=== PATIENT | female | born 1965 | race Two or more races ===

== ENCOUNTER 2020-03-18 09:26 | Outpatient (REF) | payer OTHER, SELFPAY ==
[2020-03-19 09:47] LABS: CT PCR NOT DETECTED (Not Detect.); NG PCR NOT DETECTED (Not Detect.)
[2020-03-20 22:57] LABS: HPV mRNA E6/E7 rflx Not Detected (Not Detected)
== END 2020-03-18 09:27 | disposition home or self-care (01) ==
LOC: HO.LAB 09:26
PROVIDERS: PCP Physician Assistant; Referring Provider Physician Assistant; Visit Provider Obstetrics & Gynecology
DX: Z01.419 Encounter for gynecological examination (general) (routine) without abnormal findings (principal); N92.1 Excessive and frequent menstruation with irregular cycle
CPT/HCPCS: 87491; 87591; 87624; 87625; 88142

== ENCOUNTER 2020-04-02 11:38 | Outpatient (REF) | payer OTHER, SELFPAY ==
--- NOTE | 2020-04-02 11:44 | US_ITS ---
EXAMINATION: PELVIC ULTRASOUND CLINICAL INFORMATION: Excessive and frequent menstruation COMPARISON: Previous exam June 2013 TECHNIQUE: Transabdominal and transvaginal pelvic ultrasound. Transvaginal exam was performed for better visualization of the uterus and ovaries. FINDINGS: The uterus is anteverted and measures 10.1 x 6.1 x 6.3 cm in dimension. There is a 1.8 x 1.5 x 1.7 cm subserosal hypoechoic lesion in the posterior body of the uterus suggestive of a small fibroid or adenomyoma. This is decreased from 2.8 x 2.9 x 2 cm on prior exam. The second left anterior uterine body lesion on June 2011 exam is is not appreciated. The central uterus is heterogeneous appearing. The endometrium has ill-defined borders. Appearance is questionable for adenomyomatosis. The endometrium may be thickened, question measuring up to 2.5 cm and it is difficult to exclude a mass. The cervix is normal appearing. The ovaries are normal. The right ovary measures 2.5 x 1.4 x 1.5 cm and the left ovary measures 2.4 x 1.2 x 1.8 cm. There is no fluid in the pelvis. US/US pelvic complete IMPRESSION: Ill-defined endometrium and heterogeneous central uterus. Adenomyosis should be considered. Endometrial thickening or mass cannot be excluded. Follow-up pelvic MRI may be helpful. 1.8 x 1.5 x 1.7 cm posterior uterine body small fibroid or adenomyoma decreased in size from June 2013 exam. Normal-appearing ovaries.
== END 2020-04-02 11:39 | disposition home or self-care (01) ==
LOC: HO.US 11:38
PROVIDERS: Visit Provider Obstetrics & Gynecology
DX: N92.1 Excessive and frequent menstruation with irregular cycle (principal)
CPT/HCPCS: 76830; 76856

== ENCOUNTER → 2020-04-08 11:07 | Outpatient (BNVA) | payer OTHER, SELFPAY | PROVIDERS: Visit Provider Obstetrics & Gynecology | DX: Z76.89 Persons encountering health services in other specified circumstances (principal) ==

== ENCOUNTER 2020-04-10 07:52 | Outpatient (REF) | payer OTHER, SELFPAY ==
[2020-04-10 09:51] LABS: HCG Quantitative < 2 mIU/mL; Thyroid Stimulating Hormone 2.57 uIU/mL (0.32-4.0)
[2020-04-11 06:12] LABS: Follicle Stimulating Hormone 61.3 mIU/mL; Lutenizing Hormone 50.3 mIU/mL
== END 2020-04-10 07:53 | disposition home or self-care (01) ==
LOC: HO.LAB 07:52
PROVIDERS: PCP Internal Medicine; Visit Provider Obstetrics & Gynecology
DX: Z01.419 Encounter for gynecological examination (general) (routine) without abnormal findings (principal); N92.1 Excessive and frequent menstruation with irregular cycle
CPT/HCPCS: 83001; 83002; 84443; 84702

== ENCOUNTER → 2020-04-22 09:52 | Outpatient (BNVA) | payer MEDICAID, SELFPAY | PROVIDERS: Visit Provider Orthopaedic Surgery | DX: M16.11 Unilateral primary osteoarthritis, right hip (principal) | CPT/HCPCS: 99202 ==

== ENCOUNTER 2020-06-07 11:44 | Emergency (ER) | payer MEDICAID, SELFPAY ==
--- NOTE | ~2020-06-07 | XR_ITS ---
EXAMINATION: XR CHEST CLINICAL INFORMATION: SOB and chest pain. COMPARISON: None TECHNIQUE: 2 views of the chest were obtained. FINDINGS: No significant abnormality is noted involving the heart, lungs, mediastinum, bony thorax or soft tissues. XR/XR chest 2V IMPRESSION: Unremarkable chest exam.
[2020-06-07 11:46] VITALS: BP 150/70; PULSE 64; RESP 18; TEMP 36.8; O2SAT 100; BMI 38.7
--- NOTE | 2020-06-07 11:53 | ECG_ITS ---
Test Reason : CP Blood Pressure : / mmHG Vent. Rate : 060 BPM Atrial Rate : 060 BPM P-R Int : 138 ms QRS Dur : 080 ms QT Int : 416 ms P-R-T Axes : 021 -14 033 degrees QTc Int : 416 ms Artifact in tracing Normal sinus rhythm Normal ECG When compared to the previous EKG of 21 jan 2015, no significant change noted. Referred By: Generic ED Physician Electronically Signed By:NAVDEEP HEWITT
[2020-06-07 16:19] VITALS: BP 135/64; PULSE 60; RESP 14; O2SAT 96
--- NOTE | 2020-06-07 16:27 | ED_ITS ---
HPI - Chest Pain General Chief Complaint: Chest Pain Stated Complaint: LOW BLOOD PRESSURE CHEST PAIN Time Seen by Provider: 06/07/20 16:13 Source: patient Mode of arrival: ambulatory Limitations: no limitations History of Present Illness HPI narrative: Patient is a 55-year-old female with a past medical history of hypertension complaining of a low blood pressure. She states she was at her doctor's office 2 days ago where her blood pressure was in the 90s over 40s, her doctor instructed her to stop taking her amlodipine so she did, 2 days ago. She states this morning when she woke up her blood pressure was in the 90s over 40s, she also admits to associated chest pain, shortness of breath. She describes th e chest pain as a pressure and a tingling in the center of her chest. She denies neck pain jaw pain left arm pain numbness or tingling, she denies shortness of breath with exertion. She states she does not have asthma, COPD or smoke cigarettes. She denies any cardiac history. She states she is still taking her metoprolol daily. Patient also states she has been eating and drinking normally for the past few days. Related Data Home Medications Medication Instructions Recorded Confirmed clonazepam 1 mg tablet See Rx Instructions PO DAILY 02/15/20 04/08/20 clonazepam 1 mg tablet 1 mg PO DAILY 02/26/20 04/08/20 oxycodone 15 mg tablet 15 mg PO Q6H PRN 04/22/20 Previous Rx's Medication Instructions Recorded metoprolol succinate 100 mg 100 mg PO DAILY #30 tab 04/03/20 tablet,extended release 24 hr Allergies Allergy/AdvReac Type Severity Reaction Status Date / Time morphine [Morphine] Allergy Intermediate HIVES Verified 06/07/20 11:46 Review of Systems Review of Systems: Yes all other systems are reviewed and are negative [facility] Past Medical History Medical History Anxiety Back problem Hypertension Surgical History Fusion of lumbar spine History of colonoscopy History of lumbar surgery History of tubal ligation Family History Family History Father Suicide Mother Heart disease Diabetes CVD (cardiovascular disease) Maternal Grandmother Heart disease Maternal Grandfather Diabetes Maternal Aunt Heart disease Maternal Uncle Heart disease Social History Social History Alcohol intake: never Smoking Status: Never smoker Use of substances other than those prescribed or required for medical reasons: Yes Substance Use Type: Marijuana Advance Directives: No Advance Directives Information Provided: No Current occupational status: disabled Current occupation: right handed Physical Exam Vital Signs: Vital Signs: Last Vital Signs Temp 98.3 F 06/07/20 17:08 Pulse 61 06/07/20 17:08 Resp 16 06/07/20 17:08 BP 124/52 L 06/07/20 17:08 Pulse Ox 97 06/07/20 17:08 Body Mass Index 38.7 Const: General: cooperative, healthy appearing, comfortable and no acute distress Nutritional Appearance: average body habitus Orientation/consciousness: patient oriented x3 Eyes: General: appearance normal, both eyes and all related structures Neck: Neck: Yes normal visual inspection, Yes full ROM, Yes no lymphadenopathy, Yes trachea midline and Yes supple Chest: Chest palpation & inspection: normal inspection of the chest and abnormal palpation of chest wall (TTP) Resp: Effort & Inspection: normal respiratory effort and able to speak in complete sentences Auscultation: clear to auscultation bilaterally, no crackles, no rales, no rhonchi and no wheezes Cardio: Rate: regular rate Rhythm: regular rhythm Heart sounds: normal S1 and S2 GI: Inspection: Yes obesity Palpation (GI): Soft to palpation, nontender and no guarding Skin: General skin exam: no rashes or lesions noted Neuro: General: patient oriented x3 Extrem: General: Yes normal to inspection, Yes full ROM and Yes no pedal edema Course Course Course Narrative: Patient is a 55-year-old female with a past medical history of hypertension who was taking amlodipine and metoprolol to control her high blood pressure. She went to her doctor's office 2 days ago where she was noted to have lower blood pressure so he recommended she stop the amlodipine, which she did. Today, she states her blood pressure was too low when she woke up in the 90s over 40s. She also admits to chest pain and shortness of breath. EKG was normal sinus rhythm with a rate of 60. Will get regular labs, troponins and monitor patient's blood pressure. VSS Reevaluation(s) Reevaluation #1: Patient stating she now feels dizzy, I examined her ears, both tympanic membranes were completely normal. When I tried to do extraocular eye movement exam, the patient became nauseous. Negative nystagmus , face symmetrical, PERRLA. Will give Zofran and meclizine and reassess. CBC within normal limits, chemistry and troponin still pending. Time: 17:32 Reevaluation #2: Labs are within normal limits, negative troponin, blood pressures have all been within normal limits (or even elevated). Patient states she is feeling better, not dizzy. I explained I was going to give her prescription for meclizine and only to take it when she felt dizzy. She likely has costochondritis as chest pain was reproducible. Time: 18:40 [facility] - Chest Pain Lab Data Result diagrams: 06/07/20 17:03 06/07/20 17:03 Labs: Lab Results 06/07/20 06/07/20 06/07/20 Range/Units 17:03 17:03 17:03 WBC 8.8 (4.8-10.8) X10*3/uL RBC 4.32 (4.20-5.50) X10*6/uL Hgb 13.1 (12.0-16.0) g/dl Hct 40.0 (37-47) % MCV 92.6 (80-98) fL MCH 30.3 (27.0-33.0) pg MCHC 32.8 (31.0-35.0) g/dl RDW 13.2 (11.0-16.0) % Plt Count 284 (160-400) X10*3/uL MPV 10.3 (9.4-12.3) fL Immature Gran % (Auto) 0.2 (0.0-0.4) % Neut % (Auto) 48.6 (45-73) % Lymph % (Auto) 39.7 (20-40) % [place] % (Auto) 5.8 (2-11) % Eos % (Auto) 5.2 H (0-4) % Baso % (Auto) 0.5 (0-2) % Lymph # (Auto) 3.5 (1.2-4.9) X10*3/uL [place] # (Auto) 0.5 (0.1-1.2) X10*3/uL Eos # (Auto) 0.5 H (0.0-0.4) X10*3/uL Baso # (Auto) 0.0 (0.0-0.2) X10*3/uL Abs Immat Gran (auto) 0.02 (0.00-0.03) X10*3/uL Absolute Neuts (auto) 4.3 (2.0-8.3) X10*3/uL Absolute Nucleated RBC 0.000 (0.0-0.012) X10*3/uL Nucleated RBC % (auto) 0.0 (0.0-0.2) /100WBC Sodium 141 (135-145) mmol/L Potassium 4.9 (3.3-5.1) mmol/L Chloride 106 (96-108) mmol/L Carbon Dioxide 27 (22-29) mmol/L Anion Gap 13 (12-20) BUN 18 H (9-16) mg/dL Creatinine 0.83 (0.5-1.4) mg/dL Estim Creat Clear Calc 91.3 Estimated GFR > 60 Random Glucose 96 (60-115) mg/dL Lactic Acid 1.1 (0.5-2.0) mmol/L Calcium 9.2 (8.4-10.2) mg/dL Magnesium 2.2 (1.6-2.6) mg/dL Troponin I High Sens (<3.5-17.0) ng/L 06/07/20 Range/Units 17:03 WBC (4.8-10.8) X10*3/uL RBC (4.20-5.50) X10*6/uL Hgb (12.0-16.0) g/dl Hct (37-47) % MCV (80-98) fL MCH (27.0-33.0) pg MCHC (31.0-35.0) g/dl RDW (11.0-16.0) % Plt Count (160-400) X10*3/uL MPV (9.4-12.3) fL Immature Gran % (Auto) (0.0-0.4) % Neut % (Auto) (45-73) % Lymph % (Auto) (20-40) % [place] % (Auto) (2-11) % Eos % (Auto) (0-4) % Baso % (Auto) (0-2) % Lymph # (Auto) (1.2-4.9) X10*3/uL [place] # (Auto) (0.1-1.2) X10*3/uL Eos # (Auto) (0.0-0.4) X10*3/uL Baso # (Auto) (0.0-0.2) X10*3/uL Abs Immat Gran (auto) (0.00-0.03) X10*3/uL Absolute Neuts (auto) (2.0-8.3) X10*3/uL Absolute Nucleated RBC (0.0-0.012) X10*3/uL Nucleated RBC % (auto) (0.0-0.2) /100WBC Sodium (135-145) mmol/L Potassium (3.3-5.1) mmol/L Chloride (96-108) mmol/L Carbon Dioxide (22-29) mmol/L Anion Gap (12-20) BUN (9-16) mg/dL Creatinine (0.5-1.4) mg/dL Estim Creat Clear Calc Estimated GFR Random Glucose (60-115) mg/dL Lactic Acid (0.5-2.0) mmol/L Calcium (8.4-10.2) mg/dL Magnesium (1.6-2.6) mg/dL Troponin I High Sens < 3.5 (<3.5-17.0) ng/L Discharge Plan Discharge Clinical Impression: Acute costochondritis, Dizziness Patient Disposition: Home, Self-Care Instructions: Costochondritis (ED), Dizziness (ED) Prescriptions: No Action clonazepam [Klonopin] 1 mg tablet See Rx Instructions PO DAILY RF: 0 metoprolol succinate 100 mg tablet extended release 24 hr 100 mg PO DAILY Qty: 30 RF: 2 clonazepam [Klonopin] 1 mg tablet 1 mg PO DAILY RF: 0
[2020-06-07 17:08] VITALS: BP 124/52; PULSE 61; RESP 16; TEMP 36.8; O2SAT 97
[2020-06-07 17:11] LABS: MANUAL DIFF FLAG NO
[2020-06-07 17:15] LABS: Basophils Percent Auto 0.5 % (0-2); Eosinophils Absolute Auto 0.5 X10*3/uL (0.0-0.4); Eosinophils Percent Auto 5.2 % (0-4); Hemoglobin 13.1 g/dl (12.0-16.0); Imm Gran Abs Auto 0.02 X10*3/uL (0.00-0.03); Imm Gran Pct Auto 0.2 % (0.0-0.4); Lymphocytes Absolute Auto 3.5 X10*3/uL (1.2-4.9); Lymphocytes Percent Auto 39.7 % (20-40); Mean Corpuscular HGB Conc 32.8 g/dl (31.0-35.0); Mean Corpuscular Hemoglobin 30.3 pg (27.0-33.0); Mean Corpuscular Volume 92.6 fL (80-98); Mean Platelet Volume 10.3 fL (9.4-12.3); Monocytes Absolute Auto 0.5 X10*3/uL (0.1-1.2); Monocytes Percent Auto 5.8 % (2-11); Neutrophils Absolute Auto 4.3 X10*3/uL (2.0-8.3); Neutrophils Percent Auto 48.6 % (45-73); Platelet Count 284 X10*3/uL (160-400); Red Blood Count 4.32 X10*6/uL (4.20-5.50); Red Cell Distribution Width 13.2 % (11.0-16.0); White Blood Count 8.8 X10*3/uL (4.8-10.8)
--- NOTE | 2020-06-07 17:40 | PC.NURSE ---
pt c/o dizziness, (em, chava) aware.
[2020-06-07] MEDS: Meclizine HCl 25 MG TABLET PO (17:41)
[2020-06-07 17:50] LABS: Lactic Acid 1.1 mmol/L (0.5-2.0)
[2020-06-07 17:54] LABS: Anion Gap 13 (12-20); Blood Urea Nitrogen 18 mg/dL (9-16); Calcium 9.2 mg/dL (8.4-10.2); Carbon Dioxide 27 mmol/L (22-29); Chloride 106 mmol/L (96-108); Creatinine Clr Calc Pharmacy 91.3; Estimated Glomerular Filt Rate > 60; Glucose Random 96 mg/dL (60-115); Magnesium 2.2 mg/dL (1.6-2.6); Potassium 4.9 mmol/L (3.3-5.1); Sodium 141 mmol/L (135-145)
[2020-06-07 18:00] VITALS: BP 133/85; PULSE 61; RESP 16; TEMP 37; O2SAT 100
[2020-06-07 18:01] LABS: Troponin-I High Sensitivity < 3.5 ng/L (<3.5-17.0)
== END 2020-06-07 19:03 | disposition home or self-care (01) ==
PROVIDERS: Physician Assistant; Emergency Provider Emergency Medicine Emergency Medical Services; PCP Internal Medicine
DX: M94.0 Chondrocostal junction syndrome [Tietze] (principal); R42 Dizziness and giddiness; I10 Essential (primary) hypertension
CPT/HCPCS: 36415; 71046; 80048; 83605; 83735; 84484; 85025; 93005; 99283; 99284

== ENCOUNTER 2020-06-10 10:08 | Outpatient (REF) | payer MEDICAID, SELFPAY | END 2020-06-10 10:09 | disposition home or self-care (01) | LOC: HO.LAB 10:08 | PROVIDERS: Visit Provider Obstetrics & Gynecology | DX: N92.1 Excessive and frequent menstruation with irregular cycle (principal) | CPT/HCPCS: 58100; 88305 ==

== ENCOUNTER 2020-06-24 09:40 | Outpatient (REF) | payer MEDICAID, SELFPAY | END 2020-06-24 09:41 | disposition home or self-care (01) | LOC: HO.LAB 09:40 | PROVIDERS: Visit Provider Internal Medicine | DX: Z20.822 Contact with and (suspected) exposure to COVID-19 (principal) | CPT/HCPCS: 36415; C9803; U0003; U0005 ==

== ENCOUNTER 2020-07-16 06:07 | Outpatient (REF) | payer MEDICAID, SELFPAY ==
--- NOTE | ~2020-07-16 | FL_ITS ---
EXAMINATION: XR FLUOROSCOPY WITH IMAGES CLINICAL INFORMATION: Right hip arthritis COMPARISON: None. TECHNIQUE: Fluoroscopy performed by Darleen Arango NP. Fluoroscopy time: 0.3 minutes DAP: 3.6 Gycm2 Images: 1 FINDINGS: Image demonstrates needle placement projecting over the superior lateral femoral acetabular joint. FL/FL guidance in treatment room IMPRESSION: Fluoroscopy guidance for right hip injection.
== END 2020-07-16 06:08 | disposition home or self-care (01) ==
LOC: HO.RADIR 06:07
PROVIDERS: Visit Provider Anesthesiology
DX: M16.11 Unilateral primary osteoarthritis, right hip (principal); I10 Essential (primary) hypertension; F41.9 Anxiety disorder, unspecified; Z88.5 Allergy status to narcotic agent
CPT/HCPCS: 20610; J3300; Q9967

== ENCOUNTER → 2020-07-22 09:38 | Outpatient (BNVA) | payer MEDICAID, SELFPAY | PROVIDERS: PCP Internal Medicine; Visit Provider Obstetrics & Gynecology | DX: N92.1 Excessive and frequent menstruation with irregular cycle (principal); R93.89 Abnormal findings on diagnostic imaging of other specified body structures | CPT/HCPCS: 99212 ==

== ENCOUNTER 2020-07-26 07:18 | Day surgery (SDC) | payer MEDICAID, SELFPAY ==
[2020-07-18 15:12] VITALS: BMI 38.4
--- NOTE | 2020-07-25 09:34 | P.CONAN_ITS ---
Documented by User: Gretel Simmons 07/25/20 09:36 HPI - Anesthesia Eval Consult details Narrative: 55yo F for D&C Diagnostic Hysteroscopy PMFSH Active Problems Active Problems: All Active Problems (Updated 07/18/20 @ 15:12 by Meghna Steven) Well woman exam (Acute) Metrorrhagia (Acute) Thickened endometrium (Acute) Hot flashes (Acute) Osteoarthritis of right hip (Acute) Anxiety (Acute) Hypertension (Acute) Past Medical History Medical History Anxiety Back problem Chronic back pain Depression Hypertension On beta tan at home Family History Family History Father Suicide Mother Heart disease Diabetes CVD (cardiovascular disease) Maternal Grandmother Heart disease Maternal Grandfather Diabetes Maternal Aunt Heart disease Maternal Uncle Heart disease Surgical History Surgical History Fusion of lumbar spine History of colonoscopy History of lumbar surgery History of tubal ligation Social History Social History Are you a primary dog daycare provider to a significant other at home: No Do you presently have visiting nurse or other home services: 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 If so, by whom?: No Advance Directives: No Advance Directives Information Provided: No Advance Directives on File: No Recently lost weight without trying: No Current occupational status: disabled Current occupation: right handed Meds Allergies Allergy/AdvReac Type Severity Reaction Status Date / Time morphine [Morphine] Allergy Intermediate HIVES Verified 07/26/20 07:52 Home Medications Medication Instructions Recorded Confirmed Last Taken Type clonazepam 1 mg tablet See Rx Instructions PO DAILY 02/15/20 07/18/20 Unknown History clonazepam 1 mg tablet 1 mg PO DAILY 02/26/20 07/26/20 07/26/20 07:00 History oxycodone 15 mg tablet 15 mg PO Q6H PRN 04/22/20 07/22/20 Unknown History Exam Exam Date and Time: July 25, 2020 0934 Height,Weight and Vital Signs: Height 5 ft 4 in Weight 101.605 kg Pertinent Lab Results Pertinent Lab Results: Laboratory Tests 06/07/20 06/07/20 17:03 17:03 WBC 8.8 Hgb 13.1 Hct 40.0 Plt Count 284 Sodium 141 Potassium 4.9 Chloride 106 Carbon Dioxide 27 BUN 18 H Creatinine 0.83 Narrative Narrative: EKG 06/2020 Artifact in tracing Normal sinus rhythm Normal ECG When compared to the previous EKG of 21 jan 2015, no significant change noted. Assessment and Plan Assessment Anesthesia Assessment: Chart Reviewed Documented by User: Aarti Lowe 07/26/20 08:08 [facility] Past Medical History Medical History Anxiety Back problem Chronic back pain Depression Hypertension On beta tan at home Family History Family History Father Suicide Mother Heart disease Diabetes CVD (cardiovascular disease) Maternal Grandmother Heart disease Maternal Grandfather Diabetes Maternal Aunt Heart disease Maternal Uncle Heart disease Surgical History Surgical History Fusion of lumbar spine History of colonoscopy History of lumbar surgery History of tubal ligation Social History Social History Are you a primary dog daycare provider to a significant other at home: No Do you presently have visiting nurse or other home services: 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 If so, by whom?: No Advance Directives: No Advance Directives Information Provided: No Advance Directives on File: No Recently lost weight without trying: No Current occupational status: disabled Current occupation: right handed Meds Allergies Allergy/AdvReac Type Severity Reaction Status Date / Time morphine [Morphine] Allergy Intermediate HIVES Verified 07/26/20 07:52 Home Medications Medication Instructions Recorded Confirmed Last Taken Type clonazepam 1 mg tablet See Rx Instructions PO DAILY 02/15/20 07/18/20 Unknown History clonazepam 1 mg tablet 1 mg PO DAILY 02/26/20 07/26/20 07/26/20 07:00 History oxycodone 15 mg tablet 15 mg PO Q6H PRN 04/22/20 07/22/20 Unknown History Exam Airway Mallampati Class: II TM Dist: >3cm Neck ROM: Full Loose/Missing/Broken Teeth: No Heart: RRR Lungs: CTA Assessment and Plan Assessment Anesthesia Assessment: Anesthesia Plan Discussed and Chart Reviewed Final Anesthetic Review NPO: Yes ASA Class: II Final Preanesthetic Review: Meds/Allgs Chart Reviewed, Consent Obtained/Reviewed and Anes Risks/Benef Reviewed Patient Risk: Intermediate Procedure Risk: Low Anesthetic Plan Anesthetic Plan: GA Disposition: Standard PACU
--- NOTE | 2020-07-26 07:32 | MHC.SHP ---
Pre-Procedural Eval Section A The patient is an INPATIENT: No Changes since office visit: No Cold of Flu in the past 2 weeks, No New Medical Problems, No Changes in Medication and No Patient answered all questions The History & Physical has been completed within 30 days and I have reviewed it.: Yes Section B Chief Complaint: Abnormal Finding on Ultrasound Allergies: Allergies Allergy/AdvReac Type Severity Reaction Status Date / Time morphine [Morphine] Allergy Intermediate HIVES Verified 07/22/20 09:53 Plan Diagnosis/Plan: Unchanged I have reviewed the history and physical and performed a pertinent physical examination on my patient. No changes have occurred unless specified.
[2020-07-26 07:42] LABS: UPreg QC Valid YES; Urine Pregnancy NEGATIVE (NEGATIVE)
[2020-07-26 07:50] VITALS: BP 147/69; PULSE 68; RESP 20; TEMP 35.1; O2SAT 99
[2020-07-26] MEDS: Lactated Ringers 1,000 ML 100 ML IVCONT (08:02)
--- NOTE | 2020-07-26 09:38 | PM.OP ---
Brief Operative Note Date of Service: 07/26/20 Pre-op diagnosis: Menorrhagia Post-op diagnosis: other (Normal endometrial and endocervical cavity) Procedure: Hysteroscopy D&C, Polypectomy Surgeon: Castro Perez MD Anesthesia: MAC Estimated blood loss (mL): 0 Pathology: other (Endometrial Scrapping. Polyp) Condition: stable Disposition: PACU
--- NOTE | 2020-07-26 09:40 | P.OP_ITS ---
Operative Note Operative Note Date of Service: 07/26/20 Narrative: Preop Diagnosis: Menorrhagia Operation: Diagnostic Hysteroscopy, Dilataion & Curettage Post Op Diagnosis: normal endometrial and endocervical cavity no evidence of pathology QBL: Minimal Anesthesia: MAC Surgeon: Castro Perez MD Director Export: None Complication: None Pathology: Endometrial Scrapings Procedure: The patient was put in the dorsal lithotomy position, scrubbed, and draped in the usual manner. A sterile speculum was inserted in the patient's vagina. The anterior lip of the cervix was grasped with a single tooth tenaculum. The cervix was dilated up to 5 mm, then the scope was inserted in the patient's uterus. Inspection revealed normal endocervical & endometrial cavity with no evidence of pathology. The scope was taken out of the uterine cavity , then sharp curetting was carried on with no complications. At the end of the procedure, all instruments were taken out of the patient uterine and vaginal cavity. The single tooth tenaculum was removed and homeostasis was assured using pressure. The patient tolerated the procedure well and was transferred to the PACU in a stable condition.
[2020-07-26 09:45] VITALS: BP 101/84; PULSE 69; RESP 16; TEMP 36.1; O2SAT 96
[2020-07-26 09:50] VITALS: BP 101/71; PULSE 71; RESP 16; O2SAT 95
[2020-07-26 09:55] VITALS: BP 111/69; PULSE 66; RESP 16; O2SAT 96
[2020-07-26 10:00] VITALS: BP 111/61; PULSE 62; RESP 16; O2SAT 96
[2020-07-26 10:15] VITALS: BP 107/64; PULSE 56; RESP 16; TEMP 36.5; O2SAT 96
== END 2020-07-26 10:40 | disposition home or self-care (01) ==
PROVIDERS: PCP Internal Medicine; Visit Provider Obstetrics & Gynecology
PROC: 0UDB8ZX Extraction of Endometrium, Via Natural or Artificial Opening Endoscopic, Diagnostic (ICD-10-PCS; CPT 58558; principal; 2020-07-26 09:50)
DX: N92.1 Excessive and frequent menstruation with irregular cycle (principal); R93.89 Abnormal findings on diagnostic imaging of other specified body structures; I10 Essential (primary) hypertension; F32.9 Major depressive disorder, single episode, unspecified; Z79.899 Other long term (current) drug therapy; Z88.8 Allergy status to other drugs, medicaments and biological substances; Z98.51 Tubal ligation status; Z87.891 Personal history of nicotine dependence
CPT/HCPCS: 58558; 81025; 88305; J1100; J2250; J2405; J3010

== ENCOUNTER → 2020-08-08 13:34 | Outpatient (BNVA) | payer MEDICAID, SELFPAY | PROVIDERS: PCP Internal Medicine; Visit Provider Obstetrics & Gynecology ==

== ENCOUNTER → 2020-09-02 09:27 | Outpatient (BNVA) | payer MEDICAID, SELFPAY | PROVIDERS: PCP Internal Medicine; Visit Provider Nurse Practitioner Family | DX: M16.11 Unilateral primary osteoarthritis, right hip (principal); M54.16 Radiculopathy, lumbar region; Z79.899 Other long term (current) drug therapy | CPT/HCPCS: 99212 ==

== ENCOUNTER 2020-09-04 09:59 | Outpatient (REF) | payer MEDICAID, SELFPAY ==
--- NOTE | ~2020-09-04 | US_ITS ---
EXAMINATION: US VENOUS ULTRASOUND WITH DOPPLER LOWER EXTREMITY, RIGHT CLINICAL INFORMATION: Swelling COMPARISON: Previous exam August 2013 TECHNIQUE: Ultrasound of the deep veins is performed from the hip to the calf with compression sonography and color and pulse Doppler assessment. Spectral analysis with color-flow imaging is performed. FINDINGS: There is normal venous compression and respiratory variation and augmented flow. The visualized common femoral vein, superficial femoral vein, profunda femoral vein, popliteal vein, and the trifurcation region shows no evidence of deep venous thrombosis. There is no significant popliteal fossa cyst. US/US venous duplex LE RT IMPRESSION: No DVT demonstrated in the right lower extremity.
== END 2020-09-04 10:00 | disposition home or self-care (01) ==
LOC: HO.HMGCX 09:59
PROVIDERS: Visit Provider Anesthesiology
DX: R60.0 Localized edema (principal); M79.89 Other specified soft tissue disorders
CPT/HCPCS: 93971

== ENCOUNTER 2020-12-17 15:02 | Emergency (ER) | payer MEDICAID, SELFPAY ==
--- NOTE | ~2020-12-17 | XR_ITS ---
EXAMINATION: XR HIP, RIGHT WITH AP PELVIS CLINICAL INFORMATION: Pain status-post fall. COMPARISON: None TECHNIQUE: AP and frog-leg lateral views of the right hip are submitted, together with a frontal view of the pelvis. FINDINGS: Bony alignment and mineralization are normal. There is moderate narrowing of the right acetabular joint space. There is articular surface irregularity and subchondral sclerosis of the right acetabular roof. The right femoral head remains smooth. There is mild cortical thickening at the superior right femoral head and neck junction, suggesting possible femoroacetabular impingement. The left acetabular joint space is well-maintained, and there is mild subchondral sclerosis and peripheral osteophyte formation of the left acetabular roof. The bilateral femoral heads appear smooth. There is orthopedic hardware applied to the right sacroiliac joint and the lower lumbar spine. No soft tissue foreign body is seen. XR/XR hip RT w PEL1V IMPRESSION: Moderate osteoarthritic change is seen of the right hip, and there is mild osteoarthritic change of the left hip. No fracture or dislocation is seen.
[2020-12-17 15:50] VITALS: BP 148/95; PULSE 79; RESP 18; TEMP 36.7; O2SAT 100; BMI 36.6
--- NOTE | 2020-12-17 16:57 | ED_ITS ---
HPI - Fall General Chief Complaint: Fall Stated Complaint: right leg numbness Time Seen by Provider: 12/17/20 16:00 Source: patient Mode of arrival: ambulatory History of Present Illness HPI Narrative: 55-year-old female with a past medical history of anxiety, depression, hypertension, presenting to the ED complaining of acute on chronic right hip pain s/p hip giving out today. Reports feels like hip is out of place, can feel a clicking. Reports hardware is in hip, is awaiting hip replacement. Denies injury/fall. Reports associated numbness/tingling radiating down RLE. Denies weakness, urinary incontinence/retention Takes oxycodone at home for pain MD complaint: other Related Data Home Medications Medication Instructions Recorded Confirmed clonazepam 1 mg tablet (Klonopin) See Rx Instructions PO DAILY 02/15/20 08/08/20 clonazepam 1 mg tablet (Klonopin) 1 mg PO DAILY 02/26/20 08/08/20 oxycodone 15 mg tablet 15 mg PO Q6H PRN 04/22/20 09/02/20 Previous Rx's Medication Instructions Recorded meclizine 12.5 mg tablet 12.5 mg PO BID PRN #14 tab 06/07/20 metoprolol succinate 100 mg 100 mg PO DAILY #30 tab 06/23/20 tablet,extended release 24 hr venlafaxine 75 mg capsule,extended 75 mg PO DAILY #90 cap 07/15/20 release 24 hr cyclobenzaprine 5 mg tablet 5 mg PO Q8H PRN 5 Days #14 tab 12/17/20 lidocaine 5 % topical patch 1 patch TOPICAL DAILY PRN #30 ea 12/17/20 (Lidoderm) MDD remove after 12 hours naproxen 500 mg tablet 500 mg PO BID PRN 10 Days #20 tab 12/17/20 Allergies Allergy/AdvReac Type Severity Reaction Status Date / Time morphine [Morphine] Allergy Intermediate HIVES Verified 12/17/20 15:50 Review of Systems Review of Systems: Constitutional: No Fever, No Chills Cardiovascular: No Chest Pain, No SOB Respiratory: No Cough Gastrointestinal: No Nausea, No Abdominal pain Genitourinary: No Urinary Incontinence/retention Musculoskeletal: + joint pain, No Myalgias, No Joint Swelling Skin: No Skin Lesions, No rash Neuro: No Weakness, + Numbness, + Paresthesias Yes all other systems are reviewed and are negative PMFSH Past Medical History Attestation statement: The following information was validated with the patient. Medical History Anxiety Back problem Chronic back pain Depression Hypertension On beta tan at home Surgical History Fusion of lumbar spine History of colonoscopy History of lumbar surgery History of tubal ligation Family History Family History Father Suicide Mother Heart disease Diabetes CVD (cardiovascular disease) Maternal Grandmother Heart disease Maternal Grandfather Diabetes Maternal Aunt Heart disease Maternal Uncle Heart disease Social History Social History Are you a primary special needs caregiver to a significant other at home: No Do you presently have visiting nurse or other home services: Yes ([employer]) Alcohol intake: never Substance Use Type: Marijuana Advance Directives: No Advance Directives Information Provided: No Patient : No Current occupational status: disabled Current occupation: right handed Physical Exam Vital Signs: Vital Signs: Last Vital Signs Temp 98.0 F 12/17/20 15:50 Pulse 79 12/17/20 15:50 Resp 18 12/17/20 15:50 BP 148/95 H 12/17/20 15:50 Pulse Ox 100 12/17/20 15:50 Body Mass Index 36.6 Const: General: cooperative and healthy appearing Orientation/consciousness: patient oriented x3 Limitations: no limitations HENMT: Head: Yes normal to inspection Ears: hearing grossly normal bilaterally General nose exam: Normal external nose present Face and sinus: Yes normal facial exam Eyes: General: appearance normal, both eyes and all related structures EOM: EOMs intact bilaterally Neck: Neck: Yes normal visual inspection Resp: Effort & Inspection: normal respiratory effort and no respiratory distress Cardio: Rate: regular rate Peripheral pulses: dorsalis pedis present GI: Inspection: Yes normal to inspection Palpation (GI): Soft to palpation, nontender, no guarding and not rigid Back/Spine/Pelvis: Other: No midline thoracic/lumbar spinous tenderness/step- off Skin: Rashes: no rashes Wounds: no wounds Neuro: General: patient oriented x3 Gait exam (Neuro): Normal gait present Extrem: Other: Right hip tenderness to palpation. Limited external rotation secondary to pain. Neurovascularly intact distally. No appreciable ecchymosis/erythema or cellulitis. No deformity General: Yes normal to inspection Course Course Course Narrative: XR hip RT w PEL1V IMPRESSION: Moderate osteoarthritic change is seen of the right hip, and there is mild osteoarthritic change of the left hip. No fracture or dislocation is seen. >> results discussed with patient including needed follow-up with Orthopedics. MDM - Fall MDM Narrative Medical decision making narrative: 55-year-old female with a past medical history of anxiety, depression, hypertension, presenting to the ED complaining of acute on chronic right hip pain s/p hip giving out today. On exam VSS, NAD/well-appearing, physical exam as above. Concern for MSK pain vs OA vs ? Fracture or dislocation although lower on differential Plan: X-rays Medical Records Attestation: I reviewed the patient's medical records. Discharge Plan Discharge Clinical Impression: Osteoarthritis Patient Disposition: Home, Self-Care Instructions: Osteoarthritis (ED) Additional Instructions: Your x-ray shows osteoarthritis You need to follow-up with orthopedics, likely for your planned hip replacement Continue taking previously prescribed oxycodone for pain, in addition Flexeril is a muscle relaxer, take at night as it makes you drowsy, do not drive, drink alcohol, or operate machinery while taking it Naproxen as an anti-inflammatory / pain medication, take with food Lidoderm patches are numbing patches, apply to painful area In addition take Tylenol at home If symptoms persist or worsen, pain becomes unbearable, you developed urinary retention or incontinence, or weakness return to the ED Prescriptions: New lidocaine [Lidoderm] 5 % adhesive patch,medicated 1 patch topical DAILY MDD remove after 12 hours PRN (Reason: pain) Qty: 30 RF: 0 naproxen 500 mg tablet 500 mg PO BID PRN (Reason: pain) 10 Days Qty: 20 RF: 0 cyclobenzaprine 5 mg tablet 5 mg PO Q8H PRN (Reason: pain (scale score 7-10)) 5 Days Qty: 14 RF: 0 No Action clonazepam [Klonopin] 1 mg tablet See Rx Instructions PO DAILY RF: 0 metoprolol succinate 100 mg tablet extended release 24 hr 100 mg PO DAILY Qty: 30 RF: 6 venlafaxine 75 mg capsule,extended release 24hr 75 mg PO DAILY Qty: 90 RF: 3 meclizine 12.5 mg tablet 12.5 mg PO BID PRN (Reason: dizziness) Qty: 14 RF: 0 clonazepam [Klonopin] 1 mg tablet 1 mg PO DAILY RF: 0 oxycodone 15 mg tablet 15 mg PO Q6H PRN (Reason: Pain) RF: 0 Referrals: Will Waldron MD [Physician] - 3 days
--- NOTE | 2020-12-17 17:27 | PC.NURSE ---
PT SEEN AND EVALUATED BY MJ BARILLAS. PT AWAKE, ALERT AND ORIENTED X 3. SKIN WARM AND DRY. RESP UNLABORED. DENIES N/V. PT SITTING IN WHEELCHAIR. PLAN IS FOR DC HOME WITH ORTHO F/U AND MEDS SENT TO PHARMACY. PT AWARE AND AGREEABLE TO PLAN.
== END 2020-12-17 17:31 | disposition home or self-care (01) ==
PROVIDERS: Emergency Provider Emergency Medicine
DX: M16.11 Unilateral primary osteoarthritis, right hip (principal); I10 Essential (primary) hypertension; Z79.891 Long term (current) use of opiate analgesic
CPT/HCPCS: 73502; 99282; 99283

== ENCOUNTER → 2020-12-26 11:03 | Outpatient (BNVA) | payer MEDICAID, SELFPAY | PROVIDERS: PCP Internal Medicine; Visit Provider Orthopaedic Surgery | DX: M16.11 Unilateral primary osteoarthritis, right hip (principal) | CPT/HCPCS: 99212 ==

== ENCOUNTER 2021-03-18 11:42 | Outpatient (REF) | payer MEDICAID, SELFPAY | END 2021-03-18 11:43 | disposition home or self-care (01) | LOC: HO.LAB 11:42 | PROVIDERS: Visit Provider Internal Medicine | DX: Z20.822 Contact with and (suspected) exposure to COVID-19 (principal) | CPT/HCPCS: C9803; U0003; U0005 ==

== ENCOUNTER 2021-04-18 10:22 | Outpatient (REF) | payer MEDICAID, SELFPAY | END 2021-04-18 10:23 | disposition home or self-care (01) | LOC: HO.LAB 10:22 | PROVIDERS: Visit Provider Internal Medicine | DX: Z20.822 Contact with and (suspected) exposure to COVID-19 (principal) | CPT/HCPCS: C9803; U0003; U0005 ==

== ENCOUNTER → 2021-05-13 13:08 | Outpatient (BNVA) | payer MEDICAID, SELFPAY | PROVIDERS: Visit Provider Orthopaedic Surgery | DX: Z01.812 Encounter for preprocedural laboratory examination (principal); Z01.810 Encounter for preprocedural cardiovascular examination ==

== ENCOUNTER → 2021-05-28 10:44 | Outpatient (BNVA) | payer MEDICAID, SELFPAY | PROVIDERS: PCP Internal Medicine; Visit Provider Surgery | DX: L76.82 Other postprocedural complications of skin and subcutaneous tissue (principal) | CPT/HCPCS: 99202 ==

== ENCOUNTER → 2021-06-05 10:40 | Outpatient (BNVA) | payer MEDICAID, SELFPAY | PROVIDERS: Visit Provider Physician Assistant | DX: Z01.818 Encounter for other preprocedural examination (principal); M16.11 Unilateral primary osteoarthritis, right hip; M54.16 Radiculopathy, lumbar region | CPT/HCPCS: 99212 ==

== ENCOUNTER 2021-06-10 09:07 | Inpatient (IN) | payer MEDICAID, SELFPAY ==
--- NOTE | 2021-05-16 | ECG_ITS ---
Test Reason : preop Blood Pressure : / mmHG Vent. Rate : 072 BPM Atrial Rate : 072 BPM P-R Int : 122 ms QRS Dur : 076 ms QT Int : 388 ms P-R-T Axes : 028 -13 040 degrees QTc Int : 424 ms Artifact in tracing Normal sinus rhythm Likely normal EKG When compared with ECG of 07-JUN-2020 11:59, No significant changes seen Referred By: Will Waldron Electronically Signed By:NAVDEEP HEWITT
[2021-05-16 12:13] VITALS: BP 145/95; PULSE 70; RESP 18; O2SAT 98; BMI 37.4
[2021-05-16 13:23] LABS: MANUAL DIFF FLAG NO
[2021-05-16 13:29] LABS: Basophils Absolute Auto 0.1 X10*3/uL (0.0-0.2); Basophils Percent Auto 0.5 % (0-2); Eosinophils Absolute Auto 0.6 X10*3/uL (0.0-0.4); Eosinophils Percent Auto 5.2 % (0-4); Hematocrit 43.9 % (37.0-47.0); Hemoglobin 14.2 g/dl (12.0-16.0); Imm Gran Abs Auto 0.05 X10*3/uL (0.00-0.03); Imm Gran Pct Auto 0.5 % (0.0-0.4); Lymphocytes Absolute Auto 3.4 X10*3/uL (1.2-4.9); Lymphocytes Percent Auto 30.3 % (20-40); Mean Corpuscular HGB Conc 32.3 g/dl (31.0-35.0); Mean Corpuscular Hemoglobin 31.1 pg (27.0-33.0); Mean Corpuscular Volume 96.3 fL (80.0-98.0); Mean Platelet Volume 10.1 fL (9.4-12.3); Monocytes Absolute Auto 0.9 X10*3/uL (0.1-1.2); Monocytes Percent Auto 7.8 % (2-11); Neutrophils Absolute Auto 6.2 x10*3/uL (2.0-8.3); Neutrophils Percent Auto 55.7 % (45-73); Platelet Count 278 X10*3/uL (160-400); Red Blood Count 4.56 X10*6/uL (4.20-5.50); Red Cell Distribution Width 13.6 % (11.0-16.0); White Blood Count 11.1 X10*3/uL (4.8-10.8)
[2021-05-16 13:57] LABS: Anion Gap 12 (12-20); Blood Urea Nitrogen 18 mg/dL (9-16); Calcium 9.6 mg/dL (8.4-10.2); Carbon Dioxide 26 mmol/L (22-29); Chloride 107 mmol/L (96-108); Creatinine Clr Calc Pharmacy 72.7; Estimated Glomerular Filt Rate 57; Glucose Random 99 mg/dL (60-115); Potassium 4.6 mmol/L (3.3-5.1); Sodium 140 mmol/L (135-145)
[2021-06-05 13:36] LABS: MRSA Nasal PCR NEGATIVE (Negative); SA Nasal PCR POSITIVE (Negative)
--- NOTE | 2021-06-09 11:05 | P.CONAN_ITS ---
Documented by User: Gretel Simmons NP 06/09/21 11:07 HPI - Anesthesia Eval Consult details Narrative: 56yo F for Right Hip Total Replacement PCP cleared *Morphine allergy* PMFSH Active Problems Active Problems: All Active Problems (Updated 06/05/21 @ 10:50 by Viv Mayorga RN) Preop testing (Acute) Incisional pain (Acute) Well woman exam (Acute) Metrorrhagia (Acute) Thickened endometrium (Acute) Hot flashes (Acute) Osteoarthritis of right hip (Acute) Swelling of thigh (Acute) Lumbar radiculopathy, right (Acute) Anxiety (Acute) Hypertension (Acute) Past Medical History Medical History Anxiety Back problem Chronic back pain Depression Failed back syndrome GERD (gastroesophageal reflux disease) Hypertension Incisional pain On beta tan at home Family History Family History Father Suicide Mother Heart disease Diabetes CVD (cardiovascular disease) Maternal Grandmother Heart disease Maternal Grandfather Diabetes Maternal Aunt Heart disease Maternal Uncle Heart disease Surgical History Surgical History Fusion of lumbar spine History of colonoscopy History of hip surgery History of lumbar surgery History of tubal ligation Hx of dilation and curettage Social History Social History Are you a primary healthcare market consultant to a significant other at home: No Do you presently have visiting nurse or other home services: Yes ([employer]ING [employer]ER 2 hours daily-[employer]) Alcohol intake: never Patient Tobacco Use Status: Former Tobacco user Quit Date: 2011 Tobacco use type: Cigarette Use of substances other than those prescribed or required for medical reasons: Yes Substance Use Type: Marijuana Substance Use Frequency: Daily Have you been hit, kicked, punched, or otherwise hurt by someone within the past year? If so, by whom?: No Spiritual Healthcare Practices: none Confucianist Healthcare Practices: none Cultural Healthcare Practices: none Are you DNR?: No Advance Directives: No Advance Directives Information Provided: Yes Advance Directives on File: No Recently lost weight without trying: No Nutrition Risks: No Nutritional Risk Patient : No FDLMP: 10/2020 : No Poor oral hygiene: No Current occupational status: disabled Current occupation: right handed Meds Allergies Allergy/AdvReac Type Severity Reaction Status Date / Time morphine [Morphine] Allergy Intermediate HIVES Verified 06/05/21 10:46 Home Medications Medication Instructions Recorded Confirmed Last Taken Type clonazepam 1 mg tablet (Klonopin) 1 mg PO BEDTIME PRN 02/26/20 05/28/21 07/26/20 07:00 History betamethasone dipropionate 0.05 % 1 appl TOPICAL BID 05/15/21 06/10/21 Unknown History topical ointment cholecalciferol (vitamin D3) 25 25 mcg PO DAILY 05/15/21 05/28/21 Unknown History mcg (1,000 unit) tablet (Vitamin D3) ibuprofen 800 mg tablet 800 mg PO Q8H PRN 05/15/21 05/28/21 Unknown History omeprazole 20 mg capsule,delayed 1 cap PO DAILY PRN 05/16/21 05/28/21 06/10/21 History release duloxetine 30 mg capsule,delayed 1 cap PO DAILY 06/10/21 06/10/21 Unknown History release oxycodone 15 mg tablet 1 tab PO TID PRN 06/10/21 06/10/21 06/10/21 History Exam Exam Date and Time: June 09, 2021 1105 Height,Weight and Vital Signs: Height 5 ft 4 in Weight 98.883 kg Last Vital Signs Pulse 70 05/16/21 12:13 Resp 18 05/16/21 12:13 BP 145/95 H 05/16/21 12:13 Pulse Ox 98 05/16/21 12:13 Pertinent Lab Results Pertinent Lab Results: Laboratory Tests 05/16/21 05/16/21 05/16/21 12:30 13:22 13:22 WBC 11.1 H RBC 4.56 Hgb 14.2 Hct 43.9 MCV 96.3 MCH 31.1 MCHC 32.3 RDW 13.6 Plt Count 278 MPV 10.1 Immature Gran % (Auto) 0.5 H Neut % (Auto) 55.7 Lymph % (Auto) 30.3 [place] % (Auto) 7.8 Eos % (Auto) 5.2 H Baso % (Auto) 0.5 Lymph # (Auto) 3.4 [place] # (Auto) 0.9 Eos # (Auto) 0.6 H Baso # (Auto) 0.1 Abs Immat Gran (auto) 0.05 H Absolute Neuts (auto) 6.2 Absolute Nucleated RBC 0.000 Nucleated RBC % (auto) 0.0 Sodium 140 Potassium 4.6 Chloride 107 Carbon Dioxide 26 Anion Gap 12 BUN 18 H Creatinine 1.01 Estim Creat Clear Calc 72.7 Estimated GFR 57 Random Glucose 99 Calcium 9.6 Nasal Screen MRSA (PCR) TNP Nasal S. aureus Screen TNP Nasal MRSA/S.aureus Interp TNP Blood Type Antibody Screen 06/05/21 06/05/21 10:20 12:02 WBC RBC Hgb Hct MCV MCH MCHC RDW Plt Count MPV Immature Gran % (Auto) Neut % (Auto) Lymph % (Auto) [place] % (Auto) Eos % (Auto) Baso % (Auto) Lymph # (Auto) [place] # (Auto) Eos # (Auto) Baso # (Auto) Abs Immat Gran (auto) Absolute Neuts (auto) Absolute Nucleated RBC Nucleated RBC % (auto) Sodium Potassium Chloride Carbon Dioxide Anion Gap BUN Creatinine Estim Creat Clear Calc Estimated GFR Random Glucose Calcium Nasal Screen MRSA (PCR) NEGATIVE Nasal S. aureus Screen POSITIVE A Nasal MRSA/S.aureus Interp SEE NOTE Blood Type A Positive Antibody Screen NEGATIVE Narrative Narrative: EKG 05/2021 Vent. Rate : 072 BPM ? ? Atrial Rate : 072 BPM ?? P-R Int : 122 ms? QRS Dur : 076 ms ? ? QT Int : 388 ms ? ? ? P-R-T Axes : 028 -13 040 degrees ?? QTc Int : 424 ms ? Artifact in tracing Normal sinus rhythm Likely normal EKG When compared with ECG of 07-JUN-2020 11:59, No significant changes seen Assessment and Plan Assessment Anesthesia Assessment: Chart Reviewed Documented by User: Sukhdev Hurtado MD 06/10/21 10:56 [facility] Past Medical History Medical History Anxiety Back problem Chronic back pain Depression Failed back syndrome GERD (gastroesophageal reflux disease) Hypertension Incisional pain On beta tan at home Family History Family History Father Suicide Mother Heart disease Diabetes CVD (cardiovascular disease) Maternal Grandmother Heart disease Maternal Grandfather Diabetes Maternal Aunt Heart disease Maternal Uncle Heart disease Family history of problems with anesthesia: No Surgical History Surgical History Fusion of lumbar spine History of colonoscopy History of hip surgery History of lumbar surgery History of tubal ligation Hx of dilation and curettage History of Problems with Anesthesia: No Social History Social History Are you a primary healthcare market consultant to a significant other at home: No Do you presently have visiting nurse or other home services: Yes ([employer] 2 hours daily-[employer]) Alcohol intake: never Patient Tobacco Use Status: Former Tobacco user Quit Date: 2011 Tobacco use type: Cigarette Use of substances other than those prescribed or required for medical reasons: Yes Substance Use Type: Marijuana Substance Use Frequency: Daily Have you been hit, kicked, punched, or otherwise hurt by someone within the past year? If so, by whom?: No Spiritual Healthcare Practices: none Confucianist Healthcare Practices: none Cultural Healthcare Practices: none Are you DNR?: No Advance Directives: No Advance Directives Information Provided: Yes Advance Directives on File: No Recently lost weight without trying: No Nutrition Risks: No Nutritional Risk Patient : No FDLMP: 10/2020 : No Poor oral hygiene: No Current occupational status: disabled Current occupation: right handed Meds Allergies Allergy/AdvReac Type Severity Reaction Status Date / Time morphine [Morphine] Allergy Intermediate HIVES Verified 06/05/21 10:46 Home Medications Medication Instructions Recorded Confirmed Last Taken Type clonazepam 1 mg tablet (Klonopin) 1 mg PO BEDTIME PRN 02/26/20 05/28/21 07/26/20 07:00 History betamethasone dipropionate 0.05 % 1 appl TOPICAL BID 05/15/21 06/10/21 Unknown History topical ointment cholecalciferol (vitamin D3) 25 25 mcg PO DAILY 05/15/21 05/28/21 Unknown History mcg (1,000 unit) tablet (Vitamin D3) ibuprofen 800 mg tablet 800 mg PO Q8H PRN 05/15/21 05/28/21 Unknown History omeprazole 20 mg capsule,delayed 1 cap PO DAILY PRN 05/16/21 05/28/21 06/10/21 History release duloxetine 30 mg capsule,delayed 1 cap PO DAILY 06/10/21 06/10/21 Unknown Hist ory release oxycodone 15 mg tablet 1 tab PO TID PRN 06/10/21 06/10/21 06/10/21 History Exam Airway Mallampati Class: II TM Dist: >3cm Loose/Missing/Broken Teeth: Yes Assessment and Plan Assessment Anesthesia Assessment: Anesthesia Plan Discussed Final Anesthetic Review Family History of Problems with Anesthesia: No History of Problems with Anesthesia: No NPO: Yes ASA Class: III Final Preanesthetic Review: No Changes in Pt Med Stat, Meds/Allgs Chart Reviewed, Consent Obtained/Reviewed and Anes Risks/Benef Reviewed Patient Risk: Intermediate Procedure Risk: Intermediate Anesthetic Plan Anesthetic Plan: GA Disposition: Standard PACU
[2021-06-10] VITALS (18 sets, daily range): BP systolic 110–176; BP diastolic 54–94; PULSE 64–75; RESP 16–22; TEMP 36.1–37.1; O2SAT 95–100
--- NOTE | ~2021-06-10 | XR_ITS ---
EXAMINATION: XR PELVIS CLINICAL INFORMATION: Post right hip replacement COMPARISON: Previous x-ray December 2020 TECHNIQUE: AP view of the pelvis. FINDINGS: There is a new right hip replacement in satisfactory position. No fracture or dislocation is seen. There is mild mild arthritis at the left hip joint. There is orthopedic hardware across the superior right sacroiliac joint. There are surgical hardware in the lower lumbar spine. XR/XR pelvis 1-2V IMPRESSION: Satisfactory appearance of right hip replacement.
[2021-06-10] MEDS: oxyCODONE HCl ER 10 MG TAB.ER.12H PO ×2 (09:22→21:19)
[2021-06-10] MEDS: Lactated Ringers 1,000 ML 100 ML IVCONT (09:47)
[2021-06-10 10:00] LABS: COVID-19 Test Negative (Negative)
--- NOTE | 2021-06-10 13:10 | PM.OP ---
Brief Operative Note Date of Service: 06/10/21 Pre-op diagnosis: right hip OA Post-op diagnosis: same Procedure: Right JOSE LUIS Implants: Gee Trident2 52/ 20 deg liner [place] Accolade2 #3 132 deg wiht +5 36 ceramic femoral head Surgeon: Will Waldron MD Anesthesia: GETA and local Was an Thermostatic Controls Supervisor used for this Procedure?: Yes Thermostatic Controls Supervisor: Eugenie Maurice Estimated blood loss (mL): 150 IV fluids (mL): 1,000 Pathology: other Condition: stable Disposition: PACU
--- NOTE | 2021-06-10 13:16 | P.OP_ITS ---
Operative Note Operative Note Date of Service: 06/10/21 Narrative: Date of Service: 06/10/21 Pre-op diagnosis: right hip OA Post-op diagnosis: same Procedure: Right JOSE LUIS Implants: [place] Trident2 52/ 20 deg liner Gee Accolade2 #3 132 deg wiht +5 36 ceramic femoral head Surgeon: Will Waldron MD Anesthesia: GETA and local Was an Dispensing Operator used for this Procedure?: Yes Dispensing Operator: Eugenie Maurice Estimated blood loss (mL): 150 IV fluids (mL): 1,000 Pathology: other Condition: stable Disposition: PACU Procedure in detail: Patient was brought into the operating room and placed in the left lateral decubitus position. All bony prominences were well padded and the limb was prepped and draped in standard sterile fashion. Time-out was called to identify proper site procedure proper surgeon IV antibiotics and 1 g of transaxemic acid were administered. I began by making a curvilinear incision over the posterolateral aspect of the greater trochanter. Dissection was taken down to the tensor fascia which was incised in line with the incision and a Charnley retractor was placed. Cautery was used to maintain hemostasis. The hip was internally rotated and the external rotators were identified. The vessels were cauterized and a full-thickness capsular/external rotator layer was developed starting just proximal to the piriformis. This layer was tagged and a dull Hohmann retractor was placed underneath the neck in the hip was dislocated. The head was eburnated. A neck cut was made 1 cm proximal to the lesser trochanter and the head and neck were removed and measured as a 47mm on the back table. I started with a 44 reamer and sequentially reamed up to a size 52 and impacted a 52 at approximately 45 degrees of inclination and 25 degrees of version. I placed two acetabular screws using standard AO technique. I then placed a 20 deg posterior lipped liner and turned my attention to the femur. I identified the piriformis insertion and used this as a starting point for my dana cutter. The medius tendon was protected with a Hibs retractor. I then used a Charnley awl to identify the canal and a curved curette to remove the lateral bone. I irrigated copiously. I then sequentially broached in the patient's natural version to a size #3 and placed my trial implants. Using a trail head I took the hip through range of motion. I was very satisfied with the stability and length using a 132 deg + 5 36 head/ Therefore I removed all instrumentation and copiously irrigated. I placed my final femoral implant and again took the hip through range of motion and was satisfied with the stability and length. The +5 head was impacted in place. I then irrigated for 3 minutes with iodine and placed 1 g of local tranaxemic acid. I then performed a capsular closure with 2.0 fiberwire, Jordy's fascia with 0 Vicryl, subcuticular with 2-0 Vicryl and the skin with saima. Patient was placed into a sterile dressing. Radiographs were obtained at the completion of the case and I was satisfied with the component position. Patient was extubated brought to the recovery room in stable condition.
[2021-06-10] MEDS: HYDROmorphone HCl 0.5 MG/0.5 ML SYRINGE IVPUSH ×4 (13:31→14:11)
[2021-06-10] MEDS: Ketorolac Tromethamine 30 MG/ML VIAL IVPUSH (13:40)
[2021-06-10] MEDS: oxyCODONE HCl Immed Release 5 MG TABLET PO (13:41)
[2021-06-10] MEDS: Dextrose 5 % and 0.45 % NaCl 1,000 ML 80 ML IVCONT (15:44)
[2021-06-10] MEDS: ceFAZolin Sodium/Dextrose,Iso 2 GM/50 ML PIGGYBACK IV (17:24)
--- NOTE | 2021-06-10 18:08 | HO.PM.IMCN ---
History of Present Illness Data of Consult Service Date: 06/10/21 Requesting physician: Will Waldron Primary Care Provider: Unknown Physician HPI 56 year old women admitted by orthopedic surgery and is status post right hip arthroplasty. Her pain is well controlled at this time. She has been able to eat and drink without nausea or vomiting. Her vital signs are stable. She has no acute medical complaints at this time. Review of Systems Review of Systems: Denies any recent fever chills or decrease in appetite respiratory denies any shortness of breath coverage production cardiovascular denies chest pain gastrointestinal denies any dysphagia abdominal pain nausea vomiting or diarrhea genitourinary denies any dysuria frequency or hematuria musculoskeletal right hip minimal pain neuropsych denies any weakness or seizures all other systems reviewed are negative [facility] Medical History (Updated 06/10/21 @ 18:11 by Renee Mark NP) Anxiety Chronic back pain Depression GERD (gastroesophageal reflux disease) Hypertension Family History Father Suicide Mother Heart disease Diabetes CVD (cardiovascular disease) Maternal Grandmother Heart disease Maternal Grandfather Diabetes Maternal Aunt Heart disease Maternal Uncle Heart disease Surgical History (Updated 06/10/21 @ 14:01 by Viv Mayorga RN) Fusion of lumbar spine History of colonoscopy History of hip surgery History of lumbar surgery History of tubal ligation Hx of dilation and curettage Social History Household Members: Spouse Housing: Apartment Are you a primary child caregiver private home to a significant other at home: No Do you presently have visiting nurse or other home services: No Alcohol intake: never Patient Tobacco Use Status: Former Tobacco user Quit Date: 2011 Tobacco use type: Cigarette Use of substances other than those prescribed or required for medical reasons: Yes Substance Use Type: Marijuana Substance Use Frequency: Daily Last Used Substance: Just Prior to Admission Currently Displaying Signs/Symptoms of Drug Intoxication Withdrawal: No Any prior treatment program specific to substance use: No Have you been hit, kicked, punched, or otherwise hurt by someone within the past year? If so, by whom?: No Do you feel safe in your current relationship?: Yes Is there a partner from a previous relationship who is making you feel unsafe now?: No Spiritual Healthcare Practices: none Protestant Healthcare Practices: hinduism Cultural Healthcare Practices: none Are you DNR?: No Advance Directives: No Advance Directives Information Provided: Yes Advance Directives on File: No Do you have thoughts of harming others: None Do you have a plan to hurt others: No Plan Recently lost weight without trying: No Nutrition Risks: No Nutritional Risk Patient : No FDLMP: 10/2020 : No Poor oral hygiene: No Current occupational status: disabled Current occupation: right handed Meds Allergies Allergy/AdvReac Type Severity Reaction Status Date / Time morphine [Morphine] Allergy Intermediate HIVES Verified 06/05/21 10:46 Active Medications: Current Medications Acetaminophen (Acetaminophen 325 Mg Tablet) 650 mg PO Q6H PRN PRN Reason: Pain, Mild (Pain Scale 1-3) Celecoxib (Celecoxib 200 Mg Capsule) 200 mg PO BID [facility] Docusate Sodium (Docusate Sodium 100 Mg Capsule) 100 mg PO BID [facility] Hydromorphone HCl (Hydromorphone Hcl 1 Mg/Ml Syringe) 0.25 mg IVPUSH Q3H PRN; Protocol PRN Reason: Pain, Severe (Pain Scale 7-10) Dextrose/Sodium Chloride (D51/2ns) 1,000 mls @ 80 mls/hr IVCONT .[id number] [facility] Last Admin: 06/10/21 15:44 Dose: 80 mls/hr Documented by: Ondansetron HCl (Ondansetron Hcl 4 Mg/2 Ml Vial) 4 mg IVPUSH Q8H PRN PRN Reason: Nausea and Vomiting Oxycodone HCl (Oxycodone Hcl Immed Release 5 Mg Tablet) 10 mg PO Q4H PRN PRN Reason: Pain, Moderate (Pain Scale 4-6 Oxycodone HCl (Oxycodone Hcl Er 10 Mg Tab.Er.12h) 10 mg PO BID [facility] Sodium Chloride (0.9 % Sodium Chloride Flush 3 Ml Syringe) 3 ml IVFLUSH QSHIFT [facility] Last Admin: 06/10/21 17:06 Dose: Not Given Documented by: Home Medications Medication Instructions Recorded Confirmed Last Taken Type clonazepam 1 mg tablet (Klonopin) 1 mg PO BEDTIME PRN 02/26/20 05/28/21 07/26/20 07:00 History betamethasone dipropionate 0.05 % 1 appl TOPICAL BID 05/15/21 06/10/21 Unknown History topical ointment cholecalciferol (vitamin D3) 25 25 mcg PO DAILY 05/15/21 05/28/21 Unknown History mcg (1,000 unit) tablet (Vitamin D3) ibuprofen 800 mg tablet 800 mg PO Q8H PRN 05/15/21 05/28/21 Unknown History omeprazole 20 mg capsule,delayed 1 cap PO DAILY PRN 05/16/21 05/28/21 06/10/21 History release duloxetine 30 mg capsule,delayed 1 cap PO DAILY 06/10/21 06/10/21 Unknown History release oxycodone 15 mg tablet 1 tab PO TID PRN 06/10/21 06/10/21 06/10/21 History Physical Exam Vital Signs and Narrative: Vital Signs: Last Vital Signs Temp 98.6 F 06/10/21 16:42 Pulse 72 06/10/21 16:42 Resp 18 06/10/21 16:42 BP 144/68 H 06/10/21 16:42 Pulse Ox 95 06/10/21 16:42 BMI result Body Mass Index 37.4 Appearing in no acute distress head is normocephalic atraumatic eyes pupils are PERRLA sclera is anicteric mouth throat mucous membranes are intact and moist neck is supple no lymphadenopathy, no JVD noted lung sounds are clear to auscultation heart regular rate rhythm, clear S1, S2 positive bowel sounds, abdomen is soft, nontender neuro patient is alert x3, no focal deficits Right hip surgical dressing, wound not visualized. Results Labs CBC and Chem 7: 05/16/21 13:22 05/16/21 13:22 Labs: Laboratory Results - last 24 hr 06/10/21 09:07 COVID-19 (ANIKA) Negative COVID-19 Clin Com See Note Imaging Radiologist's Impressions: Impressions Pelvis X-Ray 06/10/21 13:23 IMPRESSION: Satisfactory appearance of right hip replacement. 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 Marin Medical consultation complete. Will sign off.
[2021-06-10] MEDS: oxyCODONE HCl Immed Release 5 MG TABLET 10 MG PO ×2 (18:33→23:59)
[2021-06-10] MEDS: Celecoxib 200 MG CAPSULE PO (21:20)
[2021-06-10] MEDS: Docusate Sodium 100 MG CAPSULE PO (21:20)
[2021-06-10] MEDS: Acetaminophen 325 MG TABLET 650 MG PO (21:25)
[2021-06-11] VITALS (8 sets, daily range): BP systolic 108–149; BP diastolic 59–72; PULSE 62–72; RESP 14–18; TEMP 35.7–36.8; O2SAT 95–98
[2021-06-11] MEDS: Dextrose 5 % and 0.45 % NaCl 1,000 ML 80 ML IVCONT ×2 (05:37→21:05)
[2021-06-11] MEDS: oxyCODONE HCl Immed Release 5 MG TABLET 10 MG PO ×4 (05:42→21:04)
[2021-06-11 05:58] LABS: MANUAL DIFF FLAG NO
[2021-06-11 06:04] LABS: Basophils Percent Auto 0.1 % (0-2); Hematocrit 34.8 % (37.0-47.0); Hemoglobin 11.1 g/dl (12.0-16.0); Imm Gran Abs Auto 0.06 X10*3/uL (0.00-0.03); Imm Gran Pct Auto 0.4 % (0.0-0.4); Lymphocytes Absolute Auto 1.8 X10*3/uL (1.2-4.9); Lymphocytes Percent Auto 11.5 % (20-40); Mean Corpuscular HGB Conc 31.9 g/dl (31.0-35.0); Mean Corpuscular Hemoglobin 30.4 pg (27.0-33.0); Mean Corpuscular Volume 95.3 fL (80.0-98.0); Mean Platelet Volume 10.4 fL (9.4-12.3); Monocytes Absolute Auto 0.8 X10*3/uL (0.1-1.2); Monocytes Percent Auto 5.1 % (2-11); Neutrophils Absolute Auto 13.2 x10*3/uL (2.0-8.3); Neutrophils Percent Auto 82.9 % (45-73); Platelet Count 226 X10*3/uL (160-400); Red Blood Count 3.65 X10*6/uL (4.20-5.50); Red Cell Distribution Width 13.3 % (11.0-16.0); White Blood Count 15.9 X10*3/uL (4.8-10.8)
[2021-06-11 06:27] LABS: Anion Gap 14 (12-20); Blood Urea Nitrogen 18 mg/dL (9-16); Calcium 8.7 mg/dL (8.4-10.2); Carbon Dioxide 23 mmol/L (22-29); Chloride 104 mmol/L (96-108); Creatinine Clr Calc Pharmacy 72.7; Estimated Glomerular Filt Rate 57; Glucose Fasting 147 mg/dL (60-99); Potassium 4.8 mmol/L (3.3-5.1); Sodium 136 mmol/L (135-145)
--- NOTE | 2021-06-11 06:49 | HO.POSTANES ---
Post Anesthesia Evaluation Post Anesthesia Evaluation Vital Signs: Vital Signs Temp Pulse Resp BP Pulse Ox 06/11/21 03:51 97.3 F 62 18 111/59 L 98 06/10/21 23:53 97.4 F 67 18 110/54 L 95 06/10/21 18:56 97.6 F 75 18 135/67 99 Anesthesia: General Mental Status: Awake Pain Control: Satisfactory Nausea/Vomiting: None Hydration: Adequate Anesthesia-Related Issues: No Anes. Related Issues
--- NOTE | 2021-06-11 07:58 | P.PNOP_ITS ---
Subjective Subjective Date of Service: 06/11/21 Interval history: POD1 s/p RTHA. No overnight events. Pain is well managed. Patient is resting comfortably in bed. No additional complaitns. Physical Exam Vital Signs: Vital Signs: Last Vital Signs Temp 97.4 F 06/11/21 07:21 Pulse 68 06/11/21 07:21 Resp 18 06/11/21 07:21 BP 149/72 H 06/11/21 07:21 Pulse Ox 98 06/11/21 07:21 BMI result Body Mass Index 37.4 Const: General: cooperative, healthy appearing and no acute distress Resp: Effort & Inspection: normal respiratory effort and able to speak in complete sentences Cardio: Rate: regular rate Peripheral pulses: Peripheral pulses 2+ throughout GI: Palpation (GI): Soft to palpation Skin: Lesions: no lesions Rashes: no rashes Extrem: Other: Right hip dressing is clean, dry, and intact. NVI. Procedures Date of Service Date of Service: 06/11/21 Progress Note: A&P Assessment and plan (1) S/P total right hip arthroplasty: Status: Acute Plan Continue pain mgmnt Begin ASA for dvt ppx begin PT for RTHA Dispo planning-Pending PT eval, pain mgmnt Fall Risk Details Current Medications: Current Medications Acetaminophen (Acetaminophen 325 Mg Tablet) 650 mg PO Q6H PRN PRN Reason: Pain, Mild (Pain Scale 1-3) Last Admin: 06/10/21 21:25 Dose: 650 mg Documented by: Aspirin (Aspirin 325 Mg Tablet) 325 mg PO BID [facility] Celecoxib (Celecoxib 200 Mg Capsule) 200 mg PO BID [facility] Last Admin: 06/10/21 21:20 Dose: 200 mg Documented by: Clonazepam (Clonazepam 1 Mg Tablet) 1 mg PO BEDTIME PRN PRN Reason: Anxiety Docusate Sodium (Docusate Sodium 100 Mg Capsule) 100 mg PO BID [facility] Last Admin: 06/10/21 21:20 Dose: 100 mg Documented by: Duloxetine HCl (Duloxetine Hcl 30 Mg Capsule.Dr) 30 mg PO DAILY [facility] Hydromorphone HCl (Hydromorphone Hcl 1 Mg/Ml Syringe) 0.25 mg IVPUSH Q3H PRN; Protocol PRN Reason: Pain, Severe (Pain Scale 7-10) Dextrose/Sodium Chloride (D51/2ns) 1,000 mls @ 80 mls/hr IVCONT .[id number] [facility] Last Admin: 06/11/21 05:37 Dose: 80 mls/hr Documented by: Metoprolol Succinate (Metoprolol Succinate Er 100 Mg Tab.Er.24h) 100 mg PO DAILY [facility]; Protocol Omeprazole (Omeprazole 20 Mg Capsule.Dr) 20 mg PO DAILY PRN PRN Reason: Gastric Reflux Ondansetron HCl (Ondansetron Hcl 4 Mg/2 Ml Vial) 4 mg IVPUSH Q8H PRN PRN Reason: Nausea and Vomiting Oxycodone HCl (Oxycodone Hcl Immed Release 5 Mg Tablet) 10 mg PO Q4H PRN PRN Reason: Pain, Moderate (Pain Scale 4-6 Last Admin: 06/11/21 05:42 Dose: 10 mg Documented by: Oxycodone HCl (Oxycodone Hcl Er 10 Mg Tab.Er.12h) 10 mg PO BID [facility] Last Admin: 06/10/21 21:19 Dose: 10 mg Documented by: Sodium Chloride (0.9 % Sodium Chloride Flush 3 Ml Syringe) 3 ml IVFLUSH QSHIFT [facility] Last Admin: 06/11/21 01:05 Dose: Not Given Documented by: Time Spent With Patient Time: Total time spent is greater than 50% in coordination of care (as documented) at patient's floor/unit and/or counseling patient: Time with patient: less than 15 minutes Quality Stroke Does the patient have a stroke diagnosis?: No VTE Prior VTE?: No VTE Risk Level:: Surgical - very high VTE Device Contraindication: N/A - Device Ordered VTE Drug Contraindication: N/A - Med Ordered
[2021-06-11] MEDS: HYDROmorphone HCl 1 MG/ML SYRINGE 0.25 MG IVPUSH (08:11)
[2021-06-11] MEDS: Celecoxib 200 MG CAPSULE PO ×2 (08:13→21:04)
[2021-06-11] MEDS: Metoprolol Succinate ER 100 MG TAB.ER.24H PO (08:13)
[2021-06-11] MEDS: oxyCODONE HCl ER 10 MG TAB.ER.12H PO ×2 (08:13→21:04)
[2021-06-11] MEDS: DULoxetine HCl 30 MG CAPSULE.DR PO (08:13)
[2021-06-11] MEDS: 0.9 % Sodium Chloride Flush 3 ML SYRINGE IVFLUSH (08:13)
[2021-06-11] MEDS: Docusate Sodium 100 MG CAPSULE PO ×2 (08:13→21:04)
[2021-06-11] MEDS: Aspirin 325 MG TABLET PO ×2 (12:17→21:03)
--- NOTE | 2021-06-11 13:45 | MHC.CM.PN ---
met with pt who lives with her delmar is aware that dc plan is home with hvns for sn and home pt pt has won transportion home when dcd
--- NOTE | 2021-06-11 16:29 | MHC.CM.PN ---
CM MET W/PT AT PT'S REQUEST, PT &SPOUSE AT BEDSIDE REPORTED HE WENT TO [facility] AND THEY TOLD HIM HER COMMODE AND WALKER WERE NOT COVERED, PT'S SPOUSE GAVE SM SCRIPTS STAPLED TOGETHER AND THERE WAS ACTUALLY NO SCRIPT FOR A WALKER, ORTHO NOTIFIED VIA [facility] AND CM CONTACTED [facility] [place] B[place] COMMODE WELL THE WALKER, PT'S WAS GIVEN DEJA ADDRESS AND HOURS.
[2021-06-12] VITALS (8 sets, daily range): BP systolic 105–146; BP diastolic 55–83; PULSE 66–98; RESP 12–20; TEMP 36–37.3; O2SAT 97–98
[2021-06-12] MEDS: oxyCODONE HCl Immed Release 5 MG TABLET 10 MG PO ×4 (04:08→23:02)
[2021-06-12 06:16] LABS: MANUAL DIFF FLAG NO
[2021-06-12 06:38] LABS: Basophils Percent Auto 0.2 % (0-2); Eosinophils Absolute Auto 0.1 X10*3/uL (0.0-0.4); Eosinophils Percent Auto 1.2 % (0-4); Hemoglobin 10.6 g/dl (12.0-16.0); Imm Gran Abs Auto 0.03 X10*3/uL (0.00-0.03); Imm Gran Pct Auto 0.3 % (0.0-0.4); Lymphocytes Absolute Auto 3.4 X10*3/uL (1.2-4.9); Lymphocytes Percent Auto 30.4 % (20-40); Mean Corpuscular HGB Conc 32.1 g/dl (31.0-35.0); Mean Corpuscular Hemoglobin 30.7 pg (27.0-33.0); Mean Corpuscular Volume 95.7 fL (80.0-98.0); Mean Platelet Volume 10.9 fL (9.4-12.3); Monocytes Absolute Auto 0.8 X10*3/uL (0.1-1.2); Monocytes Percent Auto 7.3 % (2-11); Neutrophils Absolute Auto 6.7 x10*3/uL (2.0-8.3); Neutrophils Percent Auto 60.6 % (45-73); Platelet Count 208 X10*3/uL (160-400); Red Blood Count 3.45 X10*6/uL (4.20-5.50); Red Cell Distribution Width 13.6 % (11.0-16.0)
[2021-06-12 07:58] LABS: Anion Gap 9 (12-20); Blood Urea Nitrogen 17 mg/dL (9-16); Calcium 8.1 mg/dL (8.4-10.2); Carbon Dioxide 26 mmol/L (22-29); Chloride 107 mmol/L (96-108); Estimated Glomerular Filt Rate > 60; Glucose Fasting 91 mg/dL (60-99); Potassium 4.4 mmol/L (3.3-5.1); Sodium 138 mmol/L (135-145)
[2021-06-12] MEDS: Celecoxib 200 MG CAPSULE PO ×2 (09:13→20:45)
[2021-06-12] MEDS: Aspirin 325 MG TABLET PO ×2 (09:13→20:45)
[2021-06-12] MEDS: DULoxetine HCl 30 MG CAPSULE.DR PO (09:13)
[2021-06-12] MEDS: Metoprolol Succinate ER 100 MG TAB.ER.24H PO (09:13)
--- NOTE | 2021-06-12 09:13 | P.PNOP_ITS ---
Subjective Subjective Date of Service: 06/12/21 Interval history: POD2 s/p RTHA. No overnight events. Patient complains of continued pain. No overnight events. Patient is resting in bed. Physical Exam Vital Signs: Vital Signs: Last Vital Signs Temp 97.8 F 06/12/21 07:57 Pulse 88 06/12/21 07:57 Resp 20 06/12/21 07:57 BP 136/83 06/12/21 07:57 Pulse Ox 97 06/12/21 07:57 BMI result Body Mass Index 37.4 Extrem: Other: Right hip dressing is clean, dry, and intact. Patient is able to dorsiflex and plantarflex. NVI. Procedures Date of Service Date of Service: 06/12/21 Progress Note: A&P Assessment and plan (1) S/P total right hip arthroplasty: Status: Acute Assessment and Plan: Continue pain mgmnt Continue ASA for dvt ppx Continue PT for RTHA Dispo planning-[place] PT, pain mgmnt Fall Risk Details Current Medications: Current Medications Acetaminophen (Acetaminophen 325 Mg Tablet) 650 mg PO Q6H PRN PRN Reason: Pain, Mild (Pain Scale 1-3) Last Admin: 06/10/21 21:25 Dose: 650 mg Documented by: Aspirin (Aspirin 325 Mg Tablet) 325 mg PO BID [facility] Last Admin: 06/11/21 21:03 Dose: 325 mg Documented by: Celecoxib (Celecoxib 200 Mg Capsule) 200 mg PO BID [facility] Last Admin: 06/11/21 21:04 Dose: 200 mg Documented by: Clonazepam (Clonazepam 1 Mg Tablet) 1 mg PO BEDTIME PRN PRN Reason: Anxiety Docusate Sodium (Docusate Sodium 100 Mg Capsule) 100 mg PO BID [facility] Last Admin: 06/11/21 21:04 Dose: 100 mg Documented by: Duloxetine HCl (Duloxetine Hcl 30 Mg Capsule.) 30 mg PO DAILY [facility] Last Admin: 06/11/21 08:13 Dose: 30 mg Documented by: Hydromorphone HCl (Hydromorphone Hcl 1 Mg/Ml Syringe) 0.25 mg IVPUSH Q3H PRN; Protocol PRN Reason: Pain, Severe (Pain Scale 7-10) Last Admin: 06/11/21 08:11 Dose: 0.25 mg Documented by: Dextrose/Sodium Chloride (D51/2ns) 1,000 mls @ 80 mls/hr IVCONT .[id number] [facility] Last Admin: 06/12/21 06:23 Dose: Not Given Documented by: Metoprolol Succinate (Metoprolol Succinate Er 100 Mg Tab.Er.24h) 100 mg PO DAILY [facility]; Protocol Last Admin: 06/11/21 08:13 Dose: 100 mg Documented by: Omeprazole (Omeprazole 20 Mg Capsule.Dr) 20 mg PO DAILY PRN PRN Reason: Gastric Reflux Ondansetron HCl (Ondansetron Hcl 4 Mg/2 Ml Vial) 4 mg IVPUSH Q8H PRN PRN Reason: Nausea and Vomiting Oxycodone HCl (Oxycodone Hcl Immed Release 5 Mg Tablet) 10 mg PO Q4H PRN PRN Reason: Pain, Moderate (Pain Scale 4-6 Last Admin: 06/12/21 04:08 Dose: 10 mg Documented by: Oxycodone HCl (Oxycodone Hcl Er 10 Mg Tab.Er.12h) 10 mg PO BID [facility] Last Admin: 06/11/21 21:04 Dose: 10 mg Documented by: Sodium Chloride (0.9 % Sodium Chloride Flush 3 Ml Syringe) 3 ml IVFLUSH QSHIFT [facility] Last Admin: 06/12/21 00:49 Dose: Not Given Documented by: Time Spent With Patient Time: Total time spent is greater than 50% in coordination of care (as documented) at patient's floor/unit and/or counseling patient: Time with patient: less than 15 minutes Quality Stroke Does the patient have a stroke diagnosis?: No VTE Prior VTE?: No VTE Risk Level:: Surgical - very high VTE Device Contraindication: N/A - Device Ordered VTE Drug Contraindication: N/A - Med Ordered
[2021-06-12] MEDS: Docusate Sodium 100 MG CAPSULE PO ×2 (09:14→20:45)
[2021-06-12] MEDS: oxyCODONE HCl ER 10 MG TAB.ER.12H PO ×2 (09:14→20:46)
--- NOTE | 2021-06-12 16:36 | MHC.CM.PN ---
SCRIPTS FOR BEDSIDE COMMODE AND WALKER TO BE FAXED TO [facility] IN [place], [place] AWARE. [facility] PT WILL D/C FRI HOME W/HVNA, SPOUSE FOR TRANSPORT.
[2021-06-12] MEDS: clonazePAM 1 MG TABLET PO (20:45)
[2021-06-12] MEDS: Dextrose 5 % and 0.45 % NaCl 1,000 ML 80 ML IVCONT (20:46)
[2021-06-13] MEDS: 0.9 % Sodium Chloride Flush 3 ML SYRINGE IVFLUSH (00:50)
[2021-06-13] MEDS: oxyCODONE HCl Immed Release 5 MG TABLET 10 MG PO ×2 (03:23→09:34)
[2021-06-13 03:34] VITALS: BP 103/52; PULSE 69; RESP 14; TEMP 36.1; O2SAT 96
[2021-06-13 06:10] LABS: MANUAL DIFF FLAG NO
[2021-06-13 06:16] LABS: Basophils Percent Auto 0.3 % (0-2); Eosinophils Absolute Auto 0.4 X10*3/uL (0.0-0.4); Eosinophils Percent Auto 3.8 % (0-4); Hematocrit 32.4 % (37.0-47.0); Hemoglobin 10.2 g/dl (12.0-16.0); Imm Gran Abs Auto 0.04 X10*3/uL (0.00-0.03); Imm Gran Pct Auto 0.4 % (0.0-0.4); Lymphocytes Absolute Auto 2.8 X10*3/uL (1.2-4.9); Lymphocytes Percent Auto 29.6 % (20-40); Mean Corpuscular HGB Conc 31.5 g/dl (31.0-35.0); Mean Corpuscular Hemoglobin 30.5 pg (27.0-33.0); Mean Platelet Volume 10.6 fL (9.4-12.3); Monocytes Absolute Auto 0.8 X10*3/uL (0.1-1.2); Neutrophils Absolute Auto 5.5 x10*3/uL (2.0-8.3); Neutrophils Percent Auto 57.9 % (45-73); Platelet Count 204 X10*3/uL (160-400); Red Blood Count 3.34 X10*6/uL (4.20-5.50); Red Cell Distribution Width 13.5 % (11.0-16.0); White Blood Count 9.6 X10*3/uL (4.8-10.8)
[2021-06-13 06:41] LABS: Anion Gap 10 (12-20); Blood Urea Nitrogen 15 mg/dL (9-16); Calcium 8.2 mg/dL (8.4-10.2); Carbon Dioxide 28 mmol/L (22-29); Chloride 105 mmol/L (96-108); Estimated Glomerular Filt Rate > 60; Glucose Fasting 97 mg/dL (60-99); Potassium 4.5 mmol/L (3.3-5.1); Sodium 138 mmol/L (135-145)
[2021-06-13] MEDS: oxyCODONE HCl ER 10 MG TAB.ER.12H PO (07:22)
[2021-06-13] MEDS: DULoxetine HCl 30 MG CAPSULE.DR PO (07:22)
[2021-06-13] MEDS: Docusate Sodium 100 MG CAPSULE PO (07:22)
[2021-06-13] MEDS: Metoprolol Succinate ER 100 MG TAB.ER.24H PO (07:22)
[2021-06-13] MEDS: Celecoxib 200 MG CAPSULE PO (07:22)
[2021-06-13] MEDS: Aspirin 325 MG TABLET PO (07:23)
[2021-06-13 07:38] VITALS: BP 118/72; PULSE 71; RESP 18; TEMP 36.2; O2SAT 100
--- NOTE | 2021-06-13 08:10 | PM.DS ---
DS: Providers Provider Date of Service: 06/13/21 Date of admission: 06/10/21 09:07 Primary care physician: Robe Montano MD Consults: 06/10/21 16:45 Consult to Hospitalist Routine Consulting Provider: Hospitalist Reason For Exam: HTn DS: Diagnosis Discharge Diagnosis (1) S/P total right hip arthroplasty: Status: Acute DS: Summary Hospital Course Hospital Course: The patient underwent a successful tight total hip arthroplasty, they were transferred to PACU and then to the floor to recover. During their stay, their vitals were stable, afebrile at 96.9. Labs were unremarkable, H/H 10.2/32.4. POD 1 they were started on Aspirin 325mg po bid for DVT ppx, they also received Physical Therapy services twice a day. Prior to discharge, their dressing was changed, incision clean dry and intact, new Aquacel dressing applied and the plan was to be discharged home with VNA services. Time Spent with Patient Time attestation: Total time spent providing and/or coordinating discharge services: Discharge coordination time: Less than 30 minutes Quality: Stroke Does the patient have a stroke diagnosis?: No Physical Exam Vital Signs: Vital Signs: Last Vital Signs Temp 97.2 F 06/13/21 07:38 Pulse 71 06/13/21 07:38 Resp 18 06/13/21 07:38 BP 118/72 06/13/21 07:38 Pulse Ox 100 06/13/21 07:38 BMI result Body Mass Index 37.4 Extrem: Other: Right hip incision is clean, dry, and intact. [place] intact. New Aquacel dressing applied. Patient is able to dorsiflex and plantarflex. NVI. DS: Data Data Completed and Pending Completed studies during hospitalization [Text1]: Pending at discharge 06/10/21 12:57 Surgical [PTH] Routine Labs on day of discharge: Laboratory Results - last 24 hr 06/13/21 06/13/21 05:26 05:26 WBC 9.6 RBC 3.34 L Hgb 10.2 L Hct 32.4 L MCV 97.0 MCH 30.5 MCHC 31.5 RDW 13.5 Plt Count 204 MPV 10.6 Immature Gran % (Auto) 0.4 Neut % (Auto) 57.9 Lymph % (Auto) 29.6 Miner % (Auto) 8.0 Eos % (Auto) 3.8 Baso % (Auto) 0.3 Lymph # (Auto) 2.8 Miner # (Auto) 0.8 Eos # (Auto) 0.4 Baso # (Auto) 0.0 Abs Immat Gran (auto) 0.04 H Absolute Neuts (auto) 5.5 Absolute Nucleated RBC 0.000 Nucleated RBC % (auto) 0.0 Sodium 138 Potassium 4.5 Chloride 105 Carbon Dioxide 28 Anion Gap 10 L BUN 15 Creatinine 0.79 Estim Creat Clear Calc 93.0 Estimated GFR > 60 Fasting Glucose 97 Calcium 8.2 L Discharge Plan Discharge Patient Disposition: Home Health Service Discharge Diagnosis: rt wang Referrals: Eugenie Maurice PA-C [Physician Testing Projects Administrator] - 2 Weeks (06/26/21 11:15 [facility] Surgeons Nita Vasquez PA-C) Discharge Medications: New celecoxib 200 mg Capsule 200 mg PO BID 30 Days Qty: 60 0RF acetaminophen 325 mg Tablet 650 mg PO Q6H PRN (Reason: Pain, Mild (Pain Scale 1-3)) 30 Days Qty: 240 0RF aspirin 325 mg Tablet 325 mg PO BID 42 Days Qty: 84 0RF docusate sodium 100 mg Capsule 100 mg PO BID 30 Days Qty: 60 0RF oxycodone 5 mg Tablet 10 mg PO Q4H PRN (Reason: Pain, Moderate (Pain Scale 4-6) 7 Days Qty: 42 0RF Continued metoprolol succinate 100 mg tablet extended release 24 hr 100 mg PO DAILY Qty: 30 6RF (DME) walker [facility] See Rx Instructions .MEDSUPPLY Qty: 1 0RF Rx Instructions: Folding front wheeled walker lidocaine [Lidoderm] 5 % adhesive patch,medicated 1 patch topical DAILY MDD remove after 12 hours PRN (Reason: pain) Qty: 30 0RF Rx Instructions: leave on most painful area for up to 12 hrs ibuprofen 800 mg Tablet 800 mg PO Q8H PRN (Reason: Pain) 0RF betamethasone dipropionate 0.05 % ointment 1 appl topical BID 0RF cholecalciferol (vitamin D3) [Vitamin D3] 25 mcg (1,000 unit) Tablet 25 mcg PO DAILY 0RF omeprazole 20 mg capsule,delayed release(DR/EC) 1 cap PO DAILY PRN (Reason: Gastric Reflux) 0RF oxycodone 15 mg tablet 1 tab PO TID PRN (Reason: Pain, Moderate) 0RF duloxetine 30 mg capsule,delayed release(DR/EC) 1 cap PO DAILY 0RF clonazepam [Klonopin] 1 mg tablet 1 mg PO BEDTIME PRN (Reason: Anxiety) 0RF (DME) miscellaneous medical supply [facility] See Rx Instructions .Route Qty: 1 0RF Rx Instructions: As directed (DME) bedside commode Kit See Rx Instructions .Route Qty: 1 0RF Rx Instructions: As directed Discharge Orders: Discharge Order (Routine); Ordered 06/13/21 Ordered By: Nita Vasquez Diet: regular diet Activity on Discharge: Use cane or walker Stand Alone Forms: Patient Portal Discharge page Care Plan Goals: Restore function of joint Health Concerns: none Plan of Treatment: Physical Therapy Pain management DVT prophylaxis Assessment: Physical Therapy for Total hip arthroplasty: posterior precautions, gait training, ROM, strength Limit stair climbing No showering, no tub bath-keep dressing clean, dry and intact No driving x6 weeks Continue Aspirin tabs twice a day x 6 weeks Follow up with [facility] Orthopedics in 2 weeks
--- NOTE | 2021-06-13 08:12 | W.MHC.F2F ---
Service Date Service Date: 06/13/21 Encounter Date of encounter: 06/13/21 Reasons for Services Signs and symptoms assessed: Pt. is considered homebound due to recent surgery. Unable to drive, poor balance, poor gait mechanics. Reason for physical therapy: home safety and mobility, therapeutic exercises, restore joint function, gait/transfer training and ADL training Reason for occupational therapy: home safety and mobility, therapeutic exercises, restore joint function, gait/transfer training and ADL training Homebound: Leaving the home is medically contraindicated at this time without the asist of a device and/or another person due th the listed conditions above and below. Reason homebound: unsteady gait / fall risk, leg weakness, pain with ambulation, pain with transfers, poor balance / fall risk and unable to drive Homebound supporting statement: Pt. is considered homebound due to recent surgery. Unable to drive, poor balance, poor gait mechanics. Certification: Based on the above findings, I certify that this patient is confined to the home and needs intermittent shelter care, physical therapy and/or speech therapy, or continues to need occupational therapy. The patient is under my care, and I have initiated the establishment of the plan of care. The patient will be followed by a physician who will periodically review the plan of care.
[2021-06-13 08:53] VITALS: BP 118/72; PULSE 71; O2SAT 100
--- NOTE | 2021-06-13 09:17 | MHC.CM.PN ---
pt dcd home with [facility] scripts to be faxed to [facility] by [facility] transport home
== END 2021-06-13 11:01 | disposition home health service (06) | DRG 324 ==
LOC: HO.SSSA 09:12 → HO.S3 15:09
PROVIDERS: Nurse Practitioner; Physician Assistant; Absent Provider Physician Assistant; Admitting Provider Orthopaedic Surgery; PCP Internal Medicine; Visit Provider Orthopaedic Surgery
PROC: 0SR903A Replacement of Right Hip Joint with Ceramic Synthetic Substitute, Uncemented, Open Approach (ICD-10-PCS; CPT 27130; principal; 2021-06-10 11:30)
DX: M16.11 Unilateral primary osteoarthritis, right hip (principal); F41.9 Anxiety disorder, unspecified; G89.29 Other chronic pain; K21.9 Gastro-esophageal reflux disease without esophagitis; M54.16 Radiculopathy, lumbar region; Z20.822 Contact with and (suspected) exposure to COVID-19; Z79.899 Other long term (current) drug therapy
CPT/HCPCS: 36415; 72170; 80048; 85025; 86850; 86900; 86901; 87635; 87640; 87641; 88304; 88311; 93005; 97110; 97116; 97162; 97165; 97530; C1713; C1776; J0131; J0690; J1100; J1170; J1885; J2250; J2405; J2550; J3010

== ENCOUNTER → 2021-06-25 10:09 | Outpatient (BNVA) | payer MEDICAID, SELFPAY | PROVIDERS: PCP Internal Medicine; Visit Provider Physician Assistant | DX: Z47.1 Aftercare following joint replacement surgery (principal); R35.0 Frequency of micturition; Z96.641 Presence of right artificial hip joint | CPT/HCPCS: 87086; 99212 ==

== ENCOUNTER 2021-06-25 11:27 | Outpatient (REF) | payer MEDICAID, SELFPAY | END 2021-06-25 11:28 | disposition home or self-care (01) | LOC: HO.10HDL 11:27 | PROVIDERS: Visit Provider Physician Assistant | DX: R35.0 Frequency of micturition (principal) | CPT/HCPCS: 87086 ==

== ENCOUNTER 2021-07-09 10:08 | Outpatient (RCR) | payer MEDICAID, SELFPAY ==
--- NOTE | 2021-07-09 12:29 | MHC.PT.EP ---
[facility] [place] [facility] [place] [facility] [place] [facility] [address] Yobany Gale [address] [phone] F: [phone] F: [phone] F: [phone] F: [phone] Physical Therapy Plan of Care Date of Evaluation: Date of Surgery: 06/10/21 Diagnosis: S/P Rt THR- POSTERIOR APPROACH Assessment: 56 YO FEMALE REF TO PT S/P Rt THR (POSTERIOR APPROACH) ON 06/10/21. SHE NOTES SHE RECEIVED APPROX 2 WKS OF HOME PT AND IS CURRENTLY AMB W A W/WALKER. 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 OBJECTIVE FINDINGS: (+) PELVIC ASYMM CREATING LL Rt, WEAKNESS IN HER CORE AND PROX LEs, HIP EXT AND ANKLE ROM DEFICITS JOSE, (+) SCAR HYPOMOB Rt LAT HIP, AND PAIN IN HER Rt HIP WELL OTHER ARTHRITIC JOINTS AND HER LS REGION. FUNCTIONALLY, Pt IS LIMITED W STANDING, SLEEPING, TRANSFERS, LOWER BODY DRESSING, GAIT, AND STAIR MGMT. Pt IS A GOOD PT CANDIDATE S/P RIGHT THR, ADDRESSING THE ABOVE FINDINGS AND SOFT TISSUE IMBALANCE , WELL DEV A HEP AND GUIDING Pt TO IMPROVE HER FUNCTIONAL INDEP IN HER POST OP COURSE. Frequency and Duration: The patient will be seen 2 x WK x 5 WKS Short Term Goals: Pt DEMON WFL AROM Rt >Lt HIP EXT AND ANKLE DF/PF IN 3 WKS Pt DEMO IMPROVED GAIT MECH W LEAST RESTRICTIVE AD ON LEVEL GROUND AND STAIRS IN 2 WKS Pt INDEP W SCAR MOBILITY RIGHT LAT HIP IN 3 WKS *Pt INDEP POSTURAL CORRECTION AND MORE COMPLIANT W SUPPORTIVE FOOTWEAR IN 2 WKS Half-Way Goals: Pt INDEP W HEP PROGRESSION AND SELF-SX MGMT STRATEGIES IN 8 WKS Pt RESUME REG ADLs EVIDENT W IMPROVED LEFI SCORE BY 10-15 POINTS (AT EVAL 5/80 ) IN 8 WKS Pt INCR Rt LE STRENGTH BY 1 GRADE IN 8 WKS Pt INCR CORE STAB AND REDUCE LLI INFLUENCE ON LB AND Rt HIP IN 5 WKS Treatment Plan: Modalities to reduce pain, spasms and effusion. Manual therapy to restore motion and function. Therapeutic exercise to improve strength and flexibility. Neuromuscular re-education for posture and balance. Therapeutic activities to return to functional activities of daily living. Electronically signed by: Brittni Reed PT Please sign and return to therapist. Thank you for your referral.
--- NOTE | 2021-09-03 07:48 | MHC.PT.DC ---
[facility] [place] Office [place] Office [place] Office [address] Yobany Gale [address] [phone] F: [phone] F: [phone] F: [phone] F: [phone] Physical Therapy Discharge Report Diagnosis: S/P Rt THR- POSTERIOR APPROACH Date of Surgery: 06/10/21 Date of Evaluation: 07/09/21 Date of Discharge: 09/03/21 Treatments to Date: 1 Cancellations to Date: 7 No Shows to Date: 3 Discharge Status: Visit Non-compliance Discharge Summary: Pt PRESENTED FOR EVAL AND THEN SHE DID NOT SHOW FOR ADDIOINAL PT APPTS, DESPITE CONTACTING HER-SHE THEREFORE DID NOT MEET HER PT GOALS. 56 YO FEMALE REF TO PT S/P Rt THR (POSTERIOR APPROACH) ON 06/10/21. SHE NOTES SHE RECEIVED APPROX 2 WKS OF HOME PT AND IS CURRENTLY AMB W A W/WALKER. 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 OBJECTIVE FINDINGS: (+) PELVIC ASYMM CREATING LL Rt, WEAKNESS IN HER CORE AND PROX LEs, HIP EXT AND ANKLE ROM DEFICITS JOSE, (+) SCAR HYPOMOB Rt LAT HIP, AND PAIN IN HER Rt HIP WELL OTHER ARTHRITIC JOINTS AND HER LS REGION. FUNCTIONALLY, Pt IS LIMITED W STANDING, SLEEPING, TRANSFERS, LOWER BODY DRESSING, GAIT, AND STAIR MGMT. Pt IS A GOOD PT CANDIDATE S/P RIGHT THR, ADDRESSING THE ABOVE FINDINGS AND SOFT TISSUE IMBALANCE , WELL DEV A HEP AND GUIDING Pt TO IMPROVE HER FUNCTIONAL INDEP IN HER POST OP COURSE. Electronically signed by: Brittni Reed,PT Please sign and return to therapist. Thank you for your referral.
== END 2021-09-03 07:45 | disposition home or self-care (01) ==
LOC: HO.PT 10:08
PROVIDERS: PCP Internal Medicine; Visit Provider Physician Assistant
DX: Z96.642 Presence of left artificial hip joint (principal)
CPT/HCPCS: 97162; 97530

== ENCOUNTER 2021-07-15 08:50 | Outpatient (REF) | payer MEDICAID, SELFPAY ==
--- NOTE | ~2021-07-15 | CT_ITS ---
EXAMINATION: CT PELVIS WITHOUT CONTRAST CLINICAL INFORMATION: Postop issues in the pelvis. Pain. COMPARISON: None TECHNIQUE: Helical scanning was performed with submillimeter collimation through the pelvis. Sagittal and coronal multiplanar 2-D reconstructions were obtained. This CT examination was performed using dose optimization techniques as appropriate, variously including the following: *Automated exposure control *Adjustment of mA and/or kV according to patient size (this includes techniques or standardized protocols for targeted exams where dose is matched to indication/reason for exam; i.e. extremities or head) *Use of iterative reconstruction technique DLP: 805 mGy-cm FINDINGS: PELVIS: There is scattered stool and gas in the colon. The small bowel loops are normal caliber. No abnormal retroperitoneal or inguinal lymphadenopathy seen. The uterus is slightly bulky and midline. There are no adnexal lesions or mass seen. The abdominal wall appears unremarkable. OSSEOUS STRUCTURES: There is total right hip prosthesis. The prosthetic devices are in satisfactory position. There is no periprosthetic loosening. The left hip joint space and SI joints are symmetric and normal. There are cages at the L5-S1 and L4-L5 disc levels for fusion. CT/CT pelvis wo con IMPRESSION: Slightly bulky uterus. No adnexal mass. Mild constipation. Total right hip prosthesis with prosthetic components in satisfactory alignment.
== END 2021-07-15 08:51 | disposition home or self-care (01) ==
LOC: HO.CT 08:50
PROVIDERS: PCP Internal Medicine; Visit Provider Surgery
DX: L76.82 Other postprocedural complications of skin and subcutaneous tissue (principal)
CPT/HCPCS: 72192

== ENCOUNTER → 2021-07-21 09:45 | Outpatient (BNVA) | payer MEDICAID, SELFPAY | PROVIDERS: PCP Internal Medicine; Visit Provider Surgery | DX: L76.82 Other postprocedural complications of skin and subcutaneous tissue (principal) | CPT/HCPCS: 99212 ==

== ENCOUNTER 2021-07-23 20:29 | Emergency (ER) | payer MEDICAID, SELFPAY ==
--- NOTE | ~2021-07-23 | CT_ITS ---
EXAMINATION: CT SOFT TISSUE NECK WITH CONTRAST CLINICAL INFORMATION: Throat pain. History of vocal cord trauma. COMPARISON: None available. TECHNIQUE: Multidetector helical imaging was performed in the axial plane following the administration of 60 mL of Omnipaque 350 intravenous contrast. Multiple axial reformats and coronal/sagittal reconstructions were created the technologist workstation for review. This CT examination was performed using dose optimization techniques as appropriate, variously including the following: *Automated exposure control. *Adjustment of mA and/or kV according to patient size (this includes techniques or standardized protocols for targeted exams where dose is matched to indication/reason for exam; i.e. extremities or head). *Use of iterative reconstruction technique. DLP: 969 mGy-cm FINDINGS: No significant cutaneous thickening or subcutaneous inflammation. No discrete fluid collection within the deep tissues of the neck. The premaxillary, retromaxillary, pterygopalatine fossa, orbital apical, parapharyngeal, and prelaryngeal adipose tissue is maintained. Normal appearance of the parotid, submandibular, and thyroid glands. Scattered subcentimeter lymph nodes bilaterally, none of which are pathologically enlarged or abnormally enhancing. No demonstrated focal lesion or abnormal enhancement within the intrinsic tissues of the tongue or floor of mouth. Mild prominence of the palatine tonsils without demonstrated focal lesion or discrete collection. Otherwise, normal mucosal contours of the pharynx and larynx without abnormal enhancement. Normal appearance of the hyoid bone, thyroid cartilage, or cartilaginous trachea. The airways remains widely patent. No radiopaque foreign bodies. The atlantooccipital and atlantoaxial articulations remain well aligned. Straightening of the normal cervical lordosis. Mild degenerative anterolisthesis of C2 on C3. Moderate degenerative retrolisthesis of C5 on C6. Advanced degenerative disc disease at C5-C6. Moderate degenerative disc disease at C3-C4, C4-C5, and C6-C7. Associated disc-osteophyte complex formation. There appears to be at least mild spinal canal stenosis from C2-C6. Facet and uncovertebral joint arthropathy leads to osseous encroachment on the neural foramina from C2-C7. No evidence of acute fracture or subluxation of the cervical spine. The vertebral body heights are maintained. No evidence of epidural collection. There is no prevertebral soft tissue swelling. Normal opacification of the cervical arterial and venous structures. The visualized portion of the skull base is without significant abnormalities. Mild mucosal thickening of the paranasal sinuses. Mild leftward nasal septal deviation. The mastoid air cells and middle ear cavities are clear. Periapical lucencies associated with the bilateral mandibular molars. No demonstrated luis enrique-odontogenic fluid collections. CT Upper Chest: The visualized lung apices and upper mediastinum are within normal limits. CT/CT soft tissue neck w con IMPRESSION: 1. No demonstrated focal lesion, collection, pathologically enlarged lymphadenopathy, or abnormal enhancement within the soft tissues of the neck. 2. Nonspecific mild prominence of the palatine tonsils without demonstrated focal lesion or collection. 3. Moderate odontogenic disease of the bilateral mandibular molars. 4. Advanced multilevel degenerative spondyloarthropathy of the cervical spine.
[2021-07-23 20:39] VITALS: BP 125/83; PULSE 79; RESP 26; TEMP 37.2; O2SAT 99; BMI 36.9
[2021-07-23 20:42] VITALS: BP 154/93; PULSE 75; RESP 20; TEMP 36.4; O2SAT 99; BMI 40.9
--- NOTE | 2021-07-23 21:06 | ED.URI ---
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 No fever no cough no shortness of breath Related Data Home Medications Medication Instructions Recorded Confirmed clonazepam 1 mg tablet (Klonopin) 1 mg PO BEDTIME PRN 02/26/20 07/21/21 betamethasone dipropionate 0.05 % 1 appl TOPICAL BID 05/15/21 07/21/21 topical ointment cholecalciferol (vitamin D3) 25 25 mcg PO DAILY 05/15/21 07/21/21 mcg (1,000 unit) tablet (Vitamin D3) ibuprofen 800 mg tablet 800 mg PO Q8H PRN 05/15/21 07/21/21 omeprazole 20 mg capsule,delayed 1 cap PO DAILY PRN 05/16/21 07/21/21 release duloxetine 30 mg capsule,delayed 1 cap PO DAILY 06/10/21 07/21/21 release oxycodone 15 mg tablet 1 tab PO TID PRN 06/10/21 07/21/21 Previous Rx's Medication Instructions Recorded metoprolol succinate 100 mg 100 mg PO DAILY #30 tab 06/23/20 tablet,extended release 24 hr lidocaine 5 % topical patch 1 patch TOPICAL DAILY PRN #30 ea 12/17/20 (Lidoderm) MDD remove after 12 hours miscellaneous medical supply #1 ea 06/07/21 walker #1 ea 06/12/21 acetaminophen 325 mg tablet 650 mg PO Q6H PRN 30 Days #240 tab 06/13/21 aspirin 325 mg tablet 325 mg PO BID 42 Days #84 tab 06/13/21 celecoxib 200 mg capsule 200 mg PO BID 30 Days #60 cap 06/13/21 commode (bedside commode) #1 ea 06/13/21 docusate sodium 100 mg capsule 100 mg PO BID 30 Days #60 cap 06/13/21 oxycodone 5 mg tablet 10 mg PO Q4H PRN 7 Days #42 tab 06/25/21 tramadol 50 mg tablet 50 mg PO Q6H PRN #20 tab 07/21/21 amoxicillin 875 mg-potassium 1 tab PO BID #20 tab 07/24/21 clavulanate 125 mg tablet Allergies Allergy/AdvReac Type Severity Reaction Status Date / Time morphine [Morphine] Allergy Intermediate HIVES Verified 07/21/21 10:01 Review of Systems Review of Systems: Yes all other systems are reviewed and are negative [facility] Past Medical History Medical History Anxiety Chronic back pain Depression GERD (gastroesophageal reflux disease) Hypertension Lumbar radiculopathy, right Surgical History Fusion of lumbar spine History of colonoscopy History of hip surgery History of lumbar surgery History of tubal ligation Hx of dilation and curettage Family History Family History Father Suicide Mother Heart disease Diabetes CVD (cardiovascular disease) Maternal Grandmother Heart disease Maternal Grandfather Diabetes Maternal Aunt Heart disease Maternal Uncle Heart disease Social History Social History Household Members: Spouse Housing: Apartment Are you a primary pediatric acute care unit nurse to a significant other at home: No Do you presently have visiting nurse or other home services: No Alcohol intake: never Patient Tobacco Use Status: Former Tobacco user Quit Date: 2011 Tobacco use type: Cigarette Substance Use Type: Marijuana Advance Directives: No Advance Directives Information Provided: No service: No Current occupational status: disabled Current occupation: right handed Physical Exam Vital Signs: Vital Signs: Last Vital Signs Temp 97.5 F 07/23/21 20:42 Pulse 73 07/23/21 22:37 Resp 20 07/23/21 22:37 BP 122/78 07/23/21 22:37 Pulse Ox 100 07/23/21 22:37 BMI result Body Mass Index 40.9 Appearance: Alert. Oriented X3. No acute distress. ENT: Pharynx normal. Oral Mucosa moist slight erythema no exudate Neck: Normal inspection. Neck supple. No stridor CVS: Normal heart rate and rhythm. Pulses normal. Respiratory: No respiratory distress. Equal air entry bilateral, no wheezing/rales/rhonchi Abdomen: Soft and nontender. Bowel sounds are present, Skin: Skin warm and dry. Normal skin color. Normal skin turgor. Extremities: No lower extremity edema. No calf tenderness Neuro: Oriented X 3. MDM - URI/Sore Throat MDM Narrative Medical decision making narrative: Patient with laryngitis with muffled voice CT scan negative for any lesions or fluid collection will give her a dose of Rocephin discharge on Augmentin Lab Data Attestation: I reviewed the patient's lab results. Result diagrams: 07/23/21 21:06 07/23/21 21:39 Labs: Lab Results 07/23/21 07/23/21 07/23/21 Range/Units 21:06 21:06 21:06 WBC 9.6 (4.8-10.8) X10*3/uL RBC 3.81 L (4.20-5.50) X10*6/uL Hgb 11.7 L (12.0-16.0) g/dl Hct 36.5 L (37.0-47.0) % MCV 95.8 (80.0-98.0) fL MCH 30.7 (27.0-33.0) pg MCHC 32.1 (31.0-35.0) g/dl RDW 13.5 (11.0-16.0) % Plt Count 301 D (160-400) X10*3/uL MPV 9.9 (9.4-12.3) fL Immature Gran % (Auto) 0.2 (0.0-0.4) % Neut % (Auto) 43.4 L (45-73) % Lymph % (Auto) 42.3 H (20-40) % [place] % (Auto) 6.9 (2-11) % Eos % (Auto) 6.8 H (0-4) % Baso % (Auto) 0.4 (0-2) % Lymph # (Auto) 4.1 (1.2-4.9) X10*3/uL [place] # (Auto) 0.7 (0.1-1.2) X10*3/uL Eos # (Auto) 0.7 H (0.0-0.4) X10*3/uL Baso # (Auto) 0.0 (0.0-0.2) X10*3/uL Abs Immat Gran (auto) 0.02 (0.00-0.03) X10*3/uL Absolute Neuts (auto) 4.2 (2.0-8.3) x10*3/uL Absolute Nucleated RBC 0.000 (0.0-0.012) X10*3/uL Nucleated RBC % (auto) 0.0 (0.0-0.2) /100WBC Sodium (135-145) mmol/L Potassium (3.3-5.1) mmol/L Chloride (96-108) mmol/L Carbon Dioxide (22-29) mmol/L Anion Gap (12-20) BUN (9-16) mg/dL Creatinine (0.5-1.4) mg/dL Estim Creat Clear Calc Estimated GFR Random Glucose (60-115) mg/dL Calcium (8.4-10.2) mg/dL COVID-19 (ANIKA) Negative (Negative) COVID-19 Clin Com See Note S. pyogenes GrpA DAVID Negative (Negative) 07/23/21 Range/Units 21:39 WBC (4.8-10.8) X10*3/uL RBC (4.20-5.50) X10*6/uL Hgb (12.0-16.0) g/dl Hct (37.0-47.0) % MCV (80.0-98.0) fL MCH (27.0-33.0) pg MCHC (31.0-35.0) g/dl RDW (11.0-16.0) % Plt Count (160-400) X10*3/uL MPV (9.4-12.3) fL Immature Gran % (Auto) (0.0-0.4) % Neut % (Auto) (45-73) % Lymph % (Auto) (20-40) % [place] % (Auto) (2-11) % Eos % (Auto) (0-4) % Baso % (Auto) (0-2) % Lymph # (Auto) (1.2-4.9) X10*3/uL [place] # (Auto) (0.1-1.2) X10*3/uL Eos # (Auto) (0.0-0.4) X10*3/uL Baso # (Auto) (0.0-0.2) X10*3/uL Abs Immat Gran (auto) (0.00-0.03) X10*3/uL Absolute Neuts (auto) (2.0-8.3) x10*3/uL Absolute Nucleated RBC (0.0-0.012) X10*3/uL Nucleated RBC % (auto) (0.0-0.2) /100WBC Sodium 137 (135-145) mmol/L Potassium 4.5 (3.3-5.1) mmol/L Chloride 106 (96-108) mmol/L Carbon Dioxide 23 (22-29) mmol/L Anion Gap 13 (12-20) BUN 19 H (9-16) mg/dL Creatinine 0.82 (0.5-1.4) mg/dL Estim Creat Clear Calc 94.2 Estimated GFR > 60 Random Glucose 105 (60-115) mg/dL Calcium 9.0 D (8.4-10.2) mg/dL COVID-19 (ANIKA) (Negative) COVID-19 Clin Com S. pyogenes GrpA DAVID (Negative) Discharge Plan Discharge Clinical Impression: Laryngitis Patient Disposition: Home, Self-Care Instructions: Laryngitis (ED) Additional Instructions: Take antibiotic as prescribed Follow-up with PCP if not better Prescriptions: New amoxicillin-pot clavulanate 875-125 mg tablet 1 tab PO BID Qty: 20 0RF No Action metoprolol succinate 100 mg tablet extended release 24 hr 100 mg PO DAILY Qty: 30 6RF (DME) walker Mis See Rx Instructions .MEDSUPPLY Qty: 1 0RF Rx Instructions: Folding front wheeled walker (DME) bedside commode Kit See Rx Instructions .Route Qty: 1 0RF Rx Instructions: commode with handels oxycodone 5 mg tablet 10 mg PO Q4H PRN (Reason: Pain, Moderate (Pain Scale 4-6) 7 Days Qty: 42 0RF lidocaine [Lidoderm] 5 % adhesive patch,medicated 1 patch topical DAILY MDD remove after 12 hours PRN (Reason: pain) Qty: 30 0RF Rx Instructions: leave on most painful area for up to 12 hrs ibuprofen 800 mg Tablet 800 mg PO Q8H PRN (Reason: Pain) 0RF betamethasone dipropionate 0.05 % ointment 1 appl topical BID 0RF cholecalciferol (vitamin D3) [Vitamin D3] 25 mcg (1,000 unit) Tablet 25 mcg PO DAILY 0RF omeprazole 20 mg capsule,delayed release(DR/EC) 1 cap PO DAILY PRN (Reason: Gastric Reflux) 0RF oxycodone 15 mg tablet 1 tab PO TID PRN (Reason: Pain, Moderate) 0RF duloxetine 30 mg capsule,delayed release(DR/EC) 1 cap PO DAILY 0RF celecoxib 200 mg Capsule 200 mg PO BID 30 Days Qty: 60 0RF acetaminophen 325 mg Tablet 650 mg PO Q6H PRN (Reason: Pain, Mild (Pain Scale 1-3)) 30 Days Qty: 240 0RF aspirin 325 mg Tablet 325 mg PO BID 42 Days Qty: 84 0RF docusate sodium 100 mg Capsule 100 mg PO BID 30 Days Qty: 60 0RF clonazepam [Klonopin] 1 mg tablet 1 mg PO BEDTIME PRN (Reason: Anxiety) 0RF (DME) miscellaneous medical supply Misc See Rx Instructions .Route Qty: 1 0RF Rx Instructions: As directed tramadol 50 mg tablet 50 mg PO Q6H PRN (Reason: pain) Qty: 20 0RF
[2021-07-23] MEDS: 0.9 % Sodium Chloride 1,000 ML 999 ML IV (21:09)
[2021-07-23] MEDS: dexAMETHasone sod phosphate 10 MG/ML VIAL IVPUSH (21:12)
[2021-07-23 21:16] LABS: MANUAL DIFF FLAG NO
[2021-07-23 21:18] LABS: Basophils Percent Auto 0.4 % (0-2); Eosinophils Absolute Auto 0.7 X10*3/uL (0.0-0.4); Eosinophils Percent Auto 6.8 % (0-4); Hematocrit 36.5 % (37.0-47.0); Hemoglobin 11.7 g/dl (12.0-16.0); Imm Gran Abs Auto 0.02 X10*3/uL (0.00-0.03); Imm Gran Pct Auto 0.2 % (0.0-0.4); Lymphocytes Absolute Auto 4.1 X10*3/uL (1.2-4.9); Lymphocytes Percent Auto 42.3 % (20-40); Mean Corpuscular HGB Conc 32.1 g/dl (31.0-35.0); Mean Corpuscular Hemoglobin 30.7 pg (27.0-33.0); Mean Corpuscular Volume 95.8 fL (80.0-98.0); Mean Platelet Volume 9.9 fL (9.4-12.3); Monocytes Absolute Auto 0.7 X10*3/uL (0.1-1.2); Monocytes Percent Auto 6.9 % (2-11); Neutrophils Absolute Auto 4.2 x10*3/uL (2.0-8.3); Neutrophils Percent Auto 43.4 % (45-73); Platelet Count 301 X10*3/uL (160-400); Red Blood Count 3.81 X10*6/uL (4.20-5.50); Red Cell Distribution Width 13.5 % (11.0-16.0); White Blood Count 9.6 X10*3/uL (4.8-10.8)
[2021-07-23 21:29] LABS: Strep A Nucleic Acid Negative (Negative)
[2021-07-23 21:40] VITALS: BP 122/78; PULSE 72; RESP 20; O2SAT 99
[2021-07-23 21:45] LABS: COVID-19 Test Negative (Negative); IDNOW Serial# 55D5AD1C
[2021-07-23 22:01] LABS: Anion Gap 13 (12-20); Blood Urea Nitrogen 19 mg/dL (9-16); Carbon Dioxide 23 mmol/L (22-29); Chloride 106 mmol/L (96-108); Creatinine Clr Calc Pharmacy 94.2; Estimated Glomerular Filt Rate > 60; Glucose Random 105 mg/dL (60-115); Potassium 4.5 mmol/L (3.3-5.1); Sodium 137 mmol/L (135-145)
[2021-07-23] MEDS: iohexoL 350 MG/ML 100 ML INFUS..BTL IV (22:18)
[2021-07-23 22:37] VITALS: BP 122/78; PULSE 73; RESP 20; O2SAT 100
[2021-07-24] MEDS: cefTRIAXone sodium 1 GM in 0.9 % Sodium Chloride 50 ML IV (00:35)
== END 2021-07-24 00:43 | disposition home or self-care (01) ==
PROVIDERS: Emergency Provider Internal Medicine; PCP Internal Medicine
DX: J04.0 Acute laryngitis (principal); R06.02 Shortness of breath; F17.210 Nicotine dependence, cigarettes, uncomplicated; Z20.822 Contact with and (suspected) exposure to COVID-19; Z71.6 Tobacco abuse counseling; Z79.899 Other long term (current) drug therapy
CPT/HCPCS: 36415; 70491; 80048; 85025; 87635; 87651; 96361; 96365; 96375; 99283; 99284; J0696; J1100; Q9967

== ENCOUNTER 2022-01-15 01:28 | Emergency (ER) | payer MEDICAID, SELFPAY ==
[2022-01-15 02:17] VITALS: BP 162/99; PULSE 71; RESP 20; TEMP 37.2; O2SAT 99; BMI 44.2
[2022-01-15 03:13] VITALS: BP 139/63; PULSE 68; RESP 16; TEMP 37.1; O2SAT 98
--- NOTE | 2022-01-15 03:27 | ED_ITS ---
HPI - Skin/Abscess/Foreign Bdy General Chief complaint: Skin/Abscess/Foreign Body Stated complaint: rash Time Seen by Provider: 01/15/22 02:59 Source: patient Mode of arrival: ambulatory Limitations: no limitations History of Present Illness HPI narrative: Patient is here with Staph aureus infection in the past comes here with rash over the left axillary area and left breast for last 2 days with surrounding erythema also had low-grade fever and chills with headache no cough no shortness of breath patient been vaccine against COVID Related Data Home Medications Medication Instructions Recorded Confirmed clonazepam 1 mg tablet (Klonopin) 1 mg PO BEDTIME PRN Anxiety 02/26/20 07/21/21 betamethasone dipropionate 0.05 % 1 appl topical BID 05/15/21 07/21/21 topical ointment cholecalciferol (vitamin D3) 25 25 mcg PO DAILY 05/15/21 07/21/21 mcg (1,000 unit) tablet (Vitamin D3) ibuprofen 800 mg tablet 800 mg PO Q8H PRN Pain 05/15/21 07/21/21 omeprazole 20 mg capsule,delayed 1 cap PO DAILY PRN Gastric Reflux 05/16/21 07/21/21 release duloxetine 30 mg capsule,delayed 1 cap PO DAILY 06/10/21 07/21/21 release oxycodone 15 mg tablet 1 tab PO TID PRN Pain, Moderate 06/10/21 07/21/21 Previous Rx's Medication Instructions Recorded metoprolol succinate 100 mg 100 mg PO DAILY #30 tabs 06/23/20 tablet,extended release 24 hr lidocaine 5 % topical patch 1 patch topical DAILY PRN pain #30 12/17/20 (Lidoderm) ea miscellaneous medical supply #1 ea 06/07/21 walker #1 ea 06/12/21 acetaminophen 325 mg tablet 650 mg PO Q6H PRN Pain, Mild (Pain 06/13/21 Scale 1-3) 30 days #240 tabs aspirin 325 mg tablet 325 mg PO BID 42 days #84 tabs 06/13/21 celecoxib 200 mg capsule 200 mg PO BID 30 days #60 caps 06/13/21 commode (bedside commode) #1 ea 06/13/21 docusate sodium 100 mg capsule 100 mg PO BID 30 days #60 caps 06/13/21 oxycodone 5 mg tablet 10 mg PO Q4H PRN Pain, Moderate 06/25/21 (Pain Scale 4-6 7 days #42 tabs tramadol 50 mg tablet 50 mg PO Q6H PRN pain #20 tabs 07/21/21 amoxicillin 875 mg-potassium 1 tab PO BID #20 tabs 07/24/21 clavulanate 125 mg tablet doxycycline hyclate 100 mg tablet 100 mg PO BID #20 tabs 01/15/22 sulfamethoxazole 800 1 tab PO BID #20 tabs 01/15/22 mg-trimethoprim 160 mg tablet (Bactrim DS) Allergies Allergy/AdvReac Type Severity Reaction Status Date / Time morphine [Morphine] Allergy Intermediate HIVES Verified 01/15/22 02:19 Review of Systems Review of Systems: Yes all other systems are reviewed and are negative COUNTS INCLUDE 234 BEDS AT THE [facility] Past Medical History Medical History Anxiety Chronic back pain Depression GERD (gastroesophageal reflux disease) Hypertension Lumbar radiculopathy, right Surgical History Fusion of lumbar spine History of colonoscopy History of hip surgery History of lumbar surgery History of tubal ligation Hx of dilation and curettage Family History Family History Father Suicide Mother Heart disease Diabetes CVD (cardiovascular disease) Maternal Grandmother Heart disease Maternal Grandfather Diabetes Maternal Aunt Heart disease Maternal Uncle Heart disease Social History Social History Household Members: Spouse Housing: Apartment Are you a primary hearing healthcare practitioner to a significant other at home: No Do you presently have visiting nurse or other home services: No Alcohol intake: never Patient Tobacco Use Status: Former Tobacco user Quit Date: 2011 Tobacco use type: Cigarette Substance Use Type: Marijuana Advance Directives: No Advance Directives Information Provided: Yes service: No Current occupational status: disabled Current occupation: right handed Physical Exam Vital Signs: Vital Signs: Last Vital Signs Temp 98.8 F 01/15/22 03:13 Pulse 68 01/15/22 03:13 Resp 16 01/15/22 03:13 BP 139/63 01/15/22 03:13 Pulse Ox 98 01/15/22 03:13 O2 Del Method 01/15/22 03:13 BMI result Body Mass Index 44.2 Appearance: Alert. Oriented X3. No acute distress. ENT: Pharynx normal. Oral Mucosa moist Neck: Normal inspection. Neck supple. CVS: Normal heart rate and rhythm. Pulses normal. Respiratory: No respiratory distress. Equal air entry bilateral, no wheezing/rales/rhonchi Abdomen: Soft and nontender. Bowel sounds are present, no mass palpable, Skin: Skin warm and dry. Normal skin color. Normal skin turgor. Dm lesion with cellulitis left axillary and left breast area no abscess palpable Extremities: No lower extremity edema. No calf tenderness Neuro: Oriented X 3. No motor deficit. MDM - Skin/Abscess/Foreign Bdy MDM Narrative Medical decision making narrative: Patient with history of MSSA in the past comes with cellulitis with small lesions in the left axillary area no signs of abscess discharge patient home on Bactrim and doxycycline Lab Data Attestation: I reviewed the patient's lab results. Labs: Lab Results 01/15/22 Range/Units 03:38 COVID-19 (ANIKA) Negative (Negative) COVID-19 Clin Com See Note Discharge Plan Discharge Clinical Impression: MSSA (methicillin susceptible Staphylococcus aureus) infection Patient Disposition: Home, Self-Care Instructions: Cellulitis (ED) Additional Instructions: Take antibiotic as prescribed Repair the ER if gets worse Prescriptions: New sulfamethoxazole-trimethoprim [Bactrim DS] 800-160 mg tablet 1 tab PO BID Qty: 20 0RF doxycycline hyclate 100 mg tablet 100 mg PO BID Qty: 20 0RF No Action metoprolol succinate 100 mg tablet extended release 24 hr 100 mg PO DAILY Qty: 30 6RF (DME) walker Misc See Rx Instructions .MEDSUPPLY Qty: 1 0RF Rx Instructions: Folding front wheeled walker (DME) bedside commode Kit See Rx Instructions .Route Qty: 1 0RF Rx Instructions: commode with handels oxycodone 5 mg tablet 10 mg PO Q4H PRN (Reason: Pain, Moderate (Pain Scale 4-6) 7 Days Qty: 42 0RF lidocaine [Lidoderm] 5 % adhesive patch,medicated 1 patch topical DAILY MDD remove after 12 hours PRN (Reason: pain) Qty: 30 0RF Rx Instructions: leave on most painful area for up to 12 hrs amoxicillin-pot clavulanate 875-125 mg tablet 1 tab PO BID Qty: 20 0RF ibuprofen 800 mg Tablet 800 mg PO Q8H PRN (Reason: Pain) betamethasone dipropionate 0.05 % ointment 1 appl topical BID cholecalciferol (vitamin D3) [Vitamin D3] 25 mcg (1,000 unit) Tablet 25 mcg PO DAILY omeprazole 20 mg capsule,delayed release(DR/EC) 1 cap PO DAILY PRN (Reason: Gastric Reflux) oxycodone 15 mg tablet 1 tab PO TID PRN (Reason: Pain, Moderate) duloxetine 30 mg capsule,delayed release(DR/EC) 1 cap PO DAILY celecoxib 200 mg Capsule 200 mg PO BID 30 Days Qty: 60 0RF acetaminophen 325 mg Tablet 650 mg PO Q6H PRN (Reason: Pain, Mild (Pain Scale 1-3)) 30 Days Qty: 240 0RF aspirin 325 mg Tablet 325 mg PO BID 42 Days Qty: 84 0RF docusate sodium 100 mg Capsule 100 mg PO BID 30 Days Qty: 60 0RF clonazepam [Klonopin] 1 mg tablet 1 mg PO BEDTIME PRN (Reason: Anxiety) (DME) miscellaneous medical supply Misc See Rx Instructions .Route Qty: 1 0RF Rx Instructions: As directed tramadol 50 mg tablet 50 mg PO Q6H PRN (Reason: pain) Qty: 20 0RF
[2022-01-15] MEDS: Sulfamethox/Trimeth 800/160 TABLET 1 TAB PO (03:35)
[2022-01-15 03:58] LABS: COVID-19 Test Negative (Negative)
== END 2022-01-15 04:19 | disposition home or self-care (01) ==
PROVIDERS: Emergency Provider Internal Medicine
DX: L03.112 Cellulitis of left axilla (principal); B95.61 Methicillin susceptible Staphylococcus aureus infection as the cause of diseases classified elsewhere; R21 Rash and other nonspecific skin eruption; R50.9 Fever, unspecified; R51.9 Headache, unspecified; Z20.822 Contact with and (suspected) exposure to COVID-19; Z79.899 Other long term (current) drug therapy; Z87.891 Personal history of nicotine dependence
CPT/HCPCS: 87635; 99283

== ENCOUNTER → 2022-02-25 10:59 | Outpatient (BNVA) | payer MEDICAID, SELFPAY | PROVIDERS: PCP Internal Medicine; Visit Provider Surgery | DX: Z01.818 Encounter for other preprocedural examination (principal) | CPT/HCPCS: 99212 ==

== ENCOUNTER 2022-03-20 07:58 | Day surgery (SDC) | payer MEDICAID, SELFPAY ==
[2022-03-13 14:15] VITALS: BMI 38.0
--- NOTE | 2022-03-19 11:47 | HO.ANESPROP2 ---
Documented by User: Gretel Simmons NP 03/19/22 11:48 HPI - Anesthesia Eval Consult details Narrative: 56yo F for Colonoscopy,poss Polypectomy s/p total hip 06/2021 ? chronic opioids PMFSH Active Problems Active Problems: All Active Problems (Updated 02/25/22 @ 11:21 by James Macias MD) Well woman exam (Acute) Metrorrhagia (Acute) Thickened endometrium (Acute) Hot flashes (Acute) Osteoarthritis of right hip (Acute) Swelling of thigh (Acute) Incisional pain (Acute) Preop testing (Acute) S/P total left hip arthroplasty (Acute) S/P total right hip arthroplasty (Acute) Colon cancer screening (Acute) Morbid obesity (Acute) Past Medical History Medical History (Updated 02/25/22 @ 11:21 by James Macias MD) Anxiety Chronic back pain Colon cancer screening Depression GERD (gastroesophageal reflux disease) Hypertension Lumbar radiculopathy, right Morbid obesity Family History Family History Father Suicide Mother Heart disease Diabetes CVD (cardiovascular disease) Maternal Grandmother Heart disease Maternal Grandfather Diabetes Maternal Aunt Heart disease Maternal Uncle Heart disease Family history of problems with anesthesia: No Surgical History Surgical History (Updated 03/13/22 @ 14:04 by Zaina Martinez RN) Fusion of lumbar spine History of colonoscopy History of hip surgery History of lumbar surgery History of total right hip replacement History of tubal ligation Hx of dilation and curettage History of Problems with Anesthesia: No Social History Social History Household Members: Spouse Housing: Apartment Are you a primary ostomy care nurse to a significant other at home: No Do you presently have visiting nurse or other home services: No Alcohol intake: never Patient Tobacco Use Status: Former Tobacco user Quit Date: 2011 Tobacco use type: Cigarette Substance Use Type: Marijuana service: No Current occupational status: disabled Current occupation: right handed Meds Allergies Allergy/AdvReac Type Severity Reaction Status Date / Time morphine [Morphine] Allergy Intermediate HIVES Verified 02/25/22 11:06 Home Medications Medication Instructions Recorded Confirmed Last Taken Type clonazepam 1 mg tablet (Klonopin) 1 mg PO BEDTIME PRN Anxiety 02/26/20 03/13/22 07/26/20 07:00 History betamethasone dipropionate 0.05 % 1 appl topical BID 05/15/21 03/13/22 Unknown History topical ointment cholecalciferol (vitamin D3) 25 25 mcg PO DAILY 05/15/21 03/13/22 Unknown History mcg (1,000 unit) tablet (Vitamin D3) ibuprofen 800 mg tablet 800 mg PO Q8H PRN Pain 05/15/21 03/13/22 Unknown History omeprazole 20 mg capsule,delayed 1 cap PO DAILY PRN Gastric Reflux 05/16/21 03/13/22 06/10/21 History release duloxetine 30 mg capsule,delayed 1 cap PO DAILY 06/10/21 03/13/22 Unknown History release oxycodone 15 mg tablet 1 tab PO TID PRN Pain, Moderate 06/10/21 02/25/22 06/10/21 History ygcwdaqmbn-zhghbufiumhhe-rpoahqkz 1 tab PO Q6H PRN pain 02/25/22 03/13/22 Unknown History 50 mg-325 mg-40 mg tablet oxycodone-acetaminophen 10 mg-325 1 tab PO Q6H PRN Pain 02/25/22 03/13/22 Unknown History mg tablet Exam Exam Date and Time: March 19, 2022 1147 Height,Weight and Vital Signs: Height 5 ft 3 in Weight 97.522 kg Narrative Narrative: EKG 05/2021 Vent. Rate : 072 BPM ? ? Atrial Rate : 072 BPM ?? P-R Int : 122 ms? QRS Dur : 076 ms ? ? QT Int : 388 ms ? ? ? P-R-T Axes : 028 -13 040 degrees ?? QTc Int : 424 ms ? Artifact in tracing Normal sinus rhythm Likely normal EKG When compared with ECG of 07-JUN-2020 11:59, No significant changes seen Assessment and Plan Assessment Anesthesia Assessment: Chart Reviewed Final Anesthetic Review Family History of Problems with Anesthesia: No History of Problems with Anesthesia: No Documented by User: Jesus Mehta MD 11/20/22 22:54 HPI - Anesthesia Eval Consult details Narrative: 56yo F for Colonoscopy,poss Polypectomy hoarsness of voice , has had vocal cord SX in the past . Advised to follow-up with her surgeon s/p total hip 06/2021 ? chronic opioids PMFSH Past Medical History Medical History (Updated 02/25/22 @ 11:21 by James Macias MD) Anxiety Chronic back pain Colon cancer screening Depression GERD (gastroesophageal reflux disease) Hypertension Lumbar radiculopathy, right Morbid obesity Functional capacity: uses cane/walker Family History Family History Father Suicide Mother Heart disease Diabetes CVD (cardiovascular disease) Maternal Grandmother Heart disease Maternal Grandfather Diabetes Maternal Aunt Heart disease Maternal Uncle Heart disease Surgical History Surgical History (Updated 03/13/22 @ 14:04 by Zaina Martinez RN) Fusion of lumbar spine History of colonoscopy History of hip surgery History of lumbar surgery History of total right hip replacement History of tubal ligation Hx of dilation and curettage Social History Social History Household Members: Spouse Housing: Apartment Are you a primary ostomy care nurse to a significant other at home: No Do you presently have visiting nurse or other home services: No Alcohol intake: never Patient Tobacco Use Status: Former Tobacco user Quit Date: 2011 Tobacco use type: Cigarette Substance Use Type: Marijuana service: No Current occupational status: disabled Current occupation: right handed Meds Allergies Allergy/AdvReac Type Severity Reaction Status Date / Time morphine [Morphine] Allergy Intermediate HIVES Verified 02/25/22 11:06 Home Medications Medication Instructions Recorded Confirmed Last Taken Type clonazepam 1 mg tablet (Klonopin) 1 mg PO BEDTIME PRN Anxiety 02/26/20 03/13/22 07/26/20 07:00 History betamethasone dipropionate 0.05 % 1 appl topical BID 05/15/21 03/13/22 Unknown History topical ointment cholecalciferol (vitamin D3) 25 25 mcg PO DAILY 05/15/21 03/13/22 Unknown History mcg (1,000 unit) tablet (Vitamin D3) ibuprofen 800 mg tablet 800 mg PO Q8H PRN Pain 05/15/21 03/13/22 Unknown History omeprazole 20 mg capsule,delayed 1 cap PO DAILY PRN Gastric Reflux 05/16/21 03/13/22 06/10/21 History release duloxetine 30 mg capsule,delayed 1 cap PO DAILY 06/10/21 03/13/22 Unknown History release oxycodone 15 mg tablet 1 tab PO TID PRN Pain, Moderate 06/10/21 02/25/22 06/10/21 History mmjuqsuarn-yokmmpaqvodkq-kvqtseml 1 tab PO Q6H PRN pain 02/25/22 03/13/22 Unknown History 50 mg-325 mg-40 mg tablet oxycodone-acetaminophen 10 mg-325 1 tab PO Q6H PRN Pain 02/25/22 03/13/22 Unknown History mg tablet Exam Airway Mallampati Class: III TM Dist: >3cm Neck ROM: Full Loose/Missing/Broken Teeth: Yes (Fillings , implant ) Heart: S1,S2 Lungs: b/l breath sounds Assessment and Plan Assessment Anesthesia Assessment: Anesthesia Plan Discussed Final Anesthetic Review NPO: Yes ASA Class: III Final Preanesthetic Review: Meds/Allgs Chart Reviewed, Consent Obtained/Reviewed and Anes Risks/Benef Reviewed Patient Risk: Intermediate Procedure Risk: Intermediate Anesthetic Plan Anesthetic Plan: MAC: Disposition: Standard PACU
[2022-03-20 09:11] VITALS: BP 136/67; PULSE 81; RESP 18; TEMP 36.2; O2SAT 96
[2022-03-20] MEDS: Lactated Ringers 1,000 ML 100 ML IVCONT (09:30)
--- NOTE | 2022-03-20 09:33 | MHC.SHP ---
Pre-Procedural Eval Section A Date of Service: 03/20/22 The patient is an INPATIENT: No Changes since office visit: No Cold of Flu in the past 2 weeks, No New Medical Problems, No Changes in Medication and No Patient answered all questions The History & Physical has been completed within 30 days and I have reviewed it.: Yes Section B Chief Complaint: screening Allergies: Allergies Allergy/AdvReac Type Severity Reaction Status Date / Time morphine [Morphine] Allergy Intermediate HIVES Verified 02/25/22 11:06 Plan I have reviewed the history and physical and performed a pertinent physical examination on my patient. No changes have occurred unless specified.
--- NOTE | 2022-03-20 10:32 | W.PM.OPN ---
Operative Note Operative Note Date of Service: 03/20/22 Narrative: Preop diagnosis: Colon cancer screening Postop diagnosis: Normal colonoscopy findings, although with optimal bowel prep Procedure: Colonoscopy Surgeon: James Macias MD The patient is a 56-year-old female referred for screening colonoscopy. She understood the technique of the procedure and was aware of the risks, benefits, and alternatives. The patient was brought to the operating room and placed in left lateral decubitus position under monitored anesthesia care. A surgical time-out was done. A full digital rectal exam was done and this did not reveal any significant anal lesions. The tip of the Olympus colonoscope was gently introduced through the anal orifice advanced with insufflation all the way to the cecum. The cecum was intubated. The cecum was identified by visualization of the ileocecal valve as well as the appendiceal orifice. The cecal mucosa was unremarkable. The scope was gradually withdrawn with careful examination of the entire colonic mucosa being done with scope withdrawal. The patient had sub optimal bowel prep with multiple areas with thin coating of greenish enteric fluid. We had to do a lot of irrigation to visualize the colonic mucosa. It was unlikely that any large lesion may have been missed. The rectum was reached and there were no lesions seen. The anal canal was unremarkable. The scope was then withdrawn completely with desufflation. The patient tolerated the procedure well. There were no immediate complications. [In view of her suboptimal bowel prep, I would recommend another colonoscopy in the next 5 years.
[2022-03-20 10:37] VITALS: BP 111/77; PULSE 84; RESP 17; TEMP 36.5; O2SAT 100
[2022-03-20 10:52] VITALS: BP 117/70; PULSE 77; RESP 18; TEMP 36.5; O2SAT 98
== END 2022-03-20 11:04 | disposition home or self-care (01) ==
PROVIDERS: Visit Provider Surgery
PROC: 0DBE8ZZ Excision of Large Intestine, Via Natural or Artificial Opening Endoscopic (ICD-10-PCS; CPT 45378; principal; 2022-03-20 10:00)
DX: Z12.11 Encounter for screening for malignant neoplasm of colon (principal); K59.00 Constipation, unspecified; K21.9 Gastro-esophageal reflux disease without esophagitis; M54.16 Radiculopathy, lumbar region; M54.50 Low back pain, unspecified; G89.29 Other chronic pain; M25.559 Pain in unspecified hip; I10 Essential (primary) hypertension; F41.1 Generalized anxiety disorder; F32.A Depression, unspecified; E66.01 Morbid (severe) obesity due to excess calories; Z68.38 Body mass index [BMI] 38.0-38.9, adult; Z79.82 Long term (current) use of aspirin; Z79.899 Other long term (current) drug therapy; Z88.8 Allergy status to other drugs, medicaments and biological substances; F12.90 Cannabis use, unspecified, uncomplicated; F11.90 Opioid use, unspecified, uncomplicated; Z87.891 Personal history of nicotine dependence
CPT/HCPCS: 45378; J2250; Q9967

== ENCOUNTER 2022-04-17 12:33 | Emergency (ER) | payer MEDICAID, SELFPAY ==
--- NOTE | ~2022-04-17 | XR_ITS ---
EXAMINATION: XR CHEST CLINICAL INFORMATION: Cough COMPARISON: Chest x-ray 06/07/2020 TECHNIQUE: 2 views of the chest were obtained. FINDINGS: The lungs are clear. No airspace consolidation, pleural effusion, or pneumothorax. The cardiomediastinal silhouette is within normal limits. No acute osseous injury. XR/XR chest 2V IMPRESSION: No acute pulmonary process.
[2022-04-17 13:00] VITALS: BP 178/98; PULSE 95; RESP 20; TEMP 37; O2SAT 99; BMI 36.8
--- NOTE | 2022-04-17 13:00 | ED_ITS ---
HPI - URI/Sore Throat General Chief Complaint: General Medical <ERAN Yoder - Last Filed: 04/17/22 13:04> Stated Complaint: Sore Throat Chest Discomfort <ERAN Yoder - Last Filed: 04/17/22 13:04> Time Seen by Provider: 04/17/22 13:53 <ERAN Yoder - Last Filed: 04/17/22 13:04> History of Present Illness HPI Narrative: patient complains of mild runny nose for about a week with a mild cough which all got worse yesterday night when she developed fever headache worsening cough with sputum, body aches There is no shortness of breath there is no chest pain, she has felt nauseous but is not vomiting <ERAN Tillman - Last Filed: 04/17/22 16:40> Related Data Home Medications: Home Medications Medication Instructions Recorded Confirmed clonazepam 1 mg tablet (Klonopin) 1 mg PO BEDTIME PRN Anxiety 02/26/20 03/13/22 betamethasone dipropionate 0.05 % 1 appl topical BID 05/15/21 03/13/22 topical ointment cholecalciferol (vitamin D3) 25 25 mcg PO DAILY 05/15/21 03/13/22 mcg (1,000 unit) tablet (Vitamin D3) ibuprofen 800 mg tablet 800 mg PO Q8H PRN Pain 05/15/21 03/13/22 omeprazole 20 mg capsule,delayed 1 cap PO DAILY PRN Gastric Reflux 05/16/21 03/13/22 release duloxetine 30 mg capsule,delayed 1 cap PO DAILY 06/10/21 03/13/22 release oxycodone 15 mg tablet 1 tab PO TID PRN Pain, Moderate 06/10/21 02/25/22 rhlihgohva-ktvjnpojvsrqe-ydqiecxf 1 tab PO Q6H PRN pain 02/25/22 03/13/22 50 mg-325 mg-40 mg tablet oxycodone-acetaminophen 10 mg-325 1 tab PO Q6H PRN Pain 02/25/22 03/13/22 mg tablet Previous Rx's Medication Instructions Recorded metoprolol succinate 100 mg 100 mg PO DAILY #30 tabs 06/23/20 tablet,extended release 24 hr lidocaine 5 % topical patch 1 patch topical DAILY PRN pain #30 12/17/20 (Lidoderm) ea miscellaneous medical supply #1 ea 06/07/21 walker #1 ea 06/12/21 acetaminophen 325 mg tablet 650 mg PO Q6H PRN Pain, Mild (Pain 06/13/21 Scale 1-3) 30 days #240 tabs aspirin 325 mg tablet 325 mg PO BID 42 days #84 tabs 06/13/21 celecoxib 200 mg capsule 200 mg PO BID 30 days #60 caps 06/13/21 commode (bedside commode) #1 ea 06/13/21 docusate sodium 100 mg capsule 100 mg PO BID 30 days #60 caps 06/13/21 oxycodone 5 mg tablet 10 mg PO Q4H PRN Pain, Moderate 06/25/21 (Pain Scale 4-6 7 days #42 tabs tramadol 50 mg tablet 50 mg PO Q6H PRN pain #20 tabs 07/21/21 amoxicillin 875 mg-potassium 1 tab PO BID #20 tabs 07/24/21 clavulanate 125 mg tablet doxycycline hyclate 100 mg tablet 100 mg PO BID #20 tabs 01/15/22 sulfamethoxazole 800 1 tab PO BID #20 tabs 01/15/22 mg-trimethoprim 160 mg tablet (Bactrim DS) sodium,potassium,mag sulfates 17.5 See Rx Instructions PO .COMPLEX 02/25/22 gram-3.13 gram-1.6 gram oral soln #354 mL (Suprep Bowel Prep Kit) bisacodyl 5 mg tablet,delayed 10 mg PO ONCE for colonoscopy prep 03/18/22 release (Dulcolax (bisacodyl)) 1 day #2 tabs polyethylene glycol 3350 17 238 g PO ONCE for colonoscopy prep 03/18/22 gram/dose oral powder (Miralax) 1 day #238 grams acetaminophen 500 mg tablet 1,000 mg PO QID PRN pain #30 tabs 04/17/22 ondansetron 4 mg disintegrating 4 mg PO Q6H PRN nausea and 04/17/22 tablet vomiting #10 tabs oseltamivir 75 mg capsule (Tamiflu) 75 mg PO BID 5 days #10 caps 04/17/22 <ERAN Yoder - Last Filed: 04/17/22 13:04> Allergies/Adverse Reactions: Allergies Allergy/AdvReac Type Severity Reaction Status Date / Time morphine [Morphine] Allergy Intermediate HIVES Verified 10/26/22 11:06 <ERAN Yoder - Last Filed: 04/17/22 13:04> Review of Systems Review of Systems: positive for fever cough runny nose body aches fatigue Negatives are no dizziness no weakness no confusion no stiff neck no nausea or vomiting no vision changes there is no chest pain no shortness of breath no abdominal pain no vomiting or diarrhea no dysuria no skin rash <ERAN Tillman - Last Filed: 04/17/22 16:40> Yes all other systems are reviewed and are negative <ERAN Tillman - Last Filed: 04/17/22 16:40> [facility] Past Medical History Source: nursing notes reviewed <ERAN Tillman - Last Filed: 04/17/22 16:40> Medical History: Medical History (Updated 04/17/22 @ 16:35 by ERAN Tillman) Anxiety Chronic back pain Colon cancer screening Depression GERD (gastroesophageal reflux disease) Hypertension Lumbar radiculopathy, right Morbid obesity <ERAN Yoder - Last Filed: 04/17/22 13:04> Surgical History: Surgical History (Updated 03/13/22 @ 14:04 by Zaina Martinez RN) Fusion of lumbar spine History of colonoscopy History of hip surgery History of lumbar surgery History of total right hip replacement History of tubal ligation Hx of dilation and curettage <ERAN Yoder - Last Filed: 04/17/22 13:04> Family History Family History: Family History Father Suicide Mother Heart disease Diabetes CVD (cardiovascular disease) Maternal Grandmother Heart disease Maternal Grandfather Diabetes Maternal Aunt Heart disease Maternal Uncle Heart disease <ERAN Yoder - Last Filed: 04/17/22 13:04> Social History Social History: Social History Household Members: Spouse Housing: Apartment Are you a primary acute care assistant to a significant other at home: No Do you presently have visiting nurse or other home services: No Alcohol intake: never Patient Tobacco Use Status: Former Tobacco user Quit Date: 2011 Tobacco use type: Cigarette Substance Use Type: Marijuana Advance Directives: No Advance Directives Information Provided: Yes service: No Current occupational status: disabled Current occupation: right handed <ERAN Yoder - Last Filed: 04/17/22 13:04> Physical Exam Vital Signs: Vital Signs: Last Vital Signs Temp 101.6 F H 04/17/22 14:56 Pulse 91 04/17/22 14:56 Resp 20 04/17/22 14:56 BP 147/78 H 04/17/22 14:56 Pulse Ox 97 04/17/22 14:56 O2 Del Method 04/17/22 14:56 BMI result Body Mass Index 36.8 <ERAN Yoder - Last Filed: 04/17/22 13:04> Vital Signs: Last Vital Signs Temp 101.6 F H 04/17/22 14:56 Pulse 91 04/17/22 14:56 Resp 20 04/17/22 14:56 BP 147/78 H 04/17/22 14:56 Pulse Ox 97 04/17/22 14:56 O2 Del Method 04/17/22 14:56 BMI result Body Mass Index 36.8 <ERAN Tillman - Last Filed: 04/17/22 16:40> general appearance no acute distress The eyes no redness or discharge The nose congested but no sinus tenderness The pharynx is clear without redness swelling or exudate, mucous membranes are moist Neck is supple Chest clear to auscultation bilateral no respiratory distress, full symmetric equal breath sounds Heart no murmur Abdomen soft nontender Extremities no edema no calf tenderness or swelling Skin no rashes Neuro gait balance are normal, patient is A&O x3 and interaction both comprehension and expression are normal <ERAN Tillman - Last Filed: 04/17/22 16:40> Course Course Course Narrative: RME-13PM - 57yoF c PMHs of asthma who is presenting to the ED c c/o of Chills, body aches, fatigues, malaise, sore throat x 1 wk and now c headaches, coughing/sputum production, sob since last night. Reports she has been using her albuterol inhaler no symptomatic relief. Denies any other symptoms related to this. On exam lungs clear to auscultation. Oxygen saturation within normal limits. CV RRR. Not in any acute distress. Plan: COVID/RSV/flu along with rapid strep and chest x-ray ordered at this time. Patient is stable to go back to the waiting room to be evaluated in [facility]. <ERAN Yoder - Last Filed: 04/17/22 13:04> RME-13PM - 57yoF c PMHs of asthma who is presenting to the ED c c/o of Chills, body aches, fatigues, malaise, sore throat x 1 wk and now c headaches, coughing/sputum production, sob since last night. Reports she has been using her albuterol inhaler no symptomatic relief. Denies any other symptoms related to this. On exam lungs clear to auscultation. Oxygen saturation within normal limits. CV RRR. Not in any acute distress. Plan: COVID/RSV/flu along with rapid strep and chest x-ray ordered at this time. Patient is stable to go back to the waiting room to be evaluated in [facility]. Patient had a normal chest x-ray Serology testing showed positive for flu My guess is that her flu symptoms began yesterday with the abrupt change from mild cold symptoms to fever headache significantly worse cough so she is treated with Tamiflu and well-appearing patient was discharged <ERAN Tillman - Last Filed: 04/17/22 16:40> Medications Administered Discontinued Medications Generic Name Dose Route Start Last Admin Trade Name Freq PRN Reason Stop Dose Admin Acetaminophen 975 mg 04/17/22 15:08 04/17/22 15:47 Acetaminophen 325 Mg Tablet PO 04/17/22 15:09 975 mg ONCE ONE Administration Lorazepam 1 mg 04/17/22 15:08 04/17/22 15:47 Lorazepam 1 Mg Tablet PO 04/17/22 15:09 1 mg ONCE ONE Administration Ondansetron HCl 4 mg 04/17/22 14:02 04/17/22 14:20 Ondansetron Odt 4 Mg Tab.Rapdis TRANSLINGU 04/17/22 14:03 4 mg ONCE ONE Administration Oseltamivir Phosphate 75 mg 04/17/22 15:09 04/17/22 15:47 Oseltamivir Phosphate 75 Mg Capsule PO 04/17/22 15:10 75 mg ONCE ONE Administration <ERAN Yoder - Last Filed: 04/17/22 13:04> Medications Administered Discontinued Medications Generic Name Dose Route Start Last Admin Trade Name Freq PRN Reason Stop Dose Admin Acetaminophen 975 mg 04/17/22 15:08 04/17/22 15:47 Acetaminophen 325 Mg Tablet PO 04/17/22 15:09 975 mg ONCE ONE Administration Lorazepam 1 mg 04/17/22 15:08 04/17/22 15:47 Lorazepam 1 Mg Tablet PO 04/17/22 15:09 1 mg ONCE ONE Administration Ondansetron HCl 4 mg 04/17/22 14:02 04/17/22 14:20 Ondansetron Odt 4 Mg Tab.Rapdis TRANSLINGU 04/17/22 14:03 4 mg ONCE ONE Administration Oseltamivir Phosphate 75 mg 04/17/22 15:09 04/17/22 15:47 Oseltamivir Phosphate 75 Mg Capsule PO 04/17/22 15:10 75 mg ONCE ONE Administration <ERAN Tillman - Last Filed: 04/17/22 16:40> Medical Decision Making Lab Data MDM Lab Attestation statement: I reviewed the patient's lab results. <ERAN Tillman Last Filed: 04/17/22 16:40> Labs: Lab Results 04/17/22 04/17/22 Range/Units 13:05 13:05 Influenza Type A (PCR) POSITIVE A (Negative) Influenza Type B (PCR) NEGATIVE (Negative) RSV RNA Qual (PCR) NEGATIVE (Negative) SARS-CoV-2 RNA (RT-PCR) NEGATIVE (Negative) S. pyogenes GrpA DAVID Negative (Negative) <ERAN Yoder - Last Filed: 04/17/22 13:04> Lab Results 04/17/22 04/17/22 Range/Units 13:05 13:05 Influenza Type A (PCR) POSITIVE A (Negative) Influenza Type B (PCR) NEGATIVE (Negative) RSV RNA Qual (PCR) NEGATIVE (Negative) SARS-CoV-2 RNA (RT-PCR) NEGATIVE (Negative) S. pyogenes GrpA DAVID Negative (Negative) <ERAN Tillman - Last Filed: 04/17/22 16:40> Discharge Plan Discharge Clinical Impression: Influenza <ERAN Yoder Last Filed: 04/17/22 13:04> Patient Disposition: Home, Self-Care <ERAN Yoder Last Filed: 04/17/22 13:04> Additional Instructions: testing was positive for the flu negative for COVID Chest x-ray was normal Vital signs and physical exam were normal, no sign of any dangerous condition now Use the Tamiflu for reducing flu symptoms Drink plenty of fluids Return any time any worse condition or any concerns <ERAN Yoder - Last Filed: 04/17/22 13:04> Prescriptions: New acetaminophen 500 mg tablet 1,000 mg PO QID PRN (Reason: pain) Qty: 30 0RF oseltamivir [Tamiflu] 75 mg capsule 75 mg PO BID 5 Days Qty: 10 0RF ondansetron 4 mg tablet,disintegrating 4 mg PO Q6H PRN (Reason: nausea and vomiting) Qty: 10 0RF No Action metoprolol succinate 100 mg tablet extended release 24 hr 100 mg PO DAILY Qty: 30 6RF (DME) walker Misc See Rx Instructions .MEDSUPPLY Qty: 1 0RF Rx Instructions: Folding front wheeled walker (DME) bedside commode Kit See Rx Instructions .Route Qty: 1 0RF Rx Instructions: commode with handels oxycodone 5 mg tablet 10 mg PO Q4H PRN (Reason: Pain, Moderate (Pain Scale 4-6) 7 Days Qty: 42 0RF bisacodyl [Dulcolax (bisacodyl)] 5 mg tablet,delayed release (DR/EC) 10 mg PO ONCE 1 Days Qty: 2 0RF Rx Instructions: Take both tablets at 4pm on the day prior to the procedure. polyethylene glycol 3350 [Miralax] 17 gram/dose powder 238 g PO ONCE 1 Days Qty: 238 0RF Rx Instructions: Mix entire 8.3 oz bottle of miralax powder with 64 oz of clear liquid and divide in half. Drink the first half of the mixture beginning at 6pm (approx 1 glass every 15 minutes until complete. Drink the second half of the mixture at midnight (approx 1 glass every 15 minutes until gone). lidocaine [Lidoderm] 5 % adhesive patch,medicated 1 patch topical DAILY MDD remove after 12 hours PRN (Reason: pain) Qty: 30 0RF Rx Instructions: leave on most painful area for up to 12 hrs amoxicillin-pot clavulanate 875-125 mg tablet 1 tab PO BID Qty: 20 0RF ibuprofen 800 mg Tablet 800 mg PO Q8H PRN (Reason: Pain) betamethasone dipropionate 0.05 % ointment 1 appl topical BID cholecalciferol (vitamin D3) [Vitamin D3] 25 mcg (1,000 unit) Tablet 25 mcg PO DAILY omeprazole 20 mg capsule,delayed release(DR/EC) 1 cap PO DAILY PRN (Reason: Gastric Reflux) oxycodone 15 mg tablet 1 tab PO TID PRN (Reason: Pain, Moderate) duloxetine 30 mg capsule,delayed release(DR/EC) 1 cap PO DAILY celecoxib 200 mg Capsule 200 mg PO BID 30 Days Qty: 60 0RF acetaminophen 325 mg Tablet 650 mg PO Q6H PRN (Reason: Pain, Mild (Pain Scale 1-3)) 30 Days Qty: 240 0RF aspirin 325 mg Tablet 325 mg PO BID 42 Days Qty: 84 0RF docusate sodium 100 mg Capsule 100 mg PO BID 30 Days Qty: 60 0RF sulfamethoxazole-trimethoprim [Bactrim DS] 800-160 mg tablet 1 tab PO BID Qty: 20 0RF doxycycline hyclate 100 mg tablet 100 mg PO BID Qty: 20 0RF clonazepam [Klonopin] 1 mg tablet 1 mg PO BEDTIME PRN (Reason: Anxiety) zizprfvnfe-ykbzqemjtuttu-xvla 50-325-40 mg tablet 1 tab PO Q6H PRN (Reason: pain) oxycodone-acetaminophen 10-325 mg tablet 1 tab PO Q6H PRN (Reason: Pain) sodium,potassium,mag sulfates [Suprep Bowel Prep Kit] 17.5-3.13-1.6 gram recon soln See Rx Instructions PO .COMPLEX Qty: 354 0RF Rx Instructions: DILUTE; drink full amount early evening before AND next morning at least 2 hr before procedure; follow w 960 mL water PO (DME) miscellaneous medical supply Misc See Rx Instructions .Route Qty: 1 0RF Rx Instructions: As directed tramadol 50 mg tablet 50 mg PO Q6H PRN (Reason: pain) Qty: 20 0RF <ERAN Yoder - Last Filed: 04/17/22 13:04>
[2022-04-17 13:23] LABS: Strep A Nucleic Acid Negative (Negative)
[2022-04-17 13:49] LABS: Influenza A PCR POSITIVE (Negative); Influenza B PCR NEGATIVE (Negative); Resp Syncy Virus RNA Qual PCR NEGATIVE (Negative); SARS COV2 PCR INHOUSE NEGATIVE (Negative)
--- NOTE | 2022-04-17 14:11 | PC.NURSE ---
PA to bedside for primary eval, pt Flu A positive. A&Ox3 skin pwd respirations even unlabored, no s/s distress. Awaiting cxray and probable dc home.
[2022-04-17] MEDS: Ondansetron ODT 4 MG TAB.RAPDIS TRANSLINGU (14:20)
[2022-04-17 14:56] VITALS: BP 147/78; PULSE 91; RESP 20; TEMP 38.7; O2SAT 97
[2022-04-17] MEDS: Oseltamivir Phosphate 75 MG CAPSULE PO (15:47)
[2022-04-17] MEDS: LORazepam 1 MG TABLET PO (15:47)
[2022-04-17] MEDS: Acetaminophen 325 MG TABLET 975 MG PO (15:47)
== END 2022-04-17 16:43 | disposition home or self-care (01) ==
PROVIDERS: Physician Assistant Medical; Emergency Provider Student in an Organized Health Care Education/Training Program; PCP Registered Nurse
DX: J11.1 Influenza due to unidentified influenza virus with other respiratory manifestations (principal); I10 Essential (primary) hypertension; Z20.822 Contact with and (suspected) exposure to COVID-19
CPT/HCPCS: 0241U; 71046; 87651; 99283

== ENCOUNTER 2022-09-08 09:28 | Emergency (ER) | payer OTHER, SELFPAY ==
--- NOTE | ~2022-09-08 | CT_ITS ---
EXAMINATION: CT HEAD WITHOUT CONTRAST CLINICAL INFORMATION: Pain. COMPARISON: None available. TECHNIQUE: Contiguous axial imaging was performed from the skull base to vertex without intravenous administration of contrast. This CT examination was performed using dose optimization techniques as appropriate, variously including the following: *Automated exposure control *Adjustment of mA and/or kV according to patient size (this includes techniques or standardized protocols for targeted exams where dose is matched to indication/reason for exam; i.e. extremities or head) *Use of iterative reconstruction technique DLP: 607 mGy-cm FINDINGS: There is no acute intra-axial, extra-axial bleed, masses or midline shift. There is no acute infarct in evolution. There is no edema. The marks to white matter differentiation is maintained normal. The lateral ventricles are symmetrical in size and configuration without ventricle megaly. Bone windows reveal no calvarial abnormality there is no scalp soft tissue abnormality. Bilateral paranasal sinuses and mastoid air cells are well-aerated. CT/CT head/brain wo IV con IMPRESSION: No acute intracranial process seen.
--- NOTE | 2022-09-08 09:32 | ECG_ITS ---
Test Reason : headaches/arm weakness Blood Pressure : / mmHG Vent. Rate : 061 BPM Atrial Rate : 061 BPM P-R Int : 132 ms QRS Dur : 088 ms QT Int : 416 ms P-R-T Axes : 035 -19 017 degrees QTc Int : 418 ms Normal sinus rhythm Normal ECG When compared with ECG of 16-MAY-2021 13:15, No significant change was found Referred By: Generic ED Physician Electronically Signed By:NAVDEEP HEWITT
[2022-09-08 09:39] VITALS: BP 155/95; PULSE 59; RESP 20; TEMP 36.6; O2SAT 99; BMI 38.3
[2022-09-08 10:06] LABS: MANUAL DIFF FLAG NO
[2022-09-08 10:09] LABS: Basophils Percent Auto 0.5 % (0-2); Eosinophils Absolute Auto 0.3 X10*3/uL (0.0-0.4); Hematocrit 41.5 % (37.0-47.0); Hemoglobin 13.5 g/dl (12.0-16.0); Imm Gran Abs Auto 0.02 X10*3/uL (0.00-0.03); Imm Gran Pct Auto 0.2 % (0.0-0.4); Lymphocytes Absolute Auto 3.2 X10*3/uL (1.2-4.9); Lymphocytes Percent Auto 38.9 % (20-40); Mean Corpuscular HGB Conc 32.5 g/dl (31.0-35.0); Mean Corpuscular Hemoglobin 31.1 pg (27.0-33.0); Mean Corpuscular Volume 95.6 fL (80.0-98.0); Mean Platelet Volume 10.6 fL (9.4-12.3); Monocytes Absolute Auto 0.5 X10*3/uL (0.1-1.2); Monocytes Percent Auto 6.2 % (2-11); Neutrophils Absolute Auto 4.2 x10*3/uL (2.0-8.3); Neutrophils Percent Auto 50.2 % (45-73); Platelet Count 237 X10*3/uL (160-400); Red Blood Count 4.34 X10*6/uL (4.20-5.50); Red Cell Distribution Width 13.2 % (11.0-16.0); White Blood Count 8.3 X10*3/uL (4.8-10.8)
--- NOTE | 2022-09-08 10:27 | ED_ITS ---
HPI - General Adult General Chief complaint: General Medical Stated complaint: Headaches/Arm weakness Time Seen by Provider: 09/08/22 10:25 Source: patient and family Limitations: no limitations History of Present Illness HPI narrative: 57 year old female presents to the ER with multiple complaints. Patient describes different types of bumps on her scalp that come and go and time have discharge. The symptoms have been ongoing for the past month. Patient also describes a headache over the past few days. Patient states at times the light bothers her eyes but denies history of migraine headaches. Patient has no associated nausea vomiting. Patient recently did have some bouts of diarrhea. Symptoms are [id number]. Patient also describes some chest pressure has been on off greater than 24 hours. Patient denies shortness of breath fever chills. Patient does admit to using marijuana but denies tobacco use. Patient does have history of hypertension, anxiety, osteoarthritis. Patient denies any abdominal pain at this time. No known sick contacts. Related Data Home Medications Medication Instructions Recorded Confirmed clonazepam 1 mg tablet (Klonopin) 1 mg PO BEDTIME PRN Anxiety 02/26/20 03/13/22 betamethasone dipropionate 0.05 % 1 appl topical BID 05/15/21 03/13/22 topical ointment cholecalciferol (vitamin D3) 25 25 mcg PO DAILY 05/15/21 03/13/22 mcg (1,000 unit) tablet (Vitamin D3) ibuprofen 800 mg tablet 800 mg PO Q8H PRN Pain 05/15/21 03/13/22 omeprazole 20 mg capsule,delayed 1 cap PO DAILY PRN Gastric Reflux 05/16/21 03/13/22 release duloxetine 30 mg capsule,delayed 1 cap PO DAILY 06/10/21 03/13/22 release oxycodone 15 mg tablet 1 tab PO TID PRN Pain, Moderate 06/10/21 02/25/22 eglpgsldrn-rawlahfhrzfuv-ajaklsyd 1 tab PO Q6H PRN pain 02/25/22 03/13/22 50 mg-325 mg-40 mg tablet oxycodone-acetaminophen 10 mg-325 1 tab PO Q6H PRN Pain 02/25/22 03/13/22 mg tablet Previous Rx's Medication Instructions Recorded metoprolol succinate 100 mg 100 mg PO DAILY #30 tabs 06/23/20 tablet,extended release 24 hr lidocaine 5 % topical patch 1 patch topical DAILY PRN pain #30 12/17/20 (Lidoderm) ea miscellaneous medical supply #1 ea 06/07/21 walker #1 ea 06/12/21 acetaminophen 325 mg tablet 650 mg PO Q6H PRN Pain, Mild (Pain 06/13/21 Scale 1-3) 30 days #240 tabs aspirin 325 mg tablet 325 mg PO BID 42 days #84 tabs 06/13/21 celecoxib 200 mg capsule 200 mg PO BID 30 days #60 caps 06/13/21 commode (bedside commode) #1 ea 06/13/21 docusate sodium 100 mg capsule 100 mg PO BID 30 days #60 caps 06/13/21 oxycodone 5 mg tablet 10 mg PO Q4H PRN Pain, Moderate 06/25/21 (Pain Scale 4-6 7 days #42 tabs tramadol 50 mg tablet 50 mg PO Q6H PRN pain #20 tabs 07/21/21 amoxicillin 875 mg-potassium 1 tab PO BID #20 tabs 07/24/21 clavulanate 125 mg tablet doxycycline hyclate 100 mg tablet 100 mg PO BID #20 tabs 01/15/22 sulfamethoxazole 800 1 tab PO BID #20 tabs 01/15/22 mg-trimethoprim 160 mg tablet (Bactrim DS) sodium,potassium,mag sulfates 17.5 See Rx Instructions PO .COMPLEX 02/25/22 gram-3.13 gram-1.6 gram oral soln #354 mL (Suprep Bowel Prep Kit) bisacodyl 5 mg tablet,delayed 10 mg PO ONCE for colonoscopy prep 03/18/22 release (Dulcolax (bisacodyl)) 1 day #2 tabs polyethylene glycol 3350 17 238 g PO ONCE for colonoscopy prep 03/18/22 gram/dose oral powder (Miralax) 1 day #238 grams acetaminophen 500 mg tablet 1,000 mg PO QID PRN pain #30 tabs 04/17/22 ondansetron 4 mg disintegrating 4 mg PO Q6H PRN nausea and 04/17/22 tablet vomiting #10 tabs oseltamivir 75 mg capsule (Tamiflu) 75 mg PO BID 5 days #10 caps 04/17/22 cephalexin 500 mg capsule 500 mg PO QID #21 caps 09/08/22 Allergies Allergy/AdvReac Type Severity Reaction Status Date / Time morphine [Morphine] Allergy Intermediate HIVES Verified 02/25/22 11:06 Review of Systems Review of Systems: General: No fever, no chills Ophthalmology: No vision changes, no discharge ENT: No sore throat, no ear pain Cardiovascular: Positive chest pressure, no shortness of breath Respiratory: No dyspnea, no sputum production, no cough Muscle skeletal: Positive malaise, at times arms feel weak. GI: No abdominal pain: No nausea vomiting, positive diarrhea not resolved : No dysuria, no urgency, no frequency Psychiatric: No depression, no suicidal ideation, no homicidal ideation Skin: No rash, bumps on scalp Immunology: No immunocompromised Hematology: No bleeding, no bruising PMFSH Past Medical History Attestation statement: The following information was validated with the patient. Medical History Anxiety Chronic back pain Colon cancer screening Depression GERD (gastroesophageal reflux disease) Hypertension Lumbar radiculopathy, right Morbid obesity Surgical History Fusion of lumbar spine History of colonoscopy History of hip surgery History of lumbar surgery History of total right hip replacement History of tubal ligation Hx of dilation and curettage Family History Family History Father Suicide Mother Heart disease Diabetes CVD (cardiovascular disease) Maternal Grandmother Heart disease Maternal Grandfather Diabetes Maternal Aunt Heart disease Maternal Uncle Heart disease Social History Social History Household Members: Spouse Housing: Apartment Are you a primary pet care associate to a significant other at home: No Do you presently have visiting nurse or other home services: No Alcohol intake: never Patient Tobacco Use Status: Former Tobacco user Quit Date: 2011 Tobacco use type: Cigarette Smoked in Last 30 Days: No Use of substances other than those prescribed or required for medical reasons: No Substance Use Type: Marijuana Advance Directives: No Advance Directives Information Provided: Yes service: No Current occupational status: disabled Current occupation: right handed Physical Exam ED Vital Signs: Vital Signs - 24 hr 09/08/22 09:39 Temperature 97.8 F Pulse Rate 59 Respiratory Rate 20 Blood Pressure 155/95 H Pulse Oximetry 99 Oxygen Delivery Method Room Air BMI result Body Mass Index 38.3 General appearance: Awake, alert, cooperative, in no acute distress Skin: Warm, dry, no rash, some slight areas of folliculitis on the scalp noted no pustulant discharge at this time. Eyes: PERRL, EOMI, no icterus ENT: Oropharynx normal, uvula is midline, no erythema Neck: Soft supple full range of motion, no JVD Pulmonary: Breath sounds clear to auscultation bilaterally, no accessory muscle use Cardiovascular: Regular rate and rhythm no murmurs and rubs, slight chest wall tenderness on palpation no crepitus Abdomen: Soft nontender no rebound or guarding positive bowel sounds Extremities: No deformity, nontender, no peripheral edema noted, patient is moving upper lower extremities purposely Neuro: Alert oriented x3, no focal deficit, hotel service manager is equal bilaterally finger- to-nose touch is intact. Patient is ambulatory without ataxia. Psych: Normal affect Course Course Course Narrative: Migraine headache Acute headache Folliculitis Dehydration Weakness ACS less likely Viral syndrome 57-year-old female presents to the ER with complaints of some chest pressure, bumps to her scalp and headache. ECG is normal sinus rhythm at a rate of [address] elevation low suspicion for ACS at this time. Scalp lesions likely secondary to folliculitis. CT scan of the head is pending at this time will give 325 mg of aspirin p.o.. No focal deficit noted on neuro exam. 13:55 CT scan of the head is negative reviewed patient. Will treat scalp folliculitis with Keflex at this time. Patient instructed close follow-up with PCP. Medications Administered Discontinued Medications Generic Name Dose Route Start Last Admin Trade Name Jackie PRN Reason Stop Dose Admin Aspirin 325 mg 09/08/22 10:37 09/08/22 10:44 Aspirin Enteric Coated 325 Mg Tablet.Dr PIZANO 09/08/22 10:38 325 mg ONCE ONE Administration Medical Decision Making Lab Data 09/08/22 10:01 09/08/22 10:01 Labs: Lab Results 09/08/22 09/08/22 09/08/22 Range/Units 10:00 10:01 10:01 WBC 8.3 (4.8-10.8) X10*3/uL RBC 4.34 (4.20-5.50) X10*6/uL Hgb 13.5 (12.0-16.0) g/dl Hct 41.5 (37.0-47.0) % MCV 95.6 (80.0-98.0) fL MCH 31.1 (27.0-33.0) pg MCHC 32.5 (31.0-35.0) g/dl RDW 13.2 (11.0-16.0) % Plt Count 237 (160-400) X10*3/uL MPV 10.6 (9.4-12.3) fL Immature Gran % (Auto) 0.2 (0.0-0.4) % Neut % (Auto) 50.2 (45-73) % Lymph % (Auto) 38.9 (20-40) % Laurel % (Auto) 6.2 (2-11) % Eos % (Auto) 4.0 (0-4) % Baso % (Auto) 0.5 (0-2) % Lymph # (Auto) 3.2 (1.2-4.9) X10*3/uL Laurel # (Auto) 0.5 (0.1-1.2) X10*3/uL Eos # (Auto) 0.3 (0.0-0.4) X10*3/uL Baso # (Auto) 0.0 (0.0-0.2) X10*3/uL Abs Immat Gran (auto) 0.02 (0.00-0.03) X10*3/uL Absolute Neuts (auto) 4.2 (2.0-8.3) x10*3/uL Absolute Nucleated RBC 0.000 (0.0-0.012) X10*3/uL Nucleated RBC % (auto) 0.0 (0.0-0.2) /100WBC Sodium 141 (135-145) mmol/L Potassium 4.8 (3.3-5.1) mmol/L Chloride 109 H (96-108) mmol/L Carbon Dioxide 25 (22-29) mmol/L Anion Gap 12 (12-20) BUN 16 (9-16) mg/dL Creatinine 0.83 (0.5-1.4) mg/dL Estim Creat Clear Calc 88.6 Estimated GFR > 60 Random Glucose 97 (60-115) mg/dL Calcium 9.2 (8.4-10.2) mg/dL Troponin I High Sens 2.8 (<3.5-17.0) ng/L Radiology Impression Discussion of test interpretation with radiology: I have reviewed the radiologist's reading. Radiologist Impression: [id number] [place], [place] [id number] Scan ReportSigned Patient: Roz Mars LMR#: [id number]: [id number]:[id number]/Sex: 57 / FADM Date: 09/08/22Loc: BETSY.EDAttending Dr: Ordering Physician: Danial Kong Date of Service: 09/08/22 Procedure(s): CT head/brain wo IV con Accession Number(s): [id number] cc: Danial Kong ~ EXAMINATION: CT HEAD WITHOUT CONTRAST CLINICAL INFORMATION: Pain. COMPARISON: None available. TECHNIQUE: Contiguous axial imaging was performed from the skull base to vertex without intravenous administration of contrast. This CT examination was performed using dose optimization techniques as appropriate, variously including the following: *Automated exposure control *Adjustment of mA and/or kV according to patient size (this includes techniques or standardized protocols for targeted exams where dose is matched to indication/reason for exam; i.e. extremities or head) *Use of iterative reconstruction technique DLP: 607 mGy-cm FINDINGS: There is no acute intra-axial, extra-axial bleed, masses or midline shift. There is no acute infarct in evolution. There is no edema. The marks to white matter differentiation is maintained normal. The lateral ventricles are symmetrical in size and configuration without ventricle megaly. Bone windows reveal no calvarial abnormality there is no scalp soft tissue abnormality. Bilateral paranasal sinuses and mastoid air cells are well-aerated. CT/CT head/brain wo IV con IMPRESSION: No acute intracranial process seen. Dictated By:James Gil MDSigned By:<Electronically signed by James Gil MD in OV>09/08/22 1346 DD/ 1102TD/TT: Cafeteria [place] [facility] [place] Discharge Clinical Impression: Head ache, Folliculitis Patient Disposition: Home, Self-Care Instructions: Acute Headache (DC), Folliculitis (ED) Additional Instructions: CT scan of your head is normal Your blood work is within normal limits Tracing of the art EKGs normal Medications as directed for scalp folliculitis Call PCP for follow-up Prescriptions: New cephalexin 500 mg capsule 500 mg PO QID Qty: 21 0RF No Action metoprolol succinate 100 mg tablet extended release 24 hr 100 mg PO DAILY Qty: 30 6RF (DME) walker Misc See Rx Instructions .MEDSUPPLY Qty: 1 0RF Rx Instructions: Folding front wheeled walker (DME) bedside commode Kit See Rx Instructions .Route Qty: 1 0RF Rx Instructions: commode with handels oxycodone 5 mg tablet 10 mg PO Q4H PRN (Reason: Pain, Moderate (Pain Scale 4-6) 7 Days Qty: 42 0RF bisacodyl [Dulcolax (bisacodyl)] 5 mg tablet,delayed release (DR/EC) 10 mg PO ONCE 1 Days Qty: 2 0RF Rx Instructions: Take both tablets at 4pm on the day prior to the procedure. polyethylene glycol 3350 [Miralax] 17 gram/dose powder 238 g PO ONCE 1 Days Qty: 238 0RF Rx Instructions: Mix entire 8.3 oz bottle of miralax powder with 64 oz of clear liquid and divide in half. Drink the first half of the mixture beginning at 6pm (approx 1 glass every 15 minutes until complete. Drink the second half of the mixture at midnight (approx 1 glass every 15 minutes until gone). lidocaine [Lidoderm] 5 % adhesive patch,medicated 1 patch topical DAILY MDD remove after 12 hours PRN (Reason: pain) Qty: 30 0RF Rx Instructions: leave on most painful area for up to 12 hrs amoxicillin-pot clavulanate 875-125 mg tablet 1 tab PO BID Qty: 20 0RF ibuprofen 800 mg Tablet 800 mg PO Q8H PRN (Reason: Pain) betamethasone dipropionate 0.05 % ointment 1 appl topical BID cholecalciferol (vitamin D3) [Vitamin D3] 25 mcg (1,000 unit) Tablet 25 mcg PO DAILY omeprazole 20 mg capsule,delayed release(DR/EC) 1 cap PO DAILY PRN (Reason: Gastric Reflux) oxycodone 15 mg tablet 1 tab PO TID PRN (Reason: Pain, Moderate) duloxetine 30 mg capsule,delayed release(DR/EC) 1 cap PO DAILY celecoxib 200 mg Capsule 200 mg PO BID 30 Days Qty: 60 0RF acetaminophen 325 mg Tablet 650 mg PO Q6H PRN (Reason: Pain, Mild (Pain Scale 1-3)) 30 Days Qty: 240 0RF aspirin 325 mg Tablet 325 mg PO BID 42 Days Qty: 84 0RF docusate sodium 100 mg Capsule 100 mg PO BID 30 Days Qty: 60 0RF sulfamethoxazole-trimethoprim [Bactrim DS] 800-160 mg tablet 1 tab PO BID Qty: 20 0RF doxycycline hyclate 100 mg tablet 100 mg PO BID Qty: 20 0RF acetaminophen 500 mg tablet 1,000 mg PO QID PRN (Reason: pain) Qty: 30 0RF oseltamivir [Tamiflu] 75 mg capsule 75 mg PO BID 5 Days Qty: 10 0RF ondansetron 4 mg tablet,disintegrating 4 mg PO Q6H PRN (Reason: nausea and vomiting) Qty: 10 0RF clonazepam [Klonopin] 1 mg tablet 1 mg PO BEDTIME PRN (Reason: Anxiety) zxupjgjyib-paalqdwbbasci-gflu 50-325-40 mg tablet 1 tab PO Q6H PRN (Reason: pain) oxycodone-acetaminophen 10-325 mg tablet 1 tab PO Q6H PRN (Reason: Pain) sodium,potassium,mag sulfates [Suprep Bowel Prep Kit] 17.5-3.13-1.6 gram recon soln See Rx Instructions PO .COMPLEX Qty: 354 0RF Rx Instructions: DILUTE; drink full amount early evening before AND next morning at least 2 hr before procedure; follow w 960 mL water PO (DME) miscellaneous medical supply Misc See Rx Instructions .Route Qty: 1 0RF Rx Instructions: As directed tramadol 50 mg tablet 50 mg PO Q6H PRN (Reason: pain) Qty: 20 0RF Print Language: Chinese
--- NOTE | 2022-09-08 10:32 | PC.NURSE ---
Patient complaining of bumps on her head that have been there for a while that occasionally leak. Patient went to see her PCP as the symptoms are changing. Patient states that she is photophobic and is feeling some chest pressure. Patient is currently alert and oriented, follows commands appropriately. Patient denies nausea at this time.
[2022-09-08] MEDS: Aspirin Enteric Coated 325 MG TABLET.DR PO (10:44)
[2022-09-08 11:16] LABS: Anion Gap 12 (12-20); Blood Urea Nitrogen 16 mg/dL (9-16); Calcium 9.2 mg/dL (8.4-10.2); Carbon Dioxide 25 mmol/L (22-29); Chloride 109 mmol/L (96-108); Creatinine Clr Calc Pharmacy 88.6; Estimated Glomerular Filt Rate > 60; Glucose Random 97 mg/dL (60-115); Potassium 4.8 mmol/L (3.3-5.1); Sodium 141 mmol/L (135-145)
[2022-09-08 11:47] LABS: Troponin-I High Sensitivity 2.8 ng/L (<3.5-17.0)
== END 2022-09-08 14:06 | disposition home or self-care (01) ==
PROVIDERS: Emergency Provider Emergency Medicine; PCP Internal Medicine
DX: R51.9 Headache, unspecified (principal); L73.9 Follicular disorder, unspecified; F12.90 Cannabis use, unspecified, uncomplicated; Z79.82 Long term (current) use of aspirin; Z79.899 Other long term (current) drug therapy
CPT/HCPCS: 36415; 70450; 80048; 84484; 85025; 93005; 99284

== ENCOUNTER → 2022-10-19 11:00 | Outpatient (BNVA) | payer OTHER, SELFPAY | PROVIDERS: PCP Internal Medicine; Visit Provider Advanced Practice Midwife ==

== ENCOUNTER 2022-10-27 14:32 | Emergency (ER) | payer OTHER, SELFPAY ==
[2022-10-27 15:10] VITALS: BP 124/86; PULSE 70; RESP 18; TEMP 36; O2SAT 97; BMI 37.8
--- NOTE | 2022-10-27 15:10 | ED_ITS ---
HPI - General Adult General Chief complaint: Wound/Laceration Stated complaint: R Wrist Lac Injury Time Seen by Provider: 10/27/22 15:10 Source: patient Mode of arrival: ambulatory Limitations: no limitations History of Present Illness HPI narrative: Patient is a 57-year-old female presenting with right wrist laceration. States was setting up her camper, cut wrist of a plastic piece of a light. Unsure last tetanus. States applied salt to stop the bleeding. MD complaint: right wrist laceration Onset (ago): minute(s) Location: upper extremity Radiation: non-radiation Associated symptoms: denies other symptoms Treatments prior to arrival: other (applied salt) Related Data Home Medications Medication Instructions Recorded Confirmed clonazepam 1 mg tablet (Klonopin) 1 mg PO BEDTIME PRN Anxiety 02/26/20 10/19/22 betamethasone dipropionate 0.05 % 1 appl topical BID 05/15/21 10/19/22 topical ointment cholecalciferol (vitamin D3) 25 25 mcg PO DAILY 05/15/21 10/19/22 mcg (1,000 unit) tablet (Vitamin D3) ibuprofen 800 mg tablet 800 mg PO Q8H PRN Pain 05/15/21 10/19/22 omeprazole 20 mg capsule,delayed 1 cap PO DAILY PRN Gastric Reflux 05/16/21 10/19/22 release qfayzqvvzo-shygzdrnlcsnr-jzrnnxvk 1 tab PO Q6H PRN pain 02/25/22 10/19/22 50 mg-325 mg-40 mg tablet oxycodone-acetaminophen 10 mg-325 1 tab PO Q6H PRN Pain 02/25/22 10/19/22 mg tablet Previous Rx's Medication Instructions Recorded metoprolol succinate 100 mg 100 mg PO DAILY #30 tabs 06/23/20 tablet,extended release 24 hr lidocaine 5 % topical patch 1 patch topical DAILY PRN pain #30 12/17/20 (Lidoderm) ea miscellaneous medical supply #1 ea 06/07/21 walker #1 ea 06/12/21 acetaminophen 325 mg tablet 650 mg PO Q6H PRN Pain, Mild (Pain 06/13/21 Scale 1-3) 30 days #240 tabs commode (bedside commode) #1 ea 06/13/21 tramadol 50 mg tablet 50 mg PO Q6H PRN pain #20 tabs 07/21/21 acetaminophen 500 mg tablet 1,000 mg PO QID PRN pain #30 tabs 04/17/22 Allergies Allergy/AdvReac Type Severity Reaction Status Date / Time morphine [Morphine] Allergy Intermediate HIVES Verified 10/27/22 15:10 Review of Systems Review of Systems: As per HPI. Yes all other systems are reviewed and are negative Constitutional: Constitutional: Reports as per HPI [facility] Past Medical History Medical History Anxiety Chronic back pain Colon cancer screening Depression GERD (gastroesophageal reflux disease) Hypertension Lumbar radiculopathy, right Morbid obesity Surgical History Fusion of lumbar spine History of colonoscopy History of hip surgery History of lumbar surgery History of total right hip replacement History of tubal ligation Hx of dilation and curettage Family History Family History Father Suicide Mother Heart disease Diabetes CVD (cardiovascular disease) Maternal Grandmother Heart disease Maternal Grandfather Diabetes Maternal Aunt Heart disease Maternal Uncle Heart disease Social History Social History Household Members: Spouse Housing: Apartment Are you a primary family member caretaker to a significant other at home: No Do you presently have visiting nurse or other home services: No Alcohol intake: never Patient Tobacco Use Status: Former Tobacco user Quit Date: 2011 Tobacco use type: Cigarette Substance Use Type: Marijuana service: No Current occupational status: disabled Current occupation: right handed Physical Exam ED Vital signs have been reviewed and appear to be correct. Blood pressure normal. Heart rate normal. Respiratory rate normal. Temperature normal. Oxygen saturation normal. Const General: cooperative, healthy appearing and no acute distress Orientation/consciousness: oriented to person, oriented to place, oriented to time and patient oriented x3 Limitations: no limitations HENMT Head: Yes normocephalic and Yes atraumatic Ears: external ears normal General nose exam: Normal external nose present Face and sinus: Yes face symmetric Mouth: oropharynx normal and moist mucous membranes Throat: Yes uvula midline Eyes Pupils: Equal, round and reactive pupils present Neck Neck: Yes normal visual inspection and Yes supple Resp Effort & Inspection: normal respiratory effort and able to speak in complete sentences Auscultation: clear to auscultation bilaterally Cardio Rate: regular rate Rhythm: regular rhythm Heart sounds: S1 normal heart sound present and S2 normal heart sound present GI Palpation (GI): Soft to palpation and nontender Auscultation: normoactive bowel sounds General: Yes no CVA tenderness Back/Spine/Pelvis Back: no CVA tenderness Skin General skin exam: elasticity normal and turgor normal Neuro General: oriented to person, oriented to place, oriented to time, patient oriented x3, moves all extremities, no focal motor deficits and CN's II-XI intact bilaterally Cranial nerves: Yes Equal, round and reactive pupils present Cognition (Neuro): normal cognition Extrem General: Yes full ROM, Yes no pedal edema and Yes no calf tenderness Right upper extremity: wrist Details: laceration (superficial) wrist distal volar and normal vascular exam; no tenderness, no swelling and no unusual warmth Psych Mental Status: mental status grossly normal Affect: normal affect Thought process: Normal thought process present Medical Decision Making Medical Decision Making MDM Narrative: Patient is a 57-year-old female presenting with right wrist laceration. On exam patient awake, A+Ox3, superficial abrasion to volar aspect of right distal wrist. Area cleansed with betadine and saline. Dressing applied. Tetanus updated. Instructed patient to change dressing daily and monitor for signs of infection. Return precautions discussed. Differential Diagnosis Differential Diagnoses: The differential diagnosis associated with the presentation includes laceration, abrasion, cellulitis External Record Review External record reviewed: Inpatient record, Office record and Outpatient record Discharge Plan Discharge Clinical Impression: Laceration of wrist, right Patient Disposition: Home, Self-Care Instructions: Laceration (DC) Additional Instructions: You have been evaluated in the emergency department today for a laceration to your wrist. Please keep the area surrounding the laceration clean and dry and keep dressing in place for the next 24 hours. After that please change the dressing and assess the wound daily. Keep the area out of direct sunlight for the next 6 months to help prevent scarring. If you develop fever, redness, swelling at the site of your laceration, or thick yellow drainage please come back to the ER for a wound check. Your tetanus was updated today. Prescriptions: No Action metoprolol succinate 100 mg tablet extended release 24 hr 100 mg PO DAILY Qty: 30 6RF (BANG) walker Misc See Rx Instructions .MEDSUPPLY Qty: 1 0RF Rx Instructions: Folding front wheeled walker (DME) bedside commode Kit See Rx Instructions .Route Qty: 1 0RF Rx Instructions: commode with handels lidocaine [Lidoderm] 5 % adhesive patch,medicated 1 patch topical DAILY MDD remove after 12 hours PRN (Reason: pain) Qty: 30 0RF Rx Instructions: leave on most painful area for up to 12 hrs ibuprofen 800 mg Tablet 800 mg PO Q8H PRN (Reason: Pain) betamethasone dipropionate 0.05 % ointment 1 appl topical BID cholecalciferol (vitamin D3) [Vitamin D3] 25 mcg (1,000 unit) Tablet 25 mcg PO DAILY omeprazole 20 mg capsule,delayed release(DR/EC) 1 cap PO DAILY PRN (Reason: Gastric Reflux) acetaminophen 325 mg Tablet 650 mg PO Q6H PRN (Reason: Pain, Mild (Pain Scale 1-3)) 30 Days Qty: 240 0RF acetaminophen 500 mg tablet 1,000 mg PO QID PRN (Reason: pain) Qty: 30 0RF clonazepam [Klonopin] 1 mg tablet 1 mg PO BEDTIME PRN (Reason: Anxiety) amglolwfiy-jtdnqrywittnp-acsb 50-325-40 mg tablet 1 tab PO Q6H PRN (Reason: pain) oxycodone-acetaminophen 10-325 mg tablet 1 tab PO Q6H PRN (Reason: Pain) (DME) miscellaneous medical supply Misc See Rx Instructions .Route Qty: 1 0RF Rx Instructions: As directed tramadol 50 mg tablet 50 mg PO Q6H PRN (Reason: pain) Qty: 20 0RF
[2022-10-27] MEDS: Diphth,Pertus(ACell),Tet Adult 0.5 ML SYRINGE IM (15:24)
== END 2022-10-27 15:32 | disposition home or self-care (01) ==
PROVIDERS: Emergency Provider Emergency Medicine; PCP Internal Medicine
DX: S61.511A Laceration without foreign body of right wrist, initial encounter (principal); S60.811A Abrasion of right wrist, initial encounter; W26.9XXA Contact with unspecified sharp object(s), initial encounter; Y93.9 Activity, unspecified; Y92.9 Unspecified place or not applicable; Y99.9 Unspecified external cause status; Z87.891 Personal history of nicotine dependence; Z79.899 Other long term (current) drug therapy; Z23 Encounter for immunization
CPT/HCPCS: 90471; 90715; 99282; 99284

== ENCOUNTER 2023-01-28 10:12 | Outpatient (AMB) | payer OTHER, SELFPAY ==
--- NOTE | 2023-01-28 10:22 | A.OFFVIS_ITS ---
Intake Vital Signs 01/28/23 10:23 Height 5 ft 4 in Weight 216 lb 0.848 oz BMI 37.1 BP 124/74 Blood Pressure Location Lt brachial Position Sitting Pulse 71 Intake Visit Reasons: NPV/Chest Pain/B. Soar Intake Note: NPV [employer] History Required: No Accompanied by: Spouse Allergies morphine [Morphine] Allergy (Intermediate, Verified 01/28/23 10:26) HIVES Medication List - Last Reconciled 01/28/23 by Kodak Hernandez MD betamethasone dipropionate 0.05% 1 appl topical BID cholecalciferol (vitamin D3) (Vitamin D3) 25 mcg PO DAILY clonazepam (Klonopin) 1 mg PO BEDTIME PRN commode (bedside commode) commode with handels ibuprofen 800 mg PO Q8H PRN lidocaine 5% (Lidoderm) 1 patch topical DAILY PRN MDD remove after 12 hours metoprolol succinate ER 100 mg PO DAILY miscellaneous medical supply As directed omeprazole 1 cap PO DAILY PRN oxycodone-acetaminophen 10-325 mg 1 tab PO Q6H PRN walker Folding front wheeled walker HPI HPI Comments History of Present Illness Details Pranay is here for consultation regarding various symptoms. She states she gets pain in the left chest about the breast area. Somewhat randomly. Nothing clearly provoking or. She also feels short of breath with activity and can have sensations of heart fluttering and she states it feels like a panic attack. No documented coronary disease myocardial infarction or cardiomyopathy in the past. She is overweight. [facility] Medical History Anxiety Chronic back pain Colon cancer screening Depression GERD (gastroesophageal reflux disease) Hypertension Lumbar radiculopathy, right Morbid obesity Surgical History History of total right hip replacement Hx of dilation and curettage History of hip surgery History of lumbar surgery History of colonoscopy History of tubal ligation Fusion of lumbar spine Family History Father Suicide Mother Heart disease Diabetes CVD (cardiovascular disease) Maternal Grandmother Heart disease Maternal Grandfather Diabetes Maternal Aunt Heart disease Maternal Uncle Heart disease Social History Household Members: Spouse Housing: Apartment Are you a primary personal care service provider to a significant other at home: No Do you presently have visiting nurse or other home services: No Alcohol intake: never Patient Tobacco Use Status: Former Tobacco user Quit Date: 2011 Tobacco use type: Cigarette Substance Use Type: Marijuana service: No Current occupational status: disabled Current occupation: right handed Female Reproductive History Menstrual Date of menopause: 05/04/22 Review of Systems Const Denies chills, Denies daytime sleepiness, Denies fatigue, Denies fever(s), Denies frequent falls, Denies night sweats, Denies snoring, Denies weakness, Denies weight gain and Denies weight loss Eyes Denies loss of vision ENT Denies dizziness and Denies hearing loss Card Denies chest pain, Denies chest pain with activity, Denies syncope, Denies rapid heart rate, Denies edema, Denies claudication, Denies leg edema, Denies lightheadedness, Denies palpitations, Denies dyspnea, Denies dyspnea on exertion and Denies orthopnea Resp Denies cough, Denies excessive phlegm production, Denies dyspnea, Denies dyspnea on exertion, Denies snoring and Denies wheezing GI Denies abdominal pain, Denies hematochezia, Denies change in bowel habits, Denies change in stool character, Denies heartburn, Denies nausea and Denies vomiting Denies hematuria, Denies urinary frequency and Denies dysuria Musc Denies arthralgias, Denies muscle weakness, Denies numbness and Denies tingling Skin/Breast Denies nail changes and Denies rash Neuro Denies Abnormal speech present, Denies dizziness, Denies syncope, Denies frequent falls, Denies loss of vision, Denies memory loss, Denies numbness, Denies tingling and Denies weakness Psych Denies depression and Denies memory loss Endo Denies fatigue and Denies palpitations Aller/Immun Denies wheezing Physical Exam Vital Signs: Last Vital Signs Pulse 71 01/28/23 10:23 BP 124/74 01/28/23 10:23 BMI result Body Mass Index 37.1 Const General: comfortable and no acute distress Orientation/consciousness: patient oriented x3 HEENT Other: Unremarkable Head: Yes normal to inspection Neck Neck: Yes normal visual inspection Chest Chest palpation & inspection: normal inspection of the chest Resp Auscultation: clear to auscultation bilaterally Cardio Palpation: normal PMI Heart sounds: S1 normal heart sound present, S2 normal heart sound present, no gallops, no murmurs and no rubs GI Palpation (GI): Soft to palpation Back/Spine/Pelvis Other: unremarkable Skin General skin exam: no rashes or lesions noted Neuro General: patient oriented x3 Speech: No Abnormal speech present Extrem General: Yes normal to inspection Psych Mental Status: mental status grossly normal Assessment & Plan Assessment & Plan (1) Precordial chest pain: Code(s): R07.2 - Precordial pain (2) SOB (shortness of breath): Code(s): R06.02 - Shortness of breath (3) Palpitations: Code(s): R00.2 - Palpitations Plan In the baseline EKG, underlying rhythm is sinus at 61/Min; leftward axis; no significant ST-T changes and otherwise unremarkable. Various symptoms including chest pain, shortness of breath and racing heart. Will start with comprehensive workup including echocardiogram, stress test and Holter. Based on findings, we will plan further care. Otherwise, reassured for now. Discussed with who came for appointment. Orders: Orders CA stress test Today R07.2 - Precordial pain ECG 3 day holter monitor Today R00.2 - Palpitations CA echo transthoracic complete Today R06.02 - Shortness of breath Coding Level of Care Code New Pt Level 3 (84773) Diagnoses Precordial chest pain R07.2 SOB (shortness of breath) R06.02 Palpitations R00.2
[2023-01-28 10:23] VITALS: BP 124/74; PULSE 71; BMI 37.1
== END 2023-01-28 10:39 | disposition home or self-care (01) ==
PROVIDERS: PCP Internal Medicine; Visit Provider Internal Medicine
DX: R07.2 Precordial pain (principal); R06.02 Shortness of breath; R00.2 Palpitations
CPT/HCPCS: 99213

== ENCOUNTER → 2023-01-28 10:12 | Outpatient (BNVA) | payer OTHER, SELFPAY | PROVIDERS: PCP Internal Medicine; Visit Provider Internal Medicine ==

== ENCOUNTER 2023-02-09 15:04 | Emergency (ER) | payer OTHER, SELFPAY ==
--- NOTE | 2023-02-09 15:13 | ED_ITS ---
HPI - SOB/Dyspnea General Chief Complaint: Allergic Reaction Stated Complaint: SOB Time Seen by Provider: 02/09/23 15:12 Source: patient and family Mode of arrival: ambulatory History of Present Illness HPI Narrative: 57-year-old female who underwent deep teeth cleaning this morning with anesthetic at approximately 10:00 hours and then had her flu and COVID vaccination today at noon and then started to experience acute shortness of neelima th with difficulty breathing with nausea and vomiting. Patient denies any history of asthma, COPD or smoking. Related Data Home Medications Medication Instructions Recorded Confirmed clonazepam 1 mg tablet (Klonopin) 1 mg PO BEDTIME PRN Anxiety 02/26/20 01/28/23 betamethasone dipropionate 0.05 % 1 appl topical BID 05/15/21 01/28/23 topical ointment cholecalciferol (vitamin D3) 25 25 mcg PO DAILY 05/15/21 01/28/23 mcg (1,000 unit) tablet (Vitamin D3) ibuprofen 800 mg tablet 800 mg PO Q8H PRN Pain 05/15/21 01/28/23 omeprazole 20 mg capsule,delayed 1 cap PO DAILY PRN Gastric Reflux 05/16/21 01/28/23 release oxycodone-acetaminophen 10 mg-325 1 tab PO Q6H PRN Pain 02/25/22 01/28/23 mg tablet Previous Rx's Medication Instructions Recorded metoprolol succinate 100 mg 100 mg PO DAILY #30 tabs 06/23/20 tablet,extended release 24 hr lidocaine 5 % topical patch 1 patch topical DAILY PRN pain #30 12/17/20 (Lidoderm) ea miscellaneous medical supply #1 ea 06/07/21 walker #1 ea 06/12/21 commode (bedside commode) #1 ea 06/13/21 epinephrine 0.3 mg/0.3 mL 0.3 mg (0.3 mL) IM Q4H PRN 02/09/23 injection, auto-injector (EpiPen) anaphylaxis #2 ea Allergies Allergy/AdvReac Type Severity Reaction Status Date / Time morphine [Morphine] Allergy Intermediate HIVES Verified 01/28/23 10:26 Review of Systems Review of Systems: Pertinent positives and negatives as stated in HPI [facility] Past Medical History Source: nursing notes reviewed Medical History Anxiety Chronic back pain Colon cancer screening Depression GERD (gastroesophageal reflux disease) Hypertension Lumbar radiculopathy, right Morbid obesity Surgical History History of total right hip replacement Hx of dilation and curettage History of hip surgery History of lumbar surgery History of colonoscopy History of tubal ligation Fusion of lumbar spine Family History Family History Father Suicide Mother Heart disease Diabetes CVD (cardiovascular disease) Maternal Grandmother Heart disease Maternal Grandfather Diabetes Maternal Aunt Heart disease Maternal Uncle Heart disease Social History Social History Household Members: Spouse Housing: Apartment Are you a primary patient care associate to a significant other at home: No Do you presently have visiting nurse or other home services: No Alcohol intake: never Patient Tobacco Use Status: Former Tobacco user Quit Date: 2011 Tobacco use type: Cigarette Smoked in Last 30 Days: No Substance Use Type: Marijuana Advance Directives: No Advance Directives Information Provided: No Patient : No service: No Current occupational status: disabled Current occupation: right handed Physical Exam Vital Signs: Vital Signs: Last Vital Signs Temp 98.5 F 02/09/23 15:20 Pulse 64 02/09/23 15:20 Resp 16 02/09/23 15:20 BP 118/63 02/09/23 15:20 Pulse Ox 100 02/09/23 15:20 O2 Del Method Room Air 02/09/23 15:20 BMI result Body Mass Index 38.3 VITAL SIGNS: Reviewed. GENERAL: Well developed, well nourished, in moderate distress. HEAD: Normocephalic/atraumatic EYES: PERRLA, EOMI EARS: Ext canals without abnormality, TMs non-bulging and non-erythematous NOSE: Nares patent bilateral OROPHARYNX: no oral lesions noted, posterior pharynx clear NECK: Supple, no adenopathy LUNGS: No stridor, no expiratory wheeze, tachypnea and increased work of breathing is present some increased work on inspiration is noted. SpO2<97> CARDIOVASCULAR: Regular rate and rhythm without noted murmurs ABDOMEN: Soft, non-tender, non-distended with bowel sounds. MUSCULOSKELETAL: No tenderness, deformities, or effusions noted on gross inspection. EXTREMITIES: No cyanosis, clubbing or edema. SKIN: Inspection of the skin reveals no rashes NEUROLOGIC: Alert and oriented x 4. Strength and sensation to light touch were grossly intact x 4. Medications Administered Discontinued Medications Generic Name Dose Route Start Last Admin Trade Name Jackie PRN Reason Stop Dose Admin Diphenhydramine HCl 50 mg 02/09/23 15:12 02/09/23 15:16 Diphenhydramine Hcl 50 Mg/Ml Vial IVPUSH 02/09/23 15:13 50 mg ONCE ONE Administration Famotidine 20 mg 02/09/23 15:12 02/09/23 15:16 Famotidine/Pf 20 Mg/2 Ml Vial IVPUSH 02/09/23 15:13 20 mg ONCE ONE Administration Methylprednisolone Sodium Succinate 125 mg 02/09/23 15:12 02/09/23 15:16 Methylprednisolone Sod Succ 125 Mg/2 Ml Vial IVPUSH 02/09/23 15:13 125 mg ONCE ONE Administration Medical Decision Making Medical Decision Making MDM Narrative: 57-year-old female with history and clinical presentation, DDX: Medication allergy, Anaphylaxis, anxiety. Re-evaluation within 5 minutes and patient continues to oxygenating well in states that she feels improved, tachypnea is subsiding and there continues to be no evidence of stridor as well as no facial/lip/tongue swelling. 17:06: Patient feeling much better, no oropharyngeal edema, no wheezing, breathing normal, vital stable, oxygen saturation 97% on room air. - it remains unclear why patient had an allergic reaction versus a panic attack. - At this time of discharge, patient is completely asymptomatic Differential Diagnosis Differential Diagnoses: The differential diagnosis associated with the presentation includes Please see the discussion above Admission/Observation Consideration of admission/observation: Escalation of care including admission/observation considered Please see the discussion above Critical Care Time Critical Care Time Critical Care Time: Yes Total Critical Care Time: 30 Attestation: ? I have personally provided critical care time. Time includes review of lab data, radiology results, discussion with consultants, and monitoring for potential decompensation. Intervention performed as documented. Discharge Plan Discharge Clinical Impression: Allergic reaction Patient Disposition: Home, Self-Care Instructions: Allergies (ED), Anxiety (ED) Additional Instructions: ?Please follow-up with your primary care physician tomorrow.? If you have any worsening or new symptoms, please return to the emergency room or call 911 Prescriptions: New epinephrine [EpiPen] 0.3 mg/0.3 mL auto-injector 0.3 mg IM Q4H PRN (Reason: anaphylaxis) Qty: 2 0RF No Action metoprolol succinate 100 mg tablet extended release 24 hr 100 mg PO DAILY Qty: 30 6RF (DME) walker Misc See Rx Instructions .MEDSUPPLY Qty: 1 0RF Rx Instructions: Folding front wheeled walker (DME) bedside commode Kit See Rx Instructions .Route Qty: 1 0RF Rx Instructions: commode with handels lidocaine [Lidoderm] 5 % adhesive patch,medicated 1 patch topical DAILY MDD remove after 12 hours PRN (Reason: pain) Qty: 30 0RF Rx Instructions: leave on most painful area for up to 12 hrs ibuprofen 800 mg Tablet 800 mg PO Q8H PRN (Reason: Pain) betamethasone dipropionate 0.05 % ointment 1 appl topical BID cholecalciferol (vitamin D3) [Vitamin D3] 25 mcg (1,000 unit) Tablet 25 mcg PO DAILY omeprazole 20 mg capsule,delayed release(DR/EC) 1 cap PO DAILY PRN (Reason: Gastric Reflux) clonazepam [Klonopin] 1 mg tablet 1 mg PO BEDTIME PRN (Reason: Anxiety) oxycodone-acetaminophen 10-325 mg tablet 1 tab PO Q6H PRN (Reason: Pain) (DME) [facility] See [facility] Instructions .Route Qty: 1 0RF Rx Instructions: As directed
[2023-02-09 15:20] VITALS: BP 118/63; PULSE 64; RESP 16; TEMP 36.9; O2SAT 100; BMI 38.3
[2023-02-09 17:07] VITALS: BP 105/65; PULSE 63; RESP 16; O2SAT 98
[2023-02-09 17:41] VITALS: BP 114/56; PULSE 65; RESP 18; O2SAT 94
== END 2023-02-09 17:43 | disposition home or self-care (01) ==
PROVIDERS: Emergency Provider Emergency Medicine
DX: R06.02 Shortness of breath (principal); R11.2 Nausea with vomiting, unspecified; Z79.899 Other long term (current) drug therapy; Z87.891 Personal history of nicotine dependence
CPT/HCPCS: 96374; 96375; 99284; J1200; J2930

== ENCOUNTER 2023-02-10 09:40 | Emergency (ER) | payer OTHER, SELFPAY ==
[2023-02-10 09:47] VITALS: BP 199/96; PULSE 79; RESP 18; TEMP 36.6; O2SAT 100
--- NOTE | 2023-02-10 09:50 | ED.SOB ---
HPI - SOB/Dyspnea General Chief Complaint: Allergic Reaction Stated Complaint: FEELS LIKE THROAT CLOSING TODAY,UMANG T-1 History of Present Illness HPI Narrative: Patient is a 57-year-old female with a history of anxiety in the past. Patient was in the emergency department yesterday for possible allergic reaction versus panic attack. At the time patient was monitored symptoms seems that relieved patient had exposure to a COVID vaccine along with a flu vaccine. Patient also had recent dental cleaning done. History of anxiety patient felt tightness in her chest difficulty breathing similar to panic attack but feels short of breath. There is no gross change in voice. Able to tolerate own saliva. Patient denies any fever chills. Nothing else in her environment. Related Data Home Medications Medication Instructions Recorded Confirmed clonazepam 1 mg tablet (Klonopin) 1 mg PO BEDTIME PRN Anxiety 02/26/20 01/28/23 betamethasone dipropionate 0.05 % 1 appl topical BID 05/15/21 01/28/23 topical ointment cholecalciferol (vitamin D3) 25 25 mcg PO DAILY 05/15/21 01/28/23 mcg (1,000 unit) tablet (Vitamin D3) ibuprofen 800 mg tablet 800 mg PO Q8H PRN Pain 05/15/21 01/28/23 omeprazole 20 mg capsule,delayed 1 cap PO DAILY PRN Gastric Reflux 05/16/21 01/28/23 release oxycodone-acetaminophen 10 mg-325 1 tab PO Q6H PRN Pain 02/25/22 01/28/23 mg tablet Previous Rx's Medication Instructions Recorded metoprolol succinate 100 mg 100 mg PO DAILY #30 tabs 06/23/20 tablet,extended release 24 hr lidocaine 5 % topical patch 1 patch topical DAILY PRN pain #30 12/17/20 (Lidoderm) ea miscellaneous medical supply #1 ea 06/07/21 walker #1 ea 06/12/21 commode (bedside commode) #1 ea 06/13/21 epinephrine 0.3 mg/0.3 mL 0.3 mg (0.3 mL) IM Q4H PRN 02/09/23 injection, auto-injector (EpiPen) anaphylaxis #2 ea lorazepam 0.5 mg tablet (Ativan) 0.5 mg PO TID PRN anxiety #7 tabs 02/10/23 Allergies Allergy/AdvReac Type Severity Reaction Status Date / Time morphine [Morphine] Allergy Intermediate HIVES Verified 01/28/23 10:26 Review of Systems Review of Systems: Positive tightness Yes all other systems are reviewed and are negative [facility] Past Medical History Medical History Colon cancer screening Morbid obesity GERD (gastroesophageal reflux disease) Lumbar radiculopathy, right Chronic back pain Depression Anxiety Hypertension Surgical History History of total right hip replacement Hx of dilation and curettage History of hip surgery History of lumbar surgery History of colonoscopy History of tubal ligation Fusion of lumbar spine Family History Family History Father Suicide Mother Heart disease Diabetes CVD (cardiovascular disease) Maternal Grandmother Heart disease Maternal Grandfather Diabetes Maternal Aunt Heart disease Maternal Uncle Heart disease Social History Social History Household Members: Spouse Housing: Apartment Are you a primary administrator health care facility to a significant other at home: No Do you presently have visiting nurse or other home services: No Alcohol intake: never Patient Tobacco Use Status: Former Tobacco user Quit Date: 2011 Tobacco use type: Cigarette Smoked in Last 30 Days: No Use of substances other than those prescribed or required for medical reasons: Yes Substance Use Type: Marijuana Advance Directives: No service: No Current occupational status: disabled Current occupation: right handed Physical Exam Vital Signs: Vital Signs: Last Vital Signs Temp 97.9 F 02/10/23 09:47 Pulse 74 02/10/23 10:49 Resp 10 L 02/10/23 10:49 BP 155/73 H 02/10/23 10:49 Pulse Ox 100 02/10/23 10:49 O2 Del Method Room Air 02/10/23 10:49 BMI result Body Mass Index 37.2 Appearance: Alert. Oriented X3. No acute distress. Eyes: Pupils equal, round and reactive to light. ENT: Pharynx normal. Neck: Normal inspection. Neck supple. No lymph nodes noted. No crepitus CVS: Normal heart rate and rhythm. Pulses normal. Normal S1 and S2 Respiratory: No respiratory distress. Breath sounds normal. No Wheezing. No rales Abdomen: Soft and nontender. No rigidity. No distention. good BS x4 Skin: Skin warm and dry. Normal skin color. Normal skin turgor. Extremities: No lower extremity edema. Neurovascular intact to all extremities. No Lacerations. No Rash Neuro: Oriented X 3. No motor deficit. No sensory deficit. Moving all extermities. No slurred speech Medications Administered Discontinued Medications Generic Name Dose Route Start Last Admin Trade Name Freq PRN Reason Stop Dose Admin Lorazepam 1 mg 02/10/23 09:48 02/10/23 10:38 Lorazepam 2 Mg/Ml Vial IVPUSH 02/10/23 09:49 1 mg ONCE ONE Administration Medical Decision Making Medical Decision Making [facility] Narrative: Patient presented in extremis feeling short of breath with a history of anxiety. My interpretation of her EKG showed a sinus rhythm heart rate is 80 VA QRS QTC within normal limits is no acute ST segment elevation. Patient has no signs of allergic reaction there is no tongue swelling there is no posterior pharynx inflammation patient's lungs are clear. Symptoms are more consistent with anxiety. Given a dose of Ativan with good relief of symptoms. Blood pressure came down nicely. Patient's troponin is negative. No evidence for ACS. Heart score is less than 3. My interpretation the patient's chest x-ray was negative for any acute evidence of pneumonia pneumothorax. D-dimer was negative. In the setting of low risk unlikely to have PE. Patient's BMP was negative no evidence for congestive heart failure. In stable condition. Will discharge patient home Differential Diagnosis Differential Diagnoses: The differential diagnosis associated with the presentation includes Allergic reaction, hypertension, panic attack, pneumonia, pneumothorax Admission/Observation Consideration of admission/observation: Escalation of care including admission/observation considered Lab Data [facility] Lab Attestation statement: I reviewed the patient's lab results. 02/10/23 10:33 02/10/23 11:08 Labs: Lab Results 02/10/23 02/10/23 02/10/23 Range/Units 10:33 10:34 11:08 WBC 20.2 H (4.8-10.8) X10*3/uL RBC 4.97 (4.20-5.50) X10*6/uL Hgb 15.5 (12.0-16.0) g/dl Hct 46.4 (37.0-47.0) % MCV 93.4 (80.0-98.0) fL MCH 31.2 (27.0-33.0) pg MCHC 33.4 (31.0-35.0) g/dl RDW 13.2 (11.0-16.0) % Plt Count 268 (160-400) X10*3/uL MPV 11.0 (9.4-12.3) fL Immature Gran % (Auto) 0.4 (0.0-0.4) % Neut % (Auto) 85.2 H (45-73) % Lymph % (Auto) 10.7 L (20-40) % [place] % (Auto) 3.6 (2-11) % Eos % (Auto) 0.0 (0-4) % Baso % (Auto) 0.1 (0-2) % Lymph # (Auto) 2.2 (1.2-4.9) X10*3/uL [place] # (Auto) 0.7 (0.1-1.2) X10*3/uL Eos # (Auto) 0.0 (0.0-0.4) X10*3/uL Baso # (Auto) 0.0 (0.0-0.2) X10*3/uL Abs Immat Gran (auto) 0.09 H (0.00-0.03) X10*3/uL Absolute Neuts (auto) 17.2 H (2.0-8.3) x10*3/uL Absolute Nucleated RBC 0.000 (0.0-0.012) X10*3/uL Nucleated RBC % (auto) 0.0 (0.0-0.2) /100WBC D-Dimer High Sensitivty < 150 NG/ML Sodium 142 (135-145) mmol/L Potassium 4.1 (3.3-5.1) mmol/L Chloride 110 H (96-108) mmol/L Carbon Dioxide 21 L (22-29) mmol/L Anion Gap 15 (12-20) BUN 18 H (9-16) mg/dL Creatinine 0.87 (0.5-1.4) mg/dL Estim Creat Clear Calc 83.1 Estimated GFR > 60 Random Glucose 141 H (60-115) mg/dL Calcium 10.0 D (8.4-10.2) mg/dL Troponin I High Sens < 2.7 (<3.5-17.0) ng/L B-Natriuretic Peptide 57 (<100) pg/mL Independent Interpretation I performed an independent interpretation of an: EKG (Sinus heart rate is 80 VA QRS QTC within normal limits there is no acute ST segment elevation noted.) and Plain X-Ray (Chest x-ray showed no pneumonia no pneumothorax) Radiology Impression Discussion of test interpretation with radiology: I have reviewed the radiologist's reading. External Record Review External record reviewed: Inpatient record Previous record reviewed Prescription Management Benzodiazepine Chronic Conditions Patient?s care impacted by: Hypertension Panic attacks Discharge Plan Discharge Clinical Impression: Panic attack, Hypertension Patient Disposition: Home, Self-Care Instructions: Chronic Hypertension (DC), Panic Attack (ED) Prescriptions: New lorazepam [Ativan] 0.5 mg tablet 0.5 mg PO TID PRN (Reason: anxiety) Qty: 7 0RF No Action metoprolol succinate 100 mg tablet extended release 24 hr 100 mg PO DAILY Qty: 30 6RF ([facility]) walker Misc See Rx Instructions .MEDSUPPLY Qty: 1 0RF Rx Instructions: Folding front wheeled walker ([facility]) bedside commode Kit See Rx Instructions .Route Qty: 1 0RF Rx Instructions: commode with handels lidocaine [Lidoderm] 5 % adhesive patch,medicated 1 patch topical DAILY MDD remove after 12 hours PRN (Reason: pain) Qty: 30 0RF Rx Instructions: leave on most painful area for up to 12 hrs ibuprofen 800 mg Tablet 800 mg PO Q8H PRN (Reason: Pain) betamethasone dipropionate 0.05 % ointment 1 appl topical BID cholecalciferol (vitamin D3) [Vitamin D3] 25 mcg (1,000 unit) Tablet 25 mcg PO DAILY omeprazole 20 mg capsule,delayed release(DR/EC) 1 cap PO DAILY PRN (Reason: Gastric Reflux) epinephrine [EpiPen] 0.3 mg/0.3 mL auto-injector 0.3 mg IM Q4H PRN (Reason: anaphylaxis) Qty: 2 0RF clonazepam [Klonopin] 1 mg tablet 1 mg PO BEDTIME PRN (Reason: Anxiety) oxycodone-acetaminophen 10-325 mg tablet 1 tab PO Q6H PRN (Reason: Pain) (DME) miscellaneous medical supply Misc See Rx Instructions .Route Qty: 1 0RF Rx Instructions: As directed
[2023-02-10 09:52] VITALS: BP 120/76; BP 199/96; PULSE 81; PULSE 90; RESP 17; O2SAT 100; O2SAT 98; BMI 37.2
[2023-02-10 10:49] VITALS: BP 155/73; PULSE 74; RESP 10; O2SAT 100
--- NOTE | 2023-02-10 11:21 | PC.NURSE ---
pt a&o x4, pleasant, calm, and cooperative. pt ambulated from EMS bed to stretcher on own. pt appears to be in a panic state, stating her throat is closing and that she is having an allergic reaction, unknown to what. pt speaking in full complete sentences, able to tolerate own saliva well. 22G IV placed to pt's L forearm, blood drawn and sent, EKG obtained. pt changed over to hospital attire and medicated per jul. BP noted to be elevated, MD aware and relating it to anxiety. after medication administration, BP noted to come down. pt currently resting quietly on stretcher in no apparent distress. at bedside. rr even/unlabored. plan of care ongoing.
[2023-02-10 11:30] LABS: Anion Gap 15 (12-20); Blood Urea Nitrogen 18 mg/dL (9-16); Carbon Dioxide 21 mmol/L (22-29); Chloride 110 mmol/L (96-108); Creatinine Clr Calc Pharmacy 83.1; Estimated Glomerular Filt Rate > 60; Glucose Random 141 mg/dL (60-115); Potassium 4.1 mmol/L (3.3-5.1); Sodium 142 mmol/L (135-145)
[2023-02-10 12:07] VITALS: BP 152/78; PULSE 80; RESP 16; O2SAT 100
== END 2023-02-10 12:40 | disposition home or self-care (01) ==
PROVIDERS: Emergency Provider Emergency Medicine Emergency Medical Services
DX: F41.0 Panic disorder [episodic paroxysmal anxiety] (principal); I10 Essential (primary) hypertension; F41.9 Anxiety disorder, unspecified; R07.89 Other chest pain; R06.02 Shortness of breath; Z87.891 Personal history of nicotine dependence; Z79.899 Other long term (current) drug therapy
CPT/HCPCS: 36415; 71045; 80048; 83880; 84484; 85025; 85379; 93005; 96374; 99284; 99285; J2060

== ENCOUNTER → 2023-03-01 09:08 | Outpatient (REF) | payer OTHER, SELFPAY ==
--- NOTE | 2023-03-01 09:12 | CA_ITS ---
Transthoracic Echocardiogram Patient (Last, First, Middle): Roz Mars L Gender: Female Date of : 1965 Age: 57 Procedure Date: 03/01/2023 Procedure Type: Transthoracic Echocardiogram Location: OP Height: 162.56 cm Weight: 97.98 kg BSA: 2.02 m2 Heart Rate: 74 bpm BP: 150 / 98 mmHg Community Service Officer: Referring MD: Kodak Hernandez MD Symptoms: R06.02 - Shortness of breath Study Quality: Adequate ECG Rhythm: Sinus Conclusions: - The left ventricular systolic function is normal. The calculated ejection fraction is 63% by biplane method. - There is mildly increased left ventricular wall thickness. - No obvious valvular pathology seen on this study. Findings Left Ventricle Normal left ventricular cavity size. There is mildly increased left ventricular wall thickness. The left ventricular systolic function is normal. The calculated ejection fraction is 63% by biplane method. There is no evidence of regional wall motion abnormalities. Evidence suggests grade I (mild) diastolic dysfunction. Right Ventricle Normal right ventricular cavity size and systolic function. Atria Both atria are normal in size. Aortic Valve There is a normal trileaflet aortic valve. There is no aortic valve stenosis. There is no aortic valve regurgitation. Mitral Valve The mitral valve appears normal. There is no mitral valve regurgitation. There is no mitral valve stenosis. Pulmonic Valve The pulmonic valve is likely normal. Tricuspid Valve There is trace tricuspid valve regurgitation. Tricuspid regurgitation envelope is inadequate for calculation of right ventricular systolic pressure. Great Vessels The asc aorta is normal in size. Venous The inferior vena cava is normal in size and collapses greater than 50% with inspiration. Pericardium/Pleural There is no evidence of pericardial effusion. Prior Study Comparison No prior study available for comparison. Recommendations, Care & Conclusions No obvious valvular pathology seen on this study. Measurements 2D Linear Measurements IVSd: 1.29 0.6-0.9/0.6-1.0 cm LVIDd: 4.26 3.9-5.3/4.2-5.9 cm LVIDd Index: 2.11 2.4-3.2/2.2-3.1 cm/m2 LVIDs: 2.34 2.0-3.6 cm LVPWd: 1.27 0.7-1.1 cm Ao Root: 3.00 2.1-3.5 cm LA Diam: 3.50 2.7-3.8/3.0-4.0 cm LAIDs Index: 1.73 1.5-2.3 cm/m2 LV Mass: 249.50 67-162/88-224 g LV Mass Index: 123.52 43-95/49-115 g/m2 LVOT Diam: 2.00 3.0+(-)1.3 cm 2D Systolic Function EF 4C: 61.90 >55% EF 2C: 64.00 >55% EF BiP: 63.40 >55% Mitral Valve MV Pk E: 0.60 MV PK A: 0.84 MV Decel Time: 245.00 E/A: 0.70 E'Lateral: 5.66 E'Medial: 4.68 E/E' Med: 12.80 E/E' Lat: 10.60 PHT: 72.00 MVA PHT: 3.06 Decel [place]: 2.45 Aortic Valve AoV Pk Jarod: 1.41 AoV Mn Jarod: 0.91 AoV VTI: 0.30 AoV Pk Grad: 8.00 Aov Mn Grad: 4.00 MICHAEL Cont.VTI: 2.30 LVOT LVOT Pk Jarod: 0.98 LVOT Mn Jarod: 0.62 LVOT VTI: 0.22 LVOT Pk Grad: 4.00 LVOT Mn Grad: 2.00 LVOT Diam: 2.00 LVOT Area: 3.14 Diastolic Function MV Pk E: 0.60 MV Pk A: 0.84 E/A: 0.70 E'Medial: 4.68 E/E' Med: 12.80 E' Laterial: 5.66 E/E' Lat: 10.60 Tricuspid Valve TR Pk Jarod: 2.24 TR Pk Grad: 20.00 Great Vessels Aorta Ao Root-2D: 3.00 2.0-3.7 cm Ao Asc: 3.00 2.1-3.4 cm Pulmonary Valve PV Pk Jarod: 1.09 Peak PV Grad: 5.00 Updated in Other Vendor System with Status of Final Kodak Hernandez MD electronically signed on 03/01/2023 11:31:53 AM with status of Final
== END ==
LOC: HO.CARD 09:08
PROVIDERS: Visit Provider Internal Medicine
DX: R06.02 Shortness of breath (principal)
CPT/HCPCS: 93306

== ENCOUNTER → 2023-03-01 09:12 | Outpatient (BNV) | payer OTHER, SELFPAY | PROVIDERS: Visit Provider Internal Medicine | DX: I51.9 Heart disease, unspecified (principal); R06.02 Shortness of breath | CPT/HCPCS: 93306 ==

== ENCOUNTER 2023-03-01 10:13 | Outpatient (AMB) | payer OTHER, SELFPAY ==
[2023-03-01 10:21] VITALS: BMI 37.1
--- NOTE | 2023-03-01 10:21 | MHC.OFFVIS ---
Intake Vital Signs 03/01/23 10:21 Height 5 ft 4 in Weight 216 lb BMI 37.1 Intake Visit Reasons: New Prob - Neck Pain Intake Note: Roz is a 57 year old female who presnets today with complaints of neck pain, she explains that she has a history of herniated discs of her neck. She explains that this pain radiates from the neck to the shoulders and has impacted her ROM of her neck and day to day acitivity. No previous treatment for the neck. History of back surgery. Allergies morphine [Morphine] Allergy (Intermediate, Verified 01/28/23 10:26) HIVES HPI New Prob - Neck Pain HPI Details Roz is a 57 year old woman who presents with complaints of neck & shoulder pain. She complains primarily of pain in her neck, which she says radiates down into her shoulders. She finds this pain limits her ROM and daily activities. She says her arms feel weak and she recently dropped a heavy pot and burned herself because of this. She has not been seen by Pain Management for her neck. She says she has numbness in her fingertips occasionally, and she complains of a painful lump in her neck which she thinks is a bulging disc. She denies any prior treatment, and uses Lidocaine patches & Percocets for pain relief. [facility] Medical History Colon cancer screening Morbid obesity GERD (gastroesophageal reflux disease) Lumbar radiculopathy, right Chronic back pain Depression Anxiety Hypertension Surgical History History of total right hip replacement Hx of dilation and curettage History of hip surgery History of lumbar surgery History of colonoscopy History of tubal ligation Fusion of lumbar spine Family History Father Suicide Mother Heart disease Diabetes CVD (cardiovascular disease) Maternal Grandmother Heart disease Maternal Grandfather Diabetes Maternal Aunt Heart disease Maternal Uncle Heart disease Social History Household Members: Spouse Housing: Apartment Are you a primary healthcare educator to a significant other at home: No Do you presently have visiting nurse or other home services: No Alcohol intake: never Patient Tobacco Use Status: Former Tobacco user Quit Date: 2011 Tobacco use type: Cigarette Substance Use Type: Marijuana service: No Current occupational status: disabled Current occupation: right handed Female Reproductive History Menstrual Date of menopause: 05/04/22 Review of Systems Const All systems reviewed & are unremarkable except as noted in HPI and below Physical Exam Vital Signs: BMI result Body Mass Index 37.1 Const General: no acute distress, alert and awake Orientation/consciousness: patient oriented x3 HEENT Head: Yes normocephalic and Yes atraumatic Eyes EOM: EOMs intact bilaterally Resp Effort & Inspection: normal respiratory effort and able to speak in complete sentences Cardio Jugular venous distension: no JVD Skin General skin exam: turgor normal Rashes: no rashes Neuro General: patient oriented x3 Extrem Other: 5/5 strength shrug/delt/bi/tri/sup/pro/finger abd/add ttp axial thoracocervical region Psych Appearance: grossly normal Affect: normal affect Attitude: cooperative Assessment & Plan Assessment & Plan (1) Neck pain: Code(s): M54.2 - Cervicalgia Plan: This is a 57 year old woman with cervicalgia. She has pain which radiates into her shoulders, along with weakness and occasional numbness in her fingertips. She has pain with daily activity, and feels limited in her ADLs. She denies any prior treatment and has not seen pain Management for this. I discussed her diagnosis and treatment options. I ordered an MRI of her C-spine and referred her to Pain Management for assessment. She can follow up prn. Plan Scribed for Will Waldron MD by Milo Whitlock, medical asst, on 03/01/23 at 10:40 AM, EST. Orders: Referrals Pain Management Referral M54.2 - Cervicalgia Coding Level of Care Code New Pt Level 3 (53382) Diagnoses Neck pain M54.2
== END 2023-03-01 11:09 | disposition home or self-care (01) ==
PROVIDERS: Visit Provider Orthopaedic Surgery
DX: M54.2 Cervicalgia (principal)
CPT/HCPCS: 99213

== ENCOUNTER 2023-04-21 07:50 | Outpatient (REF) | payer OTHER, SELFPAY ==
--- NOTE | ~2023-04-21 | MR_ITS ---
EXAMINATION: MR CERVICAL SPINE WITHOUT CONTRAST CLINICAL INFORMATION: Right cervical radiculopathy. COMPARISON: Soft tissue neck CT scan 07/23/2021. TECHNIQUE: MRI of the cervical spine was obtained using routine sequences without contrast. FINDINGS: Patient motion degrades image quality therefore the diagnostic accuracy of this examination is limited. There is 3 mm retrolisthesis of C5 on C6. Alignment is otherwise normal in the sagittal dimension. Vertebral body heights are preserved. There are mixed predominantly type II and type III degenerative endplate changes at C5-C6. There is loss of intervertebral disc height and T2 signal intensity at C5-C6 related to disc degeneration. Disc desiccation is visualized at multiple additional levels. No overt cord compression and no abnormal intramedullary signal changes. The cervicomedullary junction is normal. Limited visualization of the posterior fossa reveals no abnormal finding. The occipital condyles and lateral C1 masses are intact. There is degenerative arthrosis of the atlantodental joint. C1-C2 articular facets are unremarkable. At C2-C3 there is a shallow central protrusion. No canal stenosis. Bilateral facet degenerative change. No neuroforaminal encroachment. At C3-C4 there is a bulging disc. No canal stenosis. Uncovertebral joint spurring and facet degenerative change causes moderate left neuroforaminal encroachment. At C4-C5 there is a bulging disc. No canal stenosis. Uncovertebral joint spurring and facet degenerative change causes moderate right and mild left neuroforaminal encroachment. At C5-C6 there is a pseudodisc bulge. Mild canal stenosis. Uncovertebral joint spurring and facet degenerative change causes severe left and moderate right neuroforaminal encroachment. At C6-C7 there is a bulging disc. No canal stenosis. Uncovertebral joint spurring in conjunction with facet degenerative change causes mild bilateral neuroforaminal encroachment. At C7-T1 the annular contour is normal. No canal stenosis. Bilateral facet degenerative change. No neuroforaminal encroachment. Visualized soft tissues of the neck are normal. Vascular flow voids are maintained. MR/MR cervical spine wo con IMPRESSION: Patient motion degrades image quality therefore the diagnostic accuracy of this examination is limited. There is multilevel degenerative spondylosis of the cervical spine with 3 mm retrolisthesis of C5 on C6. Mild canal stenosis at C5-C6. Otherwise no canal compromise. No cord compression or abnormal intramedullary signal changes. There are varying degrees of neuroforaminal encroachment related to uncovertebral joint spurring and facet degenerative change as described above. For instance at C5-C6 there is severe left and moderate right neuroforaminal narrowing.
== END 2023-04-21 07:51 | disposition home or self-care (01) ==
LOC: HO.MRI 07:50
PROVIDERS: Visit Provider Internal Medicine
DX: M54.12 Radiculopathy, cervical region (principal)
CPT/HCPCS: 72141

== ENCOUNTER 2023-05-05 02:32 | Emergency (ER) | payer OTHER, SELFPAY ==
[2023-05-05] VITALS (7 sets, daily range): BP systolic 114–131; BP diastolic 53–82; PULSE 90–98; RESP 20–24; TEMP 37.3–37.8; O2SAT 94–98; BMI 37.8
--- NOTE | ~2023-05-05 | XR_ITS ---
EXAMINATION: XR CHEST CLINICAL INFORMATION: Shortness of breath. COMPARISON: 02/10/2023. TECHNIQUE: Frontal view of the chest was obtained. FINDINGS: The cardiomediastinal silhouette is within normal limits and stable. There is no focal lung consolidation or pleural effusion. The bony structures and soft tissues are unremarkable. XR/XR chest 1V IMPRESSION: No active cardiopulmonary disease.
--- NOTE | 2023-05-05 02:44 | ECG_ITS ---
Test Reason : FEVER Blood Pressure : / mmHG Vent. Rate : 097 BPM Atrial Rate : 097 BPM P-R Int : 116 ms QRS Dur : 084 ms QT Int : 364 ms P-R-T Axes : 031 -32 044 degrees QTc Int : 462 ms Normal sinus rhythm Left axis deviation Abnormal ECG When compared with ECG of 10-FEB-2023 10:04, No significant change was found Referred By: Aarti Ding Electronically Signed By:Solo Adan
--- NOTE | 2023-05-05 02:45 | ED_ITS ---
HPI - SOB/Dyspnea General Chief Complaint: Upper Respiratory Symptoms Stated Complaint: cough SOB Time Seen by Provider: 05/05/23 02:43 Source: patient Mode of arrival: EMS History of Present Illness HPI Narrative: Patient reports sick contact, subjective fevers last night, also she has had some nausea and vomiting and states that she has reactive airway when she has a cold. She received nebs by EMS but no steroids. Related Data Home Medications Medication Instructions Recorded Confirmed clonazepam 1 mg tablet (Klonopin) 1 mg PO BEDTIME PRN Anxiety 02/26/20 01/28/23 betamethasone dipropionate 0.05 % 1 appl topical BID 05/15/21 01/28/23 topical ointment cholecalciferol (vitamin D3) 25 25 mcg PO DAILY 05/15/21 01/28/23 mcg (1,000 unit) tablet (Vitamin D3) ibuprofen 800 mg tablet 800 mg PO Q8H PRN Pain 05/15/21 01/28/23 omeprazole 20 mg capsule,delayed 1 cap PO DAILY PRN Gastric Reflux 05/16/21 01/28/23 release oxycodone-acetaminophen 10 mg-325 1 tab PO Q6H PRN Pain 02/25/22 01/28/23 mg tablet Previous Rx's Medication Instructions Recorded metoprolol succinate 100 mg 100 mg PO DAILY #30 tabs 06/23/20 tablet,extended release 24 hr lidocaine 5 % topical patch 1 patch topical DAILY PRN pain #30 12/17/20 (Lidoderm) ea miscellaneous medical supply #1 ea 06/07/21 walker #1 ea 06/12/21 commode (bedside commode) #1 ea 06/13/21 epinephrine 0.3 mg/0.3 mL 0.3 mg (0.3 mL) IM Q4H PRN 02/09/23 injection, auto-injector (EpiPen) anaphylaxis #2 ea lorazepam 0.5 mg tablet (Ativan) 0.5 mg PO TID PRN anxiety #7 tabs 02/10/23 prednisone 50 mg tablet 50 mg PO DAILY 4 days #4 tabs 05/05/23 Allergies Allergy/AdvReac Type Severity Reaction Status Date / Time morphine [Morphine] Allergy Intermediate HIVES Verified 01/28/23 10:26 Review of Systems 2 Review of Systems: Pertinent positives and negatives as stated in HPI PMFSH Past Medical History Source: nursing notes reviewed Onset Date is defined in the Problem List Problems that require an onset date and time if occurred within 24 hrs of arrival to the ED Aortic Dissection and Rupture; Neurologic impairment; Cardiopulmonary Arrest; Endotracheal Intubation; Insertion or Replacement of Mechanical Circulatory Assist Device Medical History Colon cancer screening Morbid obesity GERD (gastroesophageal reflux disease) Lumbar radiculopathy, right Chronic back pain Depression Anxiety Hypertension Surgical History History of total right hip replacement Hx of dilation and curettage History of hip surgery History of lumbar surgery History of colonoscopy History of tubal ligation Fusion of lumbar spine Family History Family History Father Suicide Mother Heart disease Diabetes CVD (cardiovascular disease) Maternal Grandmother Heart disease Maternal Grandfather Diabetes Maternal Aunt Heart disease Maternal Uncle Heart disease Social History Social History Household Members: Spouse Housing: Apartment Are you a primary hospice home care coordinator to a significant other at home: No Do you presently have visiting nurse or other home services: No Alcohol intake: never Patient Tobacco Use Status: Former Tobacco user Quit Date: 2011 Tobacco use type: Cigarette Substance Use Type: Marijuana Advance Directives: No Advance Directives Information Provided: Yes service: No Current occupational status: disabled Current occupation: right handed Physical Exam 2 Vital Signs: Vital Signs: Last Vital Signs Temp 99.8 F 05/05/23 06:36 Pulse 93 05/05/23 06:36 Resp 24 H 05/05/23 06:36 BP 124/64 05/05/23 06:36 Pulse Ox 94 05/05/23 04:31 O2 Del Method Room Air 05/05/23 06:36 O2 Flow Rate 100 05/05/23 06:36 BMI result Body Mass Index 37.8 VITAL SIGNS: Reviewed. GENERAL: Well developed, well nourished, in no acute distress. HEAD: Normocephalic/atraumatic, EYES: PERRLA, EOMI EARS: Ext canals without abnormality, TMs non-bulging and non-erythematous NOSE: Nares patent bilateral OROPHARYNX: no oral lesions noted, posterior pharynx clear and non-erythematous without noted tonsillar enlargement/erythema/exudates NECK: Supple, no adenopathy LUNGS: Decreased breath sounds, tachypnea is present with expiratory wheeze. SpO2<94> CARDIOVASCULAR: Regular rate and rhythm without noted murmurs ABDOMEN: Soft, non-tender, non-distended with bowel sounds. MUSCULOSKELETAL: No tenderness, deformities, or effusions noted on gross inspection. EXTREMITIES: No cyanosis, clubbing or edema. SKIN: Inspection of the skin reveals no rashes NEUROLOGIC: Alert and oriented x 4. Strength and sensation to light touch were grossly intact x 4. Medications Administered Discontinued Medications Generic Name Dose Route Start Last Admin Trade Name Freq PRN Reason Stop Dose Admin Acetaminophen 975 mg 05/05/23 05:10 05/05/23 05:18 Acetaminophen 325 Mg Tablet PO 05/05/23 05:11 975 mg ONCE ONE Administration Albuterol Sulfate 5 mg/ 0 mg 05/05/23 03:03 05/05/23 03:07 Albuterol/Ipratropium 3 ml INHALE 05/05/23 03:04 2.5 each ONCE ONE Administration Medical Decision Making Medical Decision Making [facility] Narrative: 58-year-old female with history and clinical presentation, DDX: Viral illness, asthma exacerbation Patient received nebulized treatment as well as Tylenol. I reviewed all investigations and patient has a steroid-induced leukocytosis, there is no anemia or thrombocytopenia. ABG does not demonstrate any respiratory acidosis or hypercapnia. Chemistry indices do not demonstrate an JULIO and there is no electrolyte or liver enzyme derangements, BNP-6 0. Viral testing negative for COVID-19/influenza. Chest x-ray negative for infiltrate or venous congestion otherwise my interpretation is in agreement with radiology's impression. There are no acute changes on EKG. On re-evaluation patient is feeling better, she is oxygenating well on room air and is otherwise discharged home in stable condition. Suspect that patient has a viral illness that has contributed to reactive airway symptoms. Differential Diagnosis Differential Diagnoses: The differential diagnosis associated with the presentation includes Please see the discussion above Admission/Observation Consideration of admission/observation: Escalation of care including admission/observation considered Please see the discussion above Lab Data [facility] Lab Attestation statement: I reviewed the patient's lab results. Please see the discussion above 05/05/23 03:12 05/05/23 03:12 Labs: Lab Results 05/05/23 05/05/23 Range/Units 03:12 03:46 WBC 15.7 H (4.8-10.8) X10*3/uL RBC 4.49 (4.20-5.50) X10*6/uL Hgb 13.5 (12.0-16.0) g/dl Hct 40.4 (37.0-47.0) % MCV 90.0 (80.0-98.0) fL MCH 30.1 (27.0-33.0) pg MCHC 33.4 (31.0-35.0) g/dl RDW 13.0 (11.0-16.0) % Plt Count 210 (160-400) X10*3/uL MPV 11.6 (9.4-12.3) fL Immature Gran % (Auto) 0.3 (0.0-0.4) % Neut % (Auto) 78.3 H (45-73) % Lymph % (Auto) 15.0 L (20-40) % Fannin % (Auto) 4.5 (2-11) % Eos % (Auto) 1.6 (0-4) % Baso % (Auto) 0.3 (0-2) % Lymph # (Auto) 2.4 (1.2-4.9) X10*3/uL Fannin # (Auto) 0.7 (0.1-1.2) X10*3/uL Eos # (Auto) 0.3 (0.0-0.4) X10*3/uL Baso # (Auto) 0.1 (0.0-0.2) X10*3/uL Abs Immat Gran (auto) 0.05 H (0.00-0.03) X10*3/uL Absolute Neuts (auto) 12.3 H (2.0-8.3) x10*3/uL Absolute Nucleated RBC 0.000 (0.0-0.012) X10*3/uL Nucleated RBC % (auto) 0.0 (0.0-0.2) /100WBC Smear Tech's Comments VERIFIED VBG pH 7.50 H (7.32-7.43) VBG pCO2 29 mmHg VBG pO2 46 mmHg VBG HCO3 22 (22-26) mmol/L VBG O2 Saturation 75.0 % VBG Base Excess 0.8 mmol/L Sodium 139 (135-145) mmol/L Potassium 4.4 (3.3-5.1) mmol/L Chloride 108 (96-108) mmol/L Carbon Dioxide 22 (22-29) mmol/L Anion Gap 13 (12-20) BUN 16 (9-16) mg/dL Creatinine 0.84 (0.5-1.4) mg/dL Estim Creat Clear Calc 85.9 Estimated GFR > 60 Random Glucose 106 (60-115) mg/dL Calcium 9.4 (8.4-10.2) mg/dL Total Bilirubin 0.7 (0.0-1.0) mg/dL AST 21 (5-31) U/L ALT 18 (0-31) U/L Alkaline Phosphatase 59 (39-117) U/L B-Natriuretic Peptide 60 (<100) pg/mL Total Protein 7.4 (6.5-8.0) g/dL Albumin 4.0 (3.5-5.0) g/dL COVID-19 (ANIKA) Negative (Negative) COVID-19 Clin Com See Note Influenza Type A (DAVID) Negative (Negative) Influenza Type B (DAVID) Negative (Negative) Influenza A & B Note See Note Independent Interpretation I performed an independent interpretation of an: EKG Interpretation: Normal sinus rhythm, HR-97, no STEMI, [place]/QRS/QTC is within normal limits. Radiology Impression Discussion of test interpretation with radiology: I have reviewed the radiologist's reading. Radiologist Impression: Please see the discussion above External Record Review External record reviewed: Outpatient record, Prior outpatient labs and Prior outpatient radiology Critical Care Time Critical Care Time Critical Care Time: Yes Total Critical Care Time: 30 Attestation: I personally attest to this time spent taking care of the patient. Discharge Plan Discharge Clinical Impression: Viral syndrome, Anxiety Patient Disposition: Home, Self-Care Instructions: Viral Syndrome (ED), Anxiety (ED) Additional Instructions: 1. Resume all home medications as prescribed. 2. You have been placed on a short course of steroids and should complete them. 3. Please follow-up with primary care doctor. Return to the ER for any worsening symptoms. Prescriptions: New prednisone 50 mg tablet 50 mg PO DAILY 4 Days Qty: 4 0RF No Action metoprolol succinate 100 mg tablet extended release 24 hr 100 mg PO DAILY Qty: 30 6RF (DME) walker Misc See Rx Instructions .MEDSUPPLY Qty: 1 0RF Rx Instructions: Folding front wheeled walker (DME) bedside commode Kit See Rx Instructions .Route Qty: 1 0RF Rx Instructions: commode with handels lidocaine [Lidoderm] 5 % adhesive patch,medicated 1 patch topical DAILY MDD remove after 12 hours PRN (Reason: pain) Qty: 30 0RF Rx Instructions: leave on most painful area for up to 12 hrs ibuprofen 800 mg Tablet 800 mg PO Q8H PRN (Reason: Pain) betamethasone dipropionate 0.05 % ointment 1 appl topical BID cholecalciferol (vitamin D3) [Vitamin D3] 25 mcg (1,000 unit) Tablet 25 mcg PO DAILY omeprazole 20 mg capsule,delayed release(DR/EC) 1 cap PO DAILY PRN (Reason: Gastric Reflux) epinephrine [EpiPen] 0.3 mg/0.3 mL auto-injector 0.3 mg IM Q4H PRN (Reason: anaphylaxis) Qty: 2 0RF lorazepam [Ativan] 0.5 mg tablet 0.5 mg PO TID PRN (Reason: anxiety) Qty: 7 0RF clonazepam [Klonopin] 1 mg tablet 1 mg PO BEDTIME PRN (Reason: Anxiety) oxycodone-acetaminophen 10-325 mg tablet 1 tab PO Q6H PRN (Reason: Pain) (DME) miscellaneous medical supply Misc See Rx Instructions .Route Qty: 1 0RF Rx Instructions: As directed Interventions: ED Discharge Assessment Last Done: 05/05/23 06:41 Discharge Date/Time: 05/05/23 06:54
[2023-05-05] MEDS: Albuterol Sulfate 5 MG, Albuterol/Iprat 2.5/0.5MG 3 ML 3 ML INHALE (03:07)
[2023-05-05 03:46] LABS: Alanine Aminotransferase 18 U/L (0-31); Alkaline Phosphatase 59 U/L (39-117); Anion Gap 13 (12-20); Aspartate Amino Transferase 21 U/L (5-31); Bilirubin Total 0.7 mg/dL (0.0-1.0); Blood Urea Nitrogen 16 mg/dL (9-16); Calcium 9.4 mg/dL (8.4-10.2); Carbon Dioxide 22 mmol/L (22-29); Chloride 108 mmol/L (96-108); Creatinine Clr Calc Pharmacy 85.9; Estimated Glomerular Filt Rate > 60; Glucose Random 106 mg/dL (60-115); Potassium 4.4 mmol/L (3.3-5.1); Sodium 139 mmol/L (135-145); Total Protein 7.4 g/dL (6.5-8.0)
--- NOTE | 2023-05-05 03:46 | MHC.EDTECH ---
PATIENT REPEATED VBG DRAWN AND SENT TO LAB .
[2023-05-05 03:49] LABS: B Type Natriuretic Peptide 60 pg/mL (<100)
[2023-05-05 03:51] LABS: Venous Blood Gas Refer to POC result
[2023-05-05 03:52] LABS: VBG Base Excess 0.8 mmol/L; VBG HCO3 22 mmol/L (22-26); VBG pCO2 29 mmHg; VBG pO2 46 mmHg
[2023-05-05 04:18] LABS: COVID-19 Test Negative (Negative); IDNOW Serial# 08D9AD1C; IDNOW Serial# 9DB6401D; Influenza A Negative (Negative); Influenza B2 Negative (Negative)
[2023-05-05 04:44] LABS: Hemoglobin 13.5 g/dl (12.0-16.0); PLT CLUMP 1; SCAN SMEAR FLAG 1
[2023-05-05 04:46] LABS: Basophils Absolute Auto 0.1 X10*3/uL (0.0-0.2); Basophils Percent Auto 0.3 % (0-2); Eosinophils Absolute Auto 0.3 X10*3/uL (0.0-0.4); Eosinophils Percent Auto 1.6 % (0-4); Hematocrit 40.4 % (37.0-47.0); Imm Gran Abs Auto 0.05 X10*3/uL (0.00-0.03); Imm Gran Pct Auto 0.3 % (0.0-0.4); Lymphocytes Absolute Auto 2.4 X10*3/uL (1.2-4.9); MANUAL DIFF FLAG SCAN; Mean Corpuscular HGB Conc 33.4 g/dl (31.0-35.0); Mean Corpuscular Hemoglobin 30.1 pg (27.0-33.0); Mean Platelet Volume 11.6 fL (9.4-12.3); Monocytes Absolute Auto 0.7 X10*3/uL (0.1-1.2); Monocytes Percent Auto 4.5 % (2-11); Neutrophils Absolute Auto 12.3 x10*3/uL (2.0-8.3); Neutrophils Percent Auto 78.3 % (45-73); Red Blood Count 4.49 X10*6/uL (4.20-5.50)
[2023-05-05 04:47] LABS: Platelet Count 210 X10*3/uL (160-400); SLIDE REVIEW VERIFIED; White Blood Count 15.7 X10*3/uL (4.8-10.8)
[2023-05-05] MEDS: Acetaminophen 325 MG TABLET 975 MG PO (05:18)
== END 2023-05-05 06:54 | disposition home or self-care (01) ==
PROVIDERS: Emergency Provider Student in an Organized Health Care Education/Training Program
DX: B34.9 Viral infection, unspecified (principal); F41.9 Anxiety disorder, unspecified; R11.2 Nausea with vomiting, unspecified; R50.9 Fever, unspecified; Z79.899 Other long term (current) drug therapy; Z11.52 Encounter for screening for COVID-19
CPT/HCPCS: 71045; 80053; 82803; 83880; 85025; 87502; 87635; 93005; 94640; 99285

== ENCOUNTER → 2023-05-05 02:44 | Outpatient (BNV) | payer OTHER, SELFPAY | PROVIDERS: Emergency Provider Student in an Organized Health Care Education/Training Program; Visit Provider Internal Medicine Cardiovascular Disease | DX: R94.31 Abnormal electrocardiogram [ECG] [EKG] (principal) | CPT/HCPCS: 93010 ==

== ENCOUNTER 2023-05-06 08:53 | Emergency (ER) | payer OTHER, SELFPAY ==
[2023-05-06 08:56] VITALS: BP 108/74; PULSE 87; O2SAT 97
[2023-05-06 09:05] VITALS: BP 126/80; PULSE 86; RESP 22; TEMP 36.1; O2SAT 96; BMI 37.0
--- NOTE | 2023-05-06 09:45 | ED.URI ---
HPI - URI/Sore Throat General Chief Complaint: Upper Respiratory Symptoms Stated Complaint: SOB X1 WK, SEEN T-1=VIRAL ILL PER EMS Time Seen by Provider: 05/06/23 09:13 Source: patient and RN notes reviewed Mode of arrival: ambulatory Limitations: no limitations History of Present Illness HPI Narrative: This is a 58-year-old female, with a history of childhood asthma, presenting to the emergency department with complaints of worsening shortness of breath. Patient states that she has been sick with nasal congestion, runny nose, productive cough for the last 10 days. She was seen in the emergency department yesterday where she had an extensive workup, and was discharged with a diagnosis of viral syndrome and anxiety. She was discharged on a course of prednisone. She took her dose yesterday and today but reports that she is not feeling any better. She reports subjective fevers and chills, nasal congestion and runny nose. Also endorsing sore throat. Denies chest pain, chest tightness, abdominal pain, nausea, vomiting or diarrhea. She states that she feels as though she is wheezing. She is hoping to have an updraft as she felt better after receiving one yesterday and does not have an inhaler at home. MD elicited complaint: fever and cough Exacerbating factors: nothing Relieving factors: nothing Treatments prior to arrival: other (prednisone) Related Data Home Medications Medication Instructions Recorded Confirmed clonazepam 1 mg tablet (Klonopin) 1 mg PO BEDTIME PRN Anxiety 02/26/20 01/28/23 betamethasone dipropionate 0.05 % 1 appl topical BID 05/15/21 01/28/23 topical ointment cholecalciferol (vitamin D3) 25 25 mcg PO DAILY 05/15/21 01/28/23 mcg (1,000 unit) tablet (Vitamin D3) ibuprofen 800 mg tablet 800 mg PO Q8H PRN Pain 05/15/21 01/28/23 omeprazole 20 mg capsule,delayed 1 cap PO DAILY PRN Gastric Reflux 05/16/21 01/28/23 release oxycodone-acetaminophen 10 mg-325 1 tab PO Q6H PRN Pain 02/25/22 01/28/23 mg tablet Previous Rx's Medication Instructions Recorded metoprolol succinate 100 mg 100 mg PO DAILY #30 tabs 06/23/20 tablet,extended release 24 hr lidocaine 5 % topical patch 1 patch topical DAILY PRN pain #30 12/17/20 (Lidoderm) ea miscellaneous medical supply #1 ea 06/07/21 walker #1 ea 06/12/21 commode (bedside commode) #1 ea 06/13/21 epinephrine 0.3 mg/0.3 mL 0.3 mg (0.3 mL) IM Q4H PRN 02/09/23 injection, auto-injector (EpiPen) anaphylaxis #2 ea lorazepam 0.5 mg tablet (Ativan) 0.5 mg PO TID PRN anxiety #7 tabs 02/10/23 prednisone 50 mg tablet 50 mg PO DAILY 4 days #4 tabs 05/05/23 albuterol sulfate 90 mcg/actuation 2 inh inhalation Q4-6H PRN 05/06/23 aerosol inhaler shortness of breath or wheezing #6.7 grams azithromycin 250 mg tablet See Rx Instructions PO .COMPLEX #6 05/06/23 tabs benzonatate 200 mg capsule 200 mg PO TID PRN cough #14 caps 05/06/23 Allergies Allergy/AdvReac Type Severity Reaction Status Date / Time morphine [Morphine] Allergy Intermediate HIVES Verified 01/28/23 10:26 Review of Systems Review of Systems: Yes all other systems are reviewed and are negative Constitutional: Constitutional: Reports as per [facility] Past Medical History Attestation statement: The following information was validated with the patient. Onset Date is defined in the Problem List Problems that require an onset date and time if occurred within 24 hrs of arrival to the ED Aortic Dissection and Rupture; Neurologic impairment; Cardiopulmonary Arrest; Endotracheal Intubation; Insertion or Replacement of Mechanical Circulatory Assist Device Medical History Colon cancer screening Morbid obesity GERD (gastroesophageal reflux disease) Lumbar radiculopathy, right Chronic back pain Depression Anxiety Hypertension Surgical History History of total right hip replacement Hx of dilation and curettage History of hip surgery History of lumbar surgery History of colonoscopy History of tubal ligation Fusion of lumbar spine Family History Family History Father Suicide Mother Heart disease Diabetes CVD (cardiovascular disease) Maternal Grandmother Heart disease Maternal Grandfather Diabetes Maternal Aunt Heart disease Maternal Uncle Heart disease Social History Social History Household Members: Spouse Housing: Apartment Are you a primary transitional care liaison to a significant other at home: No Do you presently have visiting nurse or other home services: No Alcohol intake: never Patient Tobacco Use Status: Former Tobacco user Quit Date: 2011 Tobacco use type: Cigarette Substance Use Type: Marijuana Advance Directives: No service: No Current occupational status: disabled Current occupation: right handed Physical Exam Vital Signs: Vital Signs: Last Vital Signs Temp 98.3 F 05/06/23 12:18 Pulse 86 05/06/23 12:37 Resp 18 05/06/23 12:37 BP 155/76 H 05/06/23 12:18 Pulse Ox 94 05/06/23 12:18 O2 Del Method Room Air 05/06/23 12:18 O2 Flow Rate 2 05/06/23 10:02 BMI result Body Mass Index 37.0 Const: General: cooperative, comfortable and no acute distress Orientation/consciousness: patient oriented x3 Limitations: no limitations HEENT: Head: Yes normal to inspection, Yes normocephalic and Yes atraumatic Ears: hearing grossly normal bilaterally and TM's normal bilaterally General nose exam: Normal external nose present Face and sinus: Yes normal facial exam Mouth: Normal oral and palatal mucosa present, oropharynx normal and moist mucous membranes Throat: Yes posterior oropharynx normal, Yes tonsils normal and Yes uvula midline Eyes: General: appearance normal, both eyes and all related structures Eyelids: Yes eyelids normal Conjunctivae: conjunctivae normal Sclerae: sclerae normal Pupils: Equal, round and reactive pupils present EOM: EOMs intact bilaterally Neck: Neck: Yes normal visual inspection, Yes full ROM and Yes no lymphadenopathy Lymphatic: no lymphadenopathy noted Chest: Chest palpation & inspection: normal inspection of the chest Resp: Other: Coarse inspiratory and expiratory wheezes noted throughout all lung wang, speaking in 3-4 word sentences Cardio: Rate: regular rate Rhythm: regular rhythm Heart sounds: S1 normal heart sound present and S2 normal heart sound present GI: Inspection: Yes normal to inspection Skin: General skin exam: no rashes or lesions noted Trauma: no lacerations or abrasions Wounds: no wounds Neuro: General: patient oriented x3 and moves all extremities Cranial nerves: Yes Equal, round and reactive pupils present Extrem: Other: No lower extremity swelling General: Yes normal to inspection Right upper extremity: normal to inspection Left upper extremity: normal to inspection Right lower extremity: normal to inspection Left lower extremity: normal to inspection Course Reevaluation(s) Reevaluation #1: Patient states that she is feeling much better after receiving albuterol inhaler. Lungs CTAB. Walking O2 saturation 96% on room air. At rest 99% on room air. Speaking in full sentences, no respiratory distress. Pt is feeling much better an would like to be discharged home. I discussed with pt repeating labs, and further workup however pt feeling comfortable to monitor symptoms at this time and does not want to repeat workup as she is feeling much better after updraft. Given patient's symptomatic improvement, and eagerness for discharge, I am adding azithromycin given symptoms have been ongoing for the last 10 days, sent over an albuterol inhaler as well as spacer as patient had significant improvement. Given strict return precautions. Pt understands and agrees with plan. stable for d/c. Time: 11:48 Medications Administered Discontinued Medications Generic Name Dose Route Start Last Admin Trade Name Freq PRN Reason Stop Dose Admin Albuterol Sulfate 2 puff 05/06/23 12:34 05/06/23 12:37 Albuterol Sulfate 90 Mcg 8 Gm Inhaler INHALE 05/06/23 12:35 2 puff ONCE ONE Administration Albuterol Sulfate 2.5 mg/ 0 mg 05/06/23 10:07 05/06/23 10:15 Albuterol/Ipratropium 3 ml INHALE 05/06/23 10:08 1 dose ONCE ONE Administration Medical Decision Making Medical Decision Making [facility] Narrative: This is a 58-year-old female presenting to the emergency department for evaluation of worsening shortness of breath. Patient was seen in the emergency department yesterday where she had a chest x-ray that was unremarkable, slight leukocytosis at 15.7, thought to be steroid induced leukocytosis. EKG was normal, BNP within normal limits. She was discharged on a course of prednisone. She arrives via EMS as her symptoms have only worsened. On arrival, respirations 22, oxygen saturation 96% on 2L. I removed O2 and oxygen maintained at 98% on RA. Breathing appears to be labored. Lungs with coarse inspiratory and expiratory wheezes throughout. Would benefit from an updraft. Will closely monitor symptoms. Differential Diagnosis Differential Diagnoses: The differential diagnosis associated with the presentation includes Upper respiratory infection, pneumonia, viral syndrome Discharge Plan Discharge Clinical Impression: Upper respiratory infection Patient Disposition: Home, Self-Care Instructions: Upper Respiratory Infection (ED) Additional Instructions: You were seen in the emergency department due to shortness breath. Your symptoms improved after receiving updraft. Please continue using albuterol inhaler at home. Please use spacer to help with this. Continue taking prednisone. I am also prescribing you an antibiotic, please take full course even if you are feeling better. Please follow-up with your primary care physician, call today to make an appointment. If any new or worsening symptoms occur including but not limited to chest pain, worsening shortness breath, please return for re-evaluation. Prescriptions: New azithromycin 250 mg tablet See Rx Instructions .ROUTE .COMPLEX Qty: 6 0RF Rx Instructions: For 250 mg dose pack: take 500 mg today (day 1), then 250 mg for 4 days (days 2-5) benzonatate 200 mg capsule 200 mg PO TID PRN (Reason: cough) Qty: 14 0RF albuterol sulfate 90 mcg/actuation HFA aerosol inhaler 2 inh inhalation Q4-6H PRN (Reason: shortness of breath or wheezing) Qty: 6.7 0RF No Action metoprolol succinate 100 mg tablet extended release 24 hr 100 mg PO DAILY Qty: 30 6RF ([facility] [place]) walker [facility] [place], [place] See Rx Instructions .MEDSUPPLY Qty: 1 0RF Rx Instructions: Folding front wheeled walker ([facility] [place]) bedside commode Kit See Rx Instructions .Route Qty: 1 0RF Rx Instructions: commode with handels lidocaine [Lidoderm] 5 % adhesive patch,medicated 1 patch topical DAILY MDD remove after 12 hours PRN (Reason: pain) Qty: 30 0RF Rx Instructions: leave on most painful area for up to 12 hrs ibuprofen 800 mg Tablet 800 mg PO Q8H PRN (Reason: Pain) betamethasone dipropionate 0.05 % ointment 1 appl topical BID cholecalciferol (vitamin D3) [Vitamin D3] 25 mcg (1,000 unit) Tablet 25 mcg PO DAILY omeprazole 20 mg capsule,delayed release(DR/EC) 1 cap PO DAILY PRN (Reason: Gastric Reflux) epinephrine [EpiPen] 0.3 mg/0.3 mL auto-injector 0.3 mg IM Q4H PRN (Reason: anaphylaxis) Qty: 2 0RF lorazepam [Ativan] 0.5 mg tablet 0.5 mg PO TID PRN (Reason: anxiety) Qty: 7 0RF prednisone 50 mg tablet 50 mg PO DAILY 4 Days Qty: 4 0RF clonazepam [Klonopin] 1 mg tablet 1 mg PO BEDTIME PRN (Reason: Anxiety) oxycodone-acetaminophen 10-325 mg tablet 1 tab PO Q6H PRN (Reason: Pain) (DME) miscellaneous medical supply Misc See Rx Instructions .Route Qty: 1 0RF Rx Instructions: As directed Interventions: ED Discharge Assessment Last Done: 05/06/23 12:46 Discharge Date/Time: 05/06/23 12:46
[2023-05-06 10:02] VITALS: BP 145/80; PULSE 78; RESP 22; O2SAT 99
[2023-05-06 10:17] VITALS: PULSE 76; RESP 18; O2SAT 99
--- NOTE | 2023-05-06 10:21 | PC.NURSE ---
pt a&ox3, lungs in/ex wheezing, head control clerk nsr, vitals otherwise stable, respiratory at bedside for updraft, call rico within reach, will continue to monitor
[2023-05-06 12:18] VITALS: BP 155/76; PULSE 85; RESP 18; TEMP 36.8; O2SAT 94
[2023-05-06 12:37] VITALS: PULSE 86; RESP 18; O2SAT 98
--- NOTE | 2023-05-06 12:42 | PC.NURSE ---
patient a&ox3, vss, pt speaking in full sentences, ambulating with steady gait, pt stating they feel well and wanting to go home, RT called to obtain inhailer and spacer teaching, pt discharging with family
== END 2023-05-06 12:46 | disposition home or self-care (01) ==
PROVIDERS: Emergency Provider Student in an Organized Health Care Education/Training Program; PCP Internal Medicine
DX: J06.9 Acute upper respiratory infection, unspecified (principal); R06.02 Shortness of breath; F12.90 Cannabis use, unspecified, uncomplicated; Z87.891 Personal history of nicotine dependence
CPT/HCPCS: 94640; 99284

== ENCOUNTER → 2023-05-12 09:50 | Outpatient (REF) | payer OTHER, SELFPAY ==
--- NOTE | 2023-05-12 09:53 | HM_ITS ---
Conclusion: 1. Patient was monitored for total period of 2 days and 2 hours 2. Baseline was normal sinus rhythm with average heart of 82 beats per minute 3. No significant pauses noted 4. Rare PACs noted 5. Patient reported 3 events, the symptom of heart racing correlated with isolated PAC MTDD
== END ==
LOC: HO.CARD 09:50
PROVIDERS: Visit Provider Internal Medicine
DX: R00.2 Palpitations (principal)
CPT/HCPCS: 93242

== ENCOUNTER → 2023-05-12 09:53 | Outpatient (BNV) | payer OTHER, SELFPAY | PROVIDERS: Visit Provider Internal Medicine Cardiovascular Disease | DX: I49.1 Atrial premature depolarization (principal) | CPT/HCPCS: 93244 ==

== ENCOUNTER 2023-09-03 15:44 | Emergency (ER) | payer OTHER, SELFPAY ==
[2023-09-03 15:52] VITALS: BP 156/100; PULSE 88; RESP 16; TEMP 36.8; O2SAT 98; BMI 37.8
--- NOTE | 2023-09-03 15:54 | ED.GENADULT ---
HPI - General Adult General Chief complaint: Burn/Smoke Inhalation Stated complaint: chest burn two days ago Time Seen by Provider: 09/03/23 16:54 Source: patient Mode of arrival: ambulatory Limitations: no limitations History of Present Illness HPI narrative: Patient is a 58 year old assigned female at with a history of osteoarthritis presenting to the emergency department today with a burn to her chest. Patient states that 2 days ago she was using a clothing steamer when she accidentally burned her chest. Patient denies any dizziness, lightheadedness, abdominal pain, nausea, vomiting, fever, chills, blurry vision, double vision, loss of vision, chest pain, difficulty breathing, shortness of breath, back pain, night sweats, pain with urination, increased urinary frequency, increased urinary urgency, blood in her urine or stool, syncope or a near syncopal episode, bowel incontinence, bladder incontinence, bowel retention, bladder retention, or any other complaints at this time. Onset (ago): day(s) (2) Location: chest Radiation: non-radiation Severity: mild Severity scale (1-10): 3 Quality: burning Pain Consistency: constant Relieving factors: none Exacerbating factors: none Associated symptoms: denies other symptoms Treatments prior to arrival: none Related Data Home Medications ?Medication ?Instructions ?Recorded ?Confirmed clonazepam 1 mg tablet (Klonopin) 1 mg PO BEDTIME PRN Anxiety 02/26/20 01/28/23 betamethasone dipropionate 0.05 % 1 appl topical BID 05/15/21 01/28/23 topical ointment cholecalciferol (vitamin D3) 25 25 mcg PO DAILY 05/15/21 01/28/23 mcg (1,000 unit) tablet (Vitamin D3) ibuprofen 800 mg tablet 800 mg PO Q8H PRN Pain 05/15/21 01/28/23 omeprazole 20 mg capsule,delayed 1 cap PO DAILY PRN Gastric Reflux 05/16/21 01/28/23 release oxycodone-acetaminophen 10 mg-325 1 tab PO Q6H PRN Pain 02/25/22 01/28/23 mg tablet Previous Rx's ?Medication ?Instructions ?Recorded metoprolol succinate 100 mg 100 mg PO DAILY #30 tabs 06/23/20 tablet,extended release 24 hr lidocaine 5 % topical patch 1 patch topical DAILY PRN pain #30 12/17/20 (Lidoderm) ea miscellaneous medical supply #1 ea 06/07/21 walker #1 ea 06/12/21 commode (bedside commode) #1 ea 06/13/21 epinephrine 0.3 mg/0.3 mL 0.3 mg (0.3 mL) IM Q4H PRN 02/09/23 injection, auto-injector (EpiPen) anaphylaxis #2 ea lorazepam 0.5 mg tablet (Ativan) 0.5 mg PO TID PRN anxiety #7 tabs 02/10/23 prednisone 50 mg tablet 50 mg PO DAILY 4 days #4 tabs 05/05/23 albuterol sulfate 90 mcg/actuation 2 inh inhalation Q4-6H PRN 05/06/23 aerosol inhaler shortness of breath or wheezing #6.7 grams azithromycin 250 mg tablet See Rx Instructions PO .COMPLEX #6 05/06/23 tabs benzonatate 200 mg capsule 200 mg PO TID PRN cough #14 caps 05/06/23 Allergies Allergy/AdvReac Type Severity Reaction Status Date / Time morphine [Morphine] Allergy Intermediate HIVES Verified 09/03/23 15:56 Review of Systems Constitutional: Constitutional: Reports no additional constitutional complaints, Denies chills, Denies fever(s) and Denies night sweats Eyes: Eyes: Reports no additional eye complaints, Denies blurry vision, Denies change in vision, Denies diplopia, Denies eye discharge, Denies loss of vision and Denies eye pain ENT: Denies dizziness Cardiovascular: Cardiovascular: Reports no additional cardiovascular complaints, Denies chest pain, Denies lightheadedness, Denies Loss of Consciousness and Denies dyspnea Respiratory: Respiratory: Reports no additional respiratory complaints and Denies dyspnea Gastrointestinal: Gastrointestinal: Reports no additional gastrointestinal complaints, Denies abdominal pain, Denies melena, Denies hematochezia, Denies change in bowel habits and Denies change in stool character Genitourinary: Genitourinary: Denies hematuria, Denies urinary frequency, Denies dysuria, Denies urinary incontinence, Denies urinary hesitancy and Denies urinary urgency Musculoskeletal: Musculoskeletal: Reports no additional musculoskeletal complaints, Denies numbness and Denies tingling Integumentary/Breasts: Comments: burn to chest Neurologic: Denies dizziness, Denies loss of vision, Denies numbness and Denies tingling Psychiatric: Psychiatric: Reports no additional psychiatric complaints Endocrine: Endocrine: Reports no additional endocrine complaints Hematologic/Lymphatic: Hematologic/Lymphatic: Reports no additional hematologic/lymphatic complaints Allergic/Immunologic: Allergic/Immunologic: Reports no additional allergic/immunologic complaints PMFSH Past Medical History Attestation statement: The following information was validated with the patient. Source: old records reviewed and nursing notes reviewed Medical History Colon cancer screening Morbid obesity GERD (gastroesophageal reflux disease) Lumbar radiculopathy, right Chronic back pain Depression Anxiety Hypertension Surgical History History of total right hip replacement Hx of dilation and curettage History of hip surgery History of lumbar surgery History of colonoscopy History of tubal ligation Fusion of lumbar spine Family History Family History Father Suicide Mother Heart disease Diabetes CVD (cardiovascular disease) Maternal Grandmother Heart disease Maternal Grandfather Diabetes Maternal Aunt Heart disease Maternal Uncle Heart disease Social History Social History Household Members: Spouse Housing: Apartment Are you a primary special needs caregiver to a significant other at home: No Do you presently have visiting nurse or other home services: No Alcohol intake: never Patient Tobacco Use Status: Former Tobacco user Quit Date: 2011 Tobacco use type: Cigarette Substance Use Type: Marijuana Advance Directives: No Advance Directives Information Provided: No service: No Current occupational status: disabled Current occupation: right handed Physical Exam ED Vital Signs: Vital Signs - 24 hr 09/03/23 18:09 Temperature 98 F Pulse Rate 88 Respiratory Rate 18 Blood Pressure 156/100 H Pulse Oximetry 98 Oxygen Delivery Method Room Air BMI result Body Mass Index 37.8 Const General: cooperative, no acute distress, alert and awake Nutritional Appearance: well nourished Orientation/consciousness: patient oriented x3 Limitations: no limitations HENMT Head: Yes normal to inspection and Yes atraumatic Ears: hearing grossly normal bilaterally and external ears normal General nose exam: Normal external nose present, no nasal discharge noted and no epistaxis Face and sinus: Yes normal facial exam, No abrasion and No laceration Mouth: Normal oral and palatal mucosa present, no drooling and no muffled voice Eyes General: appearance normal, both eyes and all related structures Periorbital: periorbital findings normal Eyelids: Yes eyelids normal Conjunctivae: conjunctivae normal Pupils: Equal, round and reactive pupils present EOM: EOMs intact bilaterally Neck Neck: Yes normal visual inspection, Yes full ROM and Yes no lymphadenopathy Chest Chest palpation & inspection: normal inspection of the chest Resp Effort & Inspection: normal respiratory effort and able to speak in complete sentences GI Inspection: Yes normal to inspection Skin Other: superficial sorenson to the left and right upper breasts - no open areas, no blistering present Neuro General: patient oriented x3 and moves all extremities Cranial nerves: Yes Equal, round and reactive pupils present Cognition (Neuro): normal cognition Motor exam (neuro): 5/5 motor strength present throughout Sensory Exam: Normal double simultaneous stimulation for sensation Coordination: [id number] test normal Extrem General: Yes normal to inspection, Yes full ROM and Yes capillary refill normal Psych Appearance: grossly normal Mental Status: mental status grossly normal Affect: normal affect Attitude: cooperative Thought process: Normal thought process present Thought content: Normal thought content present Insight: Good insight present (Psych) Course Course Course Narrative: This is a rapid medical exam performed by Danna Garcia NP: Additional HPI, ROS, PE not included below will be deferred to primary provider. Patient is a 58-year-old female presenting to the emergency department with complaint of burn to left breast which occurred 2 days ago in [place]. States she was steaming a dress, and it fell when she leaned forward she accidentally leaned into the steam. Returned here from [place] yesterday, and had fever of 102.2. RME: viral swabs, Medications Administered Discontinued Medications Generic Name Dose Route Start Last Admin Trade Name Freq PRN Reason Stop Dose Admin Diphtheria/Tetanus/Acell Pertussis 0.5 ml 09/03/23 15:59 09/03/23 16:43 Diphth,Pertus(Acell),Tet Adult 0.5 Ml Syringe IM 09/03/23 16:00 0.5 ml .ONCE ONE Administration Medical Decision Making Medical Decision Making MDM Narrative: Patient is a 58 year old assigned female at with a history of osteoarthritis presenting to the emergency department today with a chest burn. Patient's physical exam showed superficial sorenson to the upper chest as noted in the physical exam portion of this note. I explained my physical exam findings to the patient. I answered all questions asked by the patient. Patient was brought up to date on her tetanus status. I stressed the importance of the patient taking her medication as prescribed. I stressed the importance of the patient following up with her primary care provider. I stressed the importance of the patient returning to the emergency department immediately if her symptoms were to worsen or if she were to develop any dizziness, shortness of breath, difficulty breathing, chest pain, blurry vision, loss of vision, nausea, vomiting, abdominal pain, fever, chills, back pain, or any other complaints. Patient verbalized agreement and understanding with this treatment plan and discharge. Differential Diagnosis Differential Diagnoses: The differential diagnosis associated with the presentation includes Superficial burn Chest burn Flash burn Admission/Observation Consideration of admission/observation: Escalation of care including admission/observation considered Patient would have been admitted to the hospital had her clinical presentation warranted hospital admission. Lab Data [facility] Lab Attestation statement: I reviewed the patient's lab results. My interpretation of these results are in the [facility] Rationale portion of this note. Labs: Lab Results 09/03/23 Range/Units 16:43 Influenza Type A (PCR) NEGATIVE (Negative) Influenza Type B (PCR) NEGATIVE (Negative) RSV RNA Qual (PCR) NEGATIVE (Negative) SARS-CoV-2 RNA (RT-PCR) NEGATIVE (Negative) Discharge Plan Discharge Clinical Impression: Superficial burn Patient Disposition: Home, Self-Care Instructions: Flash Burn of Skin (ED) Additional Instructions: Follow up with your primary care provider. Return to the emergency department immediately if your symptoms worsen or if you develop any dizziness, shortness of breath, difficulty breathing, chest pain, blurry vision, loss of vision, nausea, vomiting, abdominal pain, fever, chills, back pain, or any other complaints. Prescriptions: No Action metoprolol succinate 100 mg tablet extended release 24 hr 100 mg PO DAILY Qty: 30 6RF (DME) walker Misc See Rx Instructions .MEDSUPPLY Qty: 1 0RF Rx Instructions: Folding front wheeled walker (DME) bedside commode Kit See Rx Instructions .Route Qty: 1 0RF Rx Instructions: commode with handels lidocaine [Lidoderm] 5 % adhesive patch,medicated 1 patch topical DAILY MDD remove after 12 hours PRN (Reason: pain) Qty: 30 0RF Rx Instructions: leave on most painful area for up to 12 hrs ibuprofen 800 mg Tablet 800 mg PO Q8H PRN (Reason: Pain) betamethasone dipropionate 0.05 % ointment 1 appl topical BID cholecalciferol (vitamin D3) [Vitamin D3] 25 mcg (1,000 unit) Tablet 25 mcg PO DAILY omeprazole 20 mg capsule,delayed release(DR/EC) 1 cap PO DAILY PRN (Reason: Gastric Reflux) azithromycin 250 mg tablet See Rx Instructions .ROUTE .COMPLEX Qty: 6 0RF Rx Instructions: For 250 mg dose pack: take 500 mg today (day 1), then 250 mg for 4 days (days 2-5) benzonatate 200 mg capsule 200 mg PO TID PRN (Reason: cough) Qty: 14 0RF albuterol sulfate 90 mcg/actuation HFA aerosol inhaler 2 inh inhalation Q4-6H PRN (Reason: shortness of breath or wheezing) Qty: 6.7 0RF epinephrine [EpiPen] 0.3 mg/0.3 mL auto-injector 0.3 mg IM Q4H PRN (Reason: anaphylaxis) Qty: 2 0RF lorazepam [Ativan] 0.5 mg tablet 0.5 mg PO TID PRN (Reason: anxiety) Qty: 7 0RF prednisone 50 mg tablet 50 mg PO DAILY 4 Days Qty: 4 0RF clonazepam [Klonopin] 1 mg tablet 1 mg PO BEDTIME PRN (Reason: Anxiety) oxycodone-acetaminophen 10-325 mg tablet 1 tab PO Q6H PRN (Reason: Pain) (DME) miscellaneous medical supply Misc See Rx Instructions .Route Qty: 1 0RF Rx Instructions: As directed Referrals: [facility] [place] Family Medicine [Provider Group] (Call to establish and follow up with a primary care provider. If you already have a primary care provider, please follow up with them.) [facility] [place] [facility] [Provider Group] [facility] [place] [facility] [Provider Group] Interventions: ED Discharge Assessment Last Done: 09/03/23 18:09 Discharge Date/Time: 09/03/23 18:10 Print Language: Brazilian
[2023-09-03] MEDS: Diphth,Pertus(ACell),Tet Adult 0.5 ML SYRINGE IM (16:43)
[2023-09-03 17:43] LABS: Influenza A PCR NEGATIVE (Negative); Influenza B PCR NEGATIVE (Negative); Resp Syncy Virus RNA Qual PCR NEGATIVE (Negative); SARS COV2 PCR INHOUSE NEGATIVE (Negative)
[2023-09-03 18:09] VITALS: BP 156/100; PULSE 88; RESP 18; TEMP 36.6; O2SAT 98
== END 2023-09-03 18:10 | disposition home or self-care (01) ==
PROVIDERS: Registered Nurse Emergency; Emergency Provider Emergency Medicine Emergency Medical Services
DX: T21.01XA Burn of unspecified degree of chest wall, initial encounter (principal); I10 Essential (primary) hypertension; X13.1XXA Other contact with steam and other hot vapors, initial encounter; Y93.89 Activity, other specified; Y92.9 Unspecified place or not applicable; Y99.9 Unspecified external cause status; Z03.818 Encounter for observation for suspected exposure to other biological agents ruled out
CPT/HCPCS: 0241U; 90471; 90715; 99283; 99284

== ENCOUNTER 2023-09-28 09:34 | Emergency (ER) | payer OTHER, SELFPAY ==
--- NOTE | ~2023-09-28 | XR_ITS ---
EXAMINATION: PELVIS AND RIGHT HIP, RIGHT KNEE CLINICAL INFORMATION: Right knee and right hip pain COMPARISON: Pelvis and right hip 12/17/2020, right knee 01/25/2013 (report only) TECHNIQUE: 2 views pelvis with 2 additional views right hip 4 Views of the right knee FINDINGS: Posterior fusion is present at L5-S1. There is fusion at the right SI joint. A right total hip replacement is present with prosthesis in good position with no evidence of loosening or fracture. Degenerative changes are present in all 3 knee joint compartments most marked in the patellofemoral and the lateral compartment. There are there is narrowing of the patellofemoral joint with small knee joint effusion. Osteophytes are present arising from the lateral tibial plateau as well as the distal femoral condyles. No fractures. XR/XR knee RT 3V IMPRESSION: 1. Right total hip replacement without evidence of complication. 2. Degenerative changes in the right knee with small knee joint effusion.
--- NOTE | ~2023-09-28 | XR_ITS ---
EXAMINATION: PELVIS AND RIGHT HIP, RIGHT KNEE CLINICAL INFORMATION: Right knee and right hip pain COMPARISON: Pelvis and right hip 12/17/2020, right knee 01/25/2013 (report only) TECHNIQUE: 2 views pelvis with 2 additional views right hip 4 Views of the right knee FINDINGS: Posterior fusion is present at L5-S1. There is fusion at the right SI joint. A right total hip replacement is present with prosthesis in good position with no evidence of loosening or fracture. Degenerative changes are present in all 3 knee joint compartments most marked in the patellofemoral and the lateral compartment. There are there is narrowing of the patellofemoral joint with small knee joint effusion. Osteophytes are present arising from the lateral tibial plateau as well as the distal femoral condyles. No fractures. XR/XR hip RT w PEL1V IMPRESSION: 1. Right total hip replacement without evidence of complication. 2. Degenerative changes in the right knee with small knee joint effusion.
[2023-09-28 10:31] VITALS: BP 149/97; PULSE 71; RESP 18; TEMP 36.2; O2SAT 97; BMI 37.3
--- NOTE | 2023-09-28 11:14 | ED_ITS ---
HPI - General Adult General Chief complaint: Extremity Injury, Lower Stated complaint: knee pain Time Seen by Provider: 09/28/23 11:05 Source: patient Mode of arrival: ambulatory Limitations: no limitations History of Present Illness ED Provider: Danna Garcia NP HPI narrative: Patient is a 58-year-old female with history of right hip replacement presenting to the emergency department with complaint of right hip and knee pain since the weekend. Feels any has been increasingly swollen and is unable to flex knee due to pain. Denies fevers. Denies fall or other trauma. Denies calf pain or swelling. Denies chest pain or shortness of breath. Takes 10mg Percocet every 6 hours at home at baseline, last took at 2am. Scheduled for surgery at [facility] tomorrow for surgery on herniated discs of cervical spine. complaint: right hip and knee pain Onset (ago): day(s) Location: right and lower extremity Severity: severe Quality: aching Pain Consistency: constant Relieving factors: rest Exacerbating factors: movement Treatments prior to arrival: other Related Data Home Medications ?Medication ?Instructions ?Recorded ?Confirmed clonazepam 1 mg tablet (Klonopin) 1 mg PO BEDTIME PRN Anxiety 02/26/20 01/28/23 betamethasone dipropionate 0.05 % 1 appl topical BID 05/15/21 01/28/23 topical ointment cholecalciferol (vitamin D3) 25 25 mcg PO DAILY 05/15/21 01/28/23 mcg (1,000 unit) tablet (Vitamin D3) ibuprofen 800 mg tablet 800 mg PO Q8H PRN Pain 05/15/21 01/28/23 omeprazole 20 mg capsule,delayed 1 cap PO DAILY PRN Gastric Reflux 05/16/21 01/28/23 release oxycodone-acetaminophen 10 mg-325 1 tab PO Q6H PRN Pain 02/25/22 01/28/23 mg tablet Previous Rx's ?Medication ?Instructions ?Recorded metoprolol succinate 100 mg 100 mg PO DAILY #30 tabs 06/23/20 tablet,extended release 24 hr lidocaine 5 % topical patch 1 patch topical DAILY PRN pain #30 12/17/20 (Lidoderm) ea miscellaneous medical supply #1 ea 06/07/21 walker #1 ea 06/12/21 commode (bedside commode) #1 ea 06/13/21 epinephrine 0.3 mg/0.3 mL 0.3 mg (0.3 mL) IM Q4H PRN 02/09/23 injection, auto-injector (EpiPen) anaphylaxis #2 ea lorazepam 0.5 mg tablet (Ativan) 0.5 mg PO TID PRN anxiety #7 tabs 02/10/23 prednisone 50 mg tablet 50 mg PO DAILY 4 days #4 tabs 05/05/23 albuterol sulfate 90 mcg/actuation 2 inh inhalation Q4-6H PRN 05/06/23 aerosol inhaler shortness of breath or wheezing #6.7 grams azithromycin 250 mg tablet See Rx Instructions PO .COMPLEX #6 05/06/23 tabs benzonatate 200 mg capsule 200 mg PO TID PRN cough #14 caps 05/06/23 prednisone 20 mg tablet 40 mg (2 x 20 mg) PO DAILY #10 tabs 09/28/23 Allergies Allergy/AdvReac Type Severity Reaction Status Date / Time morphine [Morphine] Allergy Intermediate HIVES Verified 09/28/23 10:32 Review of Systems 2 Review of Systems: As per HPI. Yes all other systems are reviewed and are negative Constitutional: Constitutional: Reports as per HPI PMF Past Medical History Medical History Colon cancer screening Morbid obesity GERD (gastroesophageal reflux disease) Lumbar radiculopathy, right Chronic back pain Depression Anxiety Hypertension Surgical History History of total right hip replacement Hx of dilation and curettage History of hip surgery History of lumbar surgery History of colonoscopy History of tubal ligation Fusion of lumbar spine Family History Family History Father Suicide Mother Heart disease Diabetes CVD (cardiovascular disease) Maternal Grandmother Heart disease Maternal Grandfather Diabetes Maternal Aunt Heart disease Maternal Uncle Heart disease Social History Social History Household Members: Spouse Housing: Apartment Are you a primary vehicle care specialist to a significant other at home: No Do you presently have visiting nurse or other home services: No Alcohol intake: never Patient Tobacco Use Status: Former Tobacco user Quit Date: 2011 Tobacco use type: Cigarette Substance Use Type: Marijuana Advance Directives: No Do you have a plan to hurt others: No Plan service: No Current occupational status: disabled Current occupation: right handed Physical Exam ED Vital Signs: Vital Signs - 24 hr 09/28/23 10:31 09/28/23 14:47 Temperature 97.1 F 98.4 F Pulse Rate 71 74 Respiratory Rate 18 18 Blood Pressure 149/97 H 148/74 H Pulse Oximetry 97 96 Oxygen Delivery Method Room Air Room Air BMI result Body Mass Index 37.3 Vital signs have been reviewed and appear to be correct. Blood pressure elevated. Heart rate normal. Respiratory rate normal. Temperature normal. Oxygen saturation normal. Const General: cooperative, healthy appearing and no acute distress Orientation/consciousness: oriented to person, oriented to place, oriented to time and patient oriented x3 Limitations: no limitations HENMT Head: Yes normocephalic and Yes atraumatic Ears: external ears normal General nose exam: Normal external nose present Face and sinus: Yes face symmetric Mouth: oropharynx normal and moist mucous membranes Throat: Yes uvula midline Eyes Pupils: Equal, round and reactive pupils present Neck Neck: Yes normal visual inspection and Yes supple Resp Effort & Inspection: normal respiratory effort and able to speak in complete sentences Auscultation: clear to auscultation bilaterally Cardio Rate: regular rate Rhythm: regular rhythm Heart sounds: S1 normal heart sound present and S2 normal heart sound present GI Palpation (GI): Soft to palpation and nontender Auscultation: normoactive bowel sounds General: Yes no CVA tenderness Back/Spine/Pelvis Back: no CVA tenderness Skin General skin exam: elasticity normal and turgor normal Neuro General: oriented to person, oriented to place, oriented to time, patient oriented x3, moves all extremities, no focal motor deficits and CN's II-XI intact bilaterally Cranial nerves: Yes Equal, round and reactive pupils present Cognition (Neuro): normal cognition Extrem General: Yes full ROM, Yes no pedal edema and Yes no calf tenderness Right upper extremity: normal to inspection, full ROM and normal capillary refill Left upper extremity: normal to inspection, full ROM and normal capillary refill Right lower extremity: hip/thigh Details: normal to inspection and abnormal ROM Details: held in an abnormal fashion (limited ROM in all directions due to pain) Details: in extension, knee Details: tenderness (diffuse), swelling (diffuse) and abnormal ROM Details: held in an abnormal fashion (unable to fully flex passively due to pain) Details: in extension; no ecchymosis, no crepitus and no deformity, lower leg Details: normal to inspection; no tenderness and foot Details: vascular exam Details: dorsalis pedis pulse present and posterior tibial pulse present Psych Mental Status: mental status grossly normal Affect: normal affect Thought process: Normal thought process present Medications Administered Discontinued Medications Generic Name Dose Route Start Last Admin Trade Name Jackie PRN Reason Stop Dose Admin Ketorolac Tromethamine 30 mg 09/28/23 12:38 09/28/23 13:23 Ketorolac Tromethamine 30 Mg/Ml Vial IM 09/28/23 12:39 30 mg ONCE ONE Administration Oxycodone HCl 10 mg 09/28/23 12:43 09/28/23 13:23 Oxycodone Hcl Immed Release 5 Mg Tablet PO 09/28/23 12:44 10 mg ONCE ONE Administration Medical Decision Making Medical Decision Making MDM Narrative: Patient is a 58-year-old female with history of right hip replacement presenting to the emergency department with complaint of right hip and knee pain since the weekend. On exam patient is awake, A+Ox3, BP elevated, VS otherwise WNL, afebrile, normal neurological exam without focal deficits, physical exam findings as above. Given reported symptoms and physical exam findings, initial differential includes gout flare, osteoarthritis, less likely fracture or septic arthritis. Labs notable for no leukocytosis, elevated CRP but normal ESR. X- ray right knee notable for small effusion, degenerative changes, no issues with hardware of right hip. My interpretation is in agreement with the radiologist's interpretation. Pain improved with medications given in the ED. Case discussed with mikel Traore, who does not feel patient requires arthrocentesis, and is agreeable with plan to discharge home on prednisone. Patient states she has been off her ibuprofen to prepare for her surgery tomorrow. Instructed patient to notify her surgeon that she was initiated on prednisone. Return precautions discussed at bedside. Patient verbalized understanding of and agreement with plan. Differential Diagnosis Differential Diagnoses: The differential diagnosis associated with the presentation includes As per MDM. Consult Healthcare Provider Management of the patient was discussed with: [employer]verter (mikel Traore) Lab Data [facility] Lab Attestation statement: I reviewed the patient's lab results. As per MDM. 09/28/23 12:58 09/28/23 12:57 Labs: Lab Results 09/28/23 09/28/23 Range/Units 12:57 12:58 WBC 8.4 (4.8-10.8) X10*3/uL RBC 4.83 (4.20-5.50) X10*6/uL Hgb 14.7 (12.0-16.0) g/dl Hct 44.6 (37.0-47.0) % MCV 92.3 (80.0-98.0) fL MCH 30.4 (27.0-33.0) pg MCHC 33.0 (31.0-35.0) g/dl RDW 14.0 (11.0-16.0) % Plt Count 204 (160-400) X10*3/uL MPV 11.0 (9.4-12.3) fL Immature Gran % (Auto) 0.4 (0.0-0.4) % Neut % (Auto) 56.6 (45-73) % Lymph % (Auto) 32.6 (20-40) % [place] % (Auto) 5.8 (2-11) % Eos % (Auto) 4.1 H (0-4) % Baso % (Auto) 0.5 (0-2) % Lymph # (Auto) 2.7 (1.2-4.9) X10*3/uL [place] # (Auto) 0.5 (0.1-1.2) X10*3/uL Eos # (Auto) 0.3 (0.0-0.4) X10*3/uL Baso # (Auto) 0.0 (0.0-0.2) X10*3/uL Abs Immat Gran (auto) 0.03 (0.00-0.03) X10*3/uL Absolute Neuts (auto) 4.8 (2.0-8.3) x10*3/uL Absolute Nucleated RBC 0.000 (0.0-0.012) X10*3/uL Nucleated RBC % (auto) 0.0 (0.0-0.2) /100WBC Smear Tech's Comments VERIFIED ESR 8 (0-20) MM/HR Sodium 139 (135-145) mmol/L Potassium 4.9 (3.3-5.1) mmol/L Chloride 106 (96-108) mmol/L Carbon Dioxide 23 (22-29) mmol/L Anion Gap 15 (12-20) BUN 11 (9-16) mg/dL Creatinine 0.80 (0.5-1.4) mg/dL Estim Creat Clear Calc 89.5 Estimated GFR > 60 Random Glucose 93 (60-115) mg/dL Lactic Acid 1.3 (0.5-2.0) mmol/L Calcium 9.5 (8.4-10.2) mg/dL Total Bilirubin 0.4 (0.0-1.0) mg/dL AST 28 (5-31) U/L ALT 19 (0-31) U/L Alkaline Phosphatase 61 (39-117) U/L C-Reactive Protein 1.64 H (< or = 0.50) mg/dL Total Protein 7.7 (6.5-8.0) g/dL Albumin 4.2 (3.5-5.0) g/dL Independent Interpretation I performed an independent interpretation of an: Plain X-Ray Interpretation: X-ray right knee notable for small effusion, degenerative changes, no issues with hardware of right hip. Radiology Impression Discussion of test interpretation with radiology: I have reviewed the radiologist's reading. Radiologist Impression: XR/XR knee RT 3V IMPRESSION: 1. Right total hip replacement without evidence of complication. 2. Degenerative changes in the right knee with small knee joint effusion. External Record Review External record reviewed: Inpatient record, Office record and Outpatient record Prescription Management I considered prescription management with: Other Critical Care Time Critical Care Time Critical Care Time: Yes Total Critical Care Time: 45 Attestation: I have personally provided critical care time exclusive of time spent on separately billable procedures. Time includes review of lab data, radiology results, discussion with consultants, and monitoring for potential decompensation. Intervention performed as documented. Discharge Plan Discharge Clinical Impression: Gout attack Qualifiers: Gout site: knee Encounter type: initial encounter Laterality: right Patient Disposition: Home, Self-Care Instructions: Gout (ED) Additional Instructions: You presented to the emergency department today for acute pain of right knee. You are being treated for a gout flare with a course of prednisone. Please take this medication as prescribed. Once this medication is completed, you should resume use of ibuprofen as long as this is cleared with your neurosurgeon. Please follow-up with your primary care provider. Return to the emergency department for increasing pain, new redness or swelling, fever or any other concerning symptoms. Follow up with orthopedics for any ongoing symptoms. Prescriptions: New prednisone 20 mg tablet 40 mg PO DAILY Qty: 10 0RF No Action metoprolol succinate 100 mg tablet extended release 24 hr 100 mg PO DAILY Qty: 30 6RF (DME) walker Misc See Rx Instructions .MEDSUPPLY Qty: 1 0RF Rx Instructions: Folding front wheeled walker (DME) bedside commode Kit See Rx Instructions .Route Qty: 1 0RF Rx Instructions: commode with handels lidocaine [Lidoderm] 5 % adhesive patch,medicated 1 patch topical DAILY MDD remove after 12 hours PRN (Reason: pain) Qty: 30 0RF Rx Instructions: leave on most painful area for up to 12 hrs ibuprofen 800 mg Tablet 800 mg PO Q8H PRN (Reason: Pain) betamethasone dipropionate 0.05 % ointment 1 appl topical BID cholecalciferol (vitamin D3) [Vitamin D3] 25 mcg (1,000 unit) Tablet 25 mcg PO DAILY omeprazole 20 mg capsule,delayed release(DR/EC) 1 cap PO DAILY PRN (Reason: Gastric Reflux) azithromycin 250 mg tablet See Rx Instructions .ROUTE .COMPLEX Qty: 6 0RF Rx Instructions: For 250 mg dose pack: take 500 mg today (day 1), then 250 mg for 4 days (days 2-5) benzonatate 200 mg capsule 200 mg PO TID PRN (Reason: cough) Qty: 14 0RF albuterol sulfate 90 mcg/actuation HFA aerosol inhaler 2 inh inhalation Q4-6H PRN (Reason: shortness of breath or wheezing) Qty: 6.7 0RF epinephrine [EpiPen] 0.3 mg/0.3 mL auto-injector 0.3 mg IM Q4H PRN (Reason: anaphylaxis) Qty: 2 0RF lorazepam [Ativan] 0.5 mg tablet 0.5 mg PO TID PRN (Reason: anxiety) Qty: 7 0RF prednisone 50 mg tablet 50 mg PO DAILY 4 Days Qty: 4 0RF clonazepam [Klonopin] 1 mg tablet 1 mg PO BEDTIME PRN (Reason: Anxiety) oxycodone-acetaminophen 10-325 mg tablet 1 tab PO Q6H PRN (Reason: Pain) (DME) miscellaneous medical supply Misc See Rx Instructions .Route Qty: 1 0RF Rx Instructions: As directed Referrals: [facility] [Provider Group] Print Language: Vietnamese
[2023-09-28 13:18] LABS: Lactic Acid 1.3 mmol/L (0.5-2.0)
[2023-09-28] MEDS: Ketorolac Tromethamine 30 MG/ML VIAL IM (13:23)
[2023-09-28] MEDS: oxyCODONE HCl Immed Release 5 MG TABLET 10 MG PO (13:23)
[2023-09-28 13:24] LABS: Alanine Aminotransferase 19 U/L (0-31); Albumin Level 4.2 g/dL (3.5-5.0); Alkaline Phosphatase 61 U/L (39-117); Anion Gap 15 (12-20); Aspartate Amino Transferase 28 U/L (5-31); Bilirubin Total 0.4 mg/dL (0.0-1.0); Blood Urea Nitrogen 11 mg/dL (9-16); C Reactive Protein 1.64 mg/dL (< or = 0.50); Calcium 9.5 mg/dL (8.4-10.2); Carbon Dioxide 23 mmol/L (22-29); Chloride 106 mmol/L (96-108); Creatinine Clr Calc Pharmacy 89.5; Estimated Glomerular Filt Rate > 60; Glucose Random 93 mg/dL (60-115); Potassium 4.9 mmol/L (3.3-5.1); Sodium 139 mmol/L (135-145); Total Protein 7.7 g/dL (6.5-8.0)
[2023-09-28 13:24] LABS: Basophils Percent Auto 0.5 % (0-2); Eosinophils Absolute Auto 0.3 X10*3/uL (0.0-0.4); Eosinophils Percent Auto 4.1 % (0-4); Hematocrit 44.6 % (37.0-47.0); Hemoglobin 14.7 g/dl (12.0-16.0); Imm Gran Abs Auto 0.03 X10*3/uL (0.00-0.03); Imm Gran Pct Auto 0.4 % (0.0-0.4); Lymphocytes Absolute Auto 2.7 X10*3/uL (1.2-4.9); Lymphocytes Percent Auto 32.6 % (20-40); MANUAL DIFF FLAG SCAN; Mean Corpuscular Hemoglobin 30.4 pg (27.0-33.0); Mean Corpuscular Volume 92.3 fL (80.0-98.0); Monocytes Absolute Auto 0.5 X10*3/uL (0.1-1.2); Monocytes Percent Auto 5.8 % (2-11); Neutrophils Absolute Auto 4.8 x10*3/uL (2.0-8.3); Neutrophils Percent Auto 56.6 % (45-73); PLT CLUMP 1; Red Blood Count 4.83 X10*6/uL (4.20-5.50); SCAN SMEAR FLAG 1
[2023-09-28 13:52] LABS: White Blood Count 8.4 X10*3/uL (4.8-10.8)
[2023-09-28 13:53] LABS: Platelet Count 204 X10*3/uL (160-400); SLIDE REVIEW VERIFIED
[2023-09-28 14:08] LABS: Erythrocyte Sedimentation Rate 8 MM/HR (0-20)
[2023-09-28 14:47] VITALS: BP 148/74; PULSE 74; RESP 18; TEMP 36.9; O2SAT 96
[2023-09-28 16:00] VITALS: BP 148/74; PULSE 74; RESP 18; TEMP 36.9; O2SAT 96
== END 2023-09-28 16:01 | disposition home or self-care (01) ==
PROVIDERS: Registered Nurse Emergency; Emergency Provider Emergency Medicine; PCP Internal Medicine
DX: M10.9 Gout, unspecified (principal); M25.551 Pain in right hip; M25.561 Pain in right knee; I10 Essential (primary) hypertension
CPT/HCPCS: 36415; 73502; 73562; 80053; 83605; 85025; 85652; 86140; 87040; 96372; 99284; J1885

== ENCOUNTER 2023-12-16 11:28 | Outpatient (AMB) | payer OTHER, SELFPAY ==
[2023-12-16 11:47] VITALS: BP 128/80
--- NOTE | 2023-12-16 11:47 | A.OFFVIS_ITS ---
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 Perez and postop follow-up with him but she has had no bleeding since she was having menopausal symptoms then including her hot flashes which have continued and she had a full discussion with him about options and she decided not to follow through anything other than expectant management and she still wants to stick with that. She gets her mammograms yearly and she is due in January she gets those at [facility]. Her primary care provider is in [facility]. She just had surgery on her neck at [facility]. She had her hip replaced at [place] and she is seeing orthopedics in [place] for her knee. [facility] Medical History Colon cancer screening Morbid obesity GERD (gastroesophageal reflux disease) Lumbar radiculopathy, right Chronic back pain Depression Anxiety Hypertension Surgical History History of total right hip replacement Hx of dilation and curettage History of hip surgery History of lumbar surgery History of colonoscopy History of tubal ligation Fusion of lumbar spine Family History Father Suicide Mother Heart disease Diabetes CVD (cardiovascular disease) Maternal Grandmother Heart disease Maternal Grandfather Diabetes Maternal Aunt Heart disease Maternal Uncle Heart disease Social History Household Members: Spouse Housing: Apartment Are you a primary vision care associate to a significant other at home: No Do you presently have visiting nurse or other home services: No Alcohol intake: never Patient Tobacco Use Status: Former Tobacco user Tobacco use type: Cigarette Substance Use Type: Marijuana service: No Current occupational status: disabled Current occupation: right handed Female Reproductive History Menstrual Age of Menarche: 12 control method: permanent sterilization Date of menopause: 05/04/22 Total pregnancies: 6 Full term: 4 Date of last pap smear: 03/19/20 (neg) History of abnormal pap smear: No Date of Mammogram: 06/02/22 (negative) Physical Exam Vital Signs: Last Vital Signs BP 128/80 12/16/23 11:47 Const Other: Multiple small port scars from her multiple surgeries. General: healthy appearing, comfortable, no acute distress, well developed and alert Nutritional Appearance: average body habitus Orientation/consciousness: patient oriented x3 Limitations: no limitations HEENT Head: Yes normocephalic Neck Neck: Yes normal visual inspection Chest Chest palpation & inspection: normal inspection of the chest Breast/axilla inspection: normal inspection of the breasts and normal inspection of the axillae Breast/axilla palpation: normal palpation of the breasts and normal palpation of the axillae Resp Effort & Inspection: normal respiratory effort GI Inspection: Yes normal to inspection, No Abdominal wall edema and No distended Palpation (GI): Soft to palpation and nontender Other: External exam within normal limits vagina pink and moist cervix multiparous pink and moist normal scant amount discharge whitish in color cervix mobile nontender uterus small mobile anterior anteverted mobile nontender adnexa nontender not enlarged good tone with Kegel. General: Yes bladder normal to palpation External Female Exam: normal external appearance and normal appearance of the urethra Speculum Exam - Vagina: normal appearance of the vagina, normal palpation and normal vaginal discharge Speculum Exam - Cervix: normal appearance of the cervix, normal palpation and nontender Bimanual exam- vagina & uterus: normal bimanual exam, normal palpation, uterine size normal, bladder normal to palpation, consistency normal, normal palpation, uterine mobility normal, uterine shape normal, No Cervical tenderness present, non-tender and no cervical motion tenderness Bimanual Exam- Adnexa, other: normal adnexae, no masses, normal and No adnexal tenderness Neuro General: patient oriented x3 Results Reviewed Results Reviewed: Name: Roz Mars Specimen #: [id number] Age/Sex: 54/F Attending: Castro Perez MD : 1965 Submitted by: Castro Perez MD Collected: 03/18/20 MR #: [id number] Received: 03/19/20 Status: [facility] REF Location: .[facility] Interpretation Satisfactory for evaluation. Negative for intraepithelial lesion or malignancy. HPV mRNA E6/E7: NOT DETECTED This assay detects E6/E7 viral messenger RNA (mRNA) from 14 high-risk HPV types (16, 18, 31, 33, 35, 39, 45, 51, 52, 56, 58, 59, 66, 68) HPV testing performed by [facility], [place], [place]. See reference laboratory portion of the EMR for entire report. Clinical Information LMP: 2 months ago Previous PAP test: Unknown date, wnl Material Received ThinPrep cervical Electronically Signed By: TAWANDA Snow ([facility]) 04/19/20 1516 The Pap Test is a screening procedure with the inherent possibility of both false negative and false positive results. Results should be interpreted in the context of historic and current clinical findings. Reliability of the Pap Test is enhanced by performing the test on a regular repetitive basis. Patient: Roz Mars Age/Sex: 54/F MR#: [id number] Page 1 of 1 Assessment & Plan Assessment & Plan (1) Well woman exam: Comment: Self breast exam recommended. Cotesting done. Calcium/Vitamin D 1200 mg/800 PO QD recommended. Code(s): Z01.419 - Encounter for gynecological examination (general) (routine) without abnormal findings Category: Medical (2) Cervical cancer screening: Code(s): Z12.4 - Encounter for screening for malignant neoplasm of cervix Category: Medical Plan -----Discussed in this visit the following: healthy balanced diet, regular and consistent exercise, getting recommended health screens, doing the best she can for her particular health concerns, kegel exercises, pap smear screening and followup recommendations, mammography screening and SBE, normal changes in cycles in her life stage--- . Reviewed her recent surgeries including her cervical disc surgery and also her past hip surgery and her issues with her knee. She is awaiting full healing on the nerve reading down to her arm and shoulder but she says the healing is going very well. She had no worries about STDs, as she is in a monogamous situation with the , but when offered she did accept testing. she is not due for Pap smear until next year because she says she had never had an dolores normal Pap, and her last 1 was completely negative with negative HPV. Reviewed her self-care and her healthcare. She says she has no trouble keeping track of seeing providers in every institution and place and has no problem with it and will stick with it. Coding Level of Care Code Est Pt Prev Care 40-64y(29193) Diagnoses Well woman exam Z01.419 Cervical cancer screening Z12.4
== END 2023-12-16 12:36 | disposition home or self-care (01) ==
LOC: HO.HWSM 11:29
PROVIDERS: PCP Internal Medicine; Visit Provider Advanced Practice Midwife
DX: Z01.419 Encounter for gynecological examination (general) (routine) without abnormal findings (principal); Z12.4 Encounter for screening for malignant neoplasm of cervix
CPT/HCPCS: 99396

== ENCOUNTER 2023-12-16 11:28 | Outpatient (REF) | payer OTHER, SELFPAY ==
[2023-12-17 05:11] LABS: CT PCR NOT DETECTED (Not Detect.); NG PCR NOT DETECTED (Not Detect.)
[2023-12-17 11:34] LABS: Bacterial Vaginosis PCR NEGATIVE (Negative); Candida Group PCR NOT DETECTED (Not Detect); Candida glab krusei PCR NOT DETECTED (Not Detect); Trichomonas vaginalis PCR NOT DETECTED (Not Detect)
== END 2023-12-16 11:29 | disposition home or self-care (01) ==
LOC: HO.LAB 11:28
PROVIDERS: PCP Internal Medicine; Visit Provider Advanced Practice Midwife
DX: N89.8 Other specified noninflammatory disorders of vagina (principal); Z20.2 Contact with and (suspected) exposure to infections with a predominantly sexual mode of transmission
CPT/HCPCS: 0352U; 87491; 87591

== ENCOUNTER 2023-12-21 07:50 | Emergency (ER) | payer OTHER, SELFPAY ==
--- NOTE | ~2023-12-21 | XR_ITS ---
EXAMINATION: XR LUMBOSACRAL SPINE CLINICAL INFORMATION: Fall COMPARISON: Lumbar spine radiographs 09/01/2016 TECHNIQUE: Three views of the lumbosacral spine. FINDINGS: There are 5 nonrib-bearing lumbar type vertebra. Redemonstrated postoperative appearance from posterior spinal hardware fusion at L4-5 and L5-S1 interbody spacer, in unchanged alignment, without evidence of hardware complication. No evidence of acute fracture or malalignment. Unchanged minimal, 2 mm retrolisthesis of L1 on L2. Vertebral body heights are maintained. Unchanged moderate multilevel disc space height loss, worst at L1-2 and L2-3, with endplate sclerosis and moderate endplate osteophytes, not definitely changed. Partially visualized right sacroiliac arthrodesis and right total hip arthroplasty. Soft tissues are unremarkable. XR/XR lumbar spine 2-3V IMPRESSION: 1. No evidence of acute fracture or malalignment of the lumbar spine. 2. Redemonstrated postoperative appearance from L4-5 posterior spinal hardware fusion and L5-S1 interbody spacer, in unchanged alignment, without evidence of hardware complication. 3. Unchanged moderate multilevel lumbar spondylosis, worst at L1-2 and L2-3. Electronically signed by: Giuseppe Aguilera MD 12/21/2023 11:22 AM EDT
--- NOTE | ~2023-12-21 | XR_ITS ---
EXAMINATION: XR pelvis 1-2V (accession [id number]), XR femur LT 2V (accession [id number]) 12/21/2023 08:47:00 AM CLINICAL HISTORY: pain s/p fall COMPARISON: Pelvis radiographs 09/28/2023 FINDINGS: No evidence of acute fracture or malalignment. Normal left femoral head contour. Redemonstrated postoperative appearance from right total hip arthroplasty and right sacroiliac joint arthrodesis. Partially visualized lower lumbar hardware fusion. Left hip joint space well-preserved. Small left acetabular osteophytes. Mild left sacroiliac joint arthrosis. Mild pubic enthesopathy. Pubic symphysis congruent. Incompletely visualized left knee osteoarthritis. Soft tissues unremarkable XR/XR femur LT 2V IMPRESSION: 1. No evidence of acute fracture or malalignment of the pelvis or left femur. 2. Mild left hip and sacroiliac joint osteoarthritis. Electronically signed by: Giuseppe Aguilera MD 12/21/2023 11:18 AM EDT
--- NOTE | ~2023-12-21 | XR_ITS ---
EXAMINATION: XR pelvis 1-2V (accession [id number]), XR femur LT 2V (accession [id number]) 12/21/2023 08:47:00 AM CLINICAL HISTORY: pain s/p fall COMPARISON: Pelvis radiographs 09/28/2023 FINDINGS: No evidence of acute fracture or malalignment. Normal left femoral head contour. Redemonstrated postoperative appearance from right total hip arthroplasty and right sacroiliac joint arthrodesis. Partially visualized lower lumbar hardware fusion. Left hip joint space well-preserved. Small left acetabular osteophytes. Mild left sacroiliac joint arthrosis. Mild pubic enthesopathy. Pubic symphysis congruent. Incompletely visualized left knee osteoarthritis. Soft tissues unremarkable XR/XR pelvis 1-2V IMPRESSION: 1. No evidence of acute fracture or malalignment of the pelvis or left femur. 2. Mild left hip and sacroiliac joint osteoarthritis. Electronically signed by: Giuseppe Aguilera MD 12/21/2023 11:18 AM EDT
[2023-12-21 07:52] VITALS: BP 143/88; PULSE 80; RESP 16; TEMP 37; O2SAT 97; BMI 35.5
--- NOTE | 2023-12-21 08:18 | ED.LOWEXIN ---
HPI - Extremity Injury (Lower) General Chief Complaint: Extremity Injury, Lower Stated Complaint: Fall - L leg pain Time Seen by Provider: 12/21/23 08:09 Source: patient and RN notes reviewed Mode of arrival: ambulatory Limitations: no limitations History of Present Illness ED Provider: Nadiya Duque PA-C HPI Narrative: This is a 58-year-old female, with a history of right hip replacement, who presents to the emergency department with complaints of left leg pain status post mechanical fall which occurred 3 days ago. Patient states that she was at her home when her right knee gave out, and she fell onto her left side. Patient states that she was on the ground for about a 1/2 hour. She denies hitting her head or loss of consciousness. She denies any chest pain or shortness of breath prior to the fall. She states that she was able to get back up without of our HOMEOPATHIC DOCTOR. She states that a since the fall she has had continued left leg pain, worsening with weight-bearing and with palpation. She states that her noticed a large bruise on her leg. She has been taking Percocet which she is prescribed chronically for chronic pain which has provided her without any relief. She denies any chest pain, shortness of breath. Denies being on any anticoagulants. No lightheadedness or dizziness. She is ambulatory using her cane. No other complaints or concerns at this time. MD complaint: leg injury Onset (ago): day(s) Type of Injury: blunt Place: home Severity: moderate Relieving factors: nothing Exacerbating factors: weight bearing, movement and palpation Context: fall Other symptoms: none Related Data Home Medications ?Medication ?Instructions ?Recorded ?Confirmed clonazepam 1 mg tablet (Klonopin) 1 mg PO BEDTIME PRN Anxiety 02/26/20 01/28/23 betamethasone dipropionate 0.05 % 1 appl topical BID 05/15/21 01/28/23 topical ointment cholecalciferol (vitamin D3) 25 25 mcg PO DAILY 05/15/21 01/28/23 mcg (1,000 unit) tablet (Vitamin D3) ibuprofen 800 mg tablet 800 mg PO Q8H PRN Pain 05/15/21 01/28/23 omeprazole 20 mg capsule,delayed 1 cap PO DAILY PRN Gastric Reflux 05/16/21 01/28/23 release oxycodone-acetaminophen 10 mg-325 1 tab PO Q6H PRN Pain 02/25/22 01/28/23 mg tablet Previous Rx's ?Medication ?Instructions ?Recorded metoprolol succinate 100 mg 100 mg PO DAILY #30 tabs 06/23/20 tablet,extended release 24 hr lidocaine 5 % topical patch 1 patch topical DAILY PRN pain #30 12/17/20 (Lidoderm) ea miscellaneous medical supply #1 ea 06/07/21 walker #1 ea 06/12/21 commode (bedside commode) #1 ea 06/13/21 epinephrine 0.3 mg/0.3 mL 0.3 mg (0.3 mL) IM Q4H PRN 02/09/23 injection, auto-injector (EpiPen) anaphylaxis #2 ea lorazepam 0.5 mg tablet (Ativan) 0.5 mg PO TID PRN anxiety #7 tabs 02/10/23 albuterol sulfate 90 mcg/actuation 2 inh inhalation Q4-6H PRN 05/06/23 aerosol inhaler shortness of breath or wheezing #6.7 grams benzonatate 200 mg capsule 200 mg PO TID PRN cough #14 caps 05/06/23 Allergies Allergy/AdvReac Type Severity Reaction Status Date / Time morphine [Morphine] Allergy Intermediate HIVES Verified 12/21/23 07:55 Review of Systems Review of Systems: Yes all other systems are reviewed and are negative Constitutional: Constitutional: Reports as per [facility] Past Medical History Medical History Colon cancer screening Morbid obesity GERD (gastroesophageal reflux disease) Lumbar radiculopathy, right Chronic back pain Depression Anxiety Hypertension Surgical History History of total right hip replacement Hx of dilation and curettage History of hip surgery History of lumbar surgery History of colonoscopy History of tubal ligation Fusion of lumbar spine Family History Family History Father Suicide Mother Heart disease Diabetes CVD (cardiovascular disease) Maternal Grandmother Heart disease Maternal Grandfather Diabetes Maternal Aunt Heart disease Maternal Uncle Heart disease Social History Social History Household Members: Spouse Housing: Apartment Are you a primary respiratory care technician to a significant other at home: No Do you presently have visiting nurse or other home services: No Alcohol intake: never Patient Tobacco Use Status: Former Tobacco user Tobacco use type: Cigarette Substance Use Type: Marijuana Advance Directives: Yes Advance Directives Information Provided: Yes Advance Directives on File: No service: No Current occupational status: disabled Current occupation: right handed Physical Exam Vital Signs: Vital Signs: Last Vital Signs Temp 98.6 F 12/21/23 07:52 Pulse 80 12/21/23 07:52 Resp 16 12/21/23 07:52 BP 143/88 H 12/21/23 07:52 Pulse Ox 97 12/21/23 07:52 O2 Del Method Room Air 12/21/23 07:52 BMI result Body Mass Index 35.5 Const: General: cooperative, comfortable and no acute distress Orientation/consciousness: patient oriented x3 Limitations: no limitations HEENT: Head: Yes normal to inspection, Yes normocephalic and Yes atraumatic Ears: hearing grossly normal bilaterally General nose exam: Normal external nose present Face and sinus: Yes normal facial exam Mouth: Normal oral and palatal mucosa present, oropharynx normal and moist mucous membranes Throat: Yes posterior oropharynx normal Eyes: General: appearance normal, both eyes and all related structures Eyelids: Yes eyelids normal Conjunctivae: conjunctivae normal Sclerae: sclerae normal Pupils: Equal, round and reactive pupils present EOM: EOMs intact bilaterally Neck: Neck: Yes normal visual inspection, Yes full ROM and Yes no lymphadenopathy Lymphatic: no lymphadenopathy noted Chest: Chest palpation & inspection: normal inspection of the chest Resp: Effort & Inspection: normal respiratory effort and able to speak in complete sentences Auscultation: clear to auscultation bilaterally, no crackles, no rales, no rhonchi and no wheezes Cardio: Rate: regular rate Rhythm: regular rhythm Heart sounds: S1 normal heart sound present and S2 normal heart sound present GI: Inspection: Yes normal to inspection Back/Spine/Pelvis: Other: Old surgical scars noted to the midline lumbar spine. Lumbar midline spine is nontender. She does have tenderness to palpation along the left SI joint, and left posterior hip. Skin: General skin exam: no rashes or lesions noted Trauma: no lacerations or abrasions Wounds: no wounds Neuro: General: patient oriented x3 and moves all extremities Cranial nerves: Yes Equal, round and reactive pupils present Extrem: Other: Large area of ecchymosis noted, measuring approximately 15 cm by 12 cm. Tender, not indurated, no erythema or warmth. No bony step-off or deformity. Distal sensation circulation intact. DP pulse 2 + General: Yes normal to inspection Right upper extremity: normal to inspection Left upper extremity: normal to inspection Right lower extremity: normal to inspection Left lower extremity: normal to inspection Course Reevaluation(s) Reevaluation #1: Notify the radiology department as it has been greater than 4 hours since her x-rays have been taken without any results. Patient would like to leave the emergency room prior to her x-rays being read. I advised patient that this is against medical advice. She understands and would like to still be discharged. Time: 13:10 Medical Decision Making Medical Decision Making [facility] Narrative: This is a 58-year-old female, with a history of total right hip replacement, multiple spinal surgeries, who presents to the emergency department with complaints of left leg pain and left hip pain status post mechanical fall which occurred 3 days ago. On arrival, she is alert and oriented x4, her vital signs within normal limits. She is speaking in full sentences under no acute distress. Physical exam findings consistent with ecchymosis to the posterior leg, no bony step-off or deformity. Differential diagnoses include fracture, strain, strain, hematoma, contusion. Plan: X-rays Differential Diagnosis Differential Diagnoses: The differential diagnosis associated with the presentation includes See above Admission/Observation Consideration of admission/observation: Escalation of care including admission/observation considered Lab Data [facility] Lab Attestation statement: I reviewed the patient's lab results. Radiology Impression Discussion of test interpretation with radiology: I have reviewed the radiologist's reading. External Record Review External record reviewed: Inpatient record, Office record, Outpatient record, Prior outpatient labs, Prior outpatient radiology, Primary care record and Outside ED record Discharge Plan Discharge Clinical Impression: Contusion of leg, left Patient Disposition: Left Against Medical Advice Instructions: Contusion in Adults (ED) Additional Instructions: You were seen in the emergency department after a mechanical fall. Your x-rays have not been officially read by the radiologist. You are signing against medical advice. Please rest, ice, take prescribed medications as directed. Follow up with the primary care physician. If any new or worsening symptoms occur including but not limited to chest pain, shortness breath, please return for re-evaluation. Prescriptions: No Action metoprolol succinate 100 mg tablet extended release 24 hr 100 mg PO DAILY Qty: 30 6RF (DME) walker Misc See Rx Instructions .MEDSUPPLY Qty: 1 0RF Rx Instructions: Folding front wheeled walker (DME) bedside commode Kit See Rx Instructions .Route Qty: 1 0RF Rx Instructions: commode with handels lidocaine [Lidoderm] 5 % adhesive patch,medicated 1 patch topical DAILY MDD remove after 12 hours PRN (Reason: pain) Qty: 30 0RF Rx Instructions: leave on most painful area for up to 12 hrs ibuprofen 800 mg Tablet 800 mg PO Q8H PRN (Reason: Pain) betamethasone dipropionate 0.05 % ointment 1 appl topical BID cholecalciferol (vitamin D3) [Vitamin D3] 25 mcg (1,000 unit) Tablet 25 mcg PO DAILY omeprazole 20 mg capsule,delayed release(DR/EC) 1 cap PO DAILY PRN (Reason: Gastric Reflux) benzonatate 200 mg capsule 200 mg PO TID PRN (Reason: cough) Qty: 14 0RF albuterol sulfate 90 mcg/actuation HFA aerosol inhaler 2 inh inhalation Q4-6H PRN (Reason: shortness of breath or wheezing) Qty: 6.7 0RF epinephrine [EpiPen] 0.3 mg/0.3 mL auto-injector 0.3 mg IM Q4H PRN (Reason: anaphylaxis) Qty: 2 0RF lorazepam [Ativan] 0.5 mg tablet 0.5 mg PO TID PRN (Reason: anxiety) Qty: 7 0RF clonazepam [Klonopin] 1 mg tablet 1 mg PO BEDTIME PRN (Reason: Anxiety) oxycodone-acetaminophen 10-325 mg tablet 1 tab PO Q6H PRN (Reason: Pain) (DME) miscellaneous medical supply Misc See Rx Instructions .Route Qty: 1 0RF Rx Instructions: As directed Discharge Date/Time: 12/21/23 13:12 Print Language: American
--- NOTE | 2023-12-21 13:11 | PC.NURSE ---
patient became upset about wait time, ambulated off of unit with steady gait. LWCT
== END 2023-12-21 13:12 | disposition left against medical advice (07) ==
PROVIDERS: Emergency Provider Emergency Medicine; PCP Internal Medicine
DX: S80.12XA Contusion of left lower leg, initial encounter (principal); M79.605 Pain in left leg; R10.2 Pelvic and perineal pain; M54.50 Low back pain, unspecified; X58.XXXA Exposure to other specified factors, initial encounter; Y93.89 Activity, other specified; Y92.89 Other specified places as the place of occurrence of the external cause; Y99.8 Other external cause status; Z79.899 Other long term (current) drug therapy
CPT/HCPCS: 72100; 72170; 73552; 99281; 99283

== ENCOUNTER 2024-02-02 09:17 | Outpatient (AMB) | payer OTHER, SELFPAY ==
[2024-02-02 09:20] VITALS: BMI 35.5
--- NOTE | 2024-02-02 09:20 | MHC.OFFVIS ---
Vital Signs 02/02/24 09:20 Height 5 ft 4 in Weight 207 lb BMI 35.5 Intake Visit Reasons: Bilateral knee pain Intake Note: Roz is a 58 year old female who presents with complaints of progressively worsening bilateral knee pains. The patient describes her pains as sharp and severe in nature. Her pains have gotten worse over the last few years in spite of continued non operative treatments. She denies any locking or giving way. She has had cortisone injections in the past given by another orthopedic surgeon several years ago which gave her minimal relief. She has not had a viscosupplementation injection. The patient has failed the last 3 months of conservative treatment which include a home exercise program, topical creams, anti-inflammatory medicine, Tylenol and Percocet. The patient has difficulty walking even short distances because of her pains. At this point her bilateral knee pains are interfering with her activities of daily living and her ability to sleep well through the night. The patient has undergone right total hip replacement surgery, neck surgery and back surgery in the past. He wishes to hold off on total knee replacement surgery for as long as possible. Allergies morphine [Morphine] Allergy (Intermediate, Verified 02/02/24 09:21) HIVES Medication List - Last Reconciled 02/02/24 by Vipul Mcdowell MD albuterol sulfate 90 mcg/actuation 2 inhalations inhalation Q4-6H PRN benzonatate 200 mg PO TID PRN betamethasone dipropionate 0.05% 1 appl topical BID cholecalciferol (vitamin D3) (Vitamin D3) 25 mcg PO DAILY clonazepam (Klonopin) 1 mg PO BEDTIME PRN commode (bedside commode) commode with handels epinephrine (EpiPen) 0.3 mg (0.3 mL) IM Q4H PRN ibuprofen 800 mg PO Q8H PRN lidocaine 5% (Lidoderm) 1 patch topical DAILY PRN MDD remove after 12 hours lorazepam (Ativan) 0.5 mg PO TID PRN metoprolol succinate ER 100 mg PO DAILY miscellaneous medical supply As directed omeprazole 1 cap PO DAILY PRN oxycodone-acetaminophen 10-325 mg 1 tab PO Q6H PRN walker Folding front wheeled walker [facility] Medical History Colon cancer screening Morbid obesity GERD (gastroesophageal reflux disease) Lumbar radiculopathy, right Chronic back pain Depression Anxiety Hypertension Surgical History History of total right hip replacement Hx of dilation and curettage History of hip surgery History of lumbar surgery History of colonoscopy History of tubal ligation Fusion of lumbar spine Family History Father Suicide Mother Heart disease Diabetes CVD (cardiovascular disease) Maternal Grandmother Heart disease Maternal Grandfather Diabetes Maternal Aunt Heart disease Maternal Uncle Heart disease Social History Household Members: Spouse Housing: Apartment Are you a primary post acute care nurse to a significant other at home: No Do you presently have visiting nurse or other home services: No Alcohol intake: never Patient Tobacco Use Status: Former Tobacco user Tobacco use type: Cigarette Substance Use Type: Marijuana service: No Current occupational status: disabled Current occupation: right handed Female Reproductive History Menstrual Age of Menarche: 12 Date of menopause: 05/04/22 Physical Exam Vital Signs: BMI result Body Mass Index 35.5 Const Other: Well-nourished well-developed very friendly female awake alert and oriented x3 in no acute distress Extrem Other: Bilateral lower extremity examination shows good capillary refill, no skin lesions noted, normal sensation light touch Bilateral knee examination shows minimal effusions, mild crepitus with range of motion, negative Gisella's test, no instability Results Reviewed Results Reviewed: X-rays of the patient's bilateral knee show joint space narrowing, subchondral sclerosis, no acute bony abnormalities Assessment & Plan Assessment & Plan (1) Pain in both knees: Code(s): M25.561 - Pain in right knee; M25.562 - Pain in left knee (2) Osteoarthritis of left knee: Code(s): M17.12 - Unilateral primary osteoarthritis, left knee Category: Medical (3) Osteoarthritis of right knee: Code(s): M17.11 - Unilateral primary osteoarthritis, right knee Category: Medical Plan Ms. Mars presents with bilateral knee pains due to osteoarthritis. I had a lengthy discussion with the patient regarding the treatment options. At this point she has failed the last 3 months of conservative treatment. She has had cortisone injections in the past given by another provider which gave her minimal relief. The patient wishes to hold off on total knee replacement surgery for as long as possible. I agree with this plan. I will see whether or not the patient's insurance company will cover a viscosupplementation injection, such as Durolane, for both of her knees. I will see her back once the injections are available. Feel free to call me at any time should questions regarding her orthopedic management arise. Thank you very much for asking me to see this very friendly patient. I spent 21 minutes in reviewing the patient's records and imaging studies, seeing the patient and documenting in the medical record. Orders: Orders XR knee LT 3V Today M25.562 - Pain in left knee Coding Level of Care Code New Pt Level 3 (62757) Complex EM visit Add On G2211 Diagnoses Pain in both knees M25.561; M25.562 Osteoarthritis of left knee M17.12 Osteoarthritis of right knee M17.11
== END 2024-02-02 10:05 | disposition home or self-care (01) ==
PROVIDERS: PCP Internal Medicine; Visit Provider Orthopaedic Surgery
DX: M17.0 Bilateral primary osteoarthritis of knee (principal)
CPT/HCPCS: 99203; G2211

== ENCOUNTER 2024-02-02 14:02 | Outpatient (REF) | payer MEDICAID, SELFPAY ==
--- NOTE | ~2024-02-02 | XR_ITS ---
EXAMINATION: XR KNEE LEFT 3 VIEWS CLINICAL INFORMATION: Pain in left knee M25.562. COMPARISON: None. TECHNIQUE: AP, lateral and sunrise views of the left knee. FINDINGS: Examination demonstrates mild osteoarthritis predominantly involving the patellofemoral compartment. No fracture or dislocation is appreciated. No lytic or sclerotic bony lesion is identified. No periosteal reaction is evident. Bony mineralization appears preserved. No joint effusion is appreciated. No significant abnormal soft tissue calcification is seen. XR/XR knee LT 3V IMPRESSION: Mild osteoarthritis predominantly involving the patellofemoral compartment. Electronically signed by: Christofer Becerra MD 04/14/2024 12:25 PM [facility]
== END 2024-02-02 14:03 | disposition home or self-care (01) ==
LOC: HO.HOSX 14:02
PROVIDERS: Visit Provider Orthopaedic Surgery
DX: M17.0 Bilateral primary osteoarthritis of knee (principal)
CPT/HCPCS: 73562; 99212

== ENCOUNTER 2024-02-19 07:12 | Emergency (ER) | payer MEDICAID, SELFPAY ==
[2024-02-19 07:18] VITALS: BP 194/100; PULSE 75; RESP 20; TEMP 36.1; O2SAT 100; BMI 34.4
--- NOTE | 2024-02-19 07:32 | PC.NURSE ---
pt a&ox3, c/o 11/09 pain to left upper leg/thigh area- pt states she takes percocet at home and can deal with the pain but the area is getting larger.
--- NOTE | 2024-02-19 07:37 | ED.GENADULT ---
HPI - General Adult General Chief complaint: General Medical Stated complaint: side pain Time Seen by Provider: 02/19/24 07:37 Source: patient Mode of arrival: ambulatory Limitations: no limitations History of Present Illness ED Provider: Sanya Velarde PA-C HPI narrative: 58 yo female with history of total right hip replacement, history of multiple spinal surgeries, depression/anxiety, HTN, chronic bilateral knee pain due to osteoarthritis who is on chronic opiates presents to the ER for evaluation of acute on chronic left hip pain with a large hematoma found on outpatient ultrasound at [facility]. She states when she fell in December she had a small lump there the size of a grape. She reports over the last month the area has gotten increasingly bigger. She reports the bump is now the size of a grapefruit and is causing pain into the muscle and the pain shoots down the leg. It is difficult for her to walk or sleep because of the pain. She reports it is constantly getting bigger and more tender. No skin changes on top of the mass. She is not on anticoagulation. No new falls. MD complaint: Painful left hip hematoma Onset (ago): week(s) Location: left and lower extremity Radiation: distal Severity: severe Quality: stabbing Pain Consistency: constant Relieving factors: other (Laying on the right side) Exacerbating factors: movement and other (Lay on the left side) Associated symptoms: denies other symptoms Treatments prior to arrival: none Related Data Home Medications ?Medication ?Instructions ?Recorded ?Confirmed clonazepam 1 mg tablet (Klonopin) 1 mg PO BEDTIME PRN Anxiety 02/26/20 02/02/24 betamethasone dipropionate 0.05 % 1 appl topical BID 05/15/21 02/02/24 topical ointment cholecalciferol (vitamin D3) 25 25 mcg PO DAILY 05/15/21 02/02/24 mcg (1,000 unit) tablet (Vitamin D3) ibuprofen 800 mg tablet 800 mg PO Q8H PRN Pain 05/15/21 02/02/24 omeprazole 20 mg capsule,delayed 1 cap PO DAILY PRN Gastric Reflux 05/16/21 02/02/24 release oxycodone-acetaminophen 10 mg-325 1 tab PO Q6H PRN Pain 02/25/22 02/02/24 mg tablet Previous Rx's ?Medication ?Instructions ?Recorded metoprolol succinate 100 mg 100 mg PO DAILY #30 tabs 06/23/20 tablet,extended release 24 hr lidocaine 5 % topical patch 1 patch topical DAILY PRN pain #30 12/17/20 (Lidoderm) ea miscellaneous medical supply #1 ea 06/07/21 walker #1 ea 06/12/21 commode (bedside commode) #1 ea 06/13/21 epinephrine 0.3 mg/0.3 mL 0.3 mg (0.3 mL) IM Q4H PRN 02/09/23 injection, auto-injector (EpiPen) anaphylaxis #2 ea lorazepam 0.5 mg tablet (Ativan) 0.5 mg PO TID PRN anxiety #7 tabs 02/10/23 albuterol sulfate 90 mcg/actuation 2 inh inhalation Q4-6H PRN 05/06/23 aerosol inhaler shortness of breath or wheezing #6.7 grams benzonatate 200 mg capsule 200 mg PO TID PRN cough #14 caps 05/06/23 Allergies Allergy/AdvReac Type Severity Reaction Status Date / Time morphine [Morphine] Allergy Intermediate HIVES Verified 02/19/24 07:22 Review of Systems Review of Systems: Yes all other systems are reviewed and are negative [facility] Past Medical History Medical History Colon cancer screening Morbid obesity GERD (gastroesophageal reflux disease) Lumbar radiculopathy, right Chronic back pain Depression Anxiety Hypertension Surgical History History of total right hip replacement Hx of dilation and curettage History of hip surgery History of lumbar surgery History of colonoscopy History of tubal ligation Fusion of lumbar spine Family History Family History Father Suicide Mother Heart disease Diabetes CVD (cardiovascular disease) Maternal Grandmother Heart disease Maternal Grandfather Diabetes Maternal Aunt Heart disease Maternal Uncle Heart disease Social History Social History Household Members: Spouse Housing: Apartment Are you a primary lawn care technician to a significant other at home: No Do you presently have visiting nurse or other home services: No Alcohol intake: never Patient Tobacco Use Status: Former Tobacco user Tobacco use type: Cigarette Substance Use Type: Marijuana Advance Directives: No Advance Directives Information Provided: No Do you have a plan to hurt others: No Plan service: No Current occupational status: disabled Current occupation: right handed Physical Exam ED Vital Signs: Vital Signs - 24 hr 02/19/24 07:18 Temperature 96.9 F Pulse Rate 75 Respiratory Rate 20 Blood Pressure 194/100 H Pulse Oximetry 100 Oxygen Delivery Method Room Air BMI result Body Mass Index 34.4 Appearance: Alert. Oriented X3. No acute distress. HEENT: normal inspection CVS: Normal heart rate and rhythm. Pulses normal. Respiratory: No respiratory distress. Skin: Skin warm and dry. Normal skin color. Normal skin turgor. No rashes. Extremities: Left lateral thigh with a large, tender, mobile mass. Overlying ecchymosis, erythema. No fluctuance. Area measures approximately 15 cm x 15 cm. FROM of the left hip and knee Neuro: Oriented X 3. No motor deficit. No sensory deficit. Medications Administered Discontinued Medications Generic Name Dose Route Start Last Admin Trade Name Freq PRN Reason Stop Dose Admin Oxycodone HCl 10 mg 02/19/24 07:55 02/19/24 08:12 Oxycodone Hcl Immed Release 5 Mg Tablet PO 02/19/24 07:56 10 mg ONCE ONE Administration Medical Decision Making Medical Decision Making MDM Narrative: 58-year-old female with history of fall in December resulting in left hip pain, x-rays without fracture, presenting with 1 month of worsening tender and painful mass in the left lateral hip. She reports having an outpatient ultrasound done at [facility] yesterday that showed a blood-filled mass consistent with hematoma per her report. Size has worsened over the last 1 month. Unable to lay on that side due to pain. On examination she has no overlying ecchymosis, induration, erythema or fluctuance. Low suspicion for abscess. Lab workup today shows a normal hemoglobin of 15, low suspicion for actively extravasating hematoma given chronicity and stable blood counts. We will hold off on further imaging today. At this time she is stable for discharge home with compression and outpatient follow-up. 6 in Jorgito wrap was applied to the thigh and she was encouraged to get compression shorts. She would like to be referred to surgery for possible drainage options. Stable for discharge home with outpatient follow-up. Patient agrees with plan and return precautions were discussed. Differential Diagnosis Differential Diagnoses: The differential diagnosis associated with the presentation includes Actively bleeding hematoma, lipoma, contusion, abscess Admission/Observation Consideration of admission/observation: Escalation of care including admission/observation considered Lab Data MDM Lab Attestation statement: I reviewed the patient's lab results. No anemia,no leukocytosis, normal platelets 02/19/24 08:42 02/19/24 08:42 Labs: Lab Results 02/19/24 Range/Units 08:42 WBC 6.0 (4.8-10.8) X10*3/uL RBC 4.72 (4.20-5.50) X10*6/uL Hgb 15.0 (12.0-16.0) g/dl Hct 44.1 (37.0-47.0) % MCV 93.4 (80.0-98.0) fL MCH 31.8 (27.0-33.0) pg MCHC 34.0 (31.0-35.0) g/dl RDW 13.4 (11.0-16.0) % Plt Count 200 (160-400) X10*3/uL MPV 10.7 (9.4-12.3) fL Immature Gran % (Auto) 0.2 (0.0-0.4) % Neut % (Auto) 54.1 (45-73) % Lymph % (Auto) 32.3 (20-40) % Mccreary % (Auto) 6.1 (2-11) % Eos % (Auto) 6.5 H (0-4) % Baso % (Auto) 0.8 (0-2) % Lymph # (Auto) 2.0 (1.2-4.9) X10*3/uL Mccreary # (Auto) 0.4 (0.1-1.2) X10*3/uL Eos # (Auto) 0.4 (0.0-0.4) X10*3/uL Baso # (Auto) 0.1 (0.0-0.2) X10*3/uL Abs Immat Gran (auto) 0.01 (0.00-0.03) X10*3/uL Absolute Neuts (auto) 3.3 (2.0-8.3) x10*3/uL Absolute Nucleated RBC 0.000 (0.0-0.012) X10*3/uL Nucleated RBC % (auto) 0.0 (0.0-0.2) /100WBC PT 9.9 L (10.9-12.4) SEC INR 0.9 (0.9-1.1) APTT 22.2 L (26.0-36.8) SEC Sodium 140 (135-145) mmol/L Potassium 4.2 (3.3-5.1) mmol/L Chloride 109 H (96-108) mmol/L Carbon Dioxide 23 (22-29) mmol/L Anion Gap 12 (12-20) BUN 16 (9-16) mg/dL Creatinine 0.72 (0.5-1.4) mg/dL Estim Creat Clear Calc 95.2 Estimated GFR > 60 Random Glucose 82 (60-115) mg/dL Calcium 9.1 (8.4-10.2) mg/dL Magnesium 2.3 (1.6-2.6) mg/dL Total Bilirubin 0.4 (0.0-1.0) mg/dL Direct Bilirubin 0.1 (0.0-0.5) mg/dL AST 22 (5-31) U/L ALT 21 (0-31) U/L Alkaline Phosphatase 54 (39-117) U/L Total Creatine Kinase 83 (26-140) U/L Total Protein 6.9 (6.5-8.0) g/dL Albumin 4.1 (3.5-5.0) g/dL External Record Review External record reviewed: Office record, Outpatient record, Prior outpatient labs and Prior outpatient radiology Tests considered The following testing was considered but not selected: Considered CT scan of the thigh with contrast to assess for active extravasation however this is less likely given no anemia and chronicity of the hematoma Prescription Management I considered prescription management with: Pain Medication Chronic Conditions Patient?s care impacted by: Other (chronic pain syndrome) Critical Care Time Critical Care Time Critical Care Time: No Discharge Plan Discharge Clinical Impression: Hematoma Patient Disposition: Home, Self-Care Instructions: Hematoma (ED) Additional Instructions: Your blood counts today were normal. No evidence of anemia. This is reassuring against an actively bleeding hematoma. Recommend compression of the left lateral thigh and hip either with Jorgito wrap or tight compression shorts. Elevate your leg and hip when able. Follow-up with your doctor. You can also follow-up with general surgery for possible interventions or drainage. If you develop new or worsening symptoms call 911 or come back to the ER for further evaluation. Prescriptions: No Action metoprolol succinate 100 mg tablet extended release 24 hr 100 mg PO DAILY Qty: 30 6RF (DME) walker [facility] See Rx Instructions .MEDSUPPLY Qty: 1 0RF Rx Instructions: Folding front wheeled walker (DME) bedside commode Kit See Rx Instructions .Route Qty: 1 0RF Rx Instructions: commode with handels lidocaine [Lidoderm] 5 % adhesive patch,medicated 1 patch topical DAILY MDD remove after 12 hours PRN (Reason: pain) Qty: 30 0RF Rx Instructions: leave on most painful area for up to 12 hrs ibuprofen 800 mg Tablet 800 mg PO Q8H PRN (Reason: Pain) betamethasone dipropionate 0.05 % ointment 1 appl topical BID cholecalciferol (vitamin D3) [Vitamin D3] 25 mcg (1,000 unit) Tablet 25 mcg PO DAILY omeprazole 20 mg capsule,delayed release(DR/EC) 1 cap PO DAILY PRN (Reason: Gastric Reflux) benzonatate 200 mg capsule 200 mg PO TID PRN (Reason: cough) Qty: 14 0RF albuterol sulfate 90 mcg/actuation HFA aerosol inhaler 2 inh inhalation Q4-6H PRN (Reason: shortness of breath or wheezing) Qty: 6.7 0RF epinephrine [EpiPen] 0.3 mg/0.3 mL auto-injector 0.3 mg IM Q4H PRN (Reason: anaphylaxis) Qty: 2 0RF lorazepam [Ativan] 0.5 mg tablet 0.5 mg PO TID PRN (Reason: anxiety) Qty: 7 0RF clonazepam [Klonopin] 1 mg tablet 1 mg PO BEDTIME PRN (Reason: Anxiety) oxycodone-acetaminophen 10-325 mg tablet 1 tab PO Q6H PRN (Reason: Pain) ([facility]) miscellaneous medical supply [facility] See Rx Instructions .Route Qty: 1 0RF Rx Instructions: As directed Referrals: [facility] General Surgeons [Provider Group] (large left thigh hematoma) Robe Montano MD [Primary Care Provider] - Print Language: Frisian
[2024-02-19] MEDS: oxyCODONE HCl Immed Release 5 MG TABLET 10 MG PO (08:12)
[2024-02-19 08:55] LABS: Basophils Absolute Auto 0.1 X10*3/uL (0.0-0.2); Basophils Percent Auto 0.8 % (0-2); Eosinophils Absolute Auto 0.4 X10*3/uL (0.0-0.4); Eosinophils Percent Auto 6.5 % (0-4); Hematocrit 44.1 % (37.0-47.0); Imm Gran Abs Auto 0.01 X10*3/uL (0.00-0.03); Imm Gran Pct Auto 0.2 % (0.0-0.4); Lymphocytes Percent Auto 32.3 % (20-40); Mean Corpuscular Hemoglobin 31.8 pg (27.0-33.0); Mean Corpuscular Volume 93.4 fL (80.0-98.0); Mean Platelet Volume 10.7 fL (9.4-12.3); Monocytes Absolute Auto 0.4 X10*3/uL (0.1-1.2); Monocytes Percent Auto 6.1 % (2-11); Neutrophils Absolute Auto 3.3 x10*3/uL (2.0-8.3); Neutrophils Percent Auto 54.1 % (45-73); Red Blood Count 4.72 X10*6/uL (4.20-5.50); Red Cell Distribution Width 13.4 % (11.0-16.0)
[2024-02-19 08:57] LABS: INTERNATIONAL NORM RATIO 0.9 (0.9-1.1); Prothrombin Time 9.9 SEC (10.9-12.4)
[2024-02-19 09:02] LABS: Platelet Count 200 X10*3/uL (160-400)
[2024-02-19 09:05] LABS: Partial Thromboplastin Time 22.2 SEC (26.0-36.8)
[2024-02-19 09:06] LABS: Alanine Aminotransferase 21 U/L (0-31); Albumin Level 4.1 g/dL (3.5-5.0); Alkaline Phosphatase 54 U/L (39-117); Anion Gap 12 (12-20); Aspartate Amino Transferase 22 U/L (5-31); Bilirubin Direct 0.1 mg/dL (0.0-0.5); Bilirubin Total 0.4 mg/dL (0.0-1.0); Blood Urea Nitrogen 16 mg/dL (9-16); Calcium 9.1 mg/dL (8.4-10.2); Carbon Dioxide 23 mmol/L (22-29); Chloride 109 mmol/L (96-108); Creatinine Clr Calc Pharmacy 95.2; Estimated Glomerular Filt Rate > 60; Glucose Random 82 mg/dL (60-115); Magnesium 2.3 mg/dL (1.6-2.6); Potassium 4.2 mmol/L (3.3-5.1); Sodium 140 mmol/L (135-145); Total Protein 6.9 g/dL (6.5-8.0)
[2024-02-19 09:28] VITALS: BP 112/46; PULSE 76; RESP 18; TEMP 36.6; O2SAT 99
== END 2024-02-19 09:29 | disposition home or self-care (01) ==
PROVIDERS: Physician Assistant; Emergency Provider Emergency Medicine; PCP Internal Medicine
DX: S70.02XA Contusion of left hip, initial encounter (principal); W18.30XA Fall on same level, unspecified, initial encounter; I10 Essential (primary) hypertension; Z87.891 Personal history of nicotine dependence; Y93.9 Activity, unspecified; Y92.9 Unspecified place or not applicable; Y99.9 Unspecified external cause status
CPT/HCPCS: 36415; 80048; 80076; 82550; 83735; 85025; 85610; 85730; 99283

== ENCOUNTER 2024-03-01 15:10 | Outpatient (AMB) | payer MEDICAID, SELFPAY ==
--- NOTE | 2024-03-01 15:19 | MHC.OFFVIS ---
Intake Visit Reasons: INJ-Bilateral Euflexxa #1 Intake Note: Roz is a 58 year old female who presents with complaints of progressively worsening bilateral knee pains. The patient describes her pains as sharp and severe in nature. Her pains have gotten worse over the last few years in spite of continued non operative treatments. She denies any locking or giving way. She has had cortisone injections in the past given by another orthopedic surgeon several years ago which gave her minimal relief. She has not had a viscosupplementation injection. The patient has failed the last 3 months of conservative treatment which include a home exercise program, topical creams, anti-inflammatory medicine, Tylenol and Percocet. The patient has difficulty walking even short distances because of her pains. At this point her bilateral knee pains are interfering with her activities of daily living and her ability to sleep well through the night. The patient has undergone right total hip replacement surgery, neck surgery and back surgery in the past. He wishes to hold off on total knee replacement surgery for as long as possible. Allergies morphine [Morphine] Allergy (Intermediate, Verified 03/01/24 15:20) HIVES Medication List - Last Reconciled 03/01/24 by Vipul Mcdowell MD albuterol sulfate 90 mcg/actuation 2 inhalations inhalation Q4-6H PRN benzonatate 200 mg PO TID PRN betamethasone dipropionate 0.05% 1 appl topical BID cholecalciferol (vitamin D3) (Vitamin D3) 25 mcg PO DAILY clonazepam (Klonopin) 1 mg PO BEDTIME PRN commode (bedside commode) commode with handels epinephrine (EpiPen) 0.3 mg (0.3 mL) IM Q4H PRN ibuprofen 800 mg PO Q8H PRN lidocaine 5% (Lidoderm) 1 patch topical DAILY PRN MDD remove after 12 hours lorazepam (Ativan) 0.5 mg PO TID PRN metoprolol succinate ER 100 mg PO DAILY miscellaneous medical supply As directed omeprazole 1 cap PO DAILY PRN oxycodone-acetaminophen 10-325 mg 1 tab PO Q6H PRN walker Folding front wheeled walker [facility] Medical History Colon cancer screening Morbid obesity GERD (gastroesophageal reflux disease) Lumbar radiculopathy, right Chronic back pain Depression Anxiety Hypertension Surgical History History of total right hip replacement Hx of dilation and curettage History of hip surgery History of lumbar surgery History of colonoscopy History of tubal ligation Fusion of lumbar spine Family History Father Suicide Mother Heart disease Diabetes CVD (cardiovascular disease) Maternal Grandmother Heart disease Maternal Grandfather Diabetes Maternal Aunt Heart disease Maternal Uncle Heart disease Social History Household Members: Spouse Housing: Apartment Are you a primary residential child care counselor to a significant other at home: No Do you presently have visiting nurse or other home services: No Alcohol intake: never Patient Tobacco Use Status: Former Tobacco user Tobacco use type: Cigarette Substance Use Type: Marijuana service: No Current occupational status: disabled Current occupation: right handed Female Reproductive History Menstrual Age of Menarche: 12 Date of menopause: 05/04/22 Physical Exam Const Other: Well-nourished well-developed very friendly female awake alert and oriented x3 in no acute distress Extrem Other: Bilateral lower extremity examination shows good capillary refill, no skin lesions noted, normal sensation light touch Bilateral knee examination shows minimal effusions, palpable crepitus with range of motion, pain with range of motion, range of motion from -3 degrees to 120 degrees, no instability Office Procedures AMB Joint Injection/Aspiration Joint Injection/Aspiration Primary Site: left knee Prep: site was prepped using aseptic technique Injected: 20 mg of (Euflexxa viscosupplementation) and 1% plain lidocaine Procedure: The patient tolerated the procedure well Coding 67270 - Large joint Procedure code (CPT) selection complete AMB Joint Injection/Aspiration Joint Injection/Aspiration Primary Site: right knee Prep: site was prepped using aseptic technique Injected: 20 mg of (Euflexxa viscosupplementation) and 1% plain lidocaine Procedure: The patient tolerated the procedure well Coding 73962 - Large joint Procedure code (CPT) selection complete Results Reviewed Results Reviewed: X-rays of the patient's bilateral knees taken previously show joint space narrowing, subchondral sclerosis, no acute bony abnormalities Assessment & Plan Assessment & Plan (1) Osteoarthritis of left knee: Code(s): M17.12 - Unilateral primary osteoarthritis, left knee Category: Medical (2) Osteoarthritis of right knee: Code(s): M17.11 - Unilateral primary osteoarthritis, right knee Category: Medical Plan Ms. Mars presents with bilateral knee pains due to osteoarthritis. The risks and benefits of bilateral knee Euflexxa viscosupplementation injections were discussed at length with the patient. The patient wished to proceed. She tolerated the injections well. She will continue with her home exercise program. She will follow up next week as scheduled. Feel free to call me at any time should questions regarding her orthopedic management arise. I spent 21 minutes in reviewing the patient's records and imaging studies, seeing the patient and documenting in the medical record. Orders: Orders AMB Joint Injection/Aspiration Today M17.12 - Unilateral primary osteoarthritis, left knee AMB Joint Injection/Aspiration Today M17.11 - Unilateral primary osteoarthritis, right knee Coding Level of Care Code Est Pt Level 3 (25046) Complex EM visit Add On G2211 Diagnoses Osteoarthritis of left knee M17.12 Osteoarthritis of right knee M17.11 CPT Codes Coding - 88257 Large joint: 04006 - Large joint ([id number]) Coding - 17392 Large joint: 02700 - Large joint ([id number])
== END 2024-03-01 15:41 | disposition home or self-care (01) ==
LOC: HO.HOS 15:10
PROVIDERS: PCP Internal Medicine; Visit Provider Orthopaedic Surgery
DX: M17.0 Bilateral primary osteoarthritis of knee (principal)
CPT/HCPCS: 20610; 99213

== ENCOUNTER → 2024-03-01 15:10 | Outpatient (BNVA) | payer MEDICAID, SELFPAY | PROVIDERS: PCP Internal Medicine; Visit Provider Orthopaedic Surgery | DX: M17.0 Bilateral primary osteoarthritis of knee (principal) | CPT/HCPCS: 20610; 99212; J2003; J7323 ==

== ENCOUNTER 2024-03-06 12:26 | Outpatient (AMB) | payer MEDICAID, SELFPAY ==
--- NOTE | 2024-03-06 12:37 | MHC.OFFVIS ---
Vital Signs 03/06/24 12:45 Height 5 ft 4 in Weight 203 lb 8 oz BMI 34.9 BP 134/62 Blood Pressure Location Lt brachial Position Sitting Pulse 65 Intake Visit Reasons: Hematoma of left hip, sequela Intake Note: Patient is seen in office for evaluation and treatment of a hematoma of the left hip. Pt c/o: per pt fell down 12/18/23 was seen in the ER at the time, since has a lump in the area, lump has increase, denies discoloration, discharge, redness admits to increase pain V Block Saw Operator Required: No Accompanied by: Other Relationship Allergies morphine [Morphine] Allergy (Intermediate, Verified 03/06/24 12:43) HIVES Medication List - Last Reconciled 03/06/24 by Blanco Coleman MD albuterol sulfate 90 mcg/actuation 2 inhalations inhalation Q4-6H PRN benzonatate 200 mg PO TID PRN betamethasone dipropionate 0.05% 1 appl topical BID cholecalciferol (vitamin D3) (Vitamin D3) 25 mcg PO DAILY clonazepam (Klonopin) 1 mg PO BEDTIME PRN commode (bedside commode) commode with handels epinephrine (EpiPen) 0.3 mg (0.3 mL) IM Q4H PRN ibuprofen 800 mg PO Q8H PRN lidocaine 5% (Lidoderm) 1 patch topical DAILY PRN MDD remove after 12 hours lorazepam (Ativan) 0.5 mg PO TID PRN metoprolol succinate ER 100 mg PO DAILY miscellaneous medical supply As directed omeprazole 1 cap PO DAILY PRN oxycodone-acetaminophen 10-325 mg 1 tab PO Q6H PRN walker Folding front wheeled walker HPI Comments Details: Patient presents for to assess a left hip area hematoma. Patient was sustained a fall on her left hip on December 17. She was seen in the ER and no other injuries were demonstrated. She had significant ecchymosis and bruising of the area. She showed me a photo which corroborated this. She now presents because she has had persistent swelling of the left hip area and would like to have this evaluated. Chart was reviewed and patient evaluated [facility] Medical History Colon cancer screening Morbid obesity GERD (gastroesophageal reflux disease) Lumbar radiculopathy, right Chronic back pain Depression Anxiety Hypertension Surgical History History of total right hip replacement Hx of dilation and curettage History of hip surgery History of lumbar surgery History of colonoscopy History of tubal ligation Fusion of lumbar spine Family History Father Suicide Mother Heart disease Diabetes CVD (cardiovascular disease) Maternal Grandmother Heart disease Maternal Grandfather Diabetes Maternal Aunt Heart disease Maternal Uncle Heart disease Social History Household Members: Spouse Housing: Apartment Are you a primary infant caregiver to a significant other at home: No Do you presently have visiting nurse or other home services: No Alcohol intake: never Patient Tobacco Use Status: Former Tobacco user Tobacco use type: Cigarette Substance Use Type: Marijuana service: No Current occupational status: disabled Current occupation: right handed Female Reproductive History Menstrual Age of Menarche: 12 Date of menopause: 05/04/22 Physical Exam Vital Signs: Last Vital Signs Pulse 65 03/06/24 12:45 BP 134/62 03/06/24 12:45 BMI result Body Mass Index 34.9 Extrem Other: Patient has a left hip soft tissue mass measuring approximately 12 by 6 cm consistent with a resolving hematoma. Very well circumscribed. Office Procedures Aspiration of Seroma Details: Risks, benefits, alternatives of hematoma aspiration reviewed with the patient included but not limited to bleeding, infection, recurrence, numbness, pain, scarring the patient wished to proceed. Patient underwent Betadine prep and after appropriate positioning underwent aspiration were approximately 10 cc of hematoma fluid was retrieved. The patient tolerated the procedure well. Dressing applied. Aspiration of Seroma: 69354 Seroma Aspiration All charges added?: Procedure code (CPT) selection complete Assessment & Plan Assessment & Plan (1) Hematoma: Code(s): T14.8XXA - Other injury of unspecified body region, initial encounter Category: Surgical Plan: The patient was reassured that at present only 10 cc could be retrieved but there is significant size of this hematoma were the blood is still not liquified. My recommendation is the patient apply warm compresses periodically and will see me in a few weeks time. Should this persist or continue to be symptomatic, re-attempt aspiration can be undertaken. All questions answered. Patient will see me as noted above or p.r.n.. Orders: Orders AMB Aspiration of Seroma Today T14.8XXA - Other injury of unspecified body region, initial encounter Coding Level of Care Code New Pt Level 4 (35707) Diagnoses Hematoma T14.8XXA CPT Codes Aspiration of Seroma ([id number])
[2024-03-06 12:45] VITALS: BP 134/62; PULSE 65; BMI 34.9
== END 2024-03-06 12:56 | disposition home or self-care (01) ==
LOC: HO.HGS 12:27
PROVIDERS: PCP Internal Medicine; Referring Provider Internal Medicine; Visit Provider Surgery
DX: T14.8XXA Other injury of unspecified body region, initial encounter (principal)
CPT/HCPCS: 10160; 99204

== ENCOUNTER → 2024-03-06 12:26 | Outpatient (BNVA) | payer MEDICAID, SELFPAY | PROVIDERS: PCP Internal Medicine; Referring Provider Internal Medicine; Visit Provider Surgery | DX: S70.02XA Contusion of left hip, initial encounter (principal); W19.XXXA Unspecified fall, initial encounter; Y93.9 Activity, unspecified; Y92.9 Unspecified place or not applicable; Y99.9 Unspecified external cause status; Z91.81 History of falling | CPT/HCPCS: 10160; 99202; 99211 ==

== ENCOUNTER 2024-03-09 07:34 | Outpatient (AMB) | payer MEDICAID, SELFPAY ==
--- NOTE | 2024-03-09 07:47 | MHC.OFFVIS ---
Intake Visit Reasons: INJ-Bilateral Euflexxa #2 Intake Note: Roz is a 58 year old female who presents today for her 2nd Euflexxa gel injection for both of her knees. She states that she got mild relief from the 1st set of injections. She continues with her home exercise program. Allergies morphine [Morphine] Allergy (Intermediate, Verified 03/09/24 08:30) HIVES Medication List - Last Reconciled 03/10/24 by Vipul Mcdowell MD albuterol sulfate 90 mcg/actuation 2 inhalations inhalation Q4-6H PRN benzonatate 200 mg PO TID PRN betamethasone dipropionate 0.05% 1 appl topical BID cholecalciferol (vitamin D3) (Vitamin D3) 25 mcg PO DAILY clonazepam (Klonopin) 1 mg PO BEDTIME PRN commode (bedside commode) commode with handels epinephrine (EpiPen) 0.3 mg (0.3 mL) IM Q4H PRN ibuprofen 800 mg PO Q8H PRN lidocaine 5% (Lidoderm) 1 patch topical DAILY PRN MDD remove after 12 hours lorazepam (Ativan) 0.5 mg PO TID PRN metoprolol succinate ER 100 mg PO DAILY miscellaneous medical supply As directed omeprazole 1 cap PO DAILY PRN oxycodone-acetaminophen 10-325 mg 1 tab PO Q6H PRN walker Folding front wheeled walker [facility]LY [facility], [facility] Medical History Hematoma Colon cancer screening Morbid obesity GERD (gastroesophageal reflux disease) Lumbar radiculopathy, right Chronic back pain Depression Anxiety Hypertension Surgical History Hematoma History of total right hip replacement Hx of dilation and curettage History of hip surgery History of lumbar surgery History of colonoscopy History of tubal ligation Fusion of lumbar spine Family History Father Suicide Mother Heart disease Diabetes CVD (cardiovascular disease) Maternal Grandmother Heart disease Maternal Grandfather Diabetes Maternal Aunt Heart disease Maternal Uncle Heart disease Social History Household Members: Spouse Housing: Apartment Are you a primary home health aide caregiver to a significant other at home: No Do you presently have visiting nurse or other home services: No Alcohol intake: never Patient Tobacco Use Status: Former Tobacco user Tobacco use type: Cigarette Substance Use Type: Marijuana service: No Current occupational status: disabled Current occupation: right handed Female Reproductive History Menstrual Age of Menarche: 12 Date of menopause: 05/04/22 Physical Exam Extrem Other: Bilateral knee examination shows minimal effusions, palpable crepitus with range of motion, pain with range of motion, no instability Office Procedures AMB Joint Injection/Aspiration Joint Injection/Aspiration Primary Site: right knee Prep: site was prepped using aseptic technique Injected: 20 mg of (Euflexxa viscosupplementation) and 1% plain lidocaine Procedure: The patient tolerated the procedure well Coding 29774 - Large joint Procedure code (CPT) selection complete AMB Joint Injection/Aspiration Joint Injection/Aspiration Primary Site: left knee Prep: site was prepped using aseptic technique Injected: 20 mg of (Euflexxa viscosupplementation) and 1% plain lidocaine Procedure: The patient tolerated the procedure well Coding 48290 - Large joint Procedure code (CPT) selection complete Results Reviewed Results Reviewed: X-rays of the patient's bilateral knees taken previously show joint space narrowing, subchondral sclerosis, no acute bony abnormalities Assessment & Plan Assessment & Plan (1) Osteoarthritis of left knee: Code(s): M17.12 - Unilateral primary osteoarthritis, left knee Category: Medical (2) Osteoarthritis of right knee: Code(s): M17.11 - Unilateral primary osteoarthritis, right knee Category: Medical Plan Roz presents with bilateral knee pains due to degenerative joint disease. The risks and benefits of a 2nd set of Euflexxa injections were discussed at length with the patient. The patient wished to proceed. She tolerated the injections well. She will continue with her home exercise program. She will follow up next week as scheduled. Feel free to call me at any time should questions regarding her orthopedic management arise. Orders: Orders AMB Joint Injection/Aspiration 03/09/24 M17.12 - Unilateral primary osteoarthritis, left knee AMB Joint Injection/Aspiration 03/09/24 M17.11 - Unilateral primary osteoarthritis, right knee Coding Level of Care Code Procedure Only Diagnoses Osteoarthritis of left knee M17.12 Osteoarthritis of right knee M17.11 CPT Codes Coding - 89060 Large joint: 23714 - Large joint ([id number]) Coding - 32297 Large joint: 81303 - Large joint ([id number])
== END 2024-03-09 08:10 | disposition home or self-care (01) ==
LOC: HO.HOS 07:35
PROVIDERS: PCP Internal Medicine; Visit Provider Orthopaedic Surgery
DX: M17.0 Bilateral primary osteoarthritis of knee (principal)
CPT/HCPCS: 20610

== ENCOUNTER → 2024-03-09 07:34 | Outpatient (BNVA) | payer MEDICAID, SELFPAY | PROVIDERS: PCP Internal Medicine; Visit Provider Orthopaedic Surgery | DX: M17.0 Bilateral primary osteoarthritis of knee (principal); S70.02XD Contusion of left hip, subsequent encounter; W19.XXXD Unspecified fall, subsequent encounter | CPT/HCPCS: 20610; 99212; J2003; J7323 ==

== ENCOUNTER 2024-03-09 08:18 | Outpatient (AMB) | payer MEDICAID, SELFPAY ==
--- NOTE | 2024-03-09 08:24 | MHC.OFFVIS ---
Vital Signs 03/09/24 08:30 Height 5 ft 4 in Weight 203 lb BMI 34.8 Intake Visit Reasons: check hematoma s/p fall, s/p aspiration Intake Note: This patient of presents for wound check, hematoma status post fall, status post aspiration. Pt c/o; reports hematoma turned dark, reports pain, reports there are some lines that look like veins . Residential Pest Control Technician Required: No Accompanied by: Self / Same As Patient Allergies morphine [Morphine] Allergy (Intermediate, Verified 03/09/24 08:30) HIVES Medication List - Last Reconciled 03/09/24 by James Macias MD albuterol sulfate 90 mcg/actuation 2 inhalations inhalation Q4-6H PRN benzonatate 200 mg PO TID PRN betamethasone dipropionate 0.05% 1 appl topical BID cholecalciferol (vitamin D3) (Vitamin D3) 25 mcg PO DAILY clonazepam (Klonopin) 1 mg PO BEDTIME PRN commode (bedside commode) commode with handels epinephrine (EpiPen) 0.3 mg (0.3 mL) IM Q4H PRN ibuprofen 800 mg PO Q8H PRN lidocaine 5% (Lidoderm) 1 patch topical DAILY PRN MDD remove after 12 hours lorazepam (Ativan) 0.5 mg PO TID PRN metoprolol succinate ER 100 mg PO DAILY miscellaneous medical supply As directed omeprazole 1 cap PO DAILY PRN oxycodone-acetaminophen 10-325 mg 1 tab PO Q6H PRN walker Folding front wheeled walker HPI HPI check hematoma s/p fall, s/p aspiration: Details: She is here for follow-up for her hematoma on the left hip. She had this aspirated by Dr. Coleman 4 days ago. There was note of 10 cc of old blood aspirated. She had called the office to have this re-evaluated because of bruising on the area. She says she has continues to have pain. She denies any fever or chills. [facility] Medical History Hematoma Colon cancer screening Morbid obesity GERD (gastroesophageal reflux disease) Lumbar radiculopathy, right Chronic back pain Depression Anxiety Hypertension Surgical History Hematoma History of total right hip replacement Hx of dilation and curettage History of hip surgery History of lumbar surgery History of colonoscopy History of tubal ligation Fusion of lumbar spine Family History Father Suicide Mother Heart disease Diabetes CVD (cardiovascular disease) Maternal Grandmother Heart disease Maternal Grandfather Diabetes Maternal Aunt Heart disease Maternal Uncle Heart disease Social History Household Members: Spouse Housing: Apartment Are you a primary clinical care coordinator to a significant other at home: No Do you presently have visiting nurse or other home services: No Alcohol intake: never Patient Tobacco Use Status: Former Tobacco user Tobacco use type: Cigarette Substance Use Type: Marijuana service: No Current occupational status: disabled Current occupation: right handed Female Reproductive History Menstrual Age of Menarche: 12 Date of menopause: 05/04/22 Review of Systems Const Denies chills and Denies fever(s) Card Denies chest pain at rest Resp Denies cough GI Denies abdominal pain Physical Exam Vital Signs: BMI result Body Mass Index 34.8 Const General: comfortable and no acute distress Resp Effort & Inspection: normal respiratory effort Cardio Rate: regular rate Back/Spine/Pelvis Other: Left hip area towards the buttock - hematoma, about 8 cm in widest dimension, with ecchymosis, no cellulitis Assessment & Plan Assessment & Plan (1) Hematoma: Code(s): T14.8XXA - Other injury of unspecified body region, initial encounter Category: Medical Plan: She says that she has had this in December. I will repeat the ultrasound. I will see her again in the office to discuss the ultrasound and review. She is saying that she wants the hematoma evacuated if this is an option. I will discuss this in the office on her follow-up visit. The area is not infected or inflamed at this time. I advised her to continue warm soaks to the area. Orders: Orders US soft tiss head and/or neck Today T14.8XXA - Other injury of unspecified body region, initial encounter Coding Level of Care Code Est Pt Level 3 (02718) Diagnoses Hematoma T14.8XXA
[2024-03-09 08:30] VITALS: BMI 34.8
== END 2024-03-09 09:00 | disposition home or self-care (01) ==
LOC: HO.HGS 08:19
PROVIDERS: PCP Internal Medicine; Visit Provider Surgery
DX: T14.8XXA Other injury of unspecified body region, initial encounter (principal)
CPT/HCPCS: 99024

== ENCOUNTER 2024-03-15 12:44 | Outpatient (REF) | payer MEDICAID, SELFPAY ==
--- NOTE | ~2024-03-15 | US_ITS ---
EXAMINATION: ULTRASOUND LEFT THIGH AND HIP CLINICAL INFORMATION: Hematoma left thigh and hip after fall COMPARISON: CT pelvis 07/15/2021 TECHNIQUE: High frequency linear as well as a curved array transducer was used to examine the area of clinical concern FINDINGS: There is a heterogeneous ovoid lesion measuring 7.9 x 2.7 x 6.4 cm with certainty could represent a evolving hematoma. US/US extremity nonvascular rivas IMPRESSION: Heterogeneous lesion in the area of clinical concern could represent an evolving hematoma. If desired, this could always be aspirated under ultrasound guidance if there is concern for an abscess. Electronically signed by: Radhames Williamson MD 04/03/2024 10:13 PM [facility]
== END 2024-03-15 12:45 | disposition home or self-care (01) ==
LOC: HO.US 12:44
PROVIDERS: PCP Internal Medicine; Visit Provider Surgery
DX: T14.8XXA Other injury of unspecified body region, initial encounter (principal)
CPT/HCPCS: 76882

== ENCOUNTER 2024-03-16 08:10 | Outpatient (AMB) | payer MEDICAID, SELFPAY ==
--- NOTE | 2024-03-16 08:19 | A.OFFVIS_ITS ---
Intake Visit Reasons: INJ-Bilateral Euflexxa #3, Left wrist pain Intake Note: Roz is a 58 year old female who presents for follow-up of her bilateral knee pains. She states that she has gotten fairly good relief from the 1st to a Euflexxa injections. She continues with her home stretching program. Today the patient also reports progressively worsening left wrist pain. The patient states that several months ago she tripped and reached out with her left hand. She hyperextended her left wrist. Since that time her pain has gotten worse. She denies any numbness or tingling in any of her fingers or thumb. She has been doing gentle stretching exercises which seemed to aggravate her pain. Allergies morphine [Morphine] Allergy (Intermediate, Verified 03/16/24 08:21) HIVES Medication List - Last Reconciled 03/16/24 by Vipul Mcdowell MD albuterol sulfate 90 mcg/actuation 2 inhalations inhalation Q4-6H PRN benzonatate 200 mg PO TID PRN betamethasone dipropionate 0.05% 1 appl topical BID cholecalciferol (vitamin D3) (Vitamin D3) 25 mcg PO DAILY clonazepam (Klonopin) 1 mg PO BEDTIME PRN commode (bedside commode) commode with handels epinephrine (EpiPen) 0.3 mg (0.3 mL) IM Q4H PRN ibuprofen 800 mg PO Q8H PRN lidocaine 5% (Lidoderm) 1 patch topical DAILY PRN MDD remove after 12 hours lorazepam (Ativan) 0.5 mg PO TID PRN metoprolol succinate ER 100 mg PO DAILY miscellaneous medical supply As directed omeprazole 1 cap PO DAILY PRN oxycodone-acetaminophen 10-325 mg 1 tab PO Q6H PRN walker Folding front wheeled walker [facility] Medical History Hematoma Colon cancer screening Morbid obesity GERD (gastroesophageal reflux disease) Lumbar radiculopathy, right Chronic back pain Depression Anxiety Hypertension Surgical History Hematoma History of total right hip replacement Hx of dilation and curettage History of hip surgery History of lumbar surgery History of colonoscopy History of tubal ligation Fusion of lumbar spine Family History Father Suicide Mother Heart disease Diabetes CVD (cardiovascular disease) Maternal Grandmother Heart disease Maternal Grandfather Diabetes Maternal Aunt Heart disease Maternal Uncle Heart disease Social History Household Members: Spouse Housing: Apartment Are you a primary ambulatory care nurse to a significant other at home: No Do you presently have visiting nurse or other home services: No Alcohol intake: never Patient Tobacco Use Status: Former Tobacco user Tobacco use type: Cigarette Substance Use Type: Marijuana service: No Current occupational status: disabled Current occupation: right handed Female Reproductive History Menstrual Age of Menarche: 12 Date of menopause: 05/04/22 Physical Exam Const Other: Well-nourished well-developed very friendly female awake alert and oriented x3 in no acute distress Extrem Other: Bilateral upper extremity examination shows good capillary refill, no skin lesions noted, normal sensation light touch Left wrist examination shows mild discomfort with range of motion, tenderness along her dorsal joint line, no overlying skin lesions, minimal crepitus with range of motion, no scaphoid tenderness Bilateral knee examination shows minimal effusions, palpable crepitus with range of motion, pain with range of motion, no instability Office Procedures AMB Joint Injection/Aspiration Joint Injection/Aspiration Primary Site: left knee Prep: site was prepped using aseptic technique Injected: 20 mg of (Euflexxa viscosupplementation) and 1% plain lidocaine Procedure: The patient tolerated the procedure well Coding 48555 - Large joint Procedure code (CPT) selection complete AMB Joint Injection/Aspiration Joint Injection/Aspiration Primary Site: right knee Prep: site was prepped using aseptic technique Injected: 20 mg of (Euflexxa viscosupplementation) and 1% plain lidocaine Procedure: The patient tolerated the procedure well Coding 42506 - Large joint Procedure code (CPT) selection complete Results Reviewed Results Reviewed: X-rays of the patient's bilateral knees taken previously show joint space narrowing, subchondral sclerosis, no acute bony abnormalities Assessment & Plan Assessment & Plan (1) Left wrist pain: Code(s): M25.532 - Pain in left wrist (2) Osteoarthritis of left knee: Code(s): M17.12 - Unilateral primary osteoarthritis, left knee Category: Medical (3) Osteoarthritis of right knee: Code(s): M17.11 - Unilateral primary osteoarthritis, right knee Category: Medical Plan Ms. Mars presents with left wrist pain most likely due to soft tissue sprain versus possible ligamentous injury. Thus, I will have the patient evaluated by our hand specialist, Dr. Olguin. The patient also has bilateral knee pains due to osteoarthritis. The risks and benefits of a 3rd set of Euflexxa injections were discussed at length with the patient. The patient wished to proceed. She tolerated the injections well. She will continue with her home exercise program. She will contact me prior to her follow-up appointment in 3 months should any questions or concerns arise. Feel free to call me at any time should questions regarding her orthopedic management arise. I spent 22 minutes in reviewing the patient's records and imaging studies, seeing the patient and documenting in the medical record. Orders: Orders AMB Joint Injection/Aspiration Today M17.11 - Unilateral primary osteoarthritis, right knee AMB Joint Injection/Aspiration Today M17.12 - Unilateral primary osteoarthritis, left knee Coding Level of Care Code Est Pt Level 3 (30472) Complex EM visit Add On G2211 Diagnoses Left wrist pain M25.532 Osteoarthritis of left knee M17.12 Osteoarthritis of right knee M17.11 CPT Codes Coding - 21607 Large joint: 14492 - Large joint ([id number]) Coding - 29830 Large joint: 66237 - Large joint ([id number])
== END 2024-03-16 08:39 | disposition home or self-care (01) ==
PROVIDERS: PCP Internal Medicine; Visit Provider Orthopaedic Surgery
DX: M25.532 Pain in left wrist (principal); M17.0 Bilateral primary osteoarthritis of knee
CPT/HCPCS: 20610; 99213

== ENCOUNTER → 2024-03-16 08:10 | Outpatient (BNVA) | payer MEDICAID, SELFPAY | PROVIDERS: PCP Internal Medicine; Visit Provider Orthopaedic Surgery | DX: M17.0 Bilateral primary osteoarthritis of knee (principal); M25.532 Pain in left wrist | CPT/HCPCS: 20610; 99212; J2003; J7323 ==

== ENCOUNTER 2024-03-20 08:55 | Outpatient (AMB) | payer MEDICAID, SELFPAY ==
--- NOTE | 2024-03-20 09:11 | A.OFFVIS_ITS ---
Vital Signs 03/20/24 09:16 Height 5 ft 4 in Weight 200 lb BMI 34.3 BP 147/65 H Blood Pressure Location Rt brachial Position Sitting Pulse 73 Intake Visit Reasons: 2 week follow uo Hematoma of left hip, sequela Intake Note: Patient here for 2wk follow up seroma aspiration on left hip. Patient was seen by Dr. Macias on 03-09-2024. Left hip US ordered. Results from [id number] pending. Patient c/o: pain, uncomfortable wearing jeans. Immunology Specialist Required: No Accompanied by: Self / Same As Patient Allergies morphine [Morphine] Allergy (Intermediate, Verified 03/20/24 09:17) HIVES HPI Comments Details: Patient presents for follow-up of left hip hematoma. It has decreased in size but patient states it is still symptomatic. FORMERLY [facility] Medical History Hematoma Colon cancer screening Morbid obesity GERD (gastroesophageal reflux disease) Lumbar radiculopathy, right Chronic back pain Depression Anxiety Hypertension Surgical History Hematoma History of total right hip replacement Hx of dilation and curettage History of hip surgery History of lumbar surgery History of colonoscopy History of tubal ligation Fusion of lumbar spine Family History Father Suicide Mother Heart disease Diabetes CVD (cardiovascular disease) Maternal Grandmother Heart disease Maternal Grandfather Diabetes Maternal Aunt Heart disease Maternal Uncle Heart disease Social History Household Members: Spouse Housing: Apartment Are you a primary personal care service provider to a significant other at home: No Do you presently have visiting nurse or other home services: No Alcohol intake: never Patient Tobacco Use Status: Former Tobacco user Tobacco use type: Cigarette Substance Use Type: Marijuana service: No Current occupational status: disabled Current occupation: right handed Female Reproductive History Menstrual Age of Menarche: 12 Date of menopause: 05/04/22 Physical Exam Vital Signs: Last Vital Signs Pulse 73 03/20/24 09:16 BP 147/65 H 03/20/24 09:16 BMI result Body Mass Index 34.3 Extrem Other: Left hip deep situated hematoma is actually half the size it was from 2 weeks ago. Assessment & Plan Assessment & Plan (1) Hematoma: Code(s): T14.8XXA - Other injury of unspecified body region, initial encounter Category: Surgical Plan Patient was reassured and told to the patient at this process will resolve with tincture of time. I offered to aspirate this again but present, she does not wished to do this. She will see me in 2 weeks' time for follow-up or p.r.n.. Coding Level of Care Code Est Pt Level 4 (75484) Diagnoses Hematoma T14.8XXA
[2024-03-20 09:16] VITALS: BP 147/65; PULSE 73; BMI 34.3
== END 2024-03-20 09:25 | disposition home or self-care (01) ==
PROVIDERS: PCP Internal Medicine; Visit Provider Surgery
DX: T14.8XXA Other injury of unspecified body region, initial encounter (principal)
CPT/HCPCS: 99214

== ENCOUNTER → 2024-03-20 08:55 | Outpatient (BNVA) | payer MEDICAID, SELFPAY | PROVIDERS: PCP Internal Medicine; Visit Provider Surgery | DX: S70.02XD Contusion of left hip, subsequent encounter (principal); X58.XXXD Exposure to other specified factors, subsequent encounter; Z98.890 Other specified postprocedural states | CPT/HCPCS: 99212 ==

== ENCOUNTER 2024-04-04 10:11 | Outpatient (REF) | payer MEDICAID, SELFPAY | END 2024-04-04 10:12 | disposition home or self-care (01) | LOC: HO.HOSX 10:11 | PROVIDERS: Visit Provider Orthopaedic Surgery | DX: Z13.89 Encounter for screening for other disorder (principal) ==

== ENCOUNTER → 2024-06-08 08:32 | Outpatient (BNVA) | payer MEDICAID, SELFPAY | PROVIDERS: PCP Internal Medicine; Visit Provider Orthopaedic Surgery | DX: M17.0 Bilateral primary osteoarthritis of knee (principal) | CPT/HCPCS: 20610; 99212; J1010; J2003 ==

== ENCOUNTER → 2024-06-08 08:32 | Outpatient (AMB) | payer MEDICAID, SELFPAY ==
--- NOTE | 2024-06-08 08:36 | A.OFFVIS_ITS ---
Vital Signs 06/08/24 08:36 Height 5 ft 4 in Weight 200 lb BMI 34.3 Intake Visit Reasons: Bilateral knee pains Intake Note: Roz is a 59 year old female who presents with complaints of bilateral knee pains. She describes her pains as sharp in nature. She has tried Tylenol and anti-inflammatory medicines which gave her minimal relief. She has had cortisone injections in the past which gave her fairly good relief. She wishes hold off on surgery if at all possible. Allergies morphine [Morphine] Allergy (Intermediate, Verified 06/08/24 08:36) HIVES Medication List - Last Reconciled 06/08/24 by Vipul Mcdowell MD albuterol sulfate 90 mcg/actuation 2 inhalations inhalation Q4-6H PRN benzonatate 200 mg PO TID PRN betamethasone dipropionate 0.05% 1 appl topical BID cholecalciferol (vitamin D3) (Vitamin D3) 25 mcg PO DAILY clonazepam (Klonopin) 1 mg PO BEDTIME PRN commode (bedside commode) commode with handels epinephrine (EpiPen) 0.3 mg (0.3 mL) IM Q4H PRN ibuprofen 800 mg PO Q8H PRN lidocaine 5% (Lidoderm) 1 patch topical DAILY PRN MDD remove after 12 hours lorazepam (Ativan) 0.5 mg PO TID PRN metoprolol succinate ER 100 mg PO DAILY miscellaneous medical supply As directed omeprazole 1 cap PO DAILY PRN walker Folding front wheeled walker [facility] Medical History Hematoma Colon cancer screening Morbid obesity GERD (gastroesophageal reflux disease) Lumbar radiculopathy, right Chronic back pain Depression Anxiety Hypertension Surgical History Hematoma History of total right hip replacement Hx of dilation and curettage History of hip surgery History of lumbar surgery History of colonoscopy History of tubal ligation Fusion of lumbar spine Family History Father Suicide Mother Heart disease Diabetes CVD (cardiovascular disease) Maternal Grandmother Heart disease Maternal Grandfather Diabetes Maternal Aunt Heart disease Maternal Uncle Heart disease Social History Household Members: Spouse Housing: Apartment Are you a primary occasional caregiver to a significant other at home: No Do you presently have visiting nurse or other home services: No Alcohol intake: never Patient Tobacco Use Status: Former Tobacco user Tobacco use type: Cigarette Substance Use Type: Marijuana service: No Current occupational status: disabled Current occupation: right handed Female Reproductive History Menstrual Age of Menarche: 12 Date of menopause: 05/04/22 Physical Exam Vital Signs: BMI result Body Mass Index 34.3 Const Other: Well-nourished well-developed very friendly female awake alert and oriented x3 in no acute distress Extrem Other: Bilateral lower extremity examination shows good capillary refill, no skin lesions noted, normal sensation light touch Bilateral knee examination shows minimal effusions, palpable crepitus with range of motion, pain with range of motion, no instability Office Procedures AMB Joint Injection/Aspiration Joint Injection/Aspiration Primary Site: left knee Prep: site was prepped using aseptic technique Injected: 40 mg of, DepoMedrol and 1% plain lidocaine Procedure: The patient tolerated the procedure well Coding 05147 - Large joint Procedure code (CPT) selection complete AMB Joint Injection/Aspiration Joint Injection/Aspiration Primary Site: right knee Prep: site was prepped using aseptic technique Injected: 40 mg of, DepoMedrol and 1% plain lidocaine Procedure: The patient tolerated the procedure well Coding 64794 - Large joint Procedure code (CPT) selection complete Results Reviewed Results Reviewed: X-rays of the patient's bilateral knees taken previously show joint space narrowing, subchondral sclerosis, no acute bony abnormalities Assessment & Plan Assessment & Plan (1) Osteoarthritis of left knee: Code(s): M17.12 - Unilateral primary osteoarthritis, left knee Category: Medical (2) Osteoarthritis of right knee: Code(s): M17.11 - Unilateral primary osteoarthritis, right knee Category: Medical Plan Ms. Mars presents with bilateral knee pains due to osteoarthritis. The risks and benefits of bilateral knee cortisone injections were discussed at length with the patient. The patient wished proceed. She tolerated the injections well. She will continue with her home exercise program. If she does not get lasting relief from the cortisone injection therapy I will see whether or not her insurance company will cover a another series of 3 Euflexxa viscosupplementation injections for both of her knees. Feel free to call me at any time should questions regarding her orthopedic management arise. I spent 22 minutes in reviewing the patient's records and imaging studies, seeing the patient and documenting in the medical record. Orders: Orders AMB Joint Injection/Aspiration Today M17.12 - Unilateral primary osteoarthritis, left knee AMB Joint Injection/Aspiration Today M17.11 - Unilateral primary osteoarthritis, right knee Coding Level of Care Code Est Pt Level 3 (80928) Complex EM visit Add On G2211 Diagnoses Osteoarthritis of left knee M17.12 Osteoarthritis of right knee M17.11 CPT Codes Coding - 21663 Large joint: 14394 - Large joint ([id number]) Coding - 46434 Large joint: 04578 - Large joint ([id number])
--- OUTSIDE RECORDS SUMMARY | 2024-06-08 08:47 | XMS_ITS | Clinical Summary ---
Author Organization [employer] [facility] Address [address] [place] [address] Care Team Providers Care Isotope Hydrologist Name Role Phone Unavailable Primary Care Provider Unavailabl e Immunizations Name Administration Dates Next Due Influenza Injectable Quadriv alant Preservative Free IIV4 MDCK 01/24/2022,01/24/2019 Influenza injectable quadriv alent IIV4 with preservative 01/27/2019,01/12/2018 Influenza injectable quadriv alent preservative free 02/09/2023,01/27/2021,01/11/2020,2017,01/08/2017 Influenza, IIV3, injectable 01/30/2011,0 05/14/2009,01/11/2009,2006 Influenza, Injectable, MDCK, preservative free 01/20/2015 Influenza, Split (incl. alan fied surface antigen) 01/14/2012 Influenza, trivalent, adjuvanted 01/17/2016 Moderna Covid-19 Vaccine 12+ 09/09/2021 Pfizer Covid-19 Vaccine 12+ 02/09/2023 TD (adult), 2 Lf tetanus tox oid, preservative free, adsorbed 05/03/2001 Tdap 10/27/2022,09/13/2013,01/31/2010 Zoster, Recombinant 10/28/2021,08/21/2021 Social History Tobacco Use Types Packs/Day Years Used Date Smoking Tobacco: Never Assessed Comments Unknown Sex and Gender Information Value Date Recorded Sex Assigned at Female 03/02/2022 10:15 AM EDT Legal Sex Female 10:15 AM EDT Gender Identity Female 03/02/2022 10:15 AM EDT Sexual Orientation Straight 03/02/2022 10 :15 AM EDT Plan of Treatment Health Maintenance Due Date Last Done Comments CT Colonography 1967 Colonoscopy 1967 Colorectal Cancer Screening 1967 Depression Screening 1967 FIT DNA/Cologuard 1967 FIT 1967 FOBT 1967 HIV Screening 1967 Lipid Panel 1967 SDOH Screening 1967 Sigmoidoscopy 1967 Alcohol/Substance Use Screening 1979 Tobacco Screening 1979 Hepatitis C Screening 1985 Hepatitis B Vaccines (1 of 3 - 19+ 3-dose series) 1986 Pap Smear 1988 Cervical Cancer Screening 1997 HPV/Cotest 1997 Mammogram 2007 Pneumococcal Vaccine: 50+ Years (1 of 1 - PCV) 2017 COVID-19 Vaccine (6 - 2023- season) 2024 02/09/2023, 09/09/2021, 03/16/2021, Additional history exists DTaP/Tdap/Td Vaccines (6 - Td or Tdap) 09/02/2033 09/03/2023, 09/03/2023, 10/27/2022, Additional history exists RSV Patients and Patients Aged 60 years or older (1 - 1-dose 75+ series) 2042 Zoster Vaccines Completed 10/28/2021, 08/21/2021 Influenza Vaccine Completed 01/24/2024, , 01/24/2022, Additional history exists HIB Vaccines Aged Out No longer eligi ble based on patient's age to complete this topic HPV Vaccines Aged Out No longer eligi ble based on patient's age to complete this topic Hepatitis A Vaccines Aged Out No long er eligible based on patient's age to complete this topic IPV Vaccines Aged Out No longer eligi ble based on patient's age to complete this topic Meningococcal Vaccine Aged Out No scot gerri eligible based on patient's age to complete this topic Pneumococcal Vaccine: Pediatrics (0 to 5 Years) and At-Risk Patients (6 to 49) Years) Aged Out No longer eligible based on patient's age to complete this topic RSV under 20 months Aged Out No longe r eligible based on patient's age to complete this topic Rotavirus Vaccines Aged Out No longer eligible based on patient's age to complete this topic Insurance [facility] [id number]
== END | disposition home or self-care (01) ==
PROVIDERS: PCP Internal Medicine; Visit Provider Orthopaedic Surgery
CPT/HCPCS: 20610; 99213

== ENCOUNTER 2024-07-18 11:13 | Emergency (ER) | payer MEDICAID, SELFPAY ==
--- NOTE | ~2024-07-18 | US_ITS ---
EXAMINATION: US TRIPLEX LOWER EXTREMITY, RIGHT CLINICAL INFORMATION: Swelling and pain, right lower extremity. COMPARISON: September 04, 2020. TECHNIQUE: Color-flow triplex imaging with spectral analysis and compression Doppler were performed on the right lower extremity. FINDINGS: Respiratory variation, normal compression and augmented flow are noted throughout the common femoral vein, superficial femoral vein, profunda femoral vein, popliteal vein and midcalf peroneal and posterior tibial venous segments. There is no Gavin's cyst. US/US venous duplex LE RT IMPRESSION: No acute deep venous thrombosis involving the right lower extremity. Negative for DVT. Electronically signed by: Smooth Valdez MD 07/18/2024 12:39 PM EDT
--- NOTE | ~2024-07-18 | CT_ITS ---
EXAMINATION: CT HEAD NECK ANGIOGRAPHY WITH IV CONTRAST STROKE HISTORY: right sided numbness COMPARISON: Correlation is made with the unenhanced CT performed earlier in the day. TECHNIQUE: Helical axial images were obtained from the aortic arch to the vertex after intravenous injection of contrast per standard departmental protocol. MIP/3D reconstructions were obtained and reviewed. One or more of the following techniques was used for dose reduction: Automated exposure control, adjustment of the mA and/or kV according to patient size, use of iterative reconstruction technique. DLP: 668 mGy-cm FINDINGS: CTA NECK: AORTIC ARCH: The visualized portions of the arch as well as innominate, right subclavian, and left subclavian arteries show no hemodynamically significant stenosis. Right common carotid artery: There is no large vessel occlusion or hemodynamically significant stenosis. Right internal carotid artery: There is no large vessel occlusion or hemodynamically significant stenosis. Left common carotid artery: There is no large vessel occlusion or hemodynamically significant stenosis. Left internal carotid artery: There is no large vessel occlusion or hemodynamically significant stenosis. (Extracranial internal carotid artery stenosis estimates are based on use of distal ICA as the denominator.) Right vertebral artery: There is no large vessel occlusion or hemodynamically significant stenosis. Left vertebral artery: There is no large vessel occlusion or hemodynamically significant stenosis. CTA HEAD: Right intracranial ICA: There is no large vessel occlusion, hemodynamically significant stenosis, or aneurysm. Right NILS: There is no large vessel occlusion, hemodynamically significant stenosis, or aneurysm. Right MCA: There is no large vessel occlusion, hemodynamically significant stenosis, or aneurysm. Left intracranial ICA: There is no large vessel occlusion, hemodynamically significant stenosis, or aneurysm. Left NILS: There is no large vessel occlusion, hemodynamically significant stenosis, or aneurysm. Left MCA: There is no large vessel occlusion, hemodynamically significant stenosis, or aneurysm. Basilar artery: There is no large vessel occlusion, hemodynamically significant stenosis, or aneurysm. Superior cerebellar arteries: There is no large vessel occlusion, hemodynamically significant stenosis, or aneurysm. Right STRAW HAT WASHER OPERATOR: There is no large vessel occlusion, hemodynamically significant stenosis, or aneurysm. Left STRAW HAT WASHER OPERATOR: There is no large vessel occlusion, hemodynamically significant stenosis, or aneurysm. VEINS: Venous enhancement is within normal limits for this technique. SOFT TISSUES: The bilateral parotid, submandibular, and thyroid glands are unremarkable. No laryngeal abnormality is identified. There is no cervical lymphadenopathy. CT/CT angio head neck STROKE IMPRESSION: No large vessel occlusion, hemodynamically significant stenosis, or aneurysm in the head and neck. Electronically signed by: Syd Owens MD 07/18/2024 02:43 PM EDT
--- NOTE | ~2024-07-18 | CT_ITS ---
EXAMINATION: CT HEAD WITHOUT IV CONTRAST STROKE HISTORY: facial numbness on the right side. TECHNIQUE: Unenhanced helical CT of the head was performed per standard departmental protocol. Coronal and sagittal reformats of the head were also evaluated. One or more of the following techniques was used for dose reduction: Automated exposure control, adjustment of the mA and/or kV according to patient size, use of iterative reconstruction technique. DLP: 649 mGy-cm COMPARISON: Comparison is made with the prior examination dated 09/08/2022. FINDINGS: BRAIN: The brain parenchyma is unremarkable. There is normal marks/white differentiation. The ventricular system is normal in size and configuration. There is no mass effect or midline shift. No intra- or extra-axial fluid collections are identified. SINUSES: The visualized paranasal sinuses are clear. The mastoid air cells and middle ear cavities are well pneumatized. ORBITS: The visualized orbits are unremarkable. BONES/SOFT TISSUES: The extracranial soft tissues are unremarkable. The calvarium is intact. No suspicious lytic or sclerotic lesions. CT/CT head for STROKE IMPRESSION: No acute intracranial abnormality. Electronically signed by: Syd Owens MD 07/18/2024 02:00 PM EDT
[2024-07-18 11:18] VITALS: BP 157/94; PULSE 65; RESP 20; TEMP 36.1; O2SAT 100; BMI 31.9
--- NOTE | 2024-07-18 11:24 | ED.GENADULT ---
HPI - General Adult General Chief complaint: General Medical Stated complaint: Weakness R side of body, bruising R leg Time Seen by Provider: 07/18/24 12:38 Related Data Home Medications ?Medication ?Instructions ?Recorded ?Confirmed clonazepam 1 mg tablet (Klonopin) 1 mg PO BEDTIME PRN Anxiety 02/26/20 06/08/24 betamethasone dipropionate 0.05 % 1 appl topical BID 05/15/21 06/08/24 topical ointment cholecalciferol (vitamin D3) 25 25 mcg PO DAILY 05/15/21 06/08/24 mcg (1,000 unit) tablet (Vitamin D3) ibuprofen 800 mg tablet 800 mg PO Q8H PRN Pain 05/15/21 06/08/24 omeprazole 20 mg capsule,delayed 1 cap PO DAILY PRN Gastric Reflux 05/16/21 06/08/24 release Previous Rx's ?Medication ?Instructions ?Recorded metoprolol succinate 100 mg 100 mg PO DAILY #30 tabs 06/23/20 tablet,extended release 24 hr lidocaine 5 % topical patch 1 patch topical DAILY PRN pain #30 12/17/20 (Lidoderm) ea miscellaneous medical supply #1 ea 06/07/21 walker #1 ea 06/12/21 commode (bedside commode) #1 ea 06/13/21 epinephrine 0.3 mg/0.3 mL 0.3 mg (0.3 mL) IM Q4H PRN 02/09/23 injection, auto-injector (EpiPen) anaphylaxis #2 ea lorazepam 0.5 mg tablet (Ativan) 0.5 mg PO TID PRN anxiety #7 tabs 02/10/23 albuterol sulfate 90 mcg/actuation 2 inh inhalation Q4-6H PRN 05/06/23 aerosol inhaler shortness of breath or wheezing #6.7 grams benzonatate 200 mg capsule 200 mg PO TID PRN cough #14 caps 05/06/23 Allergies Allergy/AdvReac Type Severity Reaction Status Date / Time morphine [Morphine] Allergy Intermediate HIVES Verified 07/18/24 11:23 [facility] Past Medical History Medical History Hematoma Colon cancer screening Morbid obesity GERD (gastroesophageal reflux disease) Lumbar radiculopathy, right Chronic back pain Depression Anxiety Hypertension Surgical History Hematoma History of total right hip replacement Hx of dilation and curettage History of hip surgery History of lumbar surgery History of colonoscopy History of tubal ligation Fusion of lumbar spine Family History Family History Father Suicide Mother Heart disease Diabetes CVD (cardiovascular disease) Maternal Grandmother Heart disease Maternal Grandfather Diabetes Maternal Aunt Heart disease Maternal Uncle Heart disease Social History Social History Household Members: Spouse Housing: Apartment Are you a primary behavioral health care coordinator to a significant other at home: No Do you presently have visiting nurse or other home services: No Alcohol intake: never Patient Tobacco Use Status: Former Tobacco user Tobacco use type: Cigarette Substance Use Type: Marijuana Advance Directives: No Advance Directives Information Provided: Yes Do you have a plan to hurt others: No Plan service: No Current occupational status: disabled Current occupation: right handed Physical Exam ED Vital Signs: Vital Signs - 24 hr 07/18/24 11:18 07/18/24 14:43 Temperature 96.9 F 97.3 F Pulse Rate 65 72 Respiratory Rate 20 14 Blood Pressure 157/94 H 147/74 H Pulse Oximetry 100 99 Oxygen Delivery Method Room Air Room Air BMI result Body Mass Index 31.9 Course Course Course Narrative: This is a rapid medical exam performed by Zaina Horton PA-C. Patient is a 59-year-old female with a history of arthritis, chronic pain, who presents with multiple complaints. Patient states she has developed random bruising over unclear duration of time, she has pending appointment with hematology. Patient states while walking she developed spontaneous pain in the right calf and bruising. Patient was not on a blood thinner. Patient also describes ?widening of her fingertips?. Lastly patient states the right side of her face feels sleepy , these symptoms began this morning at 830 am. Do not feel her symptoms are consistent with CVBA, she has subjective paresthesia, without neurologic deficits, her other symptoms are not consistent with stroke. I will put in for an ultrasound of the right lower extremity rule out DVT, and we will screen some basic labs. The patient was hemodynamically stable and can return to the waiting room pending her full medical assessment. Medications Administered Discontinued Medications Generic Name Dose Route Start Last Admin Trade Name Jackie PRN Reason Stop Dose Admin Iohexol 100 ml 07/18/24 14:25 07/18/24 14:25 Iohexol 350 Mg/Ml 100 Ml Infus..Btl IV 07/18/24 14:26 70 ml ONCE ONE Administration Medical Decision Making Lab Data 07/18/24 11:45 07/18/24 11:45 Labs: Lab Results 07/18/24 07/18/24 Range/Units 11:45 13:09 WBC 7.3 (4.8-10.8) X10*3/uL RBC 4.72 (4.20-5.50) X10*6/uL Hgb 14.9 (12.0-16.0) g/dl Hct 44.0 (37.0-47.0) % MCV 93.2 (80.0-98.0) fL MCH 31.6 (27.0-33.0) pg MCHC 33.9 (31.0-35.0) g/dl RDW 13.7 (11.0-16.0) % Plt Count 259 D (160-400) X10*3/uL MPV 10.0 (9.4-12.3) fL Immature Gran % (Auto) 0.3 (0.0-0.4) % Neut % (Auto) 55.1 (45-73) % Lymph % (Auto) 31.6 (20-40) % [place] % (Auto) 5.4 (2-11) % Eos % (Auto) 7.1 H (0-4) % Baso % (Auto) 0.5 (0-2) % Lymph # (Auto) 2.3 (1.2-4.9) X10*3/uL [place] # (Auto) 0.4 (0.1-1.2) X10*3/uL Eos # (Auto) 0.5 H (0.0-0.4) X10*3/uL Baso # (Auto) 0.0 (0.0-0.2) X10*3/uL Abs Immat Gran (auto) 0.02 (0.00-0.03) X10*3/uL Absolute Neuts (auto) 4.0 (2.0-8.3) x10*3/uL Absolute Nucleated RBC 0.000 (0.0-0.012) X10*3/uL Nucleated RBC % (auto) 0.0 (0.0-0.2) /100WBC Sodium 142 (135-145) mmol/L Potassium 4.7 (3.3-5.1) mmol/L Chloride 111 H (96-108) mmol/L Carbon Dioxide 24 (22-29) mmol/L Anion Gap 12 (12-20) BUN 16 (9-16) mg/dL Creatinine 0.79 (0.5-1.4) mg/dL Estim Creat Clear Calc 82.5 Estimated GFR > 60 Random Glucose 95 (60-115) mg/dL Calcium 9.5 (8.4-10.2) mg/dL Magnesium 2.1 (1.6-2.6) mg/dL Total Bilirubin 0.4 (0.0-1.0) mg/dL AST 28 (5-31) U/L ALT 29 (0-31) U/L Alkaline Phosphatase 52 (39-117) U/L Troponin I High Sens < 2.7 (<3.5-17.0) ng/L Total Protein 7.7 (6.5-8.0) g/dL Albumin 4.3 (3.5-5.0) g/dL Discharge Plan Discharge Clinical Impression: Acute leg pain Patient Disposition: Home, Self-Care Instructions: Leg Cramps (ED) Prescriptions: No Action metoprolol succinate 100 mg tablet extended release 24 hr 100 mg PO DAILY Qty: 30 6RF [place] [place] [facility] See Rx Instructions .MEDSUPPLY Qty: 1 0RF Rx Instructions: Folding front wheeled walker ([facility] bedside commode Kit See Rx Instructions .Route Qty: 1 0RF Rx Instructions: commode with handels lidocaine [Lidoderm] 5 % adhesive patch,medicated 1 patch topical DAILY MDD remove after 12 hours PRN (Reason: pain) Qty: 30 0RF Rx Instructions: leave on most painful area for up to 12 hrs ibuprofen 800 mg Tablet 800 mg PO Q8H PRN (Reason: Pain) betamethasone dipropionate 0.05 % ointment 1 appl topical BID cholecalciferol (vitamin D3) [Vitamin D3] 25 mcg (1,000 unit) Tablet 25 mcg PO DAILY omeprazole 20 mg capsule,delayed release(DR/EC) 1 cap PO DAILY PRN (Reason: Gastric Reflux) benzonatate 200 mg capsule 200 mg PO TID PRN (Reason: cough) Qty: 14 0RF albuterol sulfate 90 mcg/actuation HFA aerosol inhaler 2 inh inhalation Q4-6H PRN (Reason: shortness of breath or wheezing) Qty: 6.7 0RF epinephrine [EpiPen] 0.3 mg/0.3 mL auto-injector 0.3 mg IM Q4H PRN (Reason: anaphylaxis) Qty: 2 0RF lorazepam [Ativan] 0.5 mg tablet 0.5 mg PO TID PRN (Reason: anxiety) Qty: 7 0RF clonazepam [Klonopin] 1 mg tablet 1 mg PO BEDTIME PRN (Reason: Anxiety) (DME) miscellaneous medical supply Misc See Rx Instructions .Route Qty: 1 0RF Rx Instructions: As directed Referrals: Robe Montano MD [Primary Care Provider] - 07/20/24 Print Language: Occitan
[2024-07-18 11:49] LABS: MANUAL DIFF FLAG NO
[2024-07-18 11:50] LABS: Basophils Percent Auto 0.5 % (0-2); Eosinophils Absolute Auto 0.5 X10*3/uL (0.0-0.4); Eosinophils Percent Auto 7.1 % (0-4); Hemoglobin 14.9 g/dl (12.0-16.0); Imm Gran Abs Auto 0.02 X10*3/uL (0.00-0.03); Imm Gran Pct Auto 0.3 % (0.0-0.4); Lymphocytes Absolute Auto 2.3 X10*3/uL (1.2-4.9); Lymphocytes Percent Auto 31.6 % (20-40); Mean Corpuscular HGB Conc 33.9 g/dl (31.0-35.0); Mean Corpuscular Hemoglobin 31.6 pg (27.0-33.0); Mean Corpuscular Volume 93.2 fL (80.0-98.0); Monocytes Absolute Auto 0.4 X10*3/uL (0.1-1.2); Monocytes Percent Auto 5.4 % (2-11); Neutrophils Percent Auto 55.1 % (45-73); Platelet Count 259 X10*3/uL (160-400); Red Blood Count 4.72 X10*6/uL (4.20-5.50); Red Cell Distribution Width 13.7 % (11.0-16.0); White Blood Count 7.3 X10*3/uL (4.8-10.8)
[2024-07-18 12:04] LABS: Alanine Aminotransferase 29 U/L (0-31); Albumin Level 4.3 g/dL (3.5-5.0); Alkaline Phosphatase 52 U/L (39-117); Anion Gap 12 (12-20); Aspartate Amino Transferase 28 U/L (5-31); Bilirubin Total 0.4 mg/dL (0.0-1.0); Blood Urea Nitrogen 16 mg/dL (9-16); Calcium 9.5 mg/dL (8.4-10.2); Carbon Dioxide 24 mmol/L (22-29); Chloride 111 mmol/L (96-108); Creatinine Clr Calc Pharmacy 82.5; Estimated Glomerular Filt Rate > 60; Glucose Random 95 mg/dL (60-115); Magnesium 2.1 mg/dL (1.6-2.6); Potassium 4.7 mmol/L (3.3-5.1); Sodium 142 mmol/L (135-145); Total Protein 7.7 g/dL (6.5-8.0)
--- NOTE | 2024-07-18 12:46 | ECG_ITS ---
Test Reason : CHEST TIGHTNESS Blood Pressure : */* mmHG Vent. Rate : 62 BPM Atrial Rate : 62 BPM P-R Int : 138 ms QRS Dur : 82 ms QT Int : 416 ms P-R-T Axes : 22 -23 33 degrees QTcB Int : 422 ms Normal sinus rhythm Normal ECG When compared with ECG of 05-May-2023 03:25, Vent. rate has decreased by 35 bpm Referred By: Emelyn Garcia Electronically Signed By: Solo Adan
--- NOTE | 2024-07-18 12:52 | ED_ITS ---
HPI - General Adult General Chief complaint: General Medical Stated complaint: Weakness R side of body, bruising R leg Time Seen by Provider: 07/18/24 12:38 History of Present Illness HPI narrative: 59-year-old female with a history of hypertension not on blood thinners presented today with having multitude of issues 1st of all she has some calf vein which she claims it popped last night. She then noticed a deep bruising in the right calf area. Patient been feeling some tightness in that area. There is no fever no chills. There is no travel history there is no history of previous blood clot. Patient also complaining of nonspecific facial numbness which she woke up with this morning. Patient denies any changes in voice any difficulty breathing feels tingling since hip finger. There is no difficulty moving her hand there is no clumsiness in her hand there is no change in speech. Patient is right-hand dominant. There is no history of hypoglycemia there is no history of smoking pre of MN no family history of MN no sudden in the family. Finally patient also complaining of some chest nonspecific tightness it has been ongoing on and off this morning. Not associated with shortness of breath diaphoresis no radiation. Patient is from home. Related Data Home Medications ?Medication ?Instructions ?Recorded ?Confirmed clonazepam 1 mg tablet (Klonopin) 1 mg PO BEDTIME PRN Anxiety 02/26/20 06/08/24 betamethasone dipropionate 0.05 % 1 appl topical BID 05/15/21 06/08/24 topical ointment cholecalciferol (vitamin D3) 25 25 mcg PO DAILY 05/15/21 06/08/24 mcg (1,000 unit) tablet (Vitamin D3) ibuprofen 800 mg tablet 800 mg PO Q8H PRN Pain 05/15/21 06/08/24 omeprazole 20 mg capsule,delayed 1 cap PO DAILY PRN Gastric Reflux 05/16/21 06/08/24 release Previous Rx's ?Medication ?Instructions ?Recorded metoprolol succinate 100 mg 100 mg PO DAILY #30 tabs 06/23/20 tablet,extended release 24 hr lidocaine 5 % topical patch 1 patch topical DAILY PRN pain #30 12/17/20 (Lidoderm) ea miscellaneous medical supply #1 ea 06/07/21 walker #1 ea 06/12/21 commode (bedside commode) #1 ea 06/13/21 epinephrine 0.3 mg/0.3 mL 0.3 mg (0.3 mL) IM Q4H PRN 02/09/23 injection, auto-injector (EpiPen) anaphylaxis #2 ea lorazepam 0.5 mg tablet (Ativan) 0.5 mg PO TID PRN anxiety #7 tabs 02/10/23 albuterol sulfate 90 mcg/actuation 2 inh inhalation Q4-6H PRN 05/06/23 aerosol inhaler shortness of breath or wheezing #6.7 grams benzonatate 200 mg capsule 200 mg PO TID PRN cough #14 caps 05/06/23 Allergies Allergy/AdvReac Type Severity Reaction Status Date / Time morphine [Morphine] Allergy Intermediate HIVES Verified 07/18/24 11:23 Review of Systems 2 Review of Systems: Positive numbness to the face on the right side tingling sensation To the finger Contusion to the right calf Positive chest tightness Yes all other systems are reviewed and are negative PMFSH Past Medical History Attestation statement: The following information was validated with the patient. Medical History Hematoma Colon cancer screening Morbid obesity GERD (gastroesophageal reflux disease) Lumbar radiculopathy, right Chronic back pain Depression Anxiety Hypertension Surgical History Hematoma History of total right hip replacement Hx of dilation and curettage History of hip surgery History of lumbar surgery History of colonoscopy History of tubal ligation Fusion of lumbar spine Family History Family History Father Suicide Mother Heart disease Diabetes CVD (cardiovascular disease) Maternal Grandmother Heart disease Maternal Grandfather Diabetes Maternal Aunt Heart disease Maternal Uncle Heart disease Social History Social History Household Members: Spouse Housing: Apartment Are you a primary palliative care coordinator to a significant other at home: No Do you presently have visiting nurse or other home services: No Alcohol intake: never Patient Tobacco Use Status: Former Tobacco user Tobacco use type: Cigarette Substance Use Type: Marijuana Advance Directives: No Advance Directives Information Provided: Yes Do you have a plan to hurt others: No Plan service: No Current occupational status: disabled Current occupation: right handed Physical Exam ED Vital Signs: Vital Signs - 24 hr 07/18/24 11:18 07/18/24 14:43 Temperature 96.9 F 97.3 F Pulse Rate 65 72 Respiratory Rate 20 14 Blood Pressure 157/94 H 147/74 H Pulse Oximetry 100 99 Oxygen Delivery Method Room Air Room Air BMI result Body Mass Index 31.9 Appearance: Alert. Oriented X3. No acute distress. Eyes: Pupils equal, round and reactive to light. ENT: Pharynx normal. Neck: Normal inspection. Neck supple. No lymph nodes noted. No crepitus CVS: Normal heart rate and rhythm. Pulses normal. Normal S1 and S2 Respiratory: No respiratory distress. Breath sounds normal. No Wheezing. No rales Abdomen: Soft and nontender. No rigidity. No distention. good BS x4 Skin: Skin warm and dry. Normal skin color. Normal skin turgor. Extremities: No lower extremity edema. Neurovascular intact to all extremities. No Lacerations. No Rash Neuro: Oriented X 3. No motor deficit. No sensory deficit. Moving all extermities. No slurred speech NIH Stroke Scale Internal: Initial- Upon Arrival Time: 12:56 Level of Consciousness: Alert Level of Consciousness Questions: Answers both questions correctly Level of Consciousness Commands: Performs both tasks correctly Best Gaze: Normal Visual: No visual loss Facial Palsy: Normal Motor Arm (Right): No drift Motor Arm (Left): No drift Motor Leg (Right): No drift Motor Leg (Left): No drift Limb Ataxia: Absent Sensory: Normal Best Language: No aphasia Dysarthia: Normal Extinction and Inattention: No abnormality Score: 0 Medications Administered Discontinued Medications Generic Name Dose Route Start Last Admin Trade Name Freq PRN Reason Stop Dose Admin Iohexol 100 ml 07/18/24 14:25 07/18/24 14:25 Iohexol 350 Mg/Ml 100 Ml Infus..Btl IV 07/18/24 14:26 70 ml ONCE ONE Administration Medical Decision Making Medical Decision Making MDM Narrative: Patient well-appearing neurologically intact. NIH stroke scale is 0. Has subjective feeling of numbness to the face. Patient is right-hand dominant but there is no change in speech. There is no observable weakness. There is tingling to the tips of the finger there is good movement of the hand fine motor movement was intact patient's [id number] was intact rapid alternating movement intact there is good strength in the bilateral upper extremity. Nevertheless a CT head and CTA was done. Patient not a good candidate for tPA as symptoms very minor no objective finding only subjective finding NIH stroke scale was 0. Patient complaining of contusion ecchymosis to the calf area on the right side. An ultrasound was done. The vascular ultrasound of the right lower extremity showed no evidence of DVT. Patient complaining of nonspecific chest tightness that is been ongoing will get EKG and cardiac enzymes. History not consistent with PE. Pain atypical for ACS. She is 59 years old she does have a history of hypertension. If her troponin and EKG are negative her heart score will be less than 3. My interpretation of her EKG showed a sinus rhythm heart rate is 60 CT QRS QTC normal no acute ST segment elevation noted. Patient's troponin is less than 2.7. In the setting of atypical history 59 years old 1 risk factor negative enzyme patient's heart score is less than 3. Patient had nonspecific tingling to the face a line was sent. There is question tingling to the tips of the finger there is no weakness in the arm no Lazarus weakness in the wrist in the elbow shoulder. Nevertheless a CT head and CTA head and neck was done. Patient's CT head and CTA were both negative. Unlikely to have a stroke. Patient unlikely to have a bleed. No evidence for aneurysm. Patient will be discharged home. Symptom has resolved. NIH stroke scale was 0. Doppler ultrasound of the right lower extremity was negative for DVT. Differential Diagnosis Differential Diagnoses: The differential diagnosis associated with the presentation includes CVA, tingling, swelling to the thigh Admission/Observation Consideration of admission/observation: Escalation of care including admission/observation considered Lab Data MDM Lab Attestation statement: I reviewed the patient's lab results. 07/18/24 11:45 07/18/24 11:45 Labs: Lab Results 07/18/24 07/18/24 Range/Units 11:45 13:09 WBC 7.3 (4.8-10.8) X10*3/uL RBC 4.72 (4.20-5.50) X10*6/uL Hgb 14.9 (12.0-16.0) g/dl Hct 44.0 (37.0-47.0) % MCV 93.2 (80.0-98.0) fL MCH 31.6 (27.0-33.0) pg MCHC 33.9 (31.0-35.0) g/dl RDW 13.7 (11.0-16.0) % Plt Count 259 D (160-400) X10*3/uL MPV 10.0 (9.4-12.3) fL Immature Gran % (Auto) 0.3 (0.0-0.4) % Neut % (Auto) 55.1 (45-73) % Lymph % (Auto) 31.6 (20-40) % [place] % (Auto) 5.4 (2-11) % Eos % (Auto) 7.1 H (0-4) % Baso % (Auto) 0.5 (0-2) % Lymph # (Auto) 2.3 (1.2-4.9) X10*3/uL [place] # (Auto) 0.4 (0.1-1.2) X10*3/uL Eos # (Auto) 0.5 H (0.0-0.4) X10*3/uL Baso # (Auto) 0.0 (0.0-0.2) X10*3/uL Abs Immat Gran (auto) 0.02 (0.00-0.03) X10*3/uL Absolute Neuts (auto) 4.0 (2.0-8.3) x10*3/uL Absolute Nucleated RBC 0.000 (0.0-0.012) X10*3/uL Nucleated RBC % (auto) 0.0 (0.0-0.2) /100WBC Sodium 142 (135-145) mmol/L Potassium 4.7 (3.3-5.1) mmol/L Chloride 111 H (96-108) mmol/L Carbon Dioxide 24 (22-29) mmol/L Anion Gap 12 (12-20) BUN 16 (9-16) mg/dL Creatinine 0.79 (0.5-1.4) mg/dL Estim Creat Clear Calc 82.5 Estimated GFR > 60 Random Glucose 95 (60-115) mg/dL Calcium 9.5 (8.4-10.2) mg/dL Magnesium 2.1 (1.6-2.6) mg/dL Total Bilirubin 0.4 (0.0-1.0) mg/dL AST 28 (5-31) U/L ALT 29 (0-31) U/L Alkaline Phosphatase 52 (39-117) U/L Troponin I High Sens < 2.7 (<3.5-17.0) ng/L Total Protein 7.7 (6.5-8.0) g/dL Albumin 4.3 (3.5-5.0) g/dL Independent Interpretation I performed an independent interpretation of an: CT Scan (CT head was negative for bleed) Radiology Impression Discussion of test interpretation with radiology: I have reviewed the radiologist's reading. Social Determinants Patient?s care significantly limited by Social Determinants of Health including: Problems related to primary support group Discharge Plan Discharge Clinical Impression: Acute leg pain Patient Disposition: Home, Self-Care Instructions: Leg Cramps (ED) Prescriptions: No Action metoprolol succinate 100 mg tablet extended release 24 hr 100 mg PO DAILY Qty: 30 6RF ([facility] [place] walker Misc See Rx Instructions .MEDSUPPLY Qty: 1 0RF Rx Instructions: Folding front wheeled walker (DME) bedside commode Kit See Rx Instructions .Route Qty: 1 0RF Rx Instructions: commode with handels lidocaine [Lidoderm] 5 % adhesive patch,medicated 1 patch topical DAILY MDD remove after 12 hours PRN (Reason: pain) Qty: 30 0RF Rx Instructions: leave on most painful area for up to 12 hrs ibuprofen 800 mg Tablet 800 mg PO Q8H PRN (Reason: Pain) betamethasone dipropionate 0.05 % ointment 1 appl topical BID cholecalciferol (vitamin D3) [Vitamin D3] 25 mcg (1,000 unit) Tablet 25 mcg PO DAILY omeprazole 20 mg capsule,delayed release(DR/EC) 1 cap PO DAILY PRN (Reason: Gastric Reflux) benzonatate 200 mg capsule 200 mg PO TID PRN (Reason: cough) Qty: 14 0RF albuterol sulfate 90 mcg/actuation HFA aerosol inhaler 2 inh inhalation Q4-6H PRN (Reason: shortness of breath or wheezing) Qty: 6.7 0RF epinephrine [EpiPen] 0.3 mg/0.3 mL auto-injector 0.3 mg IM Q4H PRN (Reason: anaphylaxis) Qty: 2 0RF lorazepam [Ativan] 0.5 mg tablet 0.5 mg PO TID PRN (Reason: anxiety) Qty: 7 0RF clonazepam [Klonopin] 1 mg tablet 1 mg PO BEDTIME PRN (Reason: Anxiety) (DME) miscellaneous medical supply Misc See Rx Instructions .Route Qty: 1 0RF Rx Instructions: As directed Referrals: Robe Montano MD [Primary Care Provider] - 07/20/24 Print Language: Czech
[2024-07-18 13:52] LABS: Troponin-I High Sensitivity < 2.7 ng/L (<3.5-17.0)
[2024-07-18] MEDS: iohexoL 350 MG/ML 100 ML INFUS..BTL IV (14:25)
[2024-07-18 14:43] VITALS: BP 147/74; PULSE 72; RESP 14; TEMP 36.3; O2SAT 99
[2024-07-18 15:50] VITALS: BP 147/74; PULSE 72; RESP 14; TEMP 36.3; O2SAT 99
== END 2024-07-18 15:50 | disposition home or self-care (01) ==
PROVIDERS: Physician Assistant Medical; Emergency Provider Emergency Medicine Emergency Medical Services; PCP Internal Medicine
DX: M79.604 Pain in right leg (principal); I10 Essential (primary) hypertension; K21.9 Gastro-esophageal reflux disease without esophagitis; R20.0 Anesthesia of skin; R07.89 Other chest pain; M79.89 Other specified soft tissue disorders; Z79.899 Other long term (current) drug therapy
CPT/HCPCS: 36415; 70450; 70496; 70498; 80053; 83735; 84484; 85025; 93005; 93971; 99284; Q9967

== ENCOUNTER → 2024-07-18 11:22 | Outpatient (BNV) | payer MEDICAID, SELFPAY | PROVIDERS: Emergency Provider Emergency Medicine Emergency Medical Services; PCP Internal Medicine; Visit Provider Radiology Diagnostic Radiology | DX: R20.1 Hypoesthesia of skin (principal); R29.810 Facial weakness; R22.41 Localized swelling, mass and lump, right lower limb; M79.604 Pain in right leg | CPT/HCPCS: 93971 ==

== ENCOUNTER → 2024-07-18 12:46 | Outpatient (BNV) | payer MEDICAID, SELFPAY | PROVIDERS: Emergency Provider Emergency Medicine Emergency Medical Services; PCP Internal Medicine; Visit Provider Internal Medicine Cardiovascular Disease | DX: R07.89 Other chest pain (principal) | CPT/HCPCS: 93010 ==

== ENCOUNTER → 2024-07-24 08:12 | Outpatient (BNV) | payer MEDICAID, SELFPAY | PROVIDERS: PCP Internal Medicine; Referring Provider Internal Medicine; Visit Provider Internal Medicine | DX: R23.3 Spontaneous ecchymoses (principal) | CPT/HCPCS: 99203 ==

== ENCOUNTER 2024-09-20 09:31 | Outpatient (AMB) | payer MEDICAID, SELFPAY ==
[2024-09-20 09:35] VITALS: BMI 32.4
--- NOTE | 2024-09-20 09:35 | A.OFFVIS_ITS ---
Vital Signs 09/20/24 09:35 Height 5 ft 4 in Weight 189 lb BMI 32.4 Intake Visit Reasons: Inj-Bilateral Knee Euflexxa #1 Intake Note: Roz is a 59 year old female who presents today for her first bilateral knee Euflexxa injection. She describes her knee pains as sharp in nature. She has had cortisone injections which gave her minimal relief. She has also had viscosupplementation injections in the past which gave her good relief. She wishes to hold off on surgery if at all possible. She has failed the last 3 months of conservative treatment which has included physical therapy exercises, a home exercise program, Tylenol and anti-inflammatory medicines. Allergies morphine [Morphine] Allergy (Intermediate, Verified 09/20/24 09:35) HIVES Medication List - Last Reconciled 09/20/24 by Vipul Mcdowell MD albuterol sulfate 90 mcg/actuation 2 inhalations inhalation Q4-6H PRN benzonatate 200 mg PO TID PRN betamethasone dipropionate 0.05% 1 appl topical BID cholecalciferol (vitamin D3) (Vitamin D3) 25 mcg PO DAILY clonazepam (Klonopin) 1 mg PO BEDTIME PRN commode (bedside commode) commode with handels epinephrine (EpiPen) 0.3 mg (0.3 mL) IM Q4H PRN ibuprofen 800 mg PO Q8H PRN lidocaine 5% (Lidoderm) 1 patch topical DAILY PRN MDD remove after 12 hours lorazepam (Ativan) 0.5 mg PO TID PRN metoprolol succinate ER 100 mg PO DAILY miscellaneous medical supply As directed omeprazole 1 cap PO DAILY PRN walker Folding front wheeled walker [facility] Medical History Hematoma Colon cancer screening Morbid obesity GERD (gastroesophageal reflux disease) Lumbar radiculopathy, right Chronic back pain Depression Anxiety Hypertension Surgical History Hematoma History of total right hip replacement Hx of dilation and curettage History of hip surgery History of lumbar surgery History of colonoscopy History of tubal ligation Fusion of lumbar spine Family History Father Suicide Mother Heart disease Diabetes CVD (cardiovascular disease) Maternal Grandmother Heart disease Maternal Grandfather Diabetes Maternal Aunt Heart disease Maternal Uncle Heart disease Social History (Updated 07/24/24 @ 08:28 by Ashley Jensen) Household Members: Spouse Housing: Apartment Are you a primary child care worker to a significant other at home: No Do you presently have visiting nurse or other home services: No Alcohol intake: never Patient Tobacco Use Status: Former Tobacco user Tobacco use type: Cigarette Substance Use Type: Marijuana service: No Current occupational status: disabled Current occupation: right handed Female Reproductive History Menstrual Age of Menarche: 12 Date of menopause: 05/04/22 Physical Exam Vital Signs: BMI result Body Mass Index 32.4 Const Other: Well-nourished well-developed very friendly female awake alert and oriented x3 in no acute distress Extrem Other: Bilateral lower extremity examination shows good capillary refill, no skin lesions noted, normal sensation light touch Bilateral knee examination shows minimal effusions, palpable crepitus with range of motion, pain with range of motion, no instability Office Procedures AMB Joint Injection/Aspiration Joint Injection/Aspiration Primary Site: left knee Prep: site was prepped using aseptic technique Injected: 20 mg of (Euflexxa viscosupplementation) and 1% plain lidocaine Procedure: The patient tolerated the procedure well Coding 19059 - Large joint Procedure code (CPT) selection complete AMB Joint Injection/Aspiration Joint Injection/Aspiration Primary Site: right knee Prep: site was prepped using aseptic technique Injected: 20 mg of (Euflexxa viscosupplementation) and 1% plain lidocaine Procedure: The patient tolerated the procedure well Coding 72928 - Large joint Procedure code (CPT) selection complete Results Reviewed Results Reviewed: X-rays of the patient's bilateral knee show joint space narrowing, subchondral sclerosis, no acute bony abnormalities Assessment & Plan Assessment & Plan (1) Osteoarthritis of left knee: Code(s): M17.12 - Unilateral primary osteoarthritis, left knee Category: Medical (2) Osteoarthritis of right knee: Code(s): M17.11 - Unilateral primary osteoarthritis, right knee Category: Medical Plan Ms. Mars presents with bilateral knee pains due to osteoarthritis. The risks and benefits of bilateral knee Euflexxa injections were discussed at length with the patient. The patient wished to proceed. She tolerated the 1st set of injections well. She will continue with her activity modifications. She will follow up next week as scheduled. Feel free to call me at any time should questions regarding her orthopedic management arise. I spent 20 minutes in reviewing the patient's records and imaging studies, seeing the patient and documenting in the medical record. Orders: Orders AMB Joint Injection/Aspiration Today M17.11 - Unilateral primary osteoarthritis, right knee AMB Joint Injection/Aspiration Today M17.12 - Unilateral primary osteoarthritis, left knee Coding Level of Care Code Est Pt Level 3 (13902) Complex EM visit Add On G2211 Diagnoses Osteoarthritis of left knee M17.12 Osteoarthritis of right knee M17.11 CPT Codes Coding - 37095 Large joint: 99822 - Large joint ([id number]) Coding - 69704 Large joint: 23724 - Large joint ([id number])
--- OUTSIDE RECORDS SUMMARY | 2024-09-20 10:47 | XMS_ITS | Clinical Summary ---
Author Organization [facility] ity Address [address] [place] [address] Care Team Providers Care Die Operator Name Role Phone Suzanne Patel MD Primary Care Provider [phone] Social History Tobacco Use Types Packs/Day Years Used Date Smoking Tobacco: Never Assessed Comments Unknown Sex and Gender Information Value Date Recorded Sex Assigned at Not on file Legal Sex Female 4:36 AM EST Gender Identity Not on file Sexual Orientation Not on file Plan of Treatment Upcoming Encounters Date Type Department Care Team (Late st Contact Info) Description 10/03/2024 7:30 AM EDT Appointment [facility] [address] [address] Health Maintenance Due Date Last Done Comments DTaP,Tdap,and Td Vaccines (1 - Tdap) 1986 Hepatitis B Vaccines (1 of 3 - 19+ 3-dose series) 1986 Cervical Cancer Screening: P ap Smear 1988 Pneumococcal Vaccine: 50+ Years (1 of 1 - PCV) 2017 Zoster Vaccines (1 of 2) 2017 Colorectal Cancer Screening: Colonoscopy 04/15/2022 Depression Screening 04/15/2022 HIV Screening 04/15/2022 Hepatitis C Screening 04/15/2022 Social Influencers of Health Screening 04/15/2022 Breast Cancer Screening 12/25/2023 12/25/19 22, 09/25/2020, 07/06/2019 COVID-19 Vaccine (2023-2 5 season) 2024 Influenza Vaccine (Season Ended) 2025 HIB Vaccines Aged Out No longer eligi [...] on patient's age to complete this topic MMR Vaccines Aged Out No longer eligi ble based on patient's age to complete this topic Meningococcal ACWY Vaccine Aged Out N o longer eligible based on patient's age to complete this topic Meningococcal B Vaccine Aged Out No l onger eligible based on patient's age to complete this topic Pneumococcal Vaccine: Pediatrics (0 to 5 Years) and At-Risk Patients (6 to 64 Years) Aged Out No longer eligible b ased on patient's age to complete this topic RSV Immunization Patients Under 20 months Aged Out No longer eligible b ased on patient's age to complete this topic Varicella Vaccines Aged Out No longer eligible based on patient's age to complete this topic Procedures Procedure Name Priority Date/Time Associated Diagnosis Comments [facility] SCREENING DIGITAL Routine 12/24/2021 5:15 PM EDT Encounter for screening mammogram for malignant neoplasm of breast from Last 3 Months or Most Recently Relevant to Health Maintenance Results * [facility] SCREENING DIGITAL (12/24/2021 5:15 PM EDT) Anatomical Region Laterality Modality Mammography 12/24/2021 10:5 4 AM EDT Narrative 12/24/2021 5:15 PM EDT [facility] Diagnostic Imaging Department [address] [place] [address] Patient: ??HILARIO MARS ?/Age/Sex: 1965 - 56 - F Unit#: ??[id number] ? Location/Status: ??SPDIMAM/REG CLI ? Mnemonic/Ordering Site: ??DIGSC/SPMAM Ordering Physician: ??SUZANNE PATEL MD Gladys Screening Digital - 12/24/21 - 1113 History: Bilateral breast cancer screening. ??Family history breast cancer affecting maternal cousin in her 50s. Technique: Bilateral digital mammography. Conventional CC and MLO projections with tomosynthesis MLO views and computer-aided detection. Comparison: [facility] 09/25/2020 through 03/24/2004. Findings: Breast tissue is mostly ??fatty replaced (category A density) (as calculated by [employer] software). There is no suspicious group of microcalcification, no suspicious mass, architectural distortion or suspicious change in breast tissue density. Impression: ??No evidence of malignancy. BIRADS category 1, negative examination, 3341F 14713, 39201 Note: Patient information entered ??into a reminder system with a target due date for the next mammogram; PQRI II 7096N Dictating Physician: ??KHRIS BLANCO MD Electronically Signed by: ??KHRIS BLANCO MD Dic Date/Time: ??12/24/211711 Sign date/Time: ??12/24/21 171 Procedure Note Khris Blanco MD - 04/22/2022 [facility] Diagnostic Imaging Department [address] [place] [id number] Patient: MARSHILARIO/Age/Sex: 1965 - 56 - F Unit#: [id number] Location/Status: [facility] CLI Mnemonic/Ordering Site: [facility] Ordering Physician: SUZANNE PATEL MD Gladys Screening Digital - 12/24/21 - 1113 History: Bilateral breast cancer screening. Family history breastcancer affecting maternal cousin in her 50s. Technique: Bilateral digital mammography. Conventional CC and MLOprojections with tomosynthesis MLO views and computer-aided detection. Comparison: [facility] 09/25/2020 through 03/24/2004. Findings: Breast tissue is mostly fatty replaced (category A density) (ascalculated by [employer] software). There is no suspicious group of microcalcification, no suspicious mass, architectural distortion or suspicious change in breast tissue density. Impression: No evidence of malignancy. BIRADS category 1, negative examination, 3341F 22183, 19531 Note: Patient information entered into a reminder system with a targetdue date for the next mammogram; PQRI II 7031F Dictating Physician: KHRIS BLANCO MD Electronically Signed by: KHRIS BLANCO MD Dic Date/Time: 12/24/211711 Sign date/Time: 12/24/211714 Suzanne Patel MD IMG BI PROCEDURES Final Result from Last 3 Months or Most Recently Relevant to Health Maintenance Care Teams Die Operator Relationship Specialty Start Date End Date Suzanne Patel MD [address] [place] [id number] PCP - General Internal Medicine 09/18/24
--- OUTSIDE RECORDS SUMMARY | 2024-09-20 10:47 | XMS_ITS | Clinical Summary ---
Author Organization [employer] Address [address] [facility] [address] [place] [address] Care Team Providers Care Bleach Boiler Packer Name Role Phone Unavailable Primary Care Provider Unavailabl e Immunizations Immunization Administration Dates Next Due Influenza Injectable Quadriv [...] Panel 1965 SDOH Screening 1965 Sigmoidoscopy 1965 Disability Screening 1965 Alcohol/Substance Use Screening 1979 Tobacco Screening 1979 Hepatitis C Screening 1985 Hepatitis B Vaccines (1 of 3 - 19+ 3-dose series) 1986 Pap Smear 1988 Cervical Cancer Screening 1997 HPV/Cotest 1997 Mammogram 2007 Pneumococcal Vaccine: 50+ Years (1 of 1 - PCV) 2017 COVID-19 Vaccine (6 - season) 2024 02/09/2023, 09/09/2021, 03/16/2021, Additional history [...] patient's age to complete this topic Insurance [facility] [place] [phone]
== END 2024-09-20 10:00 | disposition home or self-care (01) ==
LOC: HO.HOS 09:32
PROVIDERS: PCP Internal Medicine; Visit Provider Orthopaedic Surgery
DX: M17.0 Bilateral primary osteoarthritis of knee (principal)
CPT/HCPCS: 20610; 99213

== ENCOUNTER → 2024-09-20 09:31 | Outpatient (BNVA) | payer MEDICAID, SELFPAY | PROVIDERS: PCP Internal Medicine; Visit Provider Orthopaedic Surgery | DX: M17.0 Bilateral primary osteoarthritis of knee (principal) | CPT/HCPCS: 20610; 99212; J2003; J7323 ==

== ENCOUNTER 2024-09-27 09:23 | Outpatient (AMB) | payer MEDICAID, SELFPAY ==
--- NOTE | 2024-09-27 09:29 | A.OFFVIS_ITS ---
Vital Signs 09/27/24 09:32 Height 5 ft 4 in Weight 189 lb BMI 32.4 Intake Visit Reasons: Bilateral knee pains Intake Note: Roz is a 59 year old female who presents today for their second dose of bilateral knee Euflexxa injections. She states that she has gotten mild relief from the 1st set of injections. She continues with her home exercise program. Allergies morphine [Morphine] Allergy (Intermediate, Verified 09/27/24 09:33) HIVES Medication List - Last Reconciled 09/27/24 by Vipul Mcdowell MD albuterol sulfate 90 mcg/actuation 2 inhalations inhalation Q4-6H PRN cholecalciferol (vitamin D3) (Vitamin D3) 25 mcg PO DAILY clonazepam (Klonopin) 1 mg PO BEDTIME PRN commode (bedside commode) commode with handels epinephrine (EpiPen) 0.3 mg (0.3 mL) IM Q4H PRN ibuprofen 800 mg PO Q8H PRN lidocaine 5% (Lidoderm) 1 patch topical DAILY PRN MDD remove after 12 hours lorazepam (Ativan) 0.5 mg PO TID PRN metoprolol succinate ER 100 mg PO DAILY miscellaneous medical supply As directed omeprazole 1 cap PO DAILY PRN walker Folding front wheeled walker [facility] Medical History Hematoma Colon cancer screening Morbid obesity GERD (gastroesophageal reflux disease) Lumbar radiculopathy, right Chronic back pain Depression Anxiety Hypertension Surgical History Hematoma History of total right hip replacement Hx of dilation and curettage History of hip surgery History of lumbar surgery History of colonoscopy History of tubal ligation Fusion of lumbar spine Family History Father Suicide Mother Heart disease Diabetes CVD (cardiovascular disease) Maternal Grandmother Heart disease Maternal Grandfather Diabetes Maternal Aunt Heart disease Maternal Uncle Heart disease Social History (Updated 07/24/24 @ 08:28 by Ashley Jensen) Household Members: Spouse Housing: Apartment Are you a primary vehicle care specialist to a significant other at home: No Do you presently have visiting nurse or other home services: No Alcohol intake: never Patient Tobacco Use Status: Former Tobacco user Tobacco use type: Cigarette Substance Use Type: Marijuana service: No Current occupational status: disabled Current occupation: right handed Female Reproductive History Menstrual Age of Menarche: 12 Date of menopause: 05/04/22 Physical Exam Vital Signs: BMI result Body Mass Index 32.4 Extrem Other: Bilateral knee examination shows minimal effusions, palpable crepitus with range of motion, pain with range of motion, no instability Office Procedures AMB Joint Injection/Aspiration Joint Injection/Aspiration Primary Site: left knee Prep: site was prepped using aseptic technique Injected: 20 mg of (Euflexxa viscosupplementation) and 1% plain lidocaine Procedure: The patient tolerated the procedure well Coding 03483 - Large joint Procedure code (CPT) selection complete AMB Joint Injection/Aspiration Joint Injection/Aspiration Primary Site: right knee Prep: site was prepped using aseptic technique Injected: 20 mg of (Euflexxa viscosupplementation) and 1% plain lidocaine Procedure: The patient tolerated the procedure well Coding - Large joint Procedure code (CPT) selection complete Assessment & Plan Assessment & Plan (1) Osteoarthritis of left knee: Code(s): M17.12 - Unilateral primary osteoarthritis, left knee Category: Medical (2) Osteoarthritis of right knee: Code(s): M17.11 - Unilateral primary osteoarthritis, right knee Category: Medical Plan Ms. Mars presents with bilateral knee pains due to osteoarthritis. The risks and benefits of a 2nd set of Euflexxa injections were discussed at length with the patient. The patient wished to proceed. She tolerated the injections well. She will continue with her home exercise program. She will follow up next week as scheduled. Feel free to call me at any time should questions regarding her orthopedic management arise. Orders: Orders AMB Joint Injection/Aspiration Today M17.12 - Unilateral primary osteoarthritis, left knee AMB Joint Injection/Aspiration Today M17.11 - Unilateral primary osteoarthritis, right knee Coding Level of Care Code Procedure Only Diagnoses Osteoarthritis of left knee M17.12 Osteoarthritis of right knee M17.11 CPT Codes Coding - 60252 Large joint: 16657 - Large joint ([id number]) Coding - 24750 Large joint: 64732 - Large joint ([id number])
[2024-09-27 09:32] VITALS: BMI 32.4
--- OUTSIDE RECORDS SUMMARY | 2024-09-27 10:03 | XMS_ITS | Clinical Summary ---
Author Organization [employer] Address [address] [facility] [address] [place] [address] Care Team Providers Care Show Host Or Hostess Name Role Phone Unavailable Primary Care Provider [...] patient's age to complete this topic Insurance [facility] [place] [phone]
== END 2024-09-27 10:01 | disposition home or self-care (01) ==
LOC: HO.HOS 09:24
PROVIDERS: PCP Internal Medicine; Visit Provider Orthopaedic Surgery
DX: M17.0 Bilateral primary osteoarthritis of knee (principal)
CPT/HCPCS: 20610

== ENCOUNTER → 2024-09-27 09:23 | Outpatient (BNVA) | payer MEDICAID, SELFPAY | PROVIDERS: PCP Internal Medicine; Visit Provider Orthopaedic Surgery | DX: M17.0 Bilateral primary osteoarthritis of knee (principal) | CPT/HCPCS: 20610; J2003; J7323 ==

== ENCOUNTER 2024-10-04 09:47 | Outpatient (AMB) | payer MEDICAID, SELFPAY ==
[2024-10-04 09:50] VITALS: BMI 32.4
--- NOTE | 2024-10-04 09:50 | A.OFFVIS_ITS ---
Vital Signs 10/04/24 09:50 Height 5 ft 4 in Weight 189 lb BMI 32.4 Intake Visit Reasons: Inj-Bilateral Knee Euflexxa #3 Intake Note: Roz is a 59 year old male who presents today for her 3rd dose of bilateral knee Euflexxa injections. She states that she has gotten mild relief from the 1st 2 sets of injections. She continues with her home exercise program. Allergies morphine [Morphine] Allergy (Intermediate, Verified 10/04/24 09:50) HIVES Medication List - Last Reconciled 10/04/24 by Vipul Mcdowell MD albuterol sulfate 90 mcg/actuation 2 inhalations inhalation Q4-6H PRN cholecalciferol (vitamin D3) (Vitamin D3) 25 mcg PO DAILY clonazepam (Klonopin) 1 mg PO BEDTIME PRN commode (bedside commode) commode with handels epinephrine (EpiPen) 0.3 mg (0.3 mL) IM Q4H PRN ibuprofen 800 mg PO Q8H PRN lidocaine 5% (Lidoderm) 1 patch topical DAILY PRN MDD remove after 12 hours lorazepam (Ativan) 0.5 mg PO TID PRN metoprolol succinate ER 100 mg PO DAILY miscellaneous medical supply As directed omeprazole 1 cap PO DAILY PRN walker Folding front wheeled walker FOR[facility]LY [facility], [facility] Medical History Hematoma Colon cancer screening Morbid obesity GERD (gastroesophageal reflux disease) Lumbar radiculopathy, right Chronic back pain Depression Anxiety Hypertension Surgical History Hematoma History of total right hip replacement Hx of dilation and curettage History of hip surgery History of lumbar surgery History of colonoscopy History of tubal ligation Fusion of lumbar spine Family History Father Suicide Mother Heart disease Diabetes CVD (cardiovascular disease) Maternal Grandmother Heart disease Maternal Grandfather Diabetes Maternal Aunt Heart disease Maternal Uncle Heart disease Social History (Updated 07/24/24 @ 08:28 by Ashley Jensen) Household Members: Spouse Housing: Apartment Are you a primary career development manager to a significant other at home: No Do you presently have visiting nurse or other home services: No Alcohol intake: never Patient Tobacco Use Status: Former Tobacco user Tobacco use type: Cigarette Substance Use Type: Marijuana service: No Current occupational status: disabled Current occupation: right handed Female Reproductive History Menstrual Age of Menarche: 12 Date of menopause: 05/04/22 Physical Exam Vital Signs: BMI result Body Mass Index 32.4 Extrem Other: Bilateral lower extremity examination shows good capillary refill, no skin lesions noted, normal sensation light touch Bilateral knee examination shows minimal effusions, palpable crepitus with range of motion, pain with range of motion, no instability Office Procedures AMB Joint Injection/Aspiration Joint Injection/Aspiration Primary Site: left knee Prep: site was prepped using aseptic technique Injected: 20 mg of (Euflexxa viscosupplementation) and 1% plain lidocaine Procedure: The patient tolerated the procedure well Coding - Large joint Procedure code (CPT) selection complete AMB Joint Injection/Aspiration Joint Injection/Aspiration Primary Site: right knee Prep: site was prepped using aseptic technique Injected: 20 mg of (Euflexxa viscosupplementation) and 1% plain lidocaine Procedure: The patient tolerated the procedure well Coding 30115 - Large joint Procedure code (CPT) selection complete Results Reviewed Results Reviewed: X-rays of the patient's bilateral knees taken previously show joint space narrowing, subchondral sclerosis, no acute bony abnormalities Assessment & Plan Assessment & Plan (1) Osteoarthritis of left knee: Code(s): M17.12 - Unilateral primary osteoarthritis, left knee Category: Medical (2) Osteoarthritis of right knee: Code(s): M17.11 - Unilateral primary osteoarthritis, right knee Category: Medical Plan Ms. Mars presents with bilateral knee pains due to osteoarthritis. The risks and benefits of a 3rd set of Euflexxa viscosupplementation injections were discussed at length with the patient. The patient wished to proceed. She tolerated the injections well. She will continue with her home exercise program. She will contact me prior to her follow-up appointment in 3 months should any questions or concerns arise. Feel free to call me at any time should questions regarding her orthopedic management arise. Orders: Orders AMB Joint Injection/Aspiration Today M17.12 - Unilateral primary osteoarth ritis, left knee AMB Joint Injection/Aspiration Today M17.11 - Unilateral primary osteoarthritis, right knee Coding Level of Care Code Procedure Only Diagnoses Osteoarthritis of left knee M17.12 Osteoarthritis of right knee M17.11 CPT Codes Coding - Large joint: 09288 - Large joint ([id number]) Coding - 55976 Large joint: 58584 - Large joint ([id number])
--- OUTSIDE RECORDS SUMMARY | 2024-10-04 10:19 | XMS_ITS | Encounter Summary ---
Author Organization [facility] Address [address] [place] [address] Care Team Providers Care Blocklayer Name Role Phone Robe Montano MD Primary Care Provider [phone] Reason for Referral * Imaging (Routine) - Pending Review Specialty Diagnoses / Procedures Referred By Yu mendoza Referred To Contact Radiology Diagnoses Mastodynia Procedures [facility]ammo Digital Diagnostic w Linnea Jaquez PA [address] [place] [address] Phone: tel: fax: [address] [address] Phone: tel: Referral ID Status Reason Start Date Expiration Date V isits Requested Visits Authorized [id number] Pending Review 09/18/2024 09/18/2025 1 1 Reason for Visit * Imaging (Routine) - Pending Review Specialty Diagnoses / Procedures Referred By Yu mendoza Referred To Contact Radiology Diagnoses Mastodynia Procedures [facility] Mammo Digital Diagnostic w Linnea Jaquez PA [address] [place], [place] Phone: tel: fax: [address] [phone] Phone: tel: Referral ID Status Reason Start Date Expiration Date V isits Requested Visits Authorized [id number] Pending Review 09/18/2024 09/18/2025 1 1 Encounter Details Date Type Department Care Team (Latest Contact Info) Description 10/03/2024 7:20 AM EDT - 10/03/2024 11:59 PM EDT Hospital [facility] at [address] [phone] Mastodynia Discharge Disposition: Home or Self Care Social History Tobacco Use Types Packs/Day Years Used Date Smoking Tobacco: Never Assessed Comments No Sex and Gender Information Value Date Recorded Sex Assigned at Not on file Legal Sex Female 4:36 AM EST Gender Identity Not on file Sexual Orientation Not on file documented as of this encounter Last Filed Vital Signs Vital Sign Reading Time Taken Comments Blood Pressure - - Pulse - - Temperature - - Respiratory Rate - - Oxygen Saturation - - Inhaled Oxygen Concentration - - Weight 80.7 kg (178 lb) 10/03/2024 7:48 AM EDT Height 162.6 cm (5' 4 ) 10/03/2024 7:48 AM EDT Body Mass Index 30.55 10/03/2024 7:48 AM EDT documented in this encounter Discharge Disposition Disposition Code Departure Means Destination Home or Self Care documented in this encounter Plan of Treatment Not on file documented as of this encounter Procedures Procedure Name Priority Date/Time Associated Diagnosis Comments MG MAMMO DIGITAL DIAGNOSTIC W EDI BILAT Routine 10/03/2024 9:40 AM EDT Mastodynia documented in this encounter Results * [facility] Mammo Digital Diagnostic w Edi bilat (10/03/2024 9:40 AM EDT) Anatomical Region Laterality Modality Breast Bilateral Mammography 10/03/2024 8:04 AM EDT Impressions 10/03/2024 8:08 AM EDT No mammographic evidence of malignancy. TISSUE DENSITY: The breasts are almost entirely fatty. (BI-RADS ??Category A) IMPRESSION: Benign. BI-RADS CATEGORY: 1 - NEGATIVE RECOMMENDATION: Screening bilateral mammogram is recommended in 1 year. Mammo Location: [facility], [address] [place] [id number] -------- FINAL REPORT -------- Dictated By: Murphy Echeverria Dictated Date: 10/03/2024 08:04 ET Assigned Physician: Murphy Echeverria Reviewed and Electronically Signed By: Murphy Echeverria Signed Date: 10/03/2024 08:08 ET Workstation ID: [id number] Transcribed By: Self Edit Transcribed Date: 10/03/2024 08:04 ET Narrative 10/03/2024 8:08 AM EDT CLINICAL: The patient is a 59 years Female with pain at the lateral aspect of left breast for 2 weeks. ??The patient also presents for routine mammography of the right breast. COMPARISON: Most recently 12/24/2021 and most remotely 07/06/2019. ?? TECHNIQUE: Full-field digital mammography of the breasts bilaterally consisting of tomosynthesis in MLO and CC projection is performed in the [facility] 2000-D unit. ??Computer aided detection utilizing the [employer] system was utilized. FINDINGS: The breasts are again seen to be largely fatty replaced. ??There is no cluster of microcalcifications, mass, or area of architectural distortion. There is no skin thickening or nipple retraction. Procedure Note Murphy Echeverria MD - 10/03/2024 CLINICAL: The patient is a 59 years Female with pain at the lateral aspectof left breast for 2 weeks. The patient also presents for routinemammography of the right breast. COMPARISON: Most recently 12/24/2021 and most remotely 07/06/2019. TECHNIQUE: Full-field digital mammography of the breasts bilaterallyconsisting of tomosynthesis in MLO and CC projection [facility]. Computer aided detection utilizing the iCADsystem was utilized. FINDINGS: The breasts are again seen to be largely fatty replaced. Thereis no cluster of microcalcifications, mass, or area of architecturaldistortion. There is no skin thickening or nipple retraction. IMPRESSION: No mammographic evidence of malignancy. TISSUE DENSITY: The breasts are almost entirely fatty. (BI-RADS CategoryA) IMPRESSION: Benign. BI-RADS CATEGORY: 1 - NEGATIVE RECOMMENDATION: Screening bilateral mammogram is recommended in 1 year. Mammo Location: [facility], [address] [place] [address] -------- FINAL REPORT -------- Dictated By: Murphy Echeverria Dictated Date: 10/03/2024 08:04 ET Assigned Physician: Murphy Echeverria Reviewed and Electronically Signed By: Murphy Echeverria Signed Date: 10/03/2024 08:08 ET Workstation ID: [id number] Transcribed By: Self Edit Transcribed Date: 10/03/2024 08:04 ET Robe Montano MD IMG BI PROCEDURES Final Result documented in this encounter Visit Diagnoses Diagnosis Mastodynia documented in this encounter Care Teams Blocklayer Relationship Specialty Start Date End Date Robe Montano MD [address] [place] [address] PCP - General Internal Medicine 09/18/24 documented as of this encounter
== END 2024-10-04 10:13 | disposition home or self-care (01) ==
LOC: HO.HOS 09:47
PROVIDERS: PCP Internal Medicine; Visit Provider Orthopaedic Surgery
DX: M17.0 Bilateral primary osteoarthritis of knee (principal)
CPT/HCPCS: 20610

== ENCOUNTER → 2024-10-04 09:47 | Outpatient (BNVA) | payer MEDICAID, SELFPAY | PROVIDERS: PCP Internal Medicine; Visit Provider Orthopaedic Surgery | DX: M17.0 Bilateral primary osteoarthritis of knee (principal) | CPT/HCPCS: 20610; J2003; J7323 ==

== ENCOUNTER 2024-12-02 10:35 | Emergency (ER) | payer MEDICAID, SELFPAY ==
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
[2024-12-02 10:41] VITALS: BP 204/91; PULSE 103; RESP 18; TEMP 36.6; O2SAT 98; BMI 30.5
--- NOTE | 2024-12-02 10:58 | PC.NURSE ---
Pt given number for [employer] hotline.
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
--- OUTSIDE RECORDS SUMMARY | 2024-12-02 11:31 | XMS_ITS | Clinical Summary ---
Author Organization [facility] Address [address] [place] [address] Phone Care Team Providers Care Forging Machine Hand Name Role Phone Robe Montano MD Primary Care Provider [phone] Encounters Date Type Department Care Team Description 10/03/2024 7:20 AM EDT - 10/03/2024 11:59 PM EDT [facility] [address] [id number] Mastodynia Discharge Disposition: Home or Self Care from Last 3 Months Social History Tobacco Use Types Packs/Day Years Used Date Smoking Tobacco: Never Assessed Comments No Sex and Gender Information Value Date Recorded Sex Assigned at Not on file Legal Sex Female 4:36 AM EST Gender Identity Not on file Sexual Orientation Not on file Obstetrics History Para Term AB IAB SAB Ectopic Multiple Livin g Live Births 4 Last Filed Vital Signs Vital Sign Reading Time Taken Comments Blood Pressure - - Pulse - - Temperature - - Respiratory Rate - - Oxygen Saturation - - Inhaled Oxygen Concentration - - Weight 80.7 kg (178 lb) 10/03/2024 7:48 AM EDT Height 162.6 cm (5' 4 ) 10/03/2024 7:48 AM EDT Body Mass Index 30.55 10/03/2024 7:48 AM EDT Plan of Treatment Health Maintenance Due Date Last Done Comments Hepatitis B Vaccines (1 of 3 - 19+ 3-dose series) 1986 Cervical Cancer Screening: Pap Smear 1988 Pneumococcal Vaccine: 50+ Years (1 of 1 - PCV) 2017 Colorectal Cancer Screening: Colonoscopy 04/15/2022 HIV Screening 04/15/2022 Hepatitis C Screening 04/15/2022 Social Influencers of Health Screening 04/15/2022 Depression Screening 05/03/2024 Influenza Vaccine (#1) 2025 , 02/09/2023, 01/24/2022, Additional history exists Breast Cancer Screening 10/03/2026 10/04/19 25, 12/24/2021, 09/25/2020, Additional history exists DTaP,Tdap,and Td Vaccines (7 - Td or Tdap) 09/02/2033 09/03/2023, 09/03/2023, 10/27/2022, Additional history exists Zoster Vaccines Completed 10/28/2021, 08/21/2021 COVID-19 Vaccine Completed 02/15/2024, 01/2023, 02/17/2022, Additional history exists HIB Vaccines Aged Out [...] 20 months Aged Out No longer eligible based on patient's age to complete this topic Varicella Vaccines Aged Out No longer eligible based on patient's age to complete this topic Procedures Procedure Name Priority Date/Time Associated Diagnosis Comments MG MAMMO DIGITAL DIAGNOSTIC W EDI BILAT Routine 10/03/2024 9:40 AM EDT Mastodynia from Last 3 Months Results * MG Mammo Digital Diagnostic w Edi bilat (10/03/2024 9:40 AM EDT) Anatomical Region Laterality Modality Breast Bilateral Mammography 10/03/2024 8:04 AM EDT Impressions 10/03/2024 8:08 AM EDT No mammographic evidence of malignancy. TISSUE DENSITY: The breasts are almost entirely fatty. (BI-RADS Category A) IMPRESSION: Benign. BI-RADS CATEGORY: 1 - NEGATIVE RECOMMENDATION: Screening bilateral mammogram is recommended in 1 year. Mammo Location: [facility], [address] [place] [id number] -------- FINAL REPORT -------- Dictated By: Murphy Echeverria Dictated Date: 10/03/2024 08:04 ET Assigned Physician: Murphy Echeverria Reviewed and Electronically Signed By: Murphy Echeverria Signed Date: 10/03/2024 08:08 ET Workstation ID: [id number] Transcribed By: Self Edit Transcribed Date: 10/03/2024 08:04 ET Narrative 10/03/2024 8:08 AM EDT CLINICAL: The patient is a 59 years Female with pain at the lateral aspect of left breast for 2 weeks. The patient also presents for routine mammography of the right breast. COMPARISON: Most recently 12/24/2021 and most remotely 07/06/2019. TECHNIQUE: Full-field digital mammography of the breasts bilaterally consisting of tomosynthesis in MLO and CC projection is performed in the [employer] 2000-D unit. Computer aided detection utilizing the iCAD system was utilized. FINDINGS: The breasts are again seen to be largely fatty replaced. There is no cluster of microcalcifications, mass, or [...] MLO and CC projection is performed in the[employer] 2000-D unit. Computer aided detection utilizing the [...] is recommended in 1 year. Mammo Location: [facility], [address] [place] [id number] -------- FINAL REPORT -------- Dictated By: Murphy Echeverria Dictated Date: 10/03/2024 08:04 ET Assigned Physician: Murphy Echeverria Reviewed and Electronically Signed By: Murphy Echeverria Signed Date: 10/03/2024 08:08 ET Workstation ID: [id number] Transcribed By: Self Edit Transcribed Date: 10/03/2024 08:04 ET Robe Montano MD IMG BI PROCEDURES Final Result from Last 3 Months Insurance [employer] Care Teams Forging Machine Hand Relationship Specialty Start Date End Date Robe Montano MD [address] [place] [id number] PCP - General Internal Medicine 09/18/24
[2024-12-02] MEDS: Metoprolol Succinate ER 100 MG TAB.ER.24H PO (12:14)
[2024-12-02 12:30] VITALS: BP 172/81; PULSE 83; RESP 16; TEMP 37; O2SAT 100
[2024-12-02 14:59] VITALS: BP 165/89; PULSE 80; RESP 18; TEMP 36.2; O2SAT 100
[2024-12-02 15:17] VITALS: BP 165/89; PULSE 80; RESP 18; TEMP 36.2; O2SAT 100
== END 2024-12-02 15:17 | disposition home or self-care (01) ==
PROVIDERS: Emergency Provider Emergency Medicine; PCP Internal Medicine
DX: S00.03XA Contusion of scalp, initial encounter (principal); M25.511 Pain in right shoulder; R51.9 Headache, unspecified; R11.0 Nausea; R42 Dizziness and giddiness; H53.8 Other visual disturbances; Y04.8XXA Assault by other bodily force, initial encounter; Y93.9 Activity, unspecified; Y92.003 Bedroom of unspecified non-institutional (private) residence as the place of occurrence of the external cause; Y99.8 Other external cause status; Z79.899 Other long term (current) drug therapy
CPT/HCPCS: 70450; 73030; 99284

== ENCOUNTER → 2024-12-02 11:48 | Outpatient (BNV) | payer MEDICAID, SELFPAY | PROVIDERS: Emergency Provider Emergency Medicine; PCP Internal Medicine; Visit Provider Radiology Diagnostic Radiology | DX: S09.90XA Unspecified injury of head, initial encounter (principal); M19.011 Primary osteoarthritis, right shoulder | CPT/HCPCS: 70450; 73030 ==

== ENCOUNTER 2025-01-15 12:44 | Outpatient (AMB) | payer MEDICAID, SELFPAY ==
[2025-01-15 12:52] VITALS: BP 120/68; PULSE 78; BMI 30.6
--- NOTE | 2025-01-15 12:52 | MHC.OFFVIS ---
Vital Signs 01/15/25 12:52 Height 5 ft 4 in Weight 178 lb 9.191 oz BMI 30.6 BP 120/68 Blood Pressure Location Lt brachial Position Sitting Pulse 78 Pulse Source Pulse Oximeter Intake Visit Reasons: 2 year f/up bmc d/c Allergies morphine (Morphine) Allergy (Intermediate, Verified 12/02/24 10:43) HIVES Medication List - Last Reconciled 01/15/25 by Kodak Hernandez MD albuterol sulfate 90 mcg/actuation 2 inhalations inhalation Q4-6H PRN cholecalciferol (vitamin D3) (Vitamin D3) 25 mcg PO DAILY clonazepam (Klonopin) 0.5 mg PO BID commode (bedside commode) commode with handels epinephrine (EpiPen) 0.3 mg (0.3 mL) IM Q4H PRN ibuprofen 800 mg PO Q8H PRN lidocaine 5% (Lidoderm) 1 patch topical DAILY PRN MDD remove after 12 hours lorazepam (Ativan) 0.5 mg PO TID PRN metoprolol succinate ER 100 mg PO DAILY miscellaneous medical supply As directed omeprazole 1 cap PO DAILY PRN walker Folding front wheeled walker HPI Comments Details: Roz returns for follow-up. Last seen in 2022. At that time, she h had many complaints including chest pain, shortness of breath, heart racing and she underwent a comprehensive workup. More recently, it seems that she was at [facility] with a diagnosis of acute migraine. In that setting, it seems that her blood pressure was very high and she was started on amlodipine. However, in follow-up visits apparently blood pressure was low and the amlodipine has been stopped. Patient herself has no clear-cut history of coronary disease or myocardial infarction or cardiomyopathy. She states that she is feeling frequent episodes of chest fluttering that is bothering her. During these episodes, she also gets short of breath. [facility] Medical History (Updated 01/15/25 @ 13:12 by Kodak Hernandez MD) Hematoma Colon cancer screening Morbid obesity GERD (gastroesophageal reflux disease) Lumbar radiculopathy, right Chronic back pain Depression Anxiety Hypertension Surgical History Hematoma History of total right hip replacement Hx of dilation and curettage History of hip surgery History of lumbar surgery History of colonoscopy History of tubal ligation Fusion of lumbar spine Family History Father Suicide Mother Heart disease Diabetes CVD (cardiovascular disease) Maternal Grandmother Heart disease Maternal Grandfather Diabetes Maternal Aunt Heart disease Maternal Uncle Heart disease Social History Household Members: Spouse Housing: Apartment Are you a primary career services director to a significant other at home: No Do you presently have visiting nurse or other home services: No Alcohol intake: never Patient Tobacco Use Status: Former Tobacco user Tobacco use type: Cigarette Substance Use Type: Marijuana service: No Current occupational status: disabled Current occupation: right handed Female Reproductive History Menstrual Age of Menarche: 12 Date of menopause: 05/04/22 Review of Systems Const Reports headache(s) and Denies weakness Eyes Reports blurry vision ENT Denies dizziness and Reports headache(s) Card Denies chest pain, Denies chest pain with activity, Denies syncope, Denies rapid heart rate, Denies pedal edema, Denies edema, Denies leg edema, Denies lightheadedness, Reports palpitations, Reports dyspnea, Denies dyspnea on exertion and Denies orthopnea Resp Denies cough, Reports dyspnea and Denies dyspnea on exertion GI Denies hematochezia and Denies change in stool character Musc Reports abnormal gait, Denies muscle cramps, Denies muscle weakness, Denies numbness, Denies radiating pain into limb and Denies tingling Neuro Reports abnormal gait, Reports confusion, Denies dizziness, Denies syncope, Reports headache(s), Denies numbness, Denies tingling and Denies weakness Psych Reports confusion Endo Reports palpitations Physical Exam Vital Signs: Last Vital Signs Pulse 78 01/15/25 12:52 BP 120/68 01/15/25 12:52 BMI result Body Mass Index 30.6 Const General: confusion Orientation/consciousness: confusion HEENT Other: Unremarkable Head: Yes normal to inspection Neck Neck: Yes normal visual inspection Chest Chest palpation & inspection: normal inspection of the chest Resp Auscultation: clear to auscultation bilaterally Cardio Palpation: normal PMI Heart sounds: S1 normal heart sound present, S2 normal heart sound present, no gallops, no murmurs and no rubs GI Palpation (GI): Soft to palpation Back/Spine/Pelvis Other: unremarkable Skin General skin exam: no rashes or lesions noted Neuro General: confusion Extrem General: Yes normal to inspection Psych Mental Status: mental status grossly normal Assessment & Plan Assessment & Plan (1) Palpitations: Code(s): R00.2 - Palpitations Category: Medical (2) Hypertension: Code(s): I10 - Essential (primary) hypertension Category: Medical Qualifiers: Hypertension type: essential hypertension Qualified Code(s): I10 - Essential (primary) hypertension Plan Recent EKG with underlying sinus rhythm at 62/Min; no ischemic changes; normal VA and corrected QT. In a prior echocardiogram, LVEF is 63% with mild left ventricular hypertrophy. No significant valvular issues. Previously, Holter monitor had shown underlying sinus rhythm with rare supraventricular ectopy. Her heart racing symptoms correlated with supraventricular ectopy then. Due to complaints of frequent palpitations, we will repeat her Holter to look for any other arrhythmias like atrial fibrillation. Otherwise, with regard to blood pressure seems stable. Amlodipine has been started and stopped it no further changes today. With regard to beta-tan use, reviewed that EpiPen we will not be effective if it is needed. They understand that. She states she never had to use it before. Advised her to discuss that with her own PCP if med changes are needed. Orders: Orders ECG 3 day holter monitor Today R00.2 - Palpitations Coding Level of Care Code Est Pt Level 3 (06802) Diagnoses Palpitations R00.2 Essential hypertension I10 Hypertension type: essential hypertension
--- OUTSIDE RECORDS SUMMARY | 2025-01-15 17:28 | XMS_ITS | Clinical Summary ---
Author Organization [employer] Address [address] [facility] [address] [place] [address] Care Team Providers Care Fire Crew Specialist Name Role Phone Unavailable Primary Care Provider [...] PCV) 2017 COVID-19 Vaccine (6 - season) 2025 02/09/2023, 09/09/2021, 03/16/2021, Additional history exists Influenza Vaccine (#1) 2025 , 02/09/2023, 01/24/2022, Additional history exists DTaP/Tdap/Td Vaccines (6 - Td or Tdap) 09/02/2033 09/03/2023, 09/03/2023, 10/27/2022, Additional history exists RSV Patients and Patients Aged 60 years or older (1 - 1-dose 75+ series) 2042 Zoster Vaccines Completed 10/28/2021, 08/21/2021 HIB Vaccines Aged Out No longer eligi [...] patient's age to complete this topic Insurance [facility] [place] [id number]
--- OUTSIDE RECORDS SUMMARY | 2025-01-15 17:28 | XMS_ITS | Clinical Summary ---
Author Organization [facility] Address [address] [place] [address] Phone Care Team Providers Care Software Database Architect Name Role Phone Robe Montano MD Primary Care Provider [phone] Social History Tobacco Use Types Packs/Day Years [...] Depression Screening 05/03/2024 Influenza Vaccine (#1) 2025 4, 02/09/2023, 01/24/2022, Additional history exists Breast Cancer [...] AM EDT Mastodynia from Last 3 Months or Most Recently Relevant to Health Maintenance Results * MG Mammo Digital Diagnostic w Edi bilat (10/03/2024 9:40 AM EDT) Anatomical Region Laterality Modality Breast Bilateral Mammography 10/03/2024 8:04 AM EDT Impressions 10/03/2024 8:08 AM EDT No mammographic evidence of malignancy. TISSUE DENSITY: The breasts are almost entirely fatty. (BI-RADS Category A) IMPRESSION: Benign. BI-RADS CATEGORY: 1 - NEGATIVE RECOMMENDATION: Screening bilateral mammogram is recommended in 1 year. Mammo Location: [facility], [address] [place] [id number] -------- FINAL REPORT -------- Dictated By: Murphy Echeverria Dictated Date: 10/03/2024 08:04 ET Assigned Physician: Murphy Echeverria Reviewed and Electronically Signed By: Murphy Echeverria Signed Date: 10/03/2024 08:08 ET Workstation ID: [id number] Transcribed By: Self Edit Transcribed Date: 10/03/2024 [...] and CC projection is performed in the [employer]ize 2000-D unit. Computer aided detection utilizing the [...] MLO and CC projection is performed in the[employer]he 2000-D unit. Computer aided detection utilizing the [...] is recommended in 1 year. Mammo Location: [facility], [facility], [address] [place] [address] -------- FINAL REPORT -------- Dictated By: Murphy Echeverria Dictated Date: 10/03/2024 08:04 ET Assigned Physician: Murphy Echeverria Reviewed and Electronically Signed By: Murphy Echeverria Signed Date: 10/03/2024 08:08 ET Workstation ID: [id number] Transcribed By: Self Edit Transcribed Date: 10/03/2024 08:04 ET Robe Montano MD IMG BI PROCEDURES Final Result from Last 3 Months or Most Recently Relevant to Health Maintenance Insurance [facility] Care Teams Software Database Architect Relationship Specialty Start Date End Date Robe Montano MD [address] [place] [address] PCP - General Internal Medicine 09/18/24
== END 2025-01-15 13:22 | disposition home or self-care (01) ==
LOC: HO.HCS 12:45
PROVIDERS: PCP Internal Medicine; Visit Provider Internal Medicine
DX: R00.2 Palpitations (principal); I10 Essential (primary) hypertension
CPT/HCPCS: 99213

== ENCOUNTER → 2025-01-15 12:44 | Outpatient (BNVA) | payer MEDICAID, SELFPAY | PROVIDERS: PCP Internal Medicine; Visit Provider Internal Medicine | DX: R00.2 Palpitations (principal); I10 Essential (primary) hypertension | CPT/HCPCS: 99212 ==

== ENCOUNTER 2025-01-30 10:15 | Outpatient (AMB) | payer MEDICAID, SELFPAY ==
--- NOTE | 2025-01-30 10:22 | MHC.OFFVIS ---
Intake Visit Reasons: Inj-B/L knee injection-last 06/08/24 (Cortisone) Intake Note: Roz is a 59 year old female who presents today for an injection in her bilateral knee, last injection 06/08/24 (Cortisone). At last visit on 10/04/24 she had her 3rd Euflexxa injection. At today's visit she states that the last injection did give relief. The patient's knee pains have returned. She has had cortisone injections in the past which gave her temporary relief. She wishes to hold off on surgery if at all possible. Allergies morphine (Morphine) Allergy (Intermediate, Verified 12/02/24 10:43) HIVES Medication List - Last Reconciled 01/30/25 by Vipul Mcdowell MD albuterol sulfate 90 mcg/actuation 2 inhalations inhalation Q4-6H PRN cholecalciferol (vitamin D3) (Vitamin D3) 25 mcg PO DAILY clonazepam (Klonopin) 0.5 mg PO BID commode (bedside commode) commode with handels epinephrine (EpiPen) 0.3 mg (0.3 mL) IM Q4H PRN ibuprofen 800 mg PO Q8H PRN lidocaine 5% (Lidoderm) 1 patch topical DAILY PRN MDD remove after 12 hours lorazepam (Ativan) 0.5 mg PO TID PRN metoprolol succinate ER 100 mg PO DAILY miscellaneous medical supply As directed omeprazole 1 cap PO DAILY PRN walker Folding front wheeled walker PENDING SALE TO [employer] Medical History (Updated 01/15/25 @ 13:12 by Kodak Hernandez MD) Hematoma Colon cancer screening Morbid obesity GERD (gastroesophageal reflux disease) Lumbar radiculopathy, right Chronic back pain Depression Anxiety Hypertension Surgical History Hematoma History of total right hip replacement Hx of dilation and curettage History of hip surgery History of lumbar surgery History of colonoscopy History of tubal ligation Fusion of lumbar spine Family History Father Suicide Mother Heart disease Diabetes CVD (cardiovascular disease) Maternal Grandmother Heart disease Maternal Grandfather Diabetes Maternal Aunt Heart disease Maternal Uncle Heart disease Social History Household Members: Spouse Housing: Apartment Are you a primary critical care nurse to a significant other at home: No Do you presently have visiting nurse or other home services: No Alcohol intake: never Patient Tobacco Use Status: Former Tobacco user Tobacco use type: Cigarette Substance Use Type: Marijuana service: No Current occupational status: disabled Current occupation: right handed Female Reproductive History Menstrual Age of Menarche: 12 Date of menopause: 05/04/22 Physical Exam Const Other: Well-nourished well-developed very friendly female awake alert and oriented x3 in no acute distress Extrem Other: Bilateral knee examination shows minimal effusions, palpable crepitus with range of motion, pain with range of motion, no instability Office Procedures AMB Joint Injection/Aspiration Joint Injection/Aspiration Primary Site: left knee Prep: site was prepped using aseptic technique Injected: 40 mg of, DepoMedrol and 1% plain lidocaine Procedure: The patient tolerated the procedure well Coding 37086 - Large joint Procedure code (CPT) selection complete AMB Joint Injection/Aspiration Joint Injection/Aspiration Primary Site: right knee Prep: site was prepped using aseptic technique Injected: 40 mg of, DepoMedrol and 1% plain lidocaine Procedure: The patient tolerated the procedure well Coding 83906 - Large joint Procedure code (CPT) selection complete Results Reviewed Results Reviewed: X-rays of the patient's bilateral knees taken previously show joint space narrowing, subchondral sclerosis, no acute bony abnormalities Assessment & Plan Assessment & Plan (1) Osteoarthritis of left knee: Code(s): M17.12 - Unilateral primary osteoarthritis, left knee Category: Medical (2) Osteoarthritis of right knee: Code(s): M17.11 - Unilateral primary osteoarthritis, right knee Category: Medical Plan Ms. Mars presents with bilateral knee pains due to osteoarthritis. The risks and benefits of bilateral knee cortisone injections were discussed at length with the patient. The patient wished to proceed. She tolerated the injections well. If she does not get lasting relief from the cortisone injections I will see if her insurance company will cover a another series of Euflexxa viscosupplementation injections for both of her knees. I will see her back at that time. Feel free to call me at any time should questions regarding her orthopedic management arise. I spent 21 minutes in reviewing the patient's records and imaging studies, seeing the patient and documenting in the medical record. Orders: Orders AMB Joint Injection/Aspiration Today M17.12 - Unilateral primary osteoarthritis, left knee AMB Joint Injection/Aspiration Today M17.11 - Unilateral primary osteoarthritis, right knee Coding Level of Care Code Est Pt Level 3 (04863) Complex EM visit Add On G2211 Diagnoses Osteoarthritis of left knee M17.12 Osteoarthritis of right knee M17.11 CPT Codes Coding - 22711 Large joint: 39612 - Large joint ([id number]) Coding - 50529 Large joint: 79147 - Large joint ([id number])
--- OUTSIDE RECORDS SUMMARY | 2025-01-30 11:24 | XMS_ITS | Clinical Summary ---
Author Organization [employer] Address [address] [facility] [address] [place] [address] Care Team Providers Care Time Buyer Name Role Phone Unavailable Primary Care Provider [...] patient's age to complete this topic Insurance [facility] [phone]
--- OUTSIDE RECORDS SUMMARY | 2025-01-30 11:24 | XMS_ITS | Clinical Summary ---
Author Organization [facility] Address [address] [place] [address] Phone Care Team Providers Care Stock Feeder Name Role Phone Robe Montano MD Primary Care Provider [phone] Social History Tobacco Use Types Packs/Day Years [...] recommended in 1 year. Mammo Location: [facility], [facility], [address] [place] [id number] -------- FINAL REPORT -------- Dictated By: Murphy Echeverria Dictated Date: 10/03/2024 08:04 ET Assigned Physician: Murphy Echeverria Reviewed and Electronically Signed By: Murphy Echeverria Signed Date: 10/03/2024 08:08 ET Workstation ID: [id number] Transcribed By: Self Edit Transcribed Date: 10/03/2024 [...] and CC projection is performed in the [employer] 2000-D unit. Computer aided detection utilizing the [...] MLO and CC projection is performed in the[employer]he 2000-D unit. Computer aided detection utilizing the [...] recommended in 1 year. Mammo Location: [facility], [facility], [address] [place] [address] -------- FINAL REPORT -------- Dictated By: Murphy Echeverria Dictated Date: 10/03/2024 08:04 ET Assigned Physician: Murphy Echeverria Reviewed and Electronically Signed By: Murphy Echeverria Signed Date: 10/03/2024 08:08 ET Workstation ID: [id number] Transcribed By: Self Edit Transcribed Date: 10/03/2024 08:04 ET Robe Montano MD IMG BI PROCEDURES Final Result from Last 3 Months or Most Recently Relevant to Health Maintenance Insurance [employer] Care Teams Stock Feeder Relationship Specialty Start Date End Date Robe Montano MD [address] [place] [address] PCP - General Internal Medicine 09/18/24
== END 2025-01-30 10:53 | disposition home or self-care (01) ==
LOC: HO.HOS 10:16
PROVIDERS: PCP Internal Medicine; Visit Provider Orthopaedic Surgery
DX: M17.0 Bilateral primary osteoarthritis of knee (principal)
CPT/HCPCS: 20610; 99213

== ENCOUNTER → 2025-01-30 10:15 | Outpatient (BNVA) | payer MEDICAID, SELFPAY | PROVIDERS: PCP Internal Medicine; Visit Provider Orthopaedic Surgery | DX: M17.0 Bilateral primary osteoarthritis of knee (principal) | CPT/HCPCS: 20610; 99212; J1010; J2003 ==

== ENCOUNTER 2025-03-20 07:27 | Emergency (ER) | payer OTHER, SELFPAY ==
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
[2025-03-20 07:34] VITALS: BP 179/96; PULSE 68; RESP 18; TEMP 36.6; O2SAT 98; BMI 31.4
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
[2025-03-20 08:02] VITALS: BP 144/78; PULSE 61; O2SAT 99
[2025-03-20 09:24] VITALS: BP 144/78; PULSE 61; RESP 17; TEMP -17.7; TEMP 0; O2SAT 99
== END 2025-03-20 09:25 | disposition home or self-care (01) ==
PROVIDERS: Emergency Provider Emergency Medicine; PCP Internal Medicine
DX: S46.911A Strain of unspecified muscle, fascia and tendon at shoulder and upper arm level, right arm, initial encounter (principal); S16.1XXA Strain of muscle, fascia and tendon at neck level, initial encounter; I10 Essential (primary) hypertension; V89.2XXA Person injured in unspecified motor-vehicle accident, traffic, initial encounter; Y93.9 Activity, unspecified; Y92.410 Unspecified street and highway as the place of occurrence of the external cause; Y99.9 Unspecified external cause status
CPT/HCPCS: 72125; 73030; 99284

== ENCOUNTER → 2025-03-20 07:56 | Outpatient (BNV) | payer OTHER, SELFPAY | PROVIDERS: Emergency Provider Emergency Medicine; PCP Internal Medicine; Visit Provider Radiology Diagnostic Radiology | DX: M25.511 Pain in right shoulder (principal); M19.011 Primary osteoarthritis, right shoulder; M54.2 Cervicalgia; M43.22 Fusion of spine, cervical region; V89.2XXA Person injured in unspecified motor-vehicle accident, traffic, initial encounter | CPT/HCPCS: 72125; 73030 ==

== ENCOUNTER 2025-03-27 10:09 | Emergency (ER) | payer OTHER, SELFPAY ==
[2025-03-27 10:12] VITALS: BP 130/69; PULSE 76; RESP 18; TEMP 36.1; O2SAT 99; BMI 30.9
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
[2025-03-27] MEDS: Lidocaine 4 % Patch ADH..PATCH 1 PATCH TRANSDERMA (10:59)
[2025-03-27 11:00] VITALS: BP 130/69; PULSE 76; RESP 18; TEMP 36.1; O2SAT 99
--- OUTSIDE RECORDS SUMMARY | 2025-03-27 13:05 | XMS_ITS | Clinical Summary ---
Author Organization [employer] Address [address] [place] [address] Care Team Providers Care Data Center Manager Name Role Phone Unavailable Primary Care Provider [...] 1988 Cervical Cancer Screening 1997 HPV/Cotest 1997 Pneumococcal Vaccine: 50+ Years (1 of 1 - PCV) 2017 COVID-19 Vaccine (6 - season) 2025 02/09/2023, 09/09/2021, 03/16/2021, Additional history exists Influenza Vaccine (#1) 2025 , 02/09/2023, 01/24/2022, Additional history exists Mammogram 10/03/2026 10/03/2024, 10/03/2024 DTaP/Tdap/Td Vaccines (6 - Td or Tdap) [...] patient's age to complete this topic Insurance [facility] [place] [id number]
--- OUTSIDE RECORDS SUMMARY | 2025-03-27 13:06 | XMS_ITS | Clinical Summary ---
Author Organization [facility] Address [address] [place] [address] Phone Care Team Providers Care Spike Machine Feeder Name Role Phone Robe Montano MD Primary Care Provider [phone] Social History Tobacco Use Types Packs/Day Years [...] Health Maintenance Due Date Last Done Comments Colorectal Cancer Screening: Colonoscopy 1967 Hepatitis B Vaccines (1 of 3 - 19+ 3-dose series) 1986 Cervical Cancer Screening: Pap Smear 1988 Pneumococcal Vaccine: 50+ Years (1 of 1 - PCV) 2017 HIV Screening 04/15/2022 Hepatitis C Screening 04/15/2022 Social Influencers of Health Screening 04/15/2022 Depression Screening 05/03/2024 COVID-19 Vaccine ( season) 2025 02/15/2024, 02/09/2023, 02/17/2022, Additional history exists Influenza Vaccine (#1) 2025 4, 02/09/2023, 01/24/2022, Additional history exists Breast Cancer Screening 10/03/2026 10/04/19 25, 12/24/2021, 09/25/2020, Additional history exists DTaP,Tdap,and Td Vaccines (7 - Td or Tdap) 09/02/2033 09/03/2023, 09/03/2023, 10/27/2022, Additional history exists RSV Immunization Adult Patients (1 - 1-dose 75+ series) 2042 Zoster [...] is recommended in 1 year. Mammo Location: [facility], [address] [place] [id number] -------- FINAL REPORT -------- Dictated By: Murphy Echeverria Dictated Date: 10/03/2024 08:04 ET Assigned Physician: Murphy Echeverria Reviewed and Electronically Signed By: Murphy Echeverria Signed Date: 10/03/2024 08:08 ET Workstation ID: [id number] Transcribed By: Self Edit Transcribed Date: 10/03/2024 [...] and CC projection is performed in the [employer] 2000-D unit. Computer aided detection utilizing the [...] MLO and CC projection is performed in the[employer] 2000-D unit. Computer aided detection utilizing the [...] is recommended in 1 year. Mammo Location: [facility], [address] [place] [id number] -------- FINAL REPORT -------- Dictated By: Murphy Echeverria Dictated Date: 10/03/2024 08:04 ET Assigned Physician: Murphy Echeverria Reviewed and Electronically Signed By: Murphy Echeverria Signed Date: 10/03/2024 08:08 ET Workstation ID: [id number] Transcribed By: Self Edit Transcribed Date: 10/03/2024 08:04 ET Robe Montano MD IMG BI PROCEDURES Final Result from Last 3 Months or Most Recently Relevant to Health Maintenance [place] [address] [place] [address] Care Teams Spike Machine Feeder Relationship Specialty Start Date End Date Robe Montano MD [address] [place] [id number] PCP - General Internal Medicine 09/18/24
== END 2025-03-27 11:01 | disposition home or self-care (01) ==
PROVIDERS: Emergency Provider Emergency Medicine; PCP Internal Medicine
DX: M25.511 Pain in right shoulder (principal); I10 Essential (primary) hypertension; G89.21 Chronic pain due to trauma
CPT/HCPCS: 99282; 99283

== ENCOUNTER 2025-03-28 08:19 | Emergency (ER) | payer OTHER, SELFPAY ==
[2025-03-28 08:23] VITALS: BP 140/73; PULSE 80; O2SAT 97
[2025-03-28 08:25] VITALS: BP 169/79; PULSE 82; RESP 18; TEMP 36.4; O2SAT 99; BMI 33.0
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
--- OUTSIDE RECORDS SUMMARY | 2025-03-28 09:04 | XMS_ITS | Clinical Summary ---
Author Organization [employer] Address [address] [facility] [address] [place] [address] Care Team Providers Care Clock Repairer Name Role Phone Unavailable Primary Care Provider [...] patient's age to complete this topic Insurance [facility] [place] [id number]
--- OUTSIDE RECORDS SUMMARY | 2025-03-28 09:04 | XMS_ITS | Clinical Summary ---
Author Organization [facility] Address [address] [place] [address] Phone Care Team Providers Care Zinc Miner Blasting Name Role Phone Robe Montano MD Primary Care Provider Social History Tobacco Use Types Packs/Day Years [...] is recommended in 1 year. Mammo Location: [facility], [facility], [address] [place] [id number] -------- FINAL REPORT -------- Dictated By: Murphy Echeverria Dictated Date: 10/03/2024 08:04 ET Assigned Physician: Murphy Echeverria Reviewed and Electronically Signed By: Murphy Echeverria Signed Date: 10/03/2024 08:08 ET Workstation ID: [id number] Transcribed By: Self Edit Transcribed Date: 10/03/2024 [...] and CC projection is performed in the [email or web address] 2000-D unit. Computer aided detection utilizing the [...] MLO and CC projection is performed in [email or web address] 2000-D unit. Computer aided detection utilizing the [...] is recommended in 1 year. Mammo Location: [facility], [address] [place] [id number] -------- FINAL REPORT -------- Dictated By: Murphy Echeverria Dictated Date: 10/03/2024 08:04 ET Assigned Physician: Murphy Echeverria Reviewed and Electronically Signed By: Murphy Echeverria Signed Date: 10/03/2024 08:08 ET Workstation ID: [id number] Transcribed By: Self Edit Transcribed Date: 10/03/2024 08:04 ET Robe Montano MD IMG BI PROCEDURES Final Result from Last 3 Months or Most Recently Relevant to Health Maintenance Insurance [place] [address] Care Teams Zinc Miner Blasting Relationship Specialty Start Date End Date Robe Montano MD [address] [place] [id number] PCP - General Internal Medicine 09/18/24
[2025-03-28 09:16] VITALS: BP 169/79; PULSE 82; RESP 18; TEMP 36.4; O2SAT 99
== END 2025-03-28 09:16 | disposition home or self-care (01) ==
PROVIDERS: Emergency Provider Emergency Medicine; PCP Internal Medicine
DX: M25.511 Pain in right shoulder (principal); I10 Essential (primary) hypertension; Z88.6 Allergy status to analgesic agent
CPT/HCPCS: 96372; 99283; 99284; J1885; J8540